=== PATIENT | female | born 1975 | race Caucasian/White ===

== ENCOUNTER 2019-06-19 18:52 | Inpatient (IN) ==
--- NOTE | 2019-06-19 20:38 | PROVIDER DOCUMENTATION ---
HPI-General Adult - General Chief Complaint: Weakness Stated Complaint: Weakness Time Seen by Provider: 06/19/19 18:53 Source: RN notes reviewed, other (caregiver from residential) Allergies/Adverse Reactions: Patient Allergies Allergy/AdvReac Type Severity Reaction Status Date / Time doxepin Allergy Unknown Verified 05/16/19 12:26 morphine Allergy Unknown Verified 05/16/19 12:26 Home Medications: Home Medication List Medication Instructions Recorded Confirmed Last Taken Type Clonazepam 1 mg PO TID 10/24/14 05/16/19 05/15/19 History Divalproex Sodium [Divalproex 500 mg PO TID 10/24/14 05/16/19 05/15/19 History Sodium ER] Docusate Sodium [Dok] 100 mg PO BID 10/24/14 05/16/19 05/15/19 History Paroxetine HCl 1 tab PO BID 10/24/14 05/16/19 05/15/19 History Simethicone [Gas Relief] 125 mg PO 4XDAY 10/24/14 05/16/19 05/15/19 History Omeprazole 40 mg PO DAILY@0700 01/21/15 05/16/19 05/15/19 History Ferrous Sulfate [Iron Supplement] 325 mg PO BID 03/02/15 05/16/19 05/15/19 History Buspirone HCl 10 mg PO TID 12/13/17 05/16/19 05/15/19 History Levothyroxine [Synthroid] 50 microgm PO DAILY@0600 12/13/17 05/16/19 05/15/19 History Megestrol Acetate [Megace Liquid] 800 mg PO DAILY@0700 12/13/17 05/16/19 05/15/19 History Mirtazapine [Remeron] 7.5 mg PO QHS 12/13/17 05/16/19 05/15/19 History Naltrexone [Revia] 50 mg PO DAILY 12/13/17 05/16/19 05/15/19 History Olanzapine Rapdis [Zyprexa Zydis] 10 mg PO BID PRN PRN 12/13/17 05/16/19 05/15/19 History Polyethylene Glycol 3350 [Miralax] 1 dose PO DAILY 12/13/17 05/16/19 05/15/19 History Quetiapine Fumarate [Seroquel] 50 mg PO DAILY 12/13/17 05/16/19 05/15/19 History Quetiapine Fumarate [Seroquel] 200 mg PO QHS 12/13/17 05/16/19 05/15/19 History Hydrocortisone 2.5% Cream 1 applicatn SC BID 09/01/18 05/16/19 05/15/19 History [Anusol-Hc Cream] Doxycycline 100 mg PO BID #14 tab 05/20/19 Unknown Rx Phenylephrine/Acetaminophen/Cp 1 ea PO Q6H PRN #25 tab 05/20/19 Unknown Rx [Norel Ad Tablet] - History of Present Illness -Gen Adult Nature of Presenting Problems: pt. caregiver reports pt had syncopal/near syncopal episode today w/ 30 minute episode of generalized weakness. pt is at baseline MR now, pt has HX of holding breath until she passes out and swallowing air, pt has very distended abdomen at this time. pt caregivers report that her abdomen use to return to normal at night but has continued to be distended for past few weeks. pt does not respond to questions. Location of Pain/Injury: reports: other (unknown, pt does not repond to questions or commands) Similar Symptoms Previously?: Yes (pt has episode of passing out while holding breath) Recently seen or treated by another doctor?: No Review of Systems - Adult - REVIEW OF SYSTEMS - ADULT ROS:: unobtainable per condition Constitutional: reports: no symptoms reported Eyes: reports: no symptoms reported All Other Systems: Reviewed and Negative Past History - Adult - PAST MEDICAL HISTORY-ADULT Review of Records: reports: Old Records Reviewed, Nursing Assessment Review, Medications Reviewed Major Childhood Illnesses: reports: denies history Cardiovascular: reports: denies history Respiratory: reports: denies history Gastrointestinal: reports: GERD, ulcer (helico bacter pylori), other (prolaspe rectum) Obstetrical/Gynecological: reports: denies history Genitourinary: reports: denies history Musculoskeletal: reports: denies history Neurological: reports: cognitive dysfunction (Profound Intellectual Disabiltiy, Mild Myopia), Seizures/Epilepsy, other (cerebal palsy) Psychiatric: reports: anxiety, depression, psychiatric problems Endocrine/Immune: reports: denies history Other Conditions: reports: deaf/hard of hearing, eczema - PRIOR SURGERIES/PROCEDURES Surgical/Procedure History: reports: hysterectomy, bowel surgery (colon resection), other (prolapsed colon; rectal prolapse; gall stones; lithrotripsy) - IMMUNIZATION STATUS Childhood Immunizations: See Nurse Assessment Flu Vaccine: See Nurse Assessment - FAMILY HISTORY Family History: reviewed, not pertinent - SOCIAL HISTORY Smoking: non-smoker Physical Exam-General - PHYSICAL EXAM-ADULT Initial Vital Signs Reviewed: Yes (unable to obtain all VS due to patient resistance to care and aggitation) - CONSTITUTIONAL General Appearance: other (appears at [facility] now per caregiver) - EYES Eyes: PERRL/EOMI, pink conjunctivae - HEAD, EARS, NOSE, MOUTH & THROAT HENMT: normocephalic/atraumatic, moist mucous membranes, pharyngeal erythema, other (pt wearing helmet for self protection) - NECK Neck: non-tender, full range of motion - RESPIRATORY Respiratory: chest non-tender, lungs clear, normal breath sounds, no pleuratic chest pain, no respiratory distress, no accessory muscle use - CARDIOVASCULAR Cardiovascular: normal peripheral pulses, regular rate, rhythm, no edema, no gallop - GASTROINTESTINAL (ABDOMEN) Abdominal Exam: normal bowel sounds, distended (chronic abdomial distension form swallowing air) - LYMPHATIC Lymphatic: no adenopathy - MUSCULOSKELETAL Back Exam: normal inspection Extremity: normal range of motion, normal capillary refill, pelvis stable. negative: pulse deficit, pedal edema, slow capillary refill, swelling Peripheral Pulses: radial (R): 3+, radial (L): 3+, dorsalis-pedis (R): 2+, dorsalis-pedis (L): 2+ - SKIN Integumentary: normal color, normal turgor, warm/dry - NEUROLOGIC Neurologic: other. negative: facial droop, focal weakness, motor weakness (pt at [facility] mentation and affect per caregiver) - PSYCHIATRIC Psych/Mental Status: other (pt at [facility] per caregiver) Progress - PLAN OF CARE/RESULTS Progress/Plan/Lab Results: Vital Signs - 8 hr 06/19/19 18:55 06/19/19 19:09 06/19/19 20:02 Pulse Rate 93 H 122 H Respiratory Rate 19 Blood Pressure 158/110 O2 Sat by Pulse Oximetry 97 100 Laboratory Results - last 24 hr 06/19/19 20:20 POC Glucose 149 H Orders Category Date Time Status ED: Urine Bedside ORDERED Care 06/19/19 18:53 Active KUB ABDOMEN [RAD] Stat Exams 08/16/19 20:29 Ordered CBC WITH ELECTRONIC DIFF [HEME] Stat Lab 06/19/19 20:25 Ordered COMPREHENSIVE METABOLIC PANEL [CHEM] Stat Lab 06/19/19 20:25 Ordered TROPONIN T Stat Lab 06/19/19 20:28 Ordered ua [URINALYSIS PL W/POSS RFLX CULT] [URINALYSIS] Stat Lab 06/19/19 18:52 Uncollected EKG [EKG] Stat Ther 06/19/19 20:29 Ordered Result Diagrams: 06/19/19 20:25 06/19/19 20:25 - REASSESSMENT Reassessment #1 Time Reassessed: 01:00 Status: unchanged - XRAY 1 XRAY Study: Abdomen Impression: Abnormal XRAY Interpretation: constipation, fecal impaction - CT/MRI 1 CT Study: Abdomen Impression: Abnormal Comparison with other Films: no changes CT Results: scattered air levels, distension, no bowel obstruction, similar to past CT - CONSULTS/PCP/HOSPITALIST Notification #1 *Consult/PCP/Hospitalist*: [place] Time Discussed: 01:53 Reason/Comments: leukocytosis, fever, tachycardia, syncopal episode Consult Disposition: Admit Departure - Departure Date of Disposition Decision: 06/19/19 Time of Disposition Decision: 01:54 DIAGNOSIS: Syncope, Constipation, Leukocytosis, Fever, Tachycardia Disposition: ADMITTED INPATIENT 09 Certified Medical Emergency: Emergent Condition: Stable Referrals and Follow-Ups: Miya Pineda CRNP [Primary Care Provider] - - Critical Care Note This patient required my direct & personal management of CC.: No Attestation - Physician/ MOHINI Attestation Patient care was provided by Advanced Practice Provider:: Yes Advanced Practice Provider:: [place] Advanced Practice Provider documentation review:: The Mid-level provider documentation, treatment plan and medical decision making was reviewed by the physician who agrees with all treatment and medical decision making by the P. The physician spent face to face time with patient:: No Advanced Practice Provider documentation review:: Supervising physician onsite and consulted in the evaluation and care of this patient. The physician did not have a face to face encounter with the patient.
[2019-06-19 20:42] LABS: BASO# 0.07 X1000 (0.0-0.2); BASO% 0.4 % (0.0-0.8); EOS# 0.02 X1000 (0.0-0.7); EOS% 0.1 % (0.0-10.0); HEMATOCRIT 39.9 % (37.0-47.0); HEMOGLOBIN 13.2 g/dL (12.0-16.0); IMM GRAN# 0.55 X1000 (0.0-0.04); IMM GRAN% 3.4 % (0.0-0.5); MCH 33.1 PG (27-31); MCHC 33.1 g/dL (33-37); MONO# 1.14 X1000 (0.11-0.59); MPV 10.5 FL (7.4-10.4); NEUT# 11.41 X1000 (1.4-6.5); NEUT% 70.1 % (42.2-75.2); PLT 218 X1000 (130-400); RBC 3.99 XMIL (4.2-5.4); RDW 13.4 % (11.5-14.5); WBC 16.29 X1000 (4.8-10.8)
[2019-06-19 20:54] LABS: ALBUMIN 3.8 g/dL (3.5-5.0); CALCIUM 9.1 mg/dL (8.8-10.2); POTASSIUM 4.6 mmol/L (3.5-5.1); TOTAL BILIRUBIN 0.2 mg/dL (0.20-1.00); TOTAL PROTEIN 6.4 g/dL (6.3-8.3)
[2019-06-19 21:04] LABS: BILIRUBIN URINE NEGATIVE (NEGATIVE); BLOOD URINE NEGATIVE (NEGATIVE); CLARITY CLEAR (CLEAR); COLOR YELLOW; GLUCOSE URINE NEGATIVE (NEGATIVE); KETONE URINE TRACE mg/dL (NEGATIVE); LEUKOCYTES URINE TRACE (NEGATIVE); NITRITE URINE NEGATIVE (NEGATIVE); PH URINE 6.5; PROTEIN URINE TRACE mg/dL (NEGATIVE); SP GRAVITY URINE 1.015; UROBILINOGEN URINE NORMAL
[2019-06-19 21:15] LABS: URINE BACTERIA 1+ /HFP; URINE CAST NONE SEEN /LPF; URINE CRYSTAL NONE SEEN /HPF; URINE EPITHELIAL CELLS >10 /HPF (<10); URINE RBC <10 /HPF (<10); URINE SOURCE CATH; URINE WBC <10 /HPF (<10); URINE YEAST NONE SEEN /HPF
--- NOTE | 2019-06-19 22:02 | Diag Imaging Result Doc PS360 ---
KEN ABDOMEN - 06/19/2019 INDICATION: constipation c flank pain x 4 days COMPARISON: 05/19/2019 FINDINGS: There is extremely severe fecal impaction of the proximal colon and the rectum. IMPRESSION: Extremely severe fecal impaction. Electronically signed by Rex Day 06/19/2019 10:00 PM
[2019-06-20] MEDS ORDERED: NS 1,000 ML IV ONE ×2 (01:45)
[2019-06-20] MEDS ORDERED: TYLENOL PO PRN (01:45)
[2019-06-20] MEDS ORDERED: ZOFRAN IV PRN (01:45)
[2019-06-20] MEDS ORDERED: ZOSYN 3.375 GM in NS 50 ML IV ONE (01:49)
--- NOTE | 2019-06-20 04:18 | EKG Report ---
Test Performed on : 06/20/2019 01:21:11 AM Test Reason : CP Blood Pressure : / mmHG Vent. Rate : 095 BPM Atrial Rate : 095 BPM P-R Int : 116 ms QRS Dur : 068 ms QT Int : 378 ms P-R-T Axes : 061 071 038 degrees QTc Int : 475 ms Normal sinus rhythm. Normal ECG When compared with ECG of 01-SEP-2018 10:50, No significant change was found Unconfirmed Result
[2019-06-20] MEDS ORDERED: VANCOMYCIN IV PER PHARMACY MISC SCH (04:24)
[2019-06-20] MEDS ORDERED: CALMOSEPTINE OINTMENT TOP PRN (04:49)
[2019-06-20] MEDS ORDERED: VANCOMYCIN 1 GM/NS 1 GM/250 ML IVPB IV ONE (06:15)
--- NOTE | 2019-06-20 06:38 | Diag Imaging Result Doc PS360 ---
EXAM: CHEST-PORTABLE HISTORY: elevated HR/and wbc/possible PNA TECHNIQUE: Portable chest single view COMPARISON: 05/19/2019 FINDINGS: Poor inspiratory effort. No cardiomegaly. No pulmonary edema. No pleural effusions identified. Left hemidiaphragm is elevated. Left base granuloma. Possible scarring in the lower lungs. IMPRESSION: Stable chest. Electronically signed by Romel Marsh 06/20/2019 6:36 AM
--- NOTE | 2019-06-20 07:08 | Diag Imaging Result Doc PS360 ---
EXAM: CT ABDOMEN/PELVIS W/O CONTRAST HISTORY: lower abdominal pain/tenderness TECHNIQUE: CT abdomen and pelvis without contrast COMPARISON: 08/29/2017 FINDINGS: There is a large amount of motion on the exam. No focal hepatic, splenic, or pancreatic abnormality identified on this noncontrasted exam. No renal stones. No hydronephrosis. Normal aorta. Normal gallbladder. No ascites. Urinary bladder is moderately distended and appears normal. There is prominent air distended loops of small bowel and colon. There is stool in the proximal colon and distal colon. The appearance of the air distended loops of bowel is similar to the prior exam. No free air. IMPRESSION: Marked air distended small bowel loops and colon similar to the prior study. No definite obstruction. A pulmonary report was given at 11:48 PM on 06/19/2019 This exam was performed using automated exposure control, adjustment of mA or kV according to patient size, and/or use of iterative reconstruction technique. Electronically signed by Romel Marsh 06/20/2019 7:06 AM
[2019-06-20] MEDS ORDERED: VANCOMYCIN 500 MG/NS 500 MG/100 ML IVPB IV ONE (07:15)
[2019-06-20] MEDS ORDERED: ZOSYN 3.375 GM in NS 50 ML IV SCH (08:30)
[2019-06-20] MEDS ORDERED: ATIVAN PO PRN (08:56)
[2019-06-20] MEDS ORDERED: ZYPREXA ZYDIS PO PRN (08:56)
[2019-06-20] MEDS ORDERED: FLEET ENEMA PR ONE (09:02)
--- NOTE | 2019-06-20 09:28 | HISTORY AND PHYSICAL ---
PRIMARY CARE PHYSICIAN: Miya Pineda. CHIEF COMPLAINT: A near syncopal episode with generalized weakness after having a bowel movement. HISTORY OF PRESENTING ILLNESS: This is a 44-year-old female with severe intellectual disabilities, who resides at a long term, presents to [facility] ER after staff reported that she had a large soft. Almost runny bowel movement requiring her to get a shower in order to be cleaned up and, during the shower she became weak, almost passed out, and this happened about 30 minutes prior to coming in. She has a history of holding her breath until she passes out and swallowing air. Her abdomen is noted to be very distended, but has continued to have worsening distention. Her workup showed a white blood cell count of 16.29. Abdomen and pelvic CT showed an impression of marked air distended small bowel loops in colon similar to her prior study, but no definite obstruction. Her abdomen x-ray showed an extremely severe fecal impaction. Her chest x-ray was stable chest, so she was admitted for further evaluation and treatment. PAST MEDICAL HISTORY: Severe intellectual impairment, chronic reflux, history of a rectal prolapse, mild myopia, cerebral palsy, depression, eczema. PAST SURGICAL HISTORY: A hysterectomy, colon resection, prolapsed colon, and had gallstones and lithotripsy. FAMILY HISTORY: Reviewed and noncontributory. SOCIAL HISTORY: She currently resides at a local long term. Denies any tobacco, alcohol or illicit drug use. ALLERGIES: To doxepin and morphine. HOME MEDICATIONS: She takes buspirone 10 mg p.o. t.i.d., clonazepam 1 mg p.o. t.i.d., divalproex sodium 500 mg p.o. t.i.d., Colace 100 mg p.o. b.i.d., iron 325 mg p.o. b.i.d., Anusol HC cream 1 applicator per rectum t.i.d., hydroxyzine 25 mg p.o. b.i.d., Synthroid 50 mcg p.o. daily, lorazepam 1 mg p.o. b.i.d. p.r.n., Megace liquid 800 mg p.o. daily, mirtazapine 7.5 mg p.o. at bedtime, naltrexone 50 mg p.o. daily, Zyprexa 10 mg p.o. b.i.d. p.r.n., omeprazole 40 mg p.o. daily, paroxetine 30 mg p.o. b.i.d., MiraLAX 1 dose daily at 7 a.m., potassium 10 mEq p.o. daily, Seroquel 50 mg p.o. daily at 1 p.m. and Seroquel 200 mg p.o. at 7 p.m., Risperdal 1 mg daily at 7 p.m. and simethicone 125 mg p.o. 4 times daily. LABORATORY DATA: Showed a white blood cell count of 16.29, hemoglobin 13.2, hematocrit 39.9, platelets 218. Sodium 143, potassium 4.6, chloride 104, CO2 23. BUN of 24, creatinine 1, glucose 145. Plasma lactate of 1.7. Cardiac enzymes x2 sets were negative. Urinalysis was negative. DIAGNOSTIC DATA: Abdomen x-ray showed extremely severe fecal impaction. Abdomen and pelvic CT showed marked air distended small bowel loops and colon similar to her prior study from 08/29/2017, but no definite obstruction. Chest x-ray showed a stable chest. EKG showed normal sinus rhythm at 95. REVIEW OF SYSTEMS: Unable to obtain from patient. PHYSICAL EXAMINATION: VITAL SIGNS: Heart rate 93, respirations 19, blood pressure was 158/110, satting 97% on room air. Currently, her blood pressure is 103/67 satting 98% on room air. GENERAL: This is a 44-year-old female lying in the bed and is nonverbal and unable to answer questions. A long term staff member is at the bedside to give some history and also reviewed medical record. HENT: Normocephalic, atraumatic. Normal ENT inspection. Oropharynx and nares are clear. EYES: Pupils are equal, round, reactive to light and accommodation. Extraocular movements are intact. NECK: Normal inspection. Normal range of motion. LUNGS: Clear to auscultation bilaterally with equal lung expansion and chest wall movement. HEART: Regular rate and rhythm. No murmurs, rubs, or gallops. ABDOMEN: Distended. She does have chronic abdominal distention from swallowing air. Bowel sounds are present x4 quadrants. MUSCULOSKELETAL: Normal inspection. Moves all extremities well. NEUROLOGICAL: At baseline mentation and affect per the caregiver. Again, she has severe intellectual impairment and unable to participate in the complete neuro workup, but appears to be grossly intact. ASSESSMENT: 1. Severe fecal impaction. 2. Leukocytosis, most likely reactive. 3. A presyncope episode, resolved. PLAN: She was admitted, placed on a pureed diet. Urine culture is pending. Normal saline at 100 mL an hour. We are going to give her a Fleets enema today and, if she has a good bowel movement, we will check another abdomen x-ray, and recheck labs in the a.m. of a CBC and a BMP. Dictated by ROGER Laboy for Denys Pinedo MD cc: ROGER Laboy MD
[2019-06-20] MEDS: KLONOPIN PO SCH ×3 (11:14→18:26)
[2019-06-20] MEDS: ATARAX PO SCH ×2 (11:14→18:26)
[2019-06-20] MEDS: COLACE PO SCH ×2 (11:14→18:27)
[2019-06-20] MEDS: PAXIL PO SCH ×2 (11:14→18:27)
[2019-06-20] MEDS: MYLICON PO SCH ×4 (11:14→18:27)
[2019-06-20] MEDS: FERROUS SULFATE PO SCH ×2 (11:14→17:53)
[2019-06-20] MEDS: DEPAKOTE ER PO SCH ×3 (11:15→18:27)
[2019-06-20] MEDS: ANUSOL-HC CREAM PR SCH ×3 (11:15→21:25)
[2019-06-20] MEDS: BUSPAR PO SCH ×3 (11:16→18:26)
[2019-06-20] MEDS ORDERED: B & O 15A SUPP PR PRN (11:20)
[2019-06-20] MEDS ORDERED: DULCOLAX PR ONE (14:16)
[2019-06-20] MEDS: SEROQUEL PO SCH ×2 (15:33→18:27)
[2019-06-20] MEDS: RISPERDAL PO SCH (18:27)
[2019-06-20] MEDS: REMERON PO SCH (21:25)
[2019-06-21] MEDS: SYNTHROID PO SCH (05:36)
[2019-06-21] MEDS: VANCOMYCIN 1 GM/NS 1 GM/250 ML IVPB IV SCH (05:36)
[2019-06-21 05:58] LABS: BASO# 0.07 X1000 (0.0-0.2); BASO% 0.9 % (0.0-0.8); EOS# 0.18 X1000 (0.0-0.7); EOS% 2.2 % (0.0-10.0); HEMATOCRIT 37.9 % (37.0-47.0); HEMOGLOBIN 12.3 g/dL (12.0-16.0); IMM GRAN# 0.24 X1000 (0.0-0.04); IMM GRAN% 2.9 % (0.0-0.5); LYMPH# 2.64 X1000 (1.2-3.4); LYMPH% 32.4 % (20.5-51.1); MCH 33.2 PG (27-31); MCHC 32.5 g/dL (33-37); MCV 102.2 FL (81-99); MONO% 8.6 % (1.7-9.3); MPV 10.5 FL (7.4-10.4); NEUT# 4.32 X1000 (1.4-6.5); PLT 223 X1000 (130-400); RBC 3.71 XMIL (4.2-5.4); RDW 13.9 % (11.5-14.5); WBC 8.15 X1000 (4.8-10.8)
[2019-06-21] MEDS: BUSPAR PO SCH ×3 (06:10→18:11)
[2019-06-21] MEDS: ATARAX PO SCH ×2 (06:10→18:11)
[2019-06-21] MEDS: REVIA PO SCH (06:10)
[2019-06-21] MEDS: ANUSOL-HC CREAM PR SCH ×3 (06:10→20:41)
[2019-06-21] MEDS: KLONOPIN PO SCH ×3 (06:11→18:11)
[2019-06-21] MEDS: DEPAKOTE ER PO SCH ×3 (06:11→20:41)
[2019-06-21] MEDS: KLOR-CON PO SCH (06:11)
[2019-06-21] MEDS: COLACE PO SCH ×2 (06:11→18:12)
[2019-06-21] MEDS: MYLICON PO SCH ×4 (06:11→20:41)
[2019-06-21] MEDS: MEGACE LIQUID PO SCH (06:11)
[2019-06-21] MEDS: MIRALAX PO SCH (06:11)
[2019-06-21] MEDS: PRILOSEC PO SCH (06:11)
[2019-06-21] MEDS: PAXIL PO SCH ×2 (06:12→18:11)
[2019-06-21 06:31] LABS: AGAP 9; BUN 7 mg/dL (8-22); CALCIUM 8.5 mg/dL (8.8-10.2); CHLORIDE 104 mmol/L (98-107); COSMO 278; CREATININE 0.6 mg/dL (0.5-0.9); ESTIMATED GFR > 60; GLUCOSE 107 mg/dL (70-104); POTASSIUM 3.8 mmol/L (3.5-5.1); SODIUM 140 mmol/L (136-145); TCO2 27 mmol/L (25-35)
[2019-06-21] MEDS: FERROUS SULFATE PO SCH ×2 (09:39→17:18)
[2019-06-21] MEDS: SEROQUEL PO SCH ×2 (13:28→18:11)
--- NOTE | 2019-06-21 15:32 | Diag Imaging Result Doc PS360 ---
KUB ABDOMEN - 06/21/2019 INDICATION: constipation COMPARISON: 06/19/2019 FINDINGS: There is extremely severe diffuse gaseous distention of the colon. There are probably also distended small bowel loops. There is fecal impaction of the proximal colon stable from prior. No definite free air. IMPRESSION: Severely abnormal. Little change from prior. Electronically signed by Rex Day 06/21/2019 3:30 PM
--- NOTE | 2019-06-21 15:48 | PROGRESS NOTE ---
DATE: 06/21/2019 SUBJECTIVE: The patient is nonverbal. The sitter notes that her abdomen is still distended. She did have a bowel movement last night. OBJECTIVE: Vital signs: Temperature 98.4, pulse 77, respiratory rate 18, BP 118/80. General: Patient is in no current respiratory distress. She is nontoxic in appearance. HEENT: Normocephalic. Neck: Supple. Cardiovascular: Regular rate. Chest: Clear, nonlabored. Abdomen: Distended. Appears nontender. Positive bowel sounds. No fluid wave. Extremities: Moves all extremities. No edema. Neurologic: No focal changes. ASSESSMENT AND PLAN: 1. Severe intellectual impairment. The patient is nonverbal. 2. Fecal impaction. I am going to repeated a KUB and see if this is resolved. She did have a large bowel movement yesterday. 3. Abdominal distention. Unsure how much this will actually improve. Patient unfortunately frequently gasps and gulps air causing her abdomen to distend. 4. Leukocytosis. We will recheck labs. cc: Denys Pinedo MD
[2019-06-21] MEDS ORDERED: FLEET ENEMA PR ONE (17:32)
[2019-06-21] MEDS: RISPERDAL PO SCH (18:12)
[2019-06-21] MEDS: REMERON PO SCH (20:41)
[2019-06-22] MEDS: VANCOMYCIN 1 GM/NS 1 GM/250 ML IVPB IV SCH (05:13)
[2019-06-22] MEDS: ANUSOL-HC CREAM PR SCH ×2 (06:48→18:03)
[2019-06-22] MEDS: REVIA PO SCH (06:49)
[2019-06-22] MEDS: PAXIL PO SCH ×2 (06:49→18:04)
[2019-06-22] MEDS: MIRALAX PO SCH ×2 (06:49→22:49)
[2019-06-22] MEDS: MEGACE LIQUID PO SCH (06:49)
[2019-06-22] MEDS: COLACE PO SCH ×2 (06:50→18:05)
[2019-06-22] MEDS: KLOR-CON PO SCH (06:50)
[2019-06-22] MEDS: BUSPAR PO SCH ×3 (06:50→18:05)
[2019-06-22] MEDS: KLONOPIN PO SCH ×3 (06:50→18:06)
[2019-06-22] MEDS: ATARAX PO SCH ×2 (06:50→18:05)
[2019-06-22] MEDS: SYNTHROID PO SCH (06:50)
[2019-06-22] MEDS: PRILOSEC PO SCH (06:50)
--- NOTE | 2019-06-22 08:56 | HISTORY AND PHYSICAL ---
Patient seen and examined by myself. Full note dictated and discussed with nurse practitioner. The patient apparently had a near syncopal episode at home with approximately 30 minutes of weakness. This appeared to occur after she had an explosive bowel movement. She unfortunately has a distended abdomen which is very common for her due to air swallowing. In fact, she will breath hold until she passes out. I expect the episode earlier was a vasovagal response to a large bowel movement. We are going to admit her to the hospital. Currently all of her labs and everything are normal. X-ray shows distended colon due to air. I am going to try an enema and see if we can get her to pass some of this gas. cc: Denys Pinedo MD
[2019-06-22] MEDS: FERROUS SULFATE PO SCH (10:04)
[2019-06-22] MEDS ORDERED: NS 1,000 ML IV SCH (12:00)
--- NOTE | 2019-06-22 12:32 | Diag Imaging Result Doc PS360 ---
EXAM: CHEST-PORTABLE INDICATION: NG tube placement TECHNIQUE: One view COMPARISON: 06/20/2019 FINDINGS: The newly placed NG tube projects well below the diaphragm and assumed to be in the lumen of the stomach in the expected position. There is a stable calcified granuloma at the left lung base. The lungs are grossly clear. There is no discrete pleural fluid collection or pneumothorax. The cardiomediastinal silhouette and central vasculature are grossly unremarkable. IMPRESSION: Interval placement of NG tube in expected position as described. No evidence of acute chest pathology. Electronically signed by Tez Tiwari 06/22/2019 12:29 PM
[2019-06-22] MEDS ORDERED: MEFOXIN 2 GM/NS 2 GM/50 ML IVPB IV ONE (12:33)
--- NOTE | 2019-06-22 12:35 | Diag Imaging Result Doc PS360 ---
EXAM: KUB ABDOMEN INDICATION: evaluate for Free air TECHNIQUE: One view COMPARISON: 06/21/2019 FINDINGS: There is marked gaseous distention of the colon, stomach, and loops of small bowel that appears very similar to the previous study. No large volume free abdominal gas can be identified, however. The newly placed NG tube is well below the diaphragm and is assumed to be in the lumen of the stomach. IMPRESSION: Stable marked gaseous distention of the colon, stomach, and loops of small bowel. No free abdominal gas is appreciated by plain radiograph. Electronically signed by Tez Tiwari 06/22/2019 12:33 PM
[2019-06-22] MEDS ORDERED: DIPRIVAN 1% ONE (12:37)
[2019-06-22] MEDS ORDERED: QUELICIN (DOSE) ONE (12:38)
[2019-06-22] MEDS ORDERED: XYLOCAINE-MPF 2% ONE (12:38)
[2019-06-22 12:39] LABS: INR 1.06
[2019-06-22 12:47] LABS: AGAP 12; ALB/GLOB RATIO 1.3; ALKALINE PHOSPHATASE 80 U/L (32-104); BUN 7 mg/dL (8-22); CALCIUM 9.3 mg/dL (8.8-10.2); CHLORIDE 98 mmol/L (98-107); COSMO 276; CREATININE 0.8 mg/dL (0.5-0.9); ESTIMATED GFR > 60; GLUCOSE 105 mg/dL (70-104); GOT 18 U/L (10-30); GPT 12 U/L (10-36); POTASSIUM 3.7 mmol/L (3.5-5.1); SODIUM 139 mmol/L (136-145); TCO2 29 mmol/L (25-35); TOTAL BILIRUBIN 0.49 mg/dL (0.20-1.00); TOTAL PROTEIN 7.2 g/dL (6.3-8.3)
[2019-06-22] MEDS ORDERED: KETAMINE ONE (13:03)
[2019-06-22 13:07] LABS: BASO# 0.04 X1000 (0.0-0.2); BASO% 0.2 % (0.0-0.8); EOS# 0.11 X1000 (0.0-0.7); EOS% 0.5 % (0.0-10.0); HEMATOCRIT 43.8 % (37.0-47.0); HEMOGLOBIN 14.2 g/dL (12.0-16.0); IMM GRAN# 0.15 X1000 (0.0-0.04); IMM GRAN% 0.7 % (0.0-0.5); LYMPH# 3.24 X1000 (1.2-3.4); LYMPH% 15.3 % (20.5-51.1); MCH 32.7 PG (27-31); MCHC 32.4 g/dL (33-37); MCV 100.9 FL (81-99); MONO# 1.01 X1000 (0.11-0.59); MONO% 4.8 % (1.7-9.3); MPV 10.1 FL (7.4-10.4); NEUT# 16.68 X1000 (1.4-6.5); NEUT% 78.5 % (42.2-75.2); PLT 264 X1000 (130-400); RBC 4.34 XMIL (4.2-5.4); RDW 13.7 % (11.5-14.5); WBC 21.23 X1000 (4.8-10.8)
[2019-06-22] MEDS ORDERED: ALBUMIN 25% ONE (13:08)
[2019-06-22] MEDS ORDERED: ATIVAN PO PRN (13:12)
[2019-06-22] MEDS ORDERED: CALMOSEPTINE OINTMENT TOP PRN (13:13)
[2019-06-22 13:15] LABS: BANDS 6 % (0-1); LYMPHS 20 % (21-51); MONO 6 % (1-9); SEGS 68 % (42-75)
[2019-06-22] MEDS ORDERED: ZOFRAN ONE (13:18)
[2019-06-22] MEDS ORDERED: OFIRMEV 1000 MG/ISOTONIC SOLN 1,000 MG/100 ML BOTTLE ONE (13:18)
[2019-06-22] MEDS ORDERED: TYLENOL PO PRN (13:27)
[2019-06-22] MEDS ORDERED: ZEMURON ONE (13:39)
--- NOTE | 2019-06-22 13:48 | GENERAL SURGERY CONSULTATION ---
DATE: 06/22/2019 REQUESTING PHYSICIAN: Dr. Grimm. REASON FOR CONSULTATION: Significant abdominal distention, possible perforation. HISTORY OF PRESENT ILLNESS: Patient is a 44-year-old female with severe intellect, disability, who lives in a shelter, who presented with abdominal distention and constipation. She has had significant worsening of abdominal distention to the point that her colon looks to be over 12 cm in diameter. Today, she started developing tachycardia and significant more agitation. Again, she is nonverbal, so I cannot get a full history, but the caregiver at the bedside takes care of her at the shelter said she is overall worsening. There is no family members at the bedside currently. PAST MEDICAL HISTORY: 1. Severe intellect impairment. 2. Chronic reflux. 3. History of rectal prolapse. 4. Mild myopia. 5. Cerebral palsy. 6. Depression. 7. Eczema. PAST SURGICAL HISTORY: 1. Hysterectomy. 2. Colon resection. 3. Cholecystectomy. FAMILY HISTORY: Unable to obtain. SOCIAL HISTORY: Lives in a shelter. ALLERGIES: Doxepin and Morphine. HOME MEDICATIONS: Full list reviewed. REVIEW OF SYSTEMS: Unable to obtain. PHYSICAL EXAMINATION: Vital Signs: Patient is currently with a temperature is 98.9 degrees, pulse is tachycardic at 155, blood pressure 106/79. General: Acutely ill female looks stated age. HEENT: Normocephalic, atraumatic. Pupils equal, round, reactive to light. Mucous membranes moist. Oropharynx benign. Neck: Supple. Trachea midline. Cardiovascular: Tachycardic. Lungs: Grossly clear. Abdomen: Significantly distended and tender to palpation. Extremities: Moves all extremities. NEUROLOGIC: Baseline impairment.Skin: No signs of jaundice. Vascular: All extremities perfused. LABORATORY: White blood cell count 8, hematocrit 37, platelet count 223,000. These labs were all from yesterday. Lactic acid is pending. Abdominal films from this morning show significant distention, but no free air. ASSESSMENT AND PLAN: 44-year-old with significant distention, possible ischemic bowel and perforation. 1. Abdominal distention at this time, given patient's tachycardia, overall clinical decline and situation think it best to do emergent procedure. There is no immediate family available. The distribution supervisor of her shelter was present and tried to contact her sister, but she is unavailable. Given this some I am deeming this emergent. I had a discussion with Dr. Grimm who has also seen the patient and we will plan on surgical intervention done emergently by 2 physician consent. 2. Discussed with the caregivers the need for a total abdominal colectomy. We will get that done today. We will get her in and out of the operating room here emergently. cc: Clint Lange MD
[2019-06-22 14:12] LABS: URINE SOURCE CATH
[2019-06-22] MEDS ORDERED: BRIDION ONE (14:17)
[2019-06-22] MEDS ORDERED: DILAUDID ONE (14:34)
[2019-06-22 14:36] LABS: BILIRUBIN URINE NEGATIVE (NEGATIVE); BLOOD URINE NEGATIVE (NEGATIVE); COLOR YELLOW; GLUCOSE URINE NEGATIVE (NEGATIVE); KETONE URINE NEGATIVE (NEGATIVE); LEUKOCYTES URINE NEGATIVE (NEGATIVE); NITRITE URINE NEGATIVE (NEGATIVE); PH URINE 7.5; PROTEIN URINE NEGATIVE (NEGATIVE); SP GRAVITY URINE 1.015; TURBIDITY URINE CLEAR (CLEAR); UROBILINOGEN URINE NORMAL (NORMAL)
[2019-06-22 14:37] LABS: UR EPITHELIAL CELLS <10 /HPF (<10); URINE BACTERIA NEGATIVE /HPF; URINE RBC <10 /HPF (<10); URINE WBC <10 /HPF (<10)
[2019-06-22] MEDS ORDERED: FERROUS SULFATE PO SCH (16:00)
[2019-06-22] MEDS: NS 1,000 ML IV SCH (17:49)
--- NOTE | 2019-06-22 17:55 | GASTROENTEROLOGY CONSULTATION ---
DATE: 06/22/2019 ATTENDING PHYSICIAN: Dr. Guy PRIMARY CARE PROVIDER: Nurse practitioner, [facility] Pineda. REASON FOR CONSULTATION: Constipation, abdominal distention. HISTORY OF PRESENT ILLNESS: Ms. Singh is a 44-year-old female who was admitted on 06/20/2019 for a near syncopal episode with generalized weakness after having a bowel movement. The patient has intellectual disability. She lives at a longterm. Her caregiver is present at the bedside. According to the patient's caregiver, the patient has chronic abdominal distention which has gotten worse and she has had a history of chronic constipation. There is documentation of imaging done during this admission with evidence of constipation in the colon and markedly air distended small bowel loops in the colon, similar to prior study. No definite obstruction was noted on the CT scan which was done on 06/20/2019. The CT scan also showed evidence of stool in the proximal colon and distal colon. Subsequently to that, the patient had an abdominal x- ray done yesterday which showed extremely severe diffuse gaseous distention of the colon. There are probably also distended small bowel loops. There is fecal impaction of the proximal colon, stable from prior. No definite free air. Most of the history was obtained from the patient's caregiver, and the records and the nursing staff. The patient is nonverbal. PAST MEDICAL HISTORY: Severe intellectual impairment, chronic reflux, history of rectal prolapse, mild myopia, cerebral palsy, depression, eczema, chronic constipation, and abdominal distention. PAST SURGICAL HISTORY: Hysterectomy, colon resection, prolapse colon surgery, gallstone surgery, lithotripsy. FAMILY HISTORY: Noncontributory. SOCIAL HISTORY: She currently resides at a local longterm. No history of tobacco, alcohol, or illicit drugs. ALLERGIES: Doxepin and morphine. MEDICATIONS IN THE HOSPITAL: Include Remeron, Tylenol, BuSpar, Klonopin, Depakote, Colace 100 mg p.o. b.i.d., ferrous sulfate 325 mg p.o. b.i.d., hydrocortisone 2.5% cream t.i.d., Atarax 25 mg p.o. b.i.d., Synthroid 50 mcg p.o. daily, Ativan 1 mg p.o. b.i.d., Megace 800 mg p.o. daily, Ventolin, zinc oxide ointment topical as needed, naltrexone 50 mg p.o. daily, olanzapine, omeprazole 40 mg daily, Zofran 4 mg IV every 4 hours needed, paroxetine. Pharmacy dosing for vancomycin, potassium chloride, Seroquel, Risperdal, and simethicone chews, and vancomycin IV once daily, and Fleet's enema given once yesterday, and Dulcolax was started at 10 mg per rectal b.i.d., and MiraLAX 17 g p.o. b.i.d. DIET: She is on a pureed diet. REVIEW OF SYSTEMS: Limited as the patient is nonverbal. PHYSICAL EXAMINATION: Vital Signs: Temperature 98.9 degrees, pulse rate of 150, respiratory rate of 20, blood pressure 106/79, saturating 97% on room air. Body weight of 153 pounds and 11.2 ounces. BMI of 28 kg/m2. General Appearance: Moderately built, moderately nourished, lying in bed. She is nonverbal. HEENT: No pallor. No icterus. Pupils equal, reactive to light. Neck: Supple. Abdomen: Diffuse distention. Some guarding noted in the periumbilical region. Extremities: No cyanosis, clubbing, edema. Neurologic: She has intellectual impairment. She is nonverbal. LABS: Hemoglobin and hematocrit are 12.2 and 37.9, white count of 8.15, platelet count of 223,000. Sodium 140, potassium 3.8, chloride 104, bicarb 27, anion gap of 9, BUN of 7, creatinine 0.6, glucose 107, calcium 8.5. AST 19, ALT 10, alkaline phosphatase 72, total protein 6.4, albumin 3.8, lactate of 1.7. Urinalysis showing trace protein, trace white cells. Urine culture showing no growth. Abdominal x-ray and CT scan as described in the HPI. Chest x-ray showed poor inspiratory effort. No cardiomegaly and no pulmonary edema. Left hemidiaphragm is elevated. Left base granuloma, possible scarring in the lower lungs. IMPRESSION AND PLAN: 1. Fecal impaction in the proximal colon. 2. Severe abdominal distention and evidence of severe colonic and small bowel distention on imaging. 3. Severe intellectual impairment. 4. Baseline nonverbal state. 5. Cerebral palsy. 6. Leukocytosis. 7. Tachycardia and possible dehydration on admission. RECOMMENDATIONS: We will start her on IV fluids at 100 mL per hour. We will insert an NG tube for intermittent suction. We will start her on MiraLAX 17 g p.o. b.i.d. We will start on Dulcolax per rectal b.i.d. We will obtain a STAT abdominal x-ray. She will need serial abdominal exams per the nursing staff. We will call a general surgery consult. We will discontinue opium/belladonna suppository. We will also repeat her lactate level. We will check labs for today. I have spoken with the patient's nurse at the bedside and have spoken to the patient's caregiver at bedside. There is a risk of bowel ischemia from chronic worsening distention, and also there is a risk of bowel perforation as well. We will involve general surgery. We will follow along. The above plan was discussed with the patient's caregiver at bedside and the nursing staff, and all questions were answered. Please call with any further questions. cc: MD Abdoulaye Kenny MD MTDD
[2019-06-22] MEDS: DULCOLAX PR SCH ×2 (17:59→22:49)
[2019-06-22] MEDS: SEROQUEL PO SCH ×2 (18:01→18:04)
[2019-06-22] MEDS: DEPAKOTE ER PO SCH ×2 (18:02→18:06)
[2019-06-22] MEDS: MYLICON PO SCH ×2 (18:02→18:06)
[2019-06-22] MEDS: MEFOXIN 2 GM in D5W 50 ML IV SCH (18:26)
[2019-06-22] MEDS ORDERED: RISPERDAL PO SCH (19:00)
--- NOTE | 2019-06-22 19:19 | OPERATIVE NOTE ---
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 PROCEDURE: Open total abdominal colectomy. SURGEON: Clint Lange MD RECOVERY COLLECTOR: Nancy Reynolds MD. Dr. Reynolds assisted with the menendez aspects of the case. His presence was crucial to the completion of the case. ANESTHESIA: General endotracheal. INTRAOPERATIVE FINDINGS: Toxic megacolon. COMPLICATIONS: None at the time of dictation. ESTIMATED BLOOD LOSS: 100 mL. SPECIMEN: Colon. DRAINS: 10-Omani flat. BRIEF HISTORY: A 44-year-old nonverbal female with significant mental impairment, who has had issues with bowel movement. She had a significant abdominal distention, developed tachycardia and abdominal pain, and it was felt that she had toxic megacolon. It was felt that she would benefit from exploratory laparotomy. The risks, benefits, and alternatives could not be discussed with the patient, given her mental capacity; we talked with her caregiver and the cloth mercerizing supervisor of the facility, given the fact that there was no immediate kin available. We made this an emergent consent. I discussed it with Dr. Grimm with Gastroenterology, and he agreed so emergent consent was obtained. DESCRIPTION OF PROCEDURE: After informed and emergent consent was obtained, patient was brought to the operative theatre, transferred to the operating table in supine position. General endotracheal anesthesia was then performed without complication. A formal time- out was then performed, confirming patient, date, and procedure. All were in agreement. At that time, attention was taken to the abdomen, where we made a standard midline incision which we extended both proximally and distally in the abdomen. Upon entering, we eviscerated a large distended colon. There were no masses down the sigmoid colon to cause an obstruction. We evaluated this, and felt that given the colonic inertia, she needed total abdominal colectomy. We started at the right colon. I took down the terminal ileum, made a hole, used a stapler to come across the terminal ileum, and then with a combination of electrocautery and LigaSure, came across the white line of Toldt all the way to hepatic flexure, came across the hepatic flexure mesentery, brought it all the way up to the splenic flexure. We then started distally at the rectosigmoid junction. We mobilized it. We then used the stapler across the rectum and took 2 firings, but we were able to get across it completely. We then used the LigaSure and the electrocautery to mobilize the sigmoid, descending, and splenic flexure completely, and then came across and met where we had done the hepatic flexure of the transverse colon. We maintained hemostasis with electrocautery. We eviscerated and removed the whole colon. We then irrigated out the abdomen copiously, did not see any other pathology. Again, did not see any masses. We then made a spot in the right lower quadrant for an ileostomy, made the hole in the lateral border of the rectus and made a small fascial incision which was 2 fingerbreadths. We brought the terminal ileum for an ileostomy correctly up through the incision. We then irrigated out the abdomen and then closed it with a running loop PDS. We then closed the skin with apolinar. We then matured and brooked the ileostomy. The patient tolerated the procedure well and was transferred back to the recovery room. cc: MD ISABELLE Adler
--- NOTE | 2019-06-22 19:32 | PROGRESS NOTE ---
DATE: 06/22/2019 SUBJECTIVE: The patient is nonverbal. The staff notes that she did have a bowel movement yesterday. OBJECTIVE: Vital signs: Temperature 98.4, pulse 77, respiratory rate 18, blood pressure 118/80. General: Patient is in no current respiratory distress. She is awake and alert. She does not follow any commands nor answer any questions. HEENT: Normocephalic. Neck: Supple. Cardiovascular: Regular rate. Chest: Clear, nonlabored. Abdomen: Soft. Actually appears more distended today than it did yesterday. Yesterday's exam it appeared to be improving. Appears nontender. Extremities: Moves all extremities. ASSESSMENT AND PLAN: 1. Abdominal distention with severe constipation and fecal impaction. 2. Intellectual disability. At this point we are going to transfer her to [facility] for GI input and assistance. cc: Denys Pinedo MD
[2019-06-22] MEDS: ZOFRAN IV PRN (20:27)
[2019-06-22] MEDS: HEPARIN SUBQ SCH (20:27)
[2019-06-22] MEDS: DILAUDID IV PRN (20:27)
[2019-06-22 20:28] LABS: INR 1.29; PROTIME 16.3 Seconds (11.0-16.0)
[2019-06-22 20:29] LABS: PTT 29.5 Seconds (22.3-41.8)
[2019-06-22 20:39] LABS: BASO# 0.02 X1000 (0.0-0.2); BASO% 0.2 % (0.0-0.8); EOS# 0.03 X1000 (0.0-0.7); EOS% 0.3 % (0.0-10.0); HEMATOCRIT 34.8 % (37.0-47.0); HEMOGLOBIN 11.1 g/dL (12.0-16.0); IMM GRAN# 0.06 X1000 (0.0-0.04); IMM GRAN% 0.7 % (0.0-0.5); LYMPH# 1.22 X1000 (1.2-3.4); LYMPH% 13.3 % (20.5-51.1); MCH 32.4 PG (27-31); MCHC 31.9 g/dL (33-37); MCV 101.5 FL (81-99); MONO# 0.27 X1000 (0.11-0.59); MONO% 2.9 % (1.7-9.3); MPV 10.4 FL (7.4-10.4); NEUT# 7.58 X1000 (1.4-6.5); NEUT% 82.6 % (42.2-75.2); PLT 214 X1000 (130-400); RBC 3.43 XMIL (4.2-5.4); RDW 13.5 % (11.5-14.5); WBC 9.18 X1000 (4.8-10.8)
[2019-06-22 20:43] LABS: AGAP 9; ALBUMIN 2.8 g/dL (3.5-5.0); ALKALINE PHOSPHATASE 48 U/L (32-104); BUN 5 mg/dL (8-22); CALCIUM 8.2 mg/dL (8.8-10.2); CHLORIDE 104 mmol/L (98-107); CK PROFILE 57 U/L (24-173); COSMO 281; CREATININE 0.7 mg/dL (0.5-0.9); ESTIMATED GFR > 60; GLUCOSE 143 mg/dL (70-104); GOT 15 U/L (10-30); GPT 8 U/L (10-36); POTASSIUM 4.2 mmol/L (3.5-5.1); SODIUM 141 mmol/L (136-145); TCO2 28 mmol/L (25-35); TOTAL BILIRUBIN 0.57 mg/dL (0.20-1.00); TOTAL PROTEIN 4.2 g/dL (6.3-8.3)
[2019-06-22] MEDS ORDERED: REMERON PO SCH (21:00)
[2019-06-22 21:53] LABS: URINE SOURCE CATH
[2019-06-22 22:07] LABS: BILIRUBIN URINE NEGATIVE (NEGATIVE); BLOOD URINE NEGATIVE (NEGATIVE); COLOR ORANGE; GLUCOSE URINE NEGATIVE (NEGATIVE); KETONE URINE NEGATIVE (NEGATIVE); LEUKOCYTES URINE NEGATIVE (NEGATIVE); NITRITE URINE NEGATIVE (NEGATIVE); PH URINE 6.5; PROTEIN URINE NEGATIVE (NEGATIVE); SP GRAVITY URINE 1.024; TURBIDITY URINE CLEAR (CLEAR); UROBILINOGEN URINE NORMAL (NORMAL)
[2019-06-22 22:08] LABS: UR EPITHELIAL CELLS <10 /HPF (<10); URINE BACTERIA NEGATIVE /HPF; URINE RBC <10 /HPF (<10); URINE WBC <10 /HPF (<10)
[2019-06-22] MEDS: PERIDEX MT SCH (22:49)
[2019-06-23] MEDS: MEFOXIN 2 GM in D5W 50 ML IV SCH ×3 (00:49→18:44)
[2019-06-23] MEDS: HEPARIN SUBQ SCH ×3 (04:10→23:58)
[2019-06-23] MEDS: DILAUDID IV PRN ×3 (04:10→11:22)
[2019-06-23] MEDS: ZOFRAN IV PRN (04:10)
[2019-06-23] MEDS: NS 1,000 ML IV SCH ×3 (04:13→23:57)
[2019-06-23] MEDS ORDERED: VANCOMYCIN 1 GM/NS 1 GM/250 ML IVPB IV SCH (06:00)
[2019-06-23] MEDS ORDERED: SYNTHROID PO SCH (06:00)
--- NOTE | 2019-06-23 06:16 | GENERAL SURGERY PROGRESS NOTE ---
DATE: 06/23/2019 SUBJECTIVE: Patient seems to be doing okay. OBJECTIVE: Vital Signs: Patient is currently afebrile. Her vital signs are stable. She does have a low tachycardia in the 110s. Cardiovascular: Some mild tachycardia. Lungs: Grossly clear. Abdomen: Soft, less distended. Ileostomy appears viable but edematous. Serosanguineous output from weeping from the ostomy and the noted JACOB drain down above the rectum appears to have serosanguineous output. ASSESSMENT AND PLAN: A 44-year-old status post total abdominal colectomy. Total abdominal colectomy, currently postoperative day #1. At this time, we will await return of bowel function. She seems to be doing okay. We will monitor her closely. She does have a drain down by her rectal stump. We will see how that does in the next several days. We will await return of bowel function and keep her nasogastric tube in place. cc: Clint Lange MD
[2019-06-23] MEDS: ATARAX PO SCH (06:54)
[2019-06-23] MEDS: PAXIL PO SCH ×2 (06:54→19:53)
[2019-06-23] MEDS: BUSPAR PO SCH (06:54)
[2019-06-23] MEDS: KLONOPIN PO SCH (06:54)
[2019-06-23] MEDS: DEPAKOTE ER PO SCH (06:55)
[2019-06-23] MEDS: REVIA PO SCH (06:55)
[2019-06-23] MEDS: MYLICON PO SCH ×3 (06:55→19:53)
[2019-06-23] MEDS: COLACE PO SCH (06:56)
[2019-06-23] MEDS ORDERED: KLOR-CON PO SCH (07:00)
[2019-06-23] MEDS ORDERED: PRILOSEC PO SCH (07:00)
[2019-06-23] MEDS ORDERED: MEGACE LIQUID PO SCH (07:00)
--- NOTE | 2019-06-23 09:03 | Diag Imaging Result Doc PS360 ---
EXAM: KUB ABDOMEN INDICATION: evaluate for constipation or obstruction TECHNIQUE: One view COMPARISON: 06/22/2019 FINDINGS: There has been an interval laparotomy. There are skin apolinar along the midline and a JACOB drain is in place projecting over the pelvis. There is still gaseous distention of multiple loops of small bowel as well as the colon. However, the degree of colonic distention has improved. Otherwise, the abdomen is grossly stable. IMPRESSION: Interval laparotomy changes with improvement of gaseous distention of the colon. Electronically signed by Tez Tiwari 06/23/2019 9:01 AM
--- NOTE | 2019-06-23 09:55 | PROVIDER PROGRESS NOTE ---
Progress Note S: Patient underwent total abdominal colectomy with end-ileostomy yesterday. No acute overnight events. NGT in place. Patient unable to provide ROS. O: Last Vital Signs Temp 98.5 F 06/23/19 08:24 Pulse 121 H 06/23/19 08:24 Resp 24 06/23/19 08:24 BP 137/85 06/23/19 08:24 Pulse Ox 10 L 06/23/19 08:24 Height 5 ft 2 in Weight 153 lb 11.2 oz GEN: awake, NAD HEENT: anicteric, NGT in place NECK: supple CV: tachycardic, regular PULM: mild resp distress, CTAB anteriorly ABD: obese, lap incision with saturated dressing and suprapubic drain in place, RLQ end-ileostomy with serosanginous fluid in bag EXT: no cce LABS: no AM labs IMAGING: EXAM: KUB ABDOMEN INDICATION: evaluate for constipation or obstruction TECHNIQUE: One view COMPARISON: 06/22/2019 FINDINGS: There has been an interval laparotomy. There are skin apolinar along the midline and a JACOB drain is in place projecting over the pelvis. There is still gaseous distention of multiple loops of small bowel as well as the colon. However, the degree of colonic distention has improved. Otherwise, the abdomen is grossly stable. IMPRESSION: Interval laparotomy changes with improvement of gaseous distention of the colon. A/P Ms. Clau Singh is a 44 year old woman with CP, MR, and chronic constipation who presented with severe fecal impaction with ileus of the colon and SB that did was not improving with conservative mgmt. The patient was seen by general surgery and underwent total abdominal colectomy with end-ileostomy secondary for concern for impending colonic perforation. She is on ppx antibiotics. Currently, NPO. Recommend trending lytes and repleting prn, analgesic, IVFs, NGT to LIWS, and post-operative mgmt as per surgery. Will sign off. Please call with questions.
[2019-06-23 10:16] LABS: BASO# 0.04 X1000 (0.0-0.2); BASO% 0.3 % (0.0-0.8); EOS# 0.09 X1000 (0.0-0.7); EOS% 0.7 % (0.0-10.0); HEMATOCRIT 37.6 % (37.0-47.0); HEMOGLOBIN 12.4 g/dL (12.0-16.0); IMM GRAN# 0.19 X1000 (0.0-0.04); IMM GRAN% 1.4 % (0.0-0.5); LYMPH# 1.75 X1000 (1.2-3.4); LYMPH% 13.1 % (20.5-51.1); MCH 32.6 PG (27-31); MCV 98.9 FL (81-99); MONO# 0.86 X1000 (0.11-0.59); MONO% 6.4 % (1.7-9.3); MPV 10.4 FL (7.4-10.4); NEUT# 10.44 X1000 (1.4-6.5); NEUT% 78.1 % (42.2-75.2); PLT 251 X1000 (130-400); RDW 13.3 % (11.5-14.5); WBC 13.37 X1000 (4.8-10.8)
[2019-06-23 10:26] LABS: AGAP 9; BUN 4 mg/dL (8-22); CALCIUM 8.3 mg/dL (8.8-10.2); CHLORIDE 103 mmol/L (98-107); COSMO 269; CREATININE 0.6 mg/dL (0.5-0.9); ESTIMATED GFR > 60; GLUCOSE 103 mg/dL (70-104); POTASSIUM 4.3 mmol/L (3.5-5.1); SODIUM 136 mmol/L (136-145); TCO2 24 mmol/L (25-35)
[2019-06-23] MEDS: MIRALAX PO SCH (10:55)
[2019-06-23] MEDS: PERIDEX MT SCH ×2 (10:56→23:59)
[2019-06-23] MEDS: VANCOMYCIN 1,250 MG in NS 250 ML IV SCH ×2 (11:15→22:11)
--- NOTE | 2019-06-23 12:48 | PROGRESS NOTE ---
DATE: 06/23/2019 SUBJECTIVE: Patient has no major complaints. It is hard to get complaints out of her because she has severe intellectual impairment. We will continue to follow. She has an NG in place. Obviously very upset about the whole situation. She is diaphoretic. custodial care providers describe that this happens sometimes at the facility. OBJECTIVE: Blood pressure is 137/85, heart rate of 110, respiratory rate of 24, temperature 98.5 degrees, 100% on 2 L. Cardiovascular: Regular rate and rhythm. Pulmonary: Bilateral breath sounds clear to auscultation. GI: Soft, nontender. Her ostomy site looks good. There is some edema, it looks like around the bowel compared to yesterday. She has some bloody output. Laboratory Data: White count is 13, hemoglobin and hematocrit 12 and 37, platelets of 251,000. Basic was normal. PROBLEM LIST: 1. Toxic megacolon related to just akinesis. She is status post resection postop day 1. There was no perforation but based on the surgical photographs, her colon was extremely distended and just not working, just not functional, so we will continue ileostomy treatment and nutritional support, and follow. 2. Sepsis, likely related to infection. She is on vancomycin and cefoxitin. I would like to continue those until afebrile. We will continue to monitor. 3. Severe intellectual disability. She is a senior living patient. When she stabilizes, we will continue to get that. We are going to continue as many of her psychiatric medications as we can. It is just a very difficult situation because of her nothing per oral status right now, but we will continue to follow. cc: Abdoulaye Guy MD
[2019-06-23] MEDS: ANUSOL-HC CREAM PR SCH ×2 (13:30→19:51)
[2019-06-23] MEDS: DEPACON 500 MG in NS 50 ML IV SCH (16:54)
[2019-06-23] MEDS: SEROQUEL PO SCH ×2 (19:54)
[2019-06-23] MEDS: RISPERDAL M-TAB PO SCH (23:58)
[2019-06-23] MEDS: REMERON SOLTAB PO SCH (23:59)
[2019-06-24] MEDS: DEPACON 500 MG in NS 50 ML IV SCH ×2 (00:19→16:54)
[2019-06-24] MEDS: HEPARIN SUBQ SCH ×2 (04:21→16:54)
[2019-06-24] MEDS: NS 1,000 ML IV SCH ×3 (04:27→18:38)
[2019-06-24 05:42] LABS: HEMATOCRIT 33.9 % (37.0-47.0); HEMOGLOBIN 11.3 g/dL (12.0-16.0); MCH 32.8 PG (27-31); MCHC 33.3 g/dL (33-37); MCV 98.3 FL (81-99); RBC 3.45 XMIL (4.2-5.4); WBC 13.39 X1000 (4.8-10.8)
[2019-06-24 05:43] LABS: BASO# 0.03 X1000 (0.0-0.2); BASO% 0.2 % (0.0-0.8); EOS# 0.24 X1000 (0.0-0.7); EOS% 1.8 % (0.0-10.0); IMM GRAN# 0.11 X1000 (0.0-0.04); IMM GRAN% 0.8 % (0.0-0.5); LYMPH% 12.7 % (20.5-51.1); MONO% 7.5 % (1.7-9.3); MPV 10.5 FL (7.4-10.4); NEUT# 10.31 X1000 (1.4-6.5); PLT 295 X1000 (130-400); RDW 13.2 % (11.5-14.5)
--- NOTE | 2019-06-24 05:44 | GENERAL SURGERY PROGRESS NOTE ---
DATE: 06/24/2019 SUBJECTIVE: The patient seems to be doing about the same. She is still a little distended, but she is still doing her normal thing of taking a lot of air and swallowing it. OBJECTIVE: Vital Signs: The patient is currently afebrile, her vital signs are stable. General: No acute distress. Cardiovascular: Some very minimal tachycardia. Lungs: Grossly clear. Abdomen: Distended. Incision is healing well. Ostomy is viable but edematous. JACOB drain with serosanguineous output. ASSESSMENT AND PLAN: A 44-year-old status post total abdominal colectomy. Total abdominal colectomy: Currently postoperative day #2. At this time, we will await return of bowel function. I am okay with the patient ambulating. We will continue to monitor her. We will wait until she has some ostomy output before starting any kind of p.o. intake. cc: Clint Lange MD
[2019-06-24 06:03] LABS: AGAP 8; BUN 4 mg/dL (8-22); CALCIUM 8.6 mg/dL (8.8-10.2); CHLORIDE 102 mmol/L (98-107); COSMO 268; CREATININE 0.7 mg/dL (0.5-0.9); ESTIMATED GFR > 60; GLUCOSE 86 mg/dL (70-104); MAGNESIUM 1.7 mg/dL (1.5-2.7); PHOSPHORUS 3.7 mg/dL (2.7-4.5); POTASSIUM 3.9 mmol/L (3.5-5.1); SODIUM 136 mmol/L (136-145); TCO2 26 mmol/L (25-35)
[2019-06-24] MEDS: REVIA PO SCH (07:05)
[2019-06-24] MEDS: PAXIL PO SCH ×2 (07:05→18:39)
[2019-06-24] MEDS: MYLICON PO SCH ×4 (07:05→18:39)
[2019-06-24] MEDS: ANUSOL-HC CREAM PR SCH ×4 (07:06→20:09)
[2019-06-24] MEDS: SYNTHROID IV SCH (07:17)
[2019-06-24] MEDS: PERIDEX MT SCH ×2 (09:09→20:08)
[2019-06-24] MEDS: VANCOMYCIN 1,250 MG in NS 250 ML IV SCH ×2 (09:13→21:31)
[2019-06-24] MEDS: SEROQUEL PO SCH ×2 (16:16→18:39)
--- NOTE | 2019-06-24 17:44 | PROGRESS NOTE ---
DATE: 06/24/2019 SUBJECTIVE: Patient has no major complaints. OBJECTIVE: Vital signs: Blood pressure is 152/87, heart rate of 123, respiratory rate of 22, temperature 99.3 degrees, 96% on room air. Cardiovascular: Regular rate and rhythm. Pulmonary: Bilateral breath sounds. Clear to auscultation. NG is in place. Abdominal: She is distended. She is tender. Her ostomy though looks good. There is much less swelling than yesterday and she has had some liquid output from it #1 and even some, what looks like fecal output, so that is good. LABORATORY DATA: White count 13,000, hemoglobin and hematocrit 11 and 33, platelets 295,000. Basic was normal. PROBLEM LIST: 1. Toxic megacolon and colonic akinesis. She is postoperative day 1. Her ostomy is already having output, which is a good sign. Hopefully we will be able to get her NG out. Will continue ambulation and follow. 2. Severe intellectual impairment. She is a [facility] patient. We will get her back on her medications as soon as we can. I have tried to convert as many to p.o. rapidly disintegrating and she is on Depakote as well. I am going to initiate Lopressor because she is persistently tachycardic. DISPOSITION: Pending her surgical status. [facility] is planning to take her back home when she has stabilized and we will continue to follow. cc: Abdoulaye Guy MD
[2019-06-24] MEDS: LOPRESSOR IV SCH ×2 (18:38→20:54)
[2019-06-24] MEDS: REMERON SOLTAB PO SCH (20:08)
[2019-06-24] MEDS: RISPERDAL M-TAB PO SCH (20:08)
[2019-06-24] MEDS: OFIRMEV 1000 MG/ISOTONIC SOLN 1,000 MG/100 ML BOTTLE IV PRN (20:53)
--- NOTE | 2019-06-24 22:35 | EKG Report ---
Test Performed on : 06/24/2019 9:10:01 PM Test Reason : eval rhythm Blood Pressure : / mmHG Vent. Rate : 097 BPM Atrial Rate : 097 BPM P-R Int : 128 ms QRS Dur : 068 ms QT Int : 364 ms P-R-T Axes : 052 030 012 degrees QTc Int : 462 ms Normal sinus rhythm. Normal ECG When compared with ECG of 20-JUN-2019 01:21, (Unconfirmed) No significant change was found Confirmed by Dinorah Tinoco MD ([id number]) on 06/29/2019 8:31:06 AM
[2019-06-25] MEDS: NS 1,000 ML IV SCH ×2 (00:09→17:19)
[2019-06-25] MEDS: HEPARIN SUBQ SCH ×3 (01:30→23:57)
[2019-06-25] MEDS: LOPRESSOR IV SCH ×4 (01:35→23:55)
[2019-06-25] MEDS: DEPACON 500 MG in NS 50 ML IV SCH ×2 (04:05→17:30)
[2019-06-25] MEDS: SODIUM CHLORIDE 0.9% INJ PRN (05:56)
[2019-06-25] MEDS: SYNTHROID IV SCH ×2 (05:57→06:18)
[2019-06-25 06:02] LABS: BASO# 0.02 X1000 (0.0-0.2); BASO% 0.2 % (0.0-0.8); EOS% 2.2 % (0.0-10.0); HEMATOCRIT 34.1 % (37.0-47.0); HEMOGLOBIN 11.1 g/dL (12.0-16.0); IMM GRAN# 0.12 X1000 (0.0-0.04); IMM GRAN% 1.3 % (0.0-0.5); LYMPH% 19.1 % (20.5-51.1); MCH 32.3 PG (27-31); MCHC 32.6 g/dL (33-37); MCV 99.1 FL (81-99); MONO# 0.65 X1000 (0.11-0.59); MONO% 7.3 % (1.7-9.3); MPV 10.3 FL (7.4-10.4); NEUT# 6.21 X1000 (1.4-6.5); NEUT% 69.9 % (42.2-75.2); PLT 313 X1000 (130-400); RBC 3.44 XMIL (4.2-5.4); RDW 13.1 % (11.5-14.5)
--- NOTE | 2019-06-25 06:09 | GENERAL SURGERY PROGRESS NOTE ---
DATE: 06/25/2019 SUBJECTIVE: Patient seems to be doing okay. She is now having ileostomy output. OBJECTIVE: Vital Signs: Patient is currently afebrile. Her vital signs are stable. General: No acute distress. Cardiovascular: Regular rate and rhythm. Lungs: Grossly clear. Abdomen: Soft. Still a little bit distended. Ostomy is viable and functioning, succus in appliance. LABORATORY DATA: Reviewed from yesterday. White blood cell count 13, hematocrit 33, platelet count 295,000. Remainder of labs reviewed. ASSESSMENT AND PLAN: A 44-year-old female, currently postoperative day #3 from a total abdominal colectomy. Postoperative state. At this time, she is having return of bowel function. We will get her nasogastric tube out. We will get the nurses to do a bedside swallow evaluation to see how well she swallows. If she swallows okay, we will start her on a clear liquid diet. If is seeming to have any kind of issues, we will get an official formal swallow evaluation. She is neurologically at her baseline per the sitter in the room but we will still need to evaluate to make sure she does not have any aspiration. cc: Clint Lange MD
[2019-06-25] MEDS: PAXIL PO SCH (06:18)
[2019-06-25] MEDS: ANUSOL-HC CREAM PR SCH ×2 (06:18→17:22)
[2019-06-25] MEDS: MYLICON PO SCH ×4 (06:18→19:43)
[2019-06-25] MEDS: REVIA PO SCH (06:19)
[2019-06-25 06:44] LABS: AGAP 10; BUN 5 mg/dL (8-22); CALCIUM 7.8 mg/dL (8.8-10.2); CHLORIDE 102 mmol/L (98-107); COSMO 275; CREATININE 0.4 mg/dL (0.5-0.9); ESTIMATED GFR > 60; GLUCOSE 74 mg/dL (70-104); MAGNESIUM 1.6 mg/dL (1.5-2.7); SODIUM 140 mmol/L (136-145); TCO2 28 mmol/L (25-35)
--- NOTE | 2019-06-25 09:45 | PROGRESS NOTE ---
DATE: 06/25/2019 SUBJECTIVE: She is followed by [place] [facility]. She had a near syncopal episode, generalized weakness after having a bowel movement. A 44-year-old female with severe intellectual disabilities, resides at a longterm, presented to [facility] ER. Reported that she had a large, soft, runny bowel movement requiring her to get her shower in order to clean up. During the shower, she became weak and passed out, This happened about 30 minutes prior to coming into the emergency room. History of holding her breath until she passes out and swallowing air. Her abdomen is noted to be very distended, but has continued to have worsening distention. Workup showed white blood cell count of 16,290. Abdomen and pelvic CT showed impression of marked or distended small bowel loops in the colon similar to her prior study, but no definite obstruction. PAST MEDICAL HISTORY: Once again, severe intellectual impairment, chronic reflux, history of rectal prolapse, mild myopia, cerebral palsy, depression and eczema. PAST SURGICAL HISTORY: 1. Hysterectomy. 2. Colon resection. Prolapsed colon and a gallstone and lithotripsy. So, this morning she is sleeping. Her sitter was at the bedside. She appears comfortable. She has an NG tube in and Tam catheter. Remains afebrile. OBJECTIVE: Vital Signs: Temperature 98.8 degrees, pulse 105, respirations 18, blood pressure 135/97. Eyes: Pupils are equal and round. Lungs: Clear in all lung durham anterolateral. Cardiovascular exam: Regular rhythm and rate without murmur or S3. Abdomen: Soft. Skin: Warm and dry. : Urine output is 2500 mL. ASSESSMENT AND PLAN: 1. Abdominal distention, severe constipation, fecal impaction. 2. Intellectual disability. 3. She had surgery on 06/22; she had toxic megacolon and had total abdominal colectomy. She seems to be making progress. She is having return of bowel function. Hope to get nasogastric tube out and then obtain a swallow evaluation as well. ORDERS: She is on mirtazapine 7.5 mg at bedtime, Risperdal 1 mg at bedtime, Synthroid 25 mcg IV daily, Lopressor 5 mg IV q. 6 hours, Revia 500 mg p.o. daily, Paxil 30 mg p.o. b.i.d., Seroquel 200 mg daily and then 50 mg I think at 1300 hours and 200 mg is at 1900 hours, simethicone 220 mg p.o. q. 0700 and 1100 and 1600 and 1900 hours, valproate 500 mg IV q. 12, vancomycin 1250 mg IV q. 12 hours. The blood cultures from 06/22 no growth. Urine culture from 06/19 no growth. Still has Tam catheter in and NG tube. cc: Neil Gonzalez MD
[2019-06-25] MEDS: VANCOMYCIN 1,250 MG in NS 250 ML IV SCH ×2 (11:32→23:55)
[2019-06-25] MEDS: PERIDEX MT SCH ×2 (12:30→23:57)
[2019-06-25] MEDS: SEROQUEL PO SCH (14:23)
[2019-06-25] MEDS: REMERON SOLTAB PO SCH (23:56)
[2019-06-25] MEDS: RISPERDAL M-TAB PO SCH (23:57)
[2019-06-26] MEDS: PAXIL PO SCH ×4 (00:15→19:59)
[2019-06-26] MEDS: SEROQUEL PO SCH ×4 (00:15→19:59)
[2019-06-26] MEDS: ANUSOL-HC CREAM PR SCH ×4 (00:33→19:59)
[2019-06-26] MEDS: DILAUDID IV PRN ×2 (00:49→20:27)
[2019-06-26] MEDS: MYLICON PO SCH ×4 (06:05→19:59)
[2019-06-26] MEDS: REVIA PO SCH (06:13)
[2019-06-26] MEDS: SYNTHROID IV SCH (06:13)
[2019-06-26] MEDS: LOPRESSOR IV SCH ×4 (06:14→23:50)
[2019-06-26] MEDS: HEPARIN SUBQ SCH ×3 (06:14→22:10)
[2019-06-26] MEDS: DEPACON 500 MG in NS 50 ML IV SCH ×2 (08:17→17:46)
[2019-06-26] MEDS: NS 1,000 ML IV SCH ×3 (08:17→23:50)
--- NOTE | 2019-06-26 09:39 | GENERAL SURGERY PROGRESS NOTE ---
DATE: 06/26/2019 SUBJECTIVE: The patient is doing okay. She had a swallow study which showed she did fine. She has been started on a clear liquid diet. She is having ileostomy output. OBJECTIVE: Vital Signs: The patient is currently afebrile. Her vital signs have been stable. General: No acute distress, resting. Cardiovascular: Regular rate and rhythm. Lungs: Grossly clear. Abdomen: The abdomen is still somewhat distended, but ileostomy is functioning and viable. ASSESSMENT AND PLAN: A 44-year-old, currently postoperative day #4 from total abdominal colectomy. Postoperative state. At this time she is having return of bowel function. We will advance her diet as tolerated. She did pass her formal swallow study. We will continue to monitor her. We will keep the Federico-Jones drain in place for right now given her rectal stump protection. cc: Clint Lange MD
[2019-06-26] MEDS: PERIDEX MT SCH ×2 (12:29→20:31)
[2019-06-26] MEDS: VANCOMYCIN 1,250 MG in NS 250 ML IV SCH ×2 (12:33→22:10)
--- NOTE | 2019-06-26 14:06 | PROGRESS NOTE ---
DATE: 06/26/2019 Ms Singh seems to be feeling better. They want to try and get her up in a chair. Still has a lot of output from the Federico-Jones drain. She remains afebrile, temperature 99.5 degrees, pulse 107, respirations 20, blood pressure 125/87. Pupils are equal and round.Lungs: Clear in all lung durham. Cardiovascular: Regular rhythm and rate without murmur or S3. Abdomen: Soft, nondistended. No pedal edema. Urine output is 1900 mL. ASSESSMENT AND PLAN: 1. She is postoperative day 4 from total abdominal colectomy for toxic megacolon, having return of her bowel function. She did pass her swallow study and able get food down well. Going to keep the Federico-Jones drain in place still quite a bit of output and this will help with the rectal stump protection. Will try and increase her sitting up and get her physical therapy involved. I am sure she will be here for another 48 hours at least. 2. Intellectual disability. 3. Nutrition looks good. Review of her orders, I do not see any change. Continue vancomycin 1250 mg IV q.12, she is on mirtazapine 7.5 mg at bedtime, getting normal saline at 100 mL an hour, Synthroid 25 mcg daily and ReVia she gets 50 mg p.o. daily, Paxil 30 mg b.i.d., Seroquel 200 mg daily, I think then she gets 50 mg at 1300, simethicone chews she takes I think 3 times a day and valproate 500 mg IV q.12. I guess we need to convert that to by mouth pretty soon. Hopefully she can go back home 1st of the week, this is Saturday. cc: Neil Gonzalez MD
[2019-06-26] MEDS: RISPERDAL M-TAB PO SCH (20:30)
[2019-06-26] MEDS: REMERON SOLTAB PO SCH (20:31)
[2019-06-27] MEDS: DILAUDID IV PRN ×4 (06:27→14:10)
[2019-06-27] MEDS: ANUSOL-HC CREAM PR SCH ×3 (06:30→19:44)
[2019-06-27] MEDS: SYNTHROID IV SCH (06:30)
[2019-06-27] MEDS: HEPARIN SUBQ SCH ×3 (06:42→22:54)
[2019-06-27] MEDS: DEPACON 500 MG in NS 50 ML IV SCH ×2 (06:42→17:14)
[2019-06-27] MEDS: LOPRESSOR IV SCH ×3 (06:45→17:11)
[2019-06-27 06:59] LABS: AGAP 2; ALBUMIN 2.2 g/dL (3.5-5.0); ALKALINE PHOSPHATASE 53 U/L (32-104); BUN 4 mg/dL (8-22); CALCIUM 8.3 mg/dL (8.8-10.2); CHLORIDE 105 mmol/L (98-107); COSMO 274; CREATININE 0.6 mg/dL (0.5-0.9); ESTIMATED GFR > 60; GLUCOSE 88 mg/dL (70-104); GOT 15 U/L (10-30); GPT 8 U/L (10-36); MAGNESIUM 1.7 mg/dL (1.5-2.7); POTASSIUM 3.3 mmol/L (3.5-5.1); SODIUM 139 mmol/L (136-145); TCO2 32 mmol/L (25-35); TOTAL BILIRUBIN 0.25 mg/dL (0.20-1.00); TOTAL PROTEIN 4.4 g/dL (6.3-8.3)
[2019-06-27] MEDS: MYLICON PO SCH ×4 (07:08→22:54)
--- NOTE | 2019-06-27 09:41 | PROGRESS NOTE ---
DATE: 06/27/2019 Ms Singh is awake. She did not sleep much last night, but she is awake, appears comfortable. Temp is 98.8 degrees, pulse 102, respirations 16, blood pressure 120/85. Urine output looks good at 3500 mL. ASSESSMENT AND PLAN: 1. Postoperative day 5 from total abdominal colectomy. At this time having good return of bowel function and tolerating her diet. She is swallowing well, passed her swallowing study. Keep the Federico-Jones drain in place for rectal stump protection but seems to be healing well. We will increase her activity, sit her up in a chair. 2. Intellectual disability. 3. Nutrition is good. Hopefully looking at discharge in a couple days. Review of her orders: She is on mirtazapine 7.5 mg at bedtime, risperidone 1 mg at bedtime, normal saline at 100 mL an hour. She is getting Dilaudid 0.5 mg IV q.2 hours, Synthroid 25 mcg IV daily, Lopressor 5 mg IV q.6 hours, ReVia 50 mg p.o. daily and olanzapine rapdis 10 mg p.o. b.i.d. p.r.n., Paxil 30 mg p.o. b.i.d., Seroquel 200 mg daily and then she gets 50 mg at 1300, simethicone chews 3 times a day 120 mg, valproate sodium 500 mg IV q.12, vancomycin 1250 mg IV q.12. I think we can change her valproate to taking it by mouth. cc: Neil Gonzalez MD
[2019-06-27] MEDS: PAXIL PO SCH ×3 (10:21→19:44)
[2019-06-27] MEDS: REVIA PO SCH (10:23)
[2019-06-27] MEDS: PERIDEX MT SCH ×2 (10:25→22:57)
[2019-06-27] MEDS: VANCOMYCIN 1,250 MG in NS 250 ML IV SCH ×2 (12:06→22:46)
[2019-06-27] MEDS: SEROQUEL PO SCH ×3 (12:07→19:44)
--- NOTE | 2019-06-27 13:30 | GENERAL SURGERY PROGRESS NOTE ---
DATE: 06/27/2019 SUBJECTIVE: Doing well, no fevers, low-grade tachycardia. Blood pressure 120/85. Abdomen soft. Ostomy is pink, viable, stool in the bag. BMP. Creatinine is normal, potassium little low. ASSESSMENT AND PLAN: This is a 44-year-old female status post total abdominal colectomy by Dr. Lange. Will continue current management, ostomy care, pain control. cc: Nancy Reynolds MD
[2019-06-27] MEDS: NS 1,000 ML IV SCH ×2 (15:18→22:46)
[2019-06-27] MEDS: ZYPREXA ZYDIS PO PRN (17:30)
[2019-06-27] MEDS: REMERON SOLTAB PO SCH (22:54)
[2019-06-27] MEDS: RISPERDAL M-TAB PO SCH (22:54)
[2019-06-28] MEDS: LOPRESSOR IV SCH ×6 (01:37→18:30)
[2019-06-28] MEDS: SODIUM CHLORIDE 0.9% INJ PRN (06:41)
[2019-06-28] MEDS: SYNTHROID IV SCH (06:41)
[2019-06-28] MEDS: DEPACON 500 MG in NS 50 ML IV SCH ×2 (06:43→17:30)
[2019-06-28] MEDS: MYLICON PO SCH ×4 (06:43→19:00)
[2019-06-28] MEDS: REVIA PO SCH (06:43)
[2019-06-28] MEDS: HEPARIN SUBQ SCH ×2 (06:43→15:19)
[2019-06-28] MEDS: PAXIL PO SCH ×2 (06:44→18:31)
[2019-06-28] MEDS: NS 1,000 ML IV SCH (06:49)
[2019-06-28] MEDS: ANUSOL-HC CREAM PR SCH ×3 (11:46→18:14)
[2019-06-28] MEDS: PERIDEX MT SCH ×2 (11:49→23:34)
[2019-06-28] MEDS: VANCOMYCIN 1,250 MG in NS 250 ML IV SCH (11:50)
[2019-06-28] MEDS: DILAUDID IV PRN ×4 (12:00→21:28)
[2019-06-28] MEDS: SEROQUEL PO SCH ×2 (12:00→18:32)
--- NOTE | 2019-06-28 13:15 | PROGRESS NOTE ---
DATE: 06/28/2019 SUBJECTIVE: Ms. Singh feels better. She is more awake and no complaints, and more active. OBJECTIVE: Temperature 97.5 degrees, pulse 107, respirations 16, blood pressure 110/76. Pupils are equal and round. Lungs are clear in all lung durham. Cardiovascular Examination: Regular rhythm and rate without murmur or S3. Abdomen is soft. Skin is warm and dry. Urine output is 2800 mL. ASSESSMENT AND PLAN: 1. Status post total abdominal colectomy per Dr. Lange, is doing well. Federico-Jones still with some drainage but is diminished. Hopefully, the tracheotomy can come out soon. 2. Intellectual disability. 3. Nutrition is good. Continue physical therapy. Her oral intake seems to be good. We need to get the Tam catheter out as well. On antibiotics, vancomycin 1250 mg intravenously every 12 hours. I think we can stop these soon. cc: Neil Gonzalez MD
--- NOTE | 2019-06-28 14:31 | GENERAL SURGERY PROGRESS NOTE ---
DATE: 06/28/2019 SUBJECTIVE: Appetite is improving. Her ostomy is functioning. She is quite weak. Abdomen is soft. Ostomy is pink, viable. I reviewed her labs. ASSESSMENT AND PLAN: This is a 44-year-old female status post total abdominal colectomy with ileostomy. We will order physical therapy for her today. Otherwise, we will continue postop management. Will require rehab, I anticipate, but surgically she is doing okay. cc: Nancy Reynolds MD
[2019-06-28] MEDS: ZOFRAN IV PRN (21:28)
[2019-06-28] MEDS: REMERON SOLTAB PO SCH (22:31)
[2019-06-28] MEDS: RISPERDAL M-TAB PO SCH (22:31)
[2019-06-29] MEDS: VANCOMYCIN 1,250 MG in NS 250 ML IV SCH ×2 (00:42→13:29)
[2019-06-29] MEDS: NS 1,000 ML IV SCH ×3 (00:42→16:15)
[2019-06-29] MEDS: HEPARIN SUBQ SCH ×3 (00:44→16:08)
[2019-06-29] MEDS: LOPRESSOR IV SCH ×4 (00:46→18:19)
[2019-06-29] MEDS: ZYPREXA ZYDIS PO PRN ×2 (01:51→23:39)
--- NOTE | 2019-06-29 06:51 | GENERAL SURGERY PROGRESS NOTE ---
DATE: 06/29/2019 SUBJECTIVE: Patient seems to be doing okay. She is essentially at her baseline. OBJECTIVE: Vital Signs: The patient is currently afebrile. Her vital signs are stable. General Examination: No acute distress. Cardiovascular: Regular rate and rhythm. Lungs: Grossly clear. Abdomen: Soft. Still somewhat distended. Incision is healing well. Ostomy functioning. JACOB drain with serous output. Laboratory: None this morning. ASSESSMENT AND PLAN: A 44-year-old, currently postoperative day #7 from total abdominal colectomy. Postoperative state. At this time, the patient has return of bowel function. She seems to be tolerating her diet. She is clinically doing okay. JACOB drain still has some output so we will keep it in place. From a surgical point of view, once arrangements are made, she can go to a rehab facility. Physical therapy has been consulted to work with her but her baseline mental status may hinder her ability to cooperate fully. We will have to see. cc: Clint Lange MD
[2019-06-29] MEDS: DEPACON 500 MG in NS 50 ML IV SCH ×2 (07:37→16:08)
[2019-06-29] MEDS: MYLICON PO SCH ×4 (07:38→18:19)
[2019-06-29] MEDS: SYNTHROID IV SCH (07:38)
[2019-06-29] MEDS: SODIUM CHLORIDE 0.9% INJ PRN (07:38)
[2019-06-29] MEDS: PAXIL PO SCH ×2 (07:39→18:20)
[2019-06-29] MEDS: REVIA PO SCH (07:39)
--- NOTE | 2019-06-29 08:25 | PROGRESS NOTE ---
DATE: 06/29/2019 SUBJECTIVE: She is doing better. Federico-Jones drain is still in place. I think we can get her ready go to rehab, leave the Federico-Jones drain but the drainage has diminished. OBJECTIVE: Temperature 97.7 degrees, pulse 94, respirations 16, blood pressure 123/105. Pupils are equal and round. Lungs are clear in all lung durham. Cardiovascular Examination: Regular rhythm and rate without murmur or S3. Abdomen is soft. Skin is warm and dry. Urine output is 3300 mL. ASSESSMENT AND PLAN: 1. This is day 7 status post total abdominal colectomy for toxic megacolon. She has return of bowel function and seems to be tolerating a diet. The JACOB drain still has the same output so we will keep it in place. I feel like she could go to a rehab facility from a surgical standpoint, so we will look for that. 2. Intellectual disability. 3. Nutrition seems to be doing well. cc: Neil Gonzalez MD
[2019-06-29] MEDS: ANUSOL-HC CREAM PR SCH ×3 (11:11→18:20)
[2019-06-29] MEDS: PERIDEX MT SCH ×2 (11:14→20:15)
[2019-06-29] MEDS: DILAUDID IV PRN ×3 (11:27→20:12)
[2019-06-29] MEDS: SEROQUEL PO SCH ×2 (13:42→18:19)
[2019-06-29] MEDS: REMERON SOLTAB PO SCH (20:15)
[2019-06-29] MEDS: RISPERDAL M-TAB PO SCH (20:16)
[2019-06-29] MEDS: OFIRMEV 1000 MG/ISOTONIC SOLN 1,000 MG/100 ML BOTTLE IV PRN (20:29)
[2019-06-29] MEDS: ZOFRAN IV PRN (20:29)
[2019-06-30] MEDS: HEPARIN SUBQ SCH ×3 (00:55→17:00)
[2019-06-30] MEDS: LOPRESSOR IV SCH ×4 (01:43→19:53)
[2019-06-30] MEDS: DILAUDID IV PRN ×5 (01:43→18:35)
[2019-06-30] MEDS: VANCOMYCIN 1,250 MG in NS 250 ML IV SCH ×2 (02:24→12:56)
[2019-06-30] MEDS: DEPACON 500 MG in NS 50 ML IV SCH ×2 (04:13→17:54)
[2019-06-30] MEDS: REVIA PO SCH ×2 (06:11→07:04)
[2019-06-30] MEDS: SYNTHROID IV SCH (06:13)
[2019-06-30] MEDS: MYLICON PO SCH ×4 (06:17→19:52)
[2019-06-30] MEDS: PAXIL PO SCH ×2 (06:17→18:02)
[2019-06-30] MEDS: ANUSOL-HC CREAM PR SCH ×3 (06:27→18:33)
--- NOTE | 2019-06-30 08:38 | GENERAL SURGERY PROGRESS NOTE ---
DATE: 06/30/2019 SUBJECTIVE: The patient seems to be doing okay. She is a little agitated tonight. OBJECTIVE: Vital Signs: The patient is currently afebrile. Her vital signs are stable. General: No acute distress. Cardiovascular: Regular rate and rhythm. Lungs: Grossly clear. Abdomen: Soft. Still slightly distended. Ostomy functioning. JACOB drain, which is serous output, recorded still with over 300 recorded out. Incision is healing well. ASSESSMENT AND PLAN: A 44-year-old female, currently postoperative day #8 from a total abdominal colectomy. Postoperative state. At this time, she has return of bowel function. She is tolerating diet. She is clinically doing okay. From a surgical point of view, she can be discharged. Will keep her Federico-Jones drain in place until the output decreases. cc: Clint Lange MD
[2019-06-30] MEDS: PERIDEX MT SCH ×2 (09:28→20:05)
--- NOTE | 2019-06-30 09:43 | PROGRESS NOTE ---
DATE: 06/30/2019 SUBJECTIVE: Apparently, she had a hard night, did not sleep much, was crying out a little more. OBJECTIVE: Vital Signs: Temp 98.1 degrees, pulse 85, respirations 16, blood pressure 89/56. HEENT: Pupils are equal and round. Lungs: Clear in all lung durham. Cardiovascular: Regular rhythm and rate without murmur or S3. Abdomen: Soft. Federico-Jones still in place. Urine output is 1500 mL. ASSESSMENT AND PLAN: 1. This is postoperative day 8 from total abdominal colectomy. Has return of bowel function. Tolerating diet. Clinically okay to be discharged, but I think we are going to have to continue to work on physical therapy here. I will look on her medication list, and see if we can adjust some things. 2. Intellectual disability. 3. Nutrition appears good. HOME MEDICATIONS: She is on buspirone 10 mg t.i.d., clonazepam 1 mg t.i.d. She is on divalproex ER 500 mg t.i.d., docusate sodium 100 mg b.i.d., ferrous sulfate 325 mg b.i.d., Synthroid 50 mcg daily, lorazepam 1 mg p.o. b.i.d. p.r.n. I am going to hold off on the Megace. She is on Remeron 7.5 mg at bedtime, and she takes ReVia right now 50 mg p.o. daily, Zyprexa 10 mg b.i.d. p.r.n., omeprazole 40 mg daily, paroxetine 30 mg b.i.d., MiraLAX 17 grams in 8 ounces once a day, Klor-Con 10 mEq daily, Seroquel 50 mg at 1300, and 200 mg at 1900, Risperdal 1 mg daily, and simethicone for gas relief as needed. cc: Neil Gonzalez MD
[2019-06-30] MEDS: SEROQUEL PO SCH ×2 (12:17→18:02)
[2019-06-30] MEDS: NS 1,000 ML IV SCH ×2 (12:59→20:04)
[2019-06-30] MEDS: REMERON SOLTAB PO SCH ×2 (19:52→20:04)
[2019-06-30] MEDS: RISPERDAL M-TAB PO SCH ×2 (19:57→20:05)
[2019-07-01] MEDS: HEPARIN SUBQ SCH ×3 (00:28→17:39)
[2019-07-01] MEDS: VANCOMYCIN 1,250 MG in NS 250 ML IV SCH (00:28)
[2019-07-01] MEDS: DILAUDID IV PRN ×5 (00:28→20:42)
[2019-07-01] MEDS: LOPRESSOR IV SCH ×4 (00:28→16:07)
[2019-07-01] MEDS: ZYPREXA ZYDIS PO PRN ×2 (00:31→21:49)
[2019-07-01] MEDS: DEPACON 500 MG in NS 50 ML IV SCH ×2 (05:35→16:13)
[2019-07-01] MEDS: REVIA PO SCH ×2 (05:37→06:24)
[2019-07-01] MEDS: MYLICON PO SCH ×5 (05:37→21:49)
[2019-07-01] MEDS: PAXIL PO SCH ×3 (05:38→21:10)
[2019-07-01] MEDS: NS 1,000 ML IV SCH ×2 (05:39→22:05)
--- NOTE | 2019-07-01 06:09 | GENERAL SURGERY PROGRESS NOTE ---
DATE: 07/01/2019 SUBJECTIVE: Patient seems to be doing okay. OBJECTIVE: Vital Signs: Patient is currently afebrile. Her vital signs are stable. General: No acute distress. Cardiovascular: Somewhat tachycardic. Lungs: Grossly clear. Abdomen: Soft, mildly distended. Ostomy functioning. Incision healing. ASSESSMENT AND PLAN: A 44-year-old female currently postoperative day #9 from total abdominal colectomy. Postoperative state. At this time patient has had return of bowel function. She is tolerating her diet. She is urinating. Her JACOB drain still has over 200 mL out per day, so we will keep it in place. The main thing holding her up is her ability to participate with physical therapy and get evaluation for rehab. Will continue working with her and hopefully she can get transferred to a rehab facility soon. cc: Clint Lange MD
[2019-07-01] MEDS: ANUSOL-HC CREAM PR SCH ×3 (06:24→20:00)
[2019-07-01] MEDS: SYNTHROID IV SCH (06:24)
--- NOTE | 2019-07-01 10:15 | PROGRESS NOTE ---
DATE: 07/01/2019 SUBJECTIVE: Ms. Singh is sleeping. She had a little better night. She is sleeping this morning. Sheet was pulled over her head. OBJECTIVE: Temperature 98.8 degrees, pulse 74, respirations 23, blood pressure 112/62. Pupils are equal and round. Lungs are clear in all lung durham. Cardiovascular Examination: Regular rhythm and rate without murmur or S3. Abdomen is soft. Skin is warm and dry. Urine output is going to be 900 mL. ASSESSMENT AND PLAN: Currently postoperative day #9, total abdominal colectomy. She has had return of bowel function. She is tolerating a diet. Her Federico-Jones drain is still over 200 mL per day so we will keep it in place. The main thing that is holding her up is her ability to participate with physical therapy. We will continue physical therapy here. I think the hope is that she can get better and her legs get stronger, and she will be able to go home. She has physical therapy ordered and we will get occupational therapy as well. cc: Neil Gonzalez MD
[2019-07-01] MEDS: PERIDEX MT SCH ×2 (12:15→22:12)
[2019-07-01 13:06] LABS: CREATININE 0.9 mg/dL (0.5-0.9); RANDOM VANCOMYCIN 20.3 ug/mL (5.0-80)
[2019-07-01] MEDS: SEROQUEL PO SCH ×2 (14:38→21:09)
--- NOTE | 2019-07-01 17:33 | EKG Report ---
Test Performed on : 07/01/2019 5:21:01 PM Test Reason : CAT CALL Blood Pressure : / mmHG Vent. Rate : 121 BPM Atrial Rate : 121 BPM P-R Int : 118 ms QRS Dur : 076 ms QT Int : 308 ms P-R-T Axes : 068 060 254 degrees QTc Int : 437 ms Sinus tachycardia. with occasional premature ventricular complexes. Right atrial enlargement T wave abnormality, consider inferior ischemia Abnormal ECG When compared with ECG of 24-JUN-2019 21:10, premature ventricular complexes. are now present Non-specific change in ST segment in Inferior leads T wave inversion more evident in Inferior leads Nonspecific T wave abnormality now evident in Lateral leads Confirmed by Dinorah Tinoco MD ([id number]) on 07/02/2019 12:10:54 PM
[2019-07-01 17:54] LABS: ALLEN TEST YES; BE -11.7 mmoll (-3.0-3.0); BLOOD TYPE ARTERIAL; HCO3-(ACT) 15.8 mmoll (20.0-26.0); METHB 0.7 % (0.0-1.5); O2HB 97.1 % (95.0-99.0); PCO2(98.6) 21 mmHg (35-45); PO2(98.6) 102 mmHg (60-100); SAMPLE BLOOD; SAO2 99.1 % (95.0-100.0); THB 10.9 g/dL (11.5-17.4); pH(98.6) 7.36 (7.35-7.45)
[2019-07-01 17:56] LABS: MODALITY CANNULA
[2019-07-01 18:35] LABS: HEMATOCRIT 32.6 % (37.0-47.0); HEMOGLOBIN 10.7 g/dL (12.0-16.0); MCH 32.8 PG (27-31); MCHC 32.8 g/dL (33-37); MPV 10.4 FL (7.4-10.4); PLT 527 X1000 (130-400); RBC 3.26 XMIL (4.2-5.4); RDW 14.5 % (11.5-14.5); WBC 14.24 X1000 (4.8-10.8)
[2019-07-01 18:40] LABS: BASO# 0.09 X1000 (0.0-0.2); BASO% 0.6 % (0.0-0.8); EOS% 2.1 % (0.0-10.0); IMM GRAN# 1.02 X1000 (0.0-0.04); IMM GRAN% 7.2 % (0.0-0.5); MONO# 0.88 X1000 (0.11-0.59); MONO% 6.2 % (1.7-9.3); NEUT# 9.25 X1000 (1.4-6.5); NEUT% 64.9 % (42.2-75.2)
[2019-07-01 18:48] LABS: ESTIMATED GFR > 60
[2019-07-01 18:57] LABS: AGAP 16; BUN 6 mg/dL (8-22); CALCIUM 8.9 mg/dL (8.8-10.2); CHLORIDE 107 mmol/L (98-107); COSMO 274; CREATININE 0.9 mg/dL (0.5-0.9); GLUCOSE 139 mg/dL (70-104); MAGNESIUM 1.8 mg/dL (1.5-2.7); POTASSIUM 3.4 mmol/L (3.5-5.1); SODIUM 137 mmol/L (136-145); TCO2 14 mmol/L (25-35)
--- NOTE | 2019-07-01 19:35 | PROGRESS NOTE ---
DATE: 07/01/2019 EVENT NOTE: Reportedly, around 1715, patient started shaking violently. Now, her caregiver states that she was awake. When patient was evaluated per Critical Assistance team, she was not responsive. She was foaming at the mouth. They felt that she truly had a seizure. It lasted about 5 minutes. She was postictal. I saw her later and she seemed like she was, at that point, opening her eyes, not really following commands, but she has got very severe MR. So, it is a little difficult to completely understand, although she does typically respond and things of that nature. She has no documented seizure history. Her exam was nonfocal. We went ahead and progressed with a CT scan of the head and we will move her to the unit just for closer monitoring. I have not initiated antiepileptic treatment at this point. We will get a neurologic evaluation and see if they will consider doing it. She does have risk factors for epilepsy. Per her caregiver, she has had a remote history of that, but nothing currently. I have held her vancomycin just because her vancomycin level is above 20. Findings will be relayed to Dr. Gonzalez. cc: Abdoulaye Guy MD
[2019-07-01 20:06] LABS: ALB/GLOB RATIO 1.1; ALBUMIN 2.8 g/dL (3.5-5.0); DIRECT BILIRUBIN 0.1 mg/dL (0.00-0.20); TOTAL BILIRUBIN 0.15 mg/dL (0.20-1.00); TOTAL PROTEIN 5.3 g/dL (6.3-8.3)
[2019-07-01] MEDS: LOPRESSOR PO SCH (21:11)
[2019-07-01] MEDS: REMERON SOLTAB PO SCH (21:50)
[2019-07-01] MEDS ORDERED: VANCOMYCIN 1,250 MG in NS 250 ML IV SCH (22:00)
[2019-07-01] MEDS: RISPERDAL PO SCH (22:12)
[2019-07-02] MEDS: HEPARIN SUBQ SCH ×3 (01:38→16:42)
[2019-07-02] MEDS: LOPRESSOR PO SCH ×4 (03:22→20:19)
[2019-07-02 05:28] LABS: BASO# 0.05 X1000 (0.0-0.2); BASO% 0.5 % (0.0-0.8); EOS# 0.28 X1000 (0.0-0.7); EOS% 2.7 % (0.0-10.0); HEMATOCRIT 34.1 % (37.0-47.0); IMM GRAN# 0.64 X1000 (0.0-0.04); IMM GRAN% 6.1 % (0.0-0.5); LYMPH% 19.1 % (20.5-51.1); MCH 32.4 PG (27-31); MCHC 32.3 g/dL (33-37); MCV 100.6 FL (81-99); MONO# 0.69 X1000 (0.11-0.59); MONO% 6.6 % (1.7-9.3); MPV 10.3 FL (7.4-10.4); NEUT# 6.82 X1000 (1.4-6.5); PLT 527 X1000 (130-400); RBC 3.39 XMIL (4.2-5.4); RDW 14.7 % (11.5-14.5); WBC 10.48 X1000 (4.8-10.8)
[2019-07-02 05:41] LABS: EOS 2 % (1-10); LYMPHS 16 % (21-51); SEGS 74 % (42-75)
--- NOTE | 2019-07-02 05:51 | Diag Imaging Result Doc PS360 ---
EXAM: CT HEAD W/O CONTRAST HISTORY: encephalopathy TECHNIQUE: CT head without contrast COMPARISON: 12/13/2017 FINDINGS: No parenchymal hemorrhage. No epidural or subdural hematoma. No subarachnoid hemorrhage. No mass identified on this noncontrasted exam. Dilated ventricular system similar to the prior study. No sinus opacification. IMPRESSION: No hemorrhage. Stable exam. A preliminary report was given at 1:07 AM. This exam was performed using automated exposure control, adjustment of mA or kV according to patient size, and/or use of iterative reconstruction technique. Electronically signed by Romel Marsh 07/02/2019 5:48 AM
[2019-07-02] MEDS: SYNTHROID PO SCH (06:32)
--- NOTE | 2019-07-02 06:34 | GENERAL SURGERY PROGRESS NOTE ---
DATE: 07/02/2019 SUBJECTIVE: Patient did have what appears to be a seizure yesterday. She got a head CT scan which was viewed as normal. She was transferred down to the unit. She has since been relatively stable. OBJECTIVE: Vital Signs: Patient is currently afebrile. Her vital signs are stable. General: Calm. Cardiovascular: Regular rate and rhythm. Lungs: Grossly clear. Abdomen: Still distended. Ostomy functioning. JACOB drain with serosanguineous output. LABORATORY: Reviewed from yesterday. Her lactic acid was 9.5. ASSESSMENT AND PLAN: A 44-year-old female status post total abdominal colectomy. Postoperative state. At this time, continue supportive care. She is in the ICU. We will monitor her. She did have what appears to be a seizure. Her ABG after the seizure was abnormal. We will need to follow up with repeat ABG to make sure it has stabilized. We will continue to monitor her closely. The hospitalists are following her. cc: Clint Lange MD
[2019-07-02 06:51] LABS: ALLEN TEST YES; BE -1.4 mmoll (-3.0-3.0); BLOOD TYPE ARTERIAL; HCO3-(ACT) 23.8 mmoll (20.0-26.0); METHB 1.3 % (0.0-1.5); O2HB 96.4 % (95.0-99.0); PCO2(98.6) 24 mmHg (35-45); PO2(98.6) 117 mmHg (60-100); SAMPLE BLOOD; SAO2 99.2 % (95.0-100.0); THB 10.9 g/dL (11.5-17.4); pH(98.6) 7.53 (7.35-7.45)
[2019-07-02 06:52] LABS: MODALITY ROOM AIR
--- NOTE | 2019-07-02 08:00 | PROGRESS NOTE ---
DATE: 07/02/2019 SUBJECTIVE: This patient is lying comfortably in bed. At this moment, she is not complaining of pain and/or having any kind of agitation. Apparently she had an episode of agitation yesterday night that was treated. Her abdomen is distended with decreased bowel sounds. It looks like she had an episode of seizures yesterday and apparently she had a history of seizures but a long time ago. I do not have any family members or caregiver at the bedside. She has a JACOB drain with some serosanguineous output. Her abdomen is distended, a little bit tympanic. Vital signs at this moment are stable. For now, we will continue with the same management, pending Neurology department evaluation. OBJECTIVE: Vital Signs: Temperature 97 degrees, pulse 93, respiratory rate 14, blood pressure on the monitor 99/74, oxygen saturation 93 on room air. HEENT: Head normocephalic, no trauma. Neck: Supple. Chest: Clear to auscultation. No wheezing. No rales. Abdomen: Soft, distended. Decreased bowel sounds. Slightly tympanic. Midline wound covered with a dressing that looks clean, dry, and intact. She has an ostomy bag that is working fine and also a JACOB drain with some serosanguineous output. I do not see any signs of infection. Extremities: No edema. Having trace pedal edema. No clubbing. No cyanosis. She does have some contracture which probably is chronic, like I said I do not have any family member or caregiver at the bedside, I do not know her baseline. Neurological: The patient is able to open her eyes. She is able to cover herself with a blanket. She is not following commands. She is not answering any of my questions. I wonder if she is nonverbal. She has a severe intellectual impairment. LABORATORY DATA: WBC 10.4, hemoglobin 11, hematocrit 34.1, platelets 527,000. Pending CMP. ASSESSMENT AND PLAN: 1. 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 Her abdomen is still distended. It looks like she has been passing some gas, decreased bowel sounds. Wounds look okay. Surgery on board. 2. Reported episode of seizures. Apparently this patient had a history of seizure disorder a long time ago, but I am not quite sure about this, no family member or caregiver at the bedside. 3. Severe intellectual impairment. I do believe this patient lives in a senior living. I am not quite sure about her baseline. I am not sure if this patient is able to walk, at this moment she has some extremity muscle contracture. 4. Hypokalemia. I will recheck the potassium today again. 5. Reported a presyncopal episode upon admission, resolved. CRITICAL CARE TIME: 35 minutes. cc: Mehran Waite MD
[2019-07-02] MEDS: NS 1,000 ML IV SCH ×2 (08:30→11:28)
[2019-07-02] MEDS: MYLICON PO SCH ×4 (08:33→20:19)
[2019-07-02] MEDS: DEPAKOTE PO SCH ×3 (08:34→20:19)
[2019-07-02] MEDS: PAXIL PO SCH ×2 (08:34→20:20)
[2019-07-02] MEDS: PERIDEX MT SCH ×2 (08:35→20:22)
[2019-07-02] MEDS ORDERED: DEPAKOTE PO SCH (09:00)
[2019-07-02] MEDS: REVIA PO SCH (09:43)
[2019-07-02 10:13] LABS: AGAP 10; ALB/GLOB RATIO 1.4; ALBUMIN 2.6 g/dL (3.5-5.0); ALKALINE PHOSPHATASE 63 U/L (32-104); BUN 3 mg/dL (8-22); CALCIUM 8.5 mg/dL (8.8-10.2); CHLORIDE 109 mmol/L (98-107); COSMO 272; CREATININE 0.5 mg/dL (0.5-0.9); ESTIMATED GFR > 60; GLUCOSE 92 mg/dL (70-104); GOT 19 U/L (10-30); GPT 8 U/L (10-36); POTASSIUM 4.3 mmol/L (3.5-5.1); SODIUM 138 mmol/L (136-145); TCO2 19 mmol/L (25-35); TOTAL BILIRUBIN 0.18 mg/dL (0.20-1.00); TOTAL PROTEIN 4.5 g/dL (6.3-8.3)
[2019-07-02] MEDS: SEROQUEL PO SCH ×2 (12:37→20:22)
[2019-07-02] MEDS: ANUSOL-HC CREAM PR SCH ×3 (12:44→21:07)
--- NOTE | 2019-07-02 15:36 | CONSULTATION ---
DATE OF CONSULTATION: 07/02/2019 LOCATION: ICU bed #1. 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 She has a long history of episodes which have been concerning for seizure but have generally been thought to be due to her behavior and not due to true epileptic seizure. I have seen her in years past with similar concern. She had recent breath-holding episode to the point of either passing out or nearly passing out. This was similar to episodes she has had before. I have seen her do this in my office in years past. She has continued divalproex, recently 1000 mg daily. Divalproex dose has been 2000 mg daily in the past and higher doses did not affect the character or frequency of these behavior episodes. Other medicines include clonazepam daily and lorazepam p.r.n. [facility] reports no recent missed doses or dose changes to her benzodiazepine doses. The recent episode was the first spell in some time. Episodes have been much more frequent at periods in the past. CT scan shows ventriculomegaly and atrophy. On my view, findings are not significantly changed compared to prior scans. PHYSICAL EXAMINATION: On exam now, Ms. Singh is supine, moving her limbs spontaneously, awake and alert. She is not consistently attentive, but she interacted with me a little bit. She appears to be at her baseline neurologically. IMPRESSIONS: 1. Static encephalopathy, mental retardation, stable clinically. 2. Recent episode sounds like behavior, not true seizure. I do not have any urgent suggestion. I discussed my impression with the [facility] care chaplain by phone. If she has more episodes with question of seizure, we might consider further workup and outpatient follow-up in the office. We could add a medicine for seizure control later if she has more episodes, particularly if episodes have more typical features of seizure. Benzodiazepine withdrawal seems unlikely now. No urgent suggestions from Neurology standpoint. Thanks for asking us to see her again. cc: MD ISABELLE Queen III
[2019-07-02] MEDS: ZYPREXA ZYDIS PO PRN ×2 (16:44→20:27)
[2019-07-02] MEDS: DILAUDID IV PRN (19:44)
[2019-07-02] MEDS: RISPERDAL PO SCH (20:20)
[2019-07-02] MEDS: REMERON SOLTAB PO SCH (20:21)
[2019-07-02] MEDS ORDERED: RISPERDAL PO SCH (21:00)
[2019-07-03] MEDS: LOPRESSOR PO SCH ×4 (01:12→20:48)
[2019-07-03] MEDS: HEPARIN SUBQ SCH ×3 (01:12→18:34)
[2019-07-03] MEDS: ANUSOL-HC CREAM PR SCH ×6 (01:53→21:10)
[2019-07-03] MEDS: NS 1,000 ML IV SCH ×4 (01:53→19:38)
[2019-07-03] MEDS: DILAUDID IV PRN ×4 (01:59→21:09)
[2019-07-03] MEDS: SYNTHROID PO SCH ×2 (05:02→08:40)
--- NOTE | 2019-07-03 06:43 | Diag Imaging Result Doc PS360 ---
CHEST-PORTABLE - 07/03/2019 INDICATION: dyspnea COMPARISON: 06/22/2019 FINDINGS: The nasogastric tube has been removed. Lung volumes are critically low. No substantial infiltrates. There is significant hyperinflation of the bowels. IMPRESSION: Critically low lung volumes. Electronically signed by Rex Day 07/03/2019 6:40 AM
[2019-07-03 07:30] LABS: BASO# 0.04 X1000 (0.0-0.2); BASO% 0.3 % (0.0-0.8); EOS# 0.19 X1000 (0.0-0.7); EOS% 1.6 % (0.0-10.0); HEMATOCRIT 35.6 % (37.0-47.0); HEMOGLOBIN 11.6 g/dL (12.0-16.0); IMM GRAN# 0.44 X1000 (0.0-0.04); IMM GRAN% 3.6 % (0.0-0.5); LYMPH# 2.05 X1000 (1.2-3.4); MCHC 32.6 g/dL (33-37); MCV 101.1 FL (81-99); MONO# 0.71 X1000 (0.11-0.59); MONO% 5.9 % (1.7-9.3); MPV 10.3 FL (7.4-10.4); NEUT# 8.66 X1000 (1.4-6.5); NEUT% 71.6 % (42.2-75.2); PLT 569 X1000 (130-400); RBC 3.52 XMIL (4.2-5.4); RDW 14.2 % (11.5-14.5); WBC 12.09 X1000 (4.8-10.8)
[2019-07-03 07:45] LABS: AGAP 9; ALBUMIN 2.7 g/dL (3.5-5.0); ALKALINE PHOSPHATASE 69 U/L (32-104); BUN 4 mg/dL (8-22); CALCIUM 8.9 mg/dL (8.8-10.2); CHLORIDE 105 mmol/L (98-107); COSMO 271; CREATININE 0.7 mg/dL (0.5-0.9); ESTIMATED GFR > 60; GLUCOSE 106 mg/dL (70-104); GOT 18 U/L (10-30); GPT 10 U/L (10-36); MAGNESIUM 1.9 mg/dL (1.5-2.7); PHOSPHORUS 4.4 mg/dL (2.7-4.5); SODIUM 137 mmol/L (136-145); TCO2 23 mmol/L (25-35); TOTAL BILIRUBIN 0.21 mg/dL (0.20-1.00); TOTAL PROTEIN 5.3 g/dL (6.3-8.3)
--- NOTE | 2019-07-03 07:51 | GENERAL SURGERY PROGRESS NOTE ---
DATE: 07/03/2019 SUBJECTIVE: Patient moved from the ICU to the [facility]. She seems to be doing about the same. OBJECTIVE: Vital Signs: Patient is currently afebrile. Her vital signs are stable. General: No acute distress. Cardiovascular: Regular rate and rhythm. Lungs: Grossly clear. Abdomen: Soft, still somewhat distended. Incision is healing okay. JACOB drain in place with serous fluid. ASSESSMENT AND PLAN: 44-year-old female status post total abdominal colectomy. Postop state. At this time, continue supportive care. It does not seem like she has had any more seizure-like activity. Her ABG improved with a lactic acid, I think it was somewhat elevated secondary to the seizure. She still has a good amount of output out of her Federico-Jones drain, but if she is voiding, this may just be fluid that is third spacing from her small bowel distention. She still has a good amount of small-bowel distention. May need to consider decreasing her IV fluid at this point but will defer to the hospitalist. Otherwise, continue current treatment. cc: Clint Lange MD
[2019-07-03] MEDS: PAXIL PO SCH ×2 (08:39→20:48)
[2019-07-03] MEDS: DEPAKOTE PO SCH ×3 (08:40→20:50)
[2019-07-03] MEDS: MYLICON PO SCH ×4 (08:40→21:10)
[2019-07-03] MEDS: PERIDEX MT SCH ×2 (08:40→20:48)
[2019-07-03] MEDS: REVIA PO SCH (12:01)
--- NOTE | 2019-07-03 12:28 | PROGRESS NOTE ---
DATE: 07/03/2019 SUBJECTIVE: Patient is lying comfortably in bed. She is still having abdominal distention, the JACOB drain is still draining a significant amount, Surgery on board. I have decreased the IV fluids from 100 to 50. This patient is tolerating p.o. We will monitor this patient closely. OBJECTIVE: Vital Signs: Temperature 98.3 degrees, pulse 89, respiratory rate 17, blood pressure 126/98, oxygen saturation 94% on room air. HEENT: Head normocephalic. No trauma. Neck: Supple. Chest: Clear to auscultation. No wheezing. Some crepitus at the bases. Abdomen: Soft, distended. Decreased bowel sounds but present. Slightly tympanic. Midline wound covered with a dressing that looks clean, dry, and intact. She has an ostomy bag that is working and also a JACOB drain with serosanguineous output. I do not see any signs of infection. Extremities: No edema, no clubbing, no cyanosis. Neurological: This patient is having significant intellectual impairment, she is nonverbal, she is not following commands, but she is able to move herself and cover herself with a blanket. LABORATORY DATA: WBC 12.0, hemoglobin 11.6, hematocrit 35.6, platelets 569,000. Sodium 137, potassium 4, chloride 105, bicarbonate 23, BUN 4, creatinine 0.7, glucose 106, calcium 8.9, magnesium 1.9, albumin 2.7. ASSESSMENT AND PLAN: 1. 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 Her abdomen is still distended. It looks like she has been passing some gas. Decreased bowel sounds. Wound looks okay. Surgery on board. 2. Reported episode of seizures, probably that was more agitation than seizures. We did not add any new medications. Neurology Department evaluated this patient. We are not having more of this activity. 3. Severe intellectual impairment and nonverbal, sitter at the bedside. As per the sitter, she looks much better today. 4. Hypokalemia, resolved. 5. Reported presyncopal episode upon admission, resolved. cc: Mehran Waite MD
[2019-07-03] MEDS: SEROQUEL PO SCH ×2 (14:37→20:50)
[2019-07-03] MEDS: RISPERDAL PO SCH (20:48)
[2019-07-03] MEDS: REMERON SOLTAB PO SCH (20:50)
[2019-07-03] MEDS: ZOFRAN IV PRN (21:09)
[2019-07-04] MEDS: HEPARIN SUBQ SCH ×4 (01:26→16:51)
[2019-07-04] MEDS: LOPRESSOR IV SCH ×4 (01:26→20:38)
[2019-07-04] MEDS: ZOFRAN IV PRN (05:16)
[2019-07-04] MEDS: NS 1,000 ML IV SCH ×3 (05:34→18:06)
[2019-07-04] MEDS: SYNTHROID PO SCH (06:11)
[2019-07-04 07:22] LABS: BASO# 0.04 X1000 (0.0-0.2); BASO% 0.3 % (0.0-0.8); EOS# 0.04 X1000 (0.0-0.7); EOS% 0.3 % (0.0-10.0); HEMOGLOBIN 12.1 g/dL (12.0-16.0); IMM GRAN# 0.24 X1000 (0.0-0.04); IMM GRAN% 1.9 % (0.0-0.5); LYMPH# 1.79 X1000 (1.2-3.4); LYMPH% 14.5 % (20.5-51.1); MCH 32.8 PG (27-31); MCHC 32.7 g/dL (33-37); MCV 100.3 FL (81-99); MONO# 1.24 X1000 (0.11-0.59); MONO% 10.1 % (1.7-9.3); MPV 10.9 FL (7.4-10.4); NEUT# 8.96 X1000 (1.4-6.5); NEUT% 72.9 % (42.2-75.2); PLT 726 X1000 (130-400); RBC 3.69 XMIL (4.2-5.4); RDW 14.2 % (11.5-14.5); WBC 12.31 X1000 (4.8-10.8)
[2019-07-04 07:51] LABS: AGAP 15; BUN 12 mg/dL (8-22); CHLORIDE 100 mmol/L (98-107); COSMO 284; CREATININE 0.8 mg/dL (0.5-0.9); ESTIMATED GFR > 60; GLUCOSE 125 mg/dL (70-104); SODIUM 142 mmol/L (136-145); TCO2 27 mmol/L (25-35)
--- NOTE | 2019-07-04 08:00 | GENERAL SURGERY PROGRESS NOTE ---
DATE: 07/04/2019 SUBJECTIVE: The patient had projectile vomiting yesterday. She is still somewhat distended. Her JACOB drain still has a good amount of output. OBJECTIVE: Incision in her abdomen seems to be doing fine. Her ostomy is functioning and viable. ASSESSMENT AND PLAN: At this point, we will place an NG tube. Placed a Tam catheter. Given the output from her JACOB drain in being somewhat serous, we will check for a JACOB creatinine just to make sure there is no urinary injury. We will continue to monitor her closely. cc: Clint Lange MD
[2019-07-04] MEDS: ZYPREXA ZYDIS PO PRN (09:04)
[2019-07-04] MEDS: PAXIL PO SCH ×4 (10:01→20:38)
[2019-07-04] MEDS: MYLICON PO SCH ×6 (10:01→20:30)
[2019-07-04] MEDS: REVIA PO SCH ×2 (10:01→12:28)
[2019-07-04] MEDS: DEPAKOTE PO SCH ×5 (10:02→20:43)
[2019-07-04] MEDS: PERIDEX MT SCH ×2 (10:03→20:33)
[2019-07-04] MEDS: ANUSOL-HC CREAM PR SCH ×3 (10:03→20:32)
[2019-07-04] MEDS: CLINIMIX E 4.25%-5% SOLUTION 1,000 ML IV SCH (10:04)
--- NOTE | 2019-07-04 10:07 | PROGRESS NOTE ---
DATE: 07/04/2019 SUBJECTIVE: This patient's abdomen is more distended compared with yesterday, decreased bowel sounds. She is still having significant drainage through the JACOB drain. Surgery has requested to put an NG tube and also a Tam catheter. They will measure the creatinine in the JACOB fluid to rule out urine in the cavity. She has been vomiting. Like I said she will get an NG tube and intermittent suction. OBJECTIVE: Vital signs: Temperature 99.3 degrees, pulse 115, respiratory rate 20, blood pressure 118/92 oxygen saturation 100% on room air. HEENT: Head normocephalic. Neck: Supple. No JVD. Chest: Clear to auscultation. Some crepitus at the bases. Abdomen: Is distended, tense compared with yesterday. Decreased bowel sounds. Tympanic. She has a midline dressing and also an ostomy bag and a JACOB drain. I do not see any signs of infection, but compared with yesterday looks more distended and painful. Extremities: No edema. No clubbing. No cyanosis. Neurological: The patient has significant intellectual impairment. She is nonverbal. She is not following commands. LABORATORY: WBC 12.3, hemoglobin 12.1, hematocrit 37, platelet count 726,000. Sodium 142, potassium chloride 100, bicarbonate 27, BUN 12, creatinine 0.8, glucose 125, calcium 9. ASSESSMENT AND PLAN: 1. 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 This patient looks worse and more distended today. An NG tube and a new Tam will be placed and we will use intermittent suction. Pending some lab works suggested by Surgery Department. I will increase the rate of the fluids. I will keep this patient on normal saline at 50 but also I will add Clinimix. 2. Reported episode of seizures, probably that was more agitation than seizure. I will not add any kind of new medication. Neurology Department evaluated this patient. 3. Severe intellectual impairment and also this patient is nonverbal. She was doing much better yesterday but today she is distended, and complaining of belly pain. 4. Hypokalemia, resolved. 5. Reported presyncopal episode upon admission, resolved. cc: Mehran Waite MD
[2019-07-04 12:05] LABS: CREATININE BODY FLUID 0.8 mg/dL
[2019-07-04] MEDS ORDERED: ALBUMIN 25% IV ONE ×2 (12:14→22:33)
[2019-07-04] MEDS: DILAUDID IV PRN ×2 (12:43→19:25)
--- NOTE | 2019-07-04 12:45 | Diag Imaging Result Doc PS360 ---
EXAM: CHEST-PORTABLE INDICATION: ng placement TECHNIQUE: One view COMPARISON: 07/03/2019 FINDINGS: The newly placed NG tube projects below the diaphragm and is assumed to be in the lumen of the stomach in expected position. Gas-distended loops of bowel are again noted like the previous study. There is better inspiration as compared to the previous study. No new consolidation is identified. Cardiac silhouette is stable. IMPRESSION: Interval placement of NG tube in expected position and better inspiration as compared to the previous study. Stable chest, otherwise. Electronically signed by Tez Tiwari 07/04/2019 12:43 PM
[2019-07-04] MEDS: SEROQUEL PO SCH ×2 (13:32→20:47)
[2019-07-04] MEDS: ZOSYN 3.375 GM in NS 50 ML IV SCH ×2 (15:15→20:47)
[2019-07-04 17:22] LABS: URINE SOURCE CATH
[2019-07-04 17:31] LABS: BILIRUBIN URINE NEGATIVE (NEGATIVE); BLOOD URINE MODERATE (NEGATIVE); COLOR YELLOW; GLUCOSE URINE NEGATIVE (NEGATIVE); KETONE URINE 20 mg/dL (NEGATIVE); LEUKOCYTES URINE NEGATIVE (NEGATIVE); NITRITE URINE NEGATIVE (NEGATIVE); PH URINE 6.5; PROTEIN URINE 50 mg/dL (NEGATIVE); SP GRAVITY URINE 1.042; TURBIDITY URINE HAZY (CLEAR); UROBILINOGEN URINE NORMAL (NORMAL)
[2019-07-04 17:32] LABS: UR EPITHELIAL CELLS <10 /HPF (<10); URINE BACTERIA NEGATIVE /HPF; URINE RBC TNTC /HPF (<10); URINE WBC <10 /HPF (<10)
--- NOTE | 2019-07-04 18:30 | Diag Imaging Result Doc PS360 ---
EXAM: CHEST-PORTABLE INDICATION: SOB TECHNIQUE: One view COMPARISON: 07/04/2019 FINDINGS: The NG tube has been retracted somewhat. However, the tip still projects below the diaphragm and is assumed to be in the lumen of the stomach. Gas-distended loops of small bowel are again noted similar to the previous study. Lung volumes remain low. No new consolidation is identified. Cardiac silhouette is stable. IMPRESSION: Retraction of the NG tube as described but still projects below the diaphragm. Essentially stable chest, otherwise. Electronically signed by Tez Tiwari 07/04/2019 6:27 PM
[2019-07-04] MEDS ORDERED: HALDOL IV ONE (19:41)
[2019-07-04] MEDS: REMERON SOLTAB PO SCH (21:05)
[2019-07-04] MEDS: RISPERDAL PO SCH (21:05)
--- NOTE | 2019-07-04 21:23 | Diag Imaging Result Doc PS360 ---
EXAM: CHEST-PORTABLE INDICATION: ng placement TECHNIQUE: One view COMPARISON: 07/04/2019 FINDINGS: The NG tube has been advanced and is now well below the diaphragm. The tip is probably coiled in the pyloric region of the stomach. Marked gaseous distention of bowel is again identified likely previous study. Ventral abdominal wall skin apolinar are again seen. Limited views of the lung bases are grossly stable. IMPRESSION: Interval advancement of the NG tube that is well below the diaphragm. Electronically signed by Tez Tiwari 07/04/2019 9:20 PM
[2019-07-05] MEDS: LOPRESSOR IV SCH ×4 (01:56→19:38)
[2019-07-05] MEDS: ZOSYN 3.375 GM in NS 50 ML IV SCH ×4 (02:30→20:26)
[2019-07-05 05:51] LABS: BASO# 0.03 X1000 (0.0-0.2); BASO% 0.3 % (0.0-0.8); HEMATOCRIT 32.6 % (37.0-47.0); HEMOGLOBIN 10.4 g/dL (12.0-16.0); LYMPH# 1.96 X1000 (1.2-3.4); LYMPH% 16.6 % (20.5-51.1); MCH 32.3 PG (27-31); MCHC 31.9 g/dL (33-37); MCV 101.2 FL (81-99); MONO# 1.04 X1000 (0.11-0.59); MONO% 8.8 % (1.7-9.3); PLT 526 X1000 (130-400); RBC 3.22 XMIL (4.2-5.4); WBC 11.78 X1000 (4.8-10.8)
[2019-07-05] MEDS: SYNTHROID PO SCH (06:11)
[2019-07-05] MEDS: CLINIMIX E 4.25%-5% SOLUTION 1,000 ML IV SCH ×2 (06:11→09:59)
[2019-07-05 07:23] LABS: AGAP 15; ALBUMIN 3.8 g/dL (3.5-5.0); ALKALINE PHOSPHATASE 56 U/L (32-104); BUN 20 mg/dL (8-22); CALCIUM 8.9 mg/dL (8.8-10.2); CHLORIDE 102 mmol/L (98-107); COSMO 287; CREATININE 0.7 mg/dL (0.5-0.9); ESTIMATED GFR > 60; GLUCOSE 93 mg/dL (70-104); GOT 14 U/L (10-30); GPT 9 U/L (10-36); POTASSIUM 3.7 mmol/L (3.5-5.1); SODIUM 143 mmol/L (136-145); TCO2 26 mmol/L (25-35); TOTAL BILIRUBIN 0.25 mg/dL (0.20-1.00); TOTAL PROTEIN 5.7 g/dL (6.3-8.3)
--- NOTE | 2019-07-05 07:30 | GENERAL SURGERY PROGRESS NOTE ---
DATE: 07/05/2019 SUBJECTIVE: The patient did better through the evening. She was transferred to the ICU. JACOB drain creatinine was the same as the serum, thus eliminating a urinary leak. She seemed to have better urinary output when we gave her some albumin. She likely needs some more consistent oncotic pressure. Her respiratory status has improved slightly. They have gotten over 1200 out of her NG tube. Hopefully, we can decompress her stomach enough that her ileostomy will start to work again. One thing to consider in the future may be placement of a PEG tube for intermittent decompression, but will need to kind of see how she does. cc: Clint Lange MD
--- NOTE | 2019-07-05 07:45 | PROGRESS NOTE ---
DATE: 07/05/2019 SUBJECTIVE: This patient's abdomen is still distended, but compared with yesterday, it seems to be a little bit better. She has an NG tube with intermittent suction. I looked at the x-ray of her abdomen and thorax. Her bowel is distended. For now, will continue with the same management. I will continue following the recommendations of Surgery Department. Her urine output is slow, around 22 mL/h. I have increased a little bit the rate of the normal saline, and I will continue with Clinimix. The JACOB drain is still draining, but the larger amount of fluid was coming from the NG tube, around 1.2 L. OBJECTIVE: Vital Signs: Temperature 97.6 degrees, pulse 106, respiratory rate 17, blood pressure 120/79, oxygen saturation 99 on a Venturi mask, 50% oxygen flow. HEENT: Head normocephalic. Neck: Supple. No JVD. Chest: Some crepitus at the bases. Abdomen: Distended, tense. Decreased bowel sounds. Tympanic. She has a midline dressing, and also an ostomy bag, JACOB drain. I do not see any signs of infection. Still painful. Extremities: No changes. No edema, no clubbing, no cyanosis. Neurological: This patient has significant intellectual impairment. She is nonverbal. She is not following commands. LABORATORY DATA: WBC 11.7, hemoglobin 10.4, hematocrit 32.6, platelets 526,000. Sodium 143, potassium 3.7, chloride 102, bicarbonate 26, BUN 20, creatinine 0.7, glucose 93, calcium 8.9. AST 14, ALT 9, alkaline phosphatase 56, albumin 3.8. ASSESSMENT AND PLAN: 1. 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 This patient is still distended. X-ray showed bowel distention. Pending final reading by Radiology. Continue with nasogastric tube with intermittent suction. Pending laboratory, CMP. Will continue with fluids and Clinimix. 2. Reported episode of seizures. Probably, this was more related to agitation and seizures. I did not add any new medications. Neurology Department evaluated this patient. 3. Severe intellectual impairment, and also this patient is nonverbal. She was doing much better a couple days ago, but yesterday she started having vomiting and she became distended again. She is complaining of abdominal pain. Will continue with the same management. 4. Hypokalemia. Will monitor. Pending lab work today. 5. Reported presyncopal episode upon admission, resolved. 6. Decreased urine output. For the past 8 hours, her urine output was around 22 mL/hour. I have increased, just a little bit, the rate of the normal saline. She received some doses of albumin yesterday. Pending lab work today. Albumin today is 3.8. CRITICAL CARE TIME: 35 minutes. cc: Mehran Waite MD
--- NOTE | 2019-07-05 08:03 | Diag Imaging Result Doc PS360 ---
EXAM: ABDOMEN FLAT/UPRIGHT INDICATION: sbo TECHNIQUE: 3 views COMPARISON: 06/11/2019 FINDINGS: The NG tube projects far below the diaphragm and may actually be in the duodenum. Gas-distended loops of bowel throughout the abdomen are essentially stable as compared to the previous study, however. Midline skin apolinar are again identified. A JACOB drain projects over the pelvis. No large volume free abdominal gas is identified. IMPRESSION: Significant small bowel distention that is very similar to the previous study. Electronically signed by Tez Tiwari 07/05/2019 8:01 AM
--- NOTE | 2019-07-05 08:04 | Diag Imaging Result Doc PS360 ---
EXAM: CHEST-PORTABLE INDICATION: dyspnea TECHNIQUE: One view COMPARISON: 07/04/2019 FINDINGS: The NG tube projects well below the diaphragm out of the [id number]. Lung volumes remain somewhat low. No new consolidation is identified. Cardiac silhouette is stable. IMPRESSION: Stable chest. Electronically signed by Tez Tiwari 07/05/2019 8:02 AM
[2019-07-05 08:07] LABS: BANDS 14 % (0-1); EOS 2 % (1-10); LYMPHS 12 % (21-51); MONO 6 % (1-9); SEGS 60 % (42-75)
[2019-07-05] MEDS: NS 1,000 ML IV SCH ×3 (09:59→21:04)
[2019-07-05] MEDS: PERIDEX MT SCH ×2 (10:00→20:10)
[2019-07-05] MEDS: DEPAKOTE PO SCH ×3 (10:06→20:10)
[2019-07-05] MEDS: PAXIL PO SCH ×2 (10:07→19:38)
[2019-07-05] MEDS: DILAUDID IV PRN ×3 (10:12→19:38)
[2019-07-05] MEDS: MYLICON PO SCH ×4 (10:33→19:38)
[2019-07-05] MEDS: ANUSOL-HC CREAM PR SCH ×3 (10:34→20:09)
[2019-07-05] MEDS: SEROQUEL PO SCH ×2 (15:53→19:39)
[2019-07-05] MEDS: RISPERDAL PO SCH (20:10)
[2019-07-05] MEDS: REMERON SOLTAB PO SCH (20:10)
[2019-07-05] MEDS: ZYPREXA ZYDIS PO PRN (23:30)
[2019-07-06] MEDS: CLINIMIX E 4.25%-5% SOLUTION 1,000 ML IV SCH ×2 (00:34→06:38)
[2019-07-06] MEDS: DILAUDID IV PRN (01:13)
[2019-07-06] MEDS: LOPRESSOR IV SCH ×4 (01:13→20:24)
[2019-07-06] MEDS: ZOSYN 3.375 GM in NS 50 ML IV SCH ×4 (02:20→20:21)
[2019-07-06 05:38] LABS: ALLEN TEST YES; BE 0.7 mmoll (-3.0-3.0); BLOOD TYPE ARTERIAL; HCO3-(ACT) 25.4 mmoll (20.0-26.0); METHB 1.3 % (0.0-1.5); O2(CT) 14.4 mL/dL (15.0-23.0); O2HB 94.7 % (95.0-99.0); PCO2(98.6) 47 mmHg (35-45); PO2(98.6) 86 mmHg (60-100); SAMPLE BLOOD; SAO2 97.2 % (95.0-100.0); THB 10.7 g/dL (11.5-17.4); pH(98.6) 7.36 (7.35-7.45)
[2019-07-06 05:40] LABS: MODALITY VENTIMASK
[2019-07-06] MEDS: SYNTHROID PO SCH (06:18)
[2019-07-06 06:30] LABS: MAGNESIUM 2.1 mg/dL (1.5-2.7); PHOSPHORUS 4.5 mg/dL (2.7-4.5)
[2019-07-06] MEDS ORDERED: ALBUMIN 25% IV ONE (06:53)
[2019-07-06 07:05] LABS: AGAP 11; ALB/GLOB RATIO 1.5; ALBUMIN 3.3 g/dL (3.5-5.0); ALKALINE PHOSPHATASE 54 U/L (32-104); BUN 20 mg/dL (8-22); CALCIUM 8.6 mg/dL (8.8-10.2); CHLORIDE 107 mmol/L (98-107); COSMO 285; CREATININE 0.7 mg/dL (0.5-0.9); ESTIMATED GFR > 60; GLUCOSE 90 mg/dL (70-104); GOT 14 U/L (10-30); GPT 10 U/L (10-36); POTASSIUM 3.5 mmol/L (3.5-5.1); SODIUM 142 mmol/L (136-145); TCO2 24 mmol/L (25-35); TOTAL BILIRUBIN 0.24 mg/dL (0.20-1.00); TOTAL PROTEIN 5.5 g/dL (6.3-8.3)
--- NOTE | 2019-07-06 07:32 | PROGRESS NOTE ---
DATE: 07/06/2019 SUBJECTIVE: This patient is resting in bed. She is not complaining of pain. Her abdomen is still distended, but a little bit more soft compared with yesterday. Her urine output is low, around 325 mL, and the output from the JACOB drain is around 190. Most of the output is from the gastric area, NG tube, which has been placed on intermittent suction. She has been receiving IV fluids and also Clinimix. Her hemoglobin dropped to 6.8, but I do not have any source of bleeding, so I will repeat stat hemoglobin and hematocrit, and I will transfuse if this is the real number. Nephrology Department has been consulted. OBJECTIVE: Vital Signs: Temperature 97, pulse 92, respiratory rate 22, blood pressure 123/85, oxygen saturation 100% on a Venturi mask. HEENT: Head normocephalic. Neck: Supple. No JVD. Chest: Some crepitus at the bases. Abdomen: Distended. It is more soft compared with yesterday. No bowel sounds. Tympanic. Midline dressing. Also, she has an ostomy bag, JACOB catheter. I do not see any signs of infection. Still painful to palpation. Extremities: No changes. No edema, no clubbing, no cyanosis. Neurological: This patient has a significant intellectual impairment. She is nonverbal. She is not following commands. LABORATORY DATA: WBC 4.3, hemoglobin 6.8, hematocrit 25.1, platelets 475,000. Sodium 142, potassium 3.5, chloride 107, bicarbonate 24, BUN 20, creatinine 0.7, glucose 90, calcium 8.6, albumin 3.3. ASSESSMENT AND PLAN: 1. 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 Her abdomen is still distended. X-ray showed bowel distention. Will continue with the same management for now. Surgery Department following this patient closely. I will continue with Clinimix and normal saline. 2. Reported episode of seizures, probably that was related to agitation and no seizures. I did not add any new medications. Neurology evaluated this patient already. 3. Decreased urine output with a creatinine within normal limits. I have requested an evaluation by Nephrology Department to evaluate this patient. 4. Severe intellectual impairment. This patient is nonverbal. She has been placed on restraints to avoid lesions, and she may try to pull out lines or drains or catheters. 5. Hypokalemia, resolved. 6. Reported presyncopal episode upon admission, resolved. Her abdomen is still distended, and we are getting a significant output through the nasogastric tube, which has been placed on intermittent suction. I have requested an evaluation by Nephrology Department since the urine output has decreased. Yesterday, we had a urine output of 230, and today 225. CRITICAL CARE TIME: 35 minutes. cc: Mehran Waite MD
--- NOTE | 2019-07-06 07:34 | GENERAL SURGERY PROGRESS NOTE ---
DATE: 07/06/2019 SUBJECTIVE: The patient seems to be doing about the same. OBJECTIVE: Vital Signs: The patient is currently afebrile. Her vital signs are stable. General: No acute distress. Cardiovascular: Regular rate and rhythm. Lungs: Grossly clear. Abdomen: Protuberant. NG tube in place with significant output. JACOB drain in place with serous output. : Tam catheter in place with minimal output. LABORATORY DATA: Of note, her hematocrit went down to 25 from 32. Everything else has gone down, suggesting some degree of dilutional effect. ASSESSMENT AND PLAN: A 44-year-old female status post total abdominal colectomy. Postoperative state. At this time, continue resuscitation. Continue to give her some albumin. Will recheck her hematocrit. I do not see any obvious source of bleeding, but will need to follow up with the results. cc: Clint Lange MD
[2019-07-06 07:59] LABS: BASO# 0.09 X1000 (0.0-0.2); BASO% 2.1 % (0.0-0.8); EOS# 0.11 X1000 (0.0-0.7); EOS% 2.5 % (0.0-10.0); HEMOGLOBIN 10.6 g/dL (12.0-16.0); IMM GRAN# 0.36 X1000 (0.0-0.04); IMM GRAN% 8.3 % (0.0-0.5); LYMPH# 1.82 X1000 (1.2-3.4); LYMPH% 41.8 % (20.5-51.1); MCH 32.8 PG (27-31); MCHC 32.1 g/dL (33-37); MCV 102.2 FL (81-99); MONO# 0.55 X1000 (0.11-0.59); MONO% 12.6 % (1.7-9.3); MPV 10.1 FL (7.4-10.4); NEUT# 1.42 X1000 (1.4-6.5); NEUT% 32.7 % (42.2-75.2); PLT 501 X1000 (130-400); RBC 3.23 XMIL (4.2-5.4); RDW 13.7 % (11.5-14.5); WBC 4.35 X1000 (4.8-10.8)
--- NOTE | 2019-07-06 08:02 | Diag Imaging Result Doc PS360 ---
EXAM: CHEST-PORTABLE INDICATION: dyspnea TECHNIQUE: One view COMPARISON: 07/05/2019 FINDINGS: The NG tube is in approximately stable position. Lung volumes remain slightly low. No new consolidation is identified. Cardiac silhouette is stable. IMPRESSION: Stable chest. Electronically signed by Tez Tiwari 07/06/2019 7:59 AM
--- NOTE | 2019-07-06 08:05 | Diag Imaging Result Doc PS360 ---
EXAM: ABDOMEN FLAT/UPRIGHT INDICATION: sbo TECHNIQUE: 2 views COMPARISON: 07/05/2019 FINDINGS: The NG tube is in approximately stable position well below the diaphragm and probably in the duodenum. Gas-distended loops of colon and small bowel are essentially stable as compared to the previous study. No large volume free abdominal gas is appreciated. The abdomen is grossly stable, otherwise. IMPRESSION: Grossly stable gaseous distention of bowel. Electronically signed by Tez Tiwari 07/06/2019 8:03 AM
[2019-07-06 08:20] LABS: LYMPHS 46 % (21-51); MONO 14 % (1-9); SEGS 34 % (42-75)
[2019-07-06 08:21] LABS: HYPOCHROM 1+
[2019-07-06 08:50] LABS: URINE SOURCE CATH
[2019-07-06] MEDS: ANUSOL-HC CREAM PR SCH ×3 (08:51→20:21)
[2019-07-06] MEDS: MYLICON PO SCH ×5 (08:51→21:53)
[2019-07-06] MEDS: PAXIL PO SCH ×2 (08:51→20:31)
[2019-07-06] MEDS: DEPAKOTE PO SCH ×3 (08:52→20:21)
[2019-07-06] MEDS: PERIDEX MT SCH ×2 (08:52→20:21)
[2019-07-06 08:54] LABS: BILIRUBIN URINE NEGATIVE (NEGATIVE); BLOOD URINE MODERATE (NEGATIVE); COLOR YELLOW; GLUCOSE URINE NEGATIVE (NEGATIVE); KETONE URINE TRACE mg/dL (NEGATIVE); LEUKOCYTES URINE NEGATIVE (NEGATIVE); NITRITE URINE NEGATIVE (NEGATIVE); PH URINE 5.5; PROTEIN URINE TRACE mg/dL (NEGATIVE); SP GRAVITY URINE 1.034; TURBIDITY URINE CLEAR (CLEAR); UROBILINOGEN URINE NORMAL (NORMAL)
[2019-07-06 08:55] LABS: UR EPITHELIAL CELLS <10 /HPF (<10); URINE BACTERIA NEGATIVE /HPF; URINE RBC 20-40 /HPF (<10); URINE WBC <10 /HPF (<10)
[2019-07-06] MEDS: NS 1,000 ML IV SCH ×3 (09:50→20:21)
[2019-07-06 11:08] LABS: UR PROT RANDOM 39.8 mg/dL
[2019-07-06] MEDS: SEROQUEL PO SCH ×2 (13:08→20:32)
--- NOTE | 2019-07-06 13:46 | NEPHROLOGY CONSULTATION ---
DATE: 07/06/2019 REASON FOR CONSULTATION: Decreased urine output. HISTORY OF PRESENT ILLNESS: Ms Singh is a 44-year-old white female with low cognitive function who lives in a [facility]. She is nonverbal but typically she is able to feed herself and perform self-care. She has been in the hospital since the 19 of June with toxic megacolon that required total surgical colectomy by Dr. Lange. Since that time, she has been in the intensive care unit and has required restraints, IV fluids, NG tube suction, chemical constrained, IV antibiotics. In this context, her creatinine is 0.7 today. It was 1.0 on presentation and its fransisco was 0.4 on the . BUN has risen progressively from 3 on the to 20 today. In this context, her urine output has been somewhat decreased and so we were asked to see here. She has had very large NG tube output. 1500 mL over the last 24 hours. PAST MEDICAL HISTORY: As above. She also has a history of reflux. MEDICATIONS: Home medications and current inpatient medications are reviewed. See list. SOCIAL, FAMILY, REVIEW OF SYSTEMS: Otherwise noncontributory. PHYSICAL EXAMINATION: Vital Signs: Blood pressure 131/77, heart rate 86, respirations 14, afebrile. General: No acute distress. Skin: Pale and dry with mottling around the knees. HEENT: Pupils are equal. Conjunctivae are pink. Oropharynx is dry. Neck: Neck veins are not appreciated. Heart: Regular. Lungs: Equal, shallow. No crackles. Abdomen: Distended with diminished bowel sounds. Extremities: Have no edema, clubbing or cyanosis. IMPRESSION: Low urine output and increased BUN. Her FEMA is not low but I expect that she has intravascular volume depletion secondary to this 3rd spacing. Her albumin is 3.3 today. She received albumin over the and the up through including the 2nd (today). I will continue her IV fluids but increased the rate to 125 mL and we will reevaluate her volume status in the morning. I have reviewed her medications and no other changes appear necessary at this time. Will follow with you. cc: Tommy Harrison MD
[2019-07-06] MEDS: REMERON SOLTAB PO SCH (20:21)
[2019-07-06] MEDS: RISPERDAL PO SCH (22:20)
[2019-07-07] MEDS: CLINIMIX E 4.25%-5% SOLUTION 1,000 ML IV SCH ×2 (00:07→18:33)
[2019-07-07] MEDS: DILAUDID IV PRN ×3 (00:07→10:53)
[2019-07-07] MEDS: LOPRESSOR IV SCH ×4 (03:08→20:38)
[2019-07-07] MEDS: ZOSYN 3.375 GM in NS 50 ML IV SCH ×4 (03:09→20:38)
[2019-07-07] MEDS: NS 1,000 ML IV SCH ×3 (05:06→23:40)
[2019-07-07] MEDS: SYNTHROID PO SCH (06:40)
[2019-07-07 07:02] LABS: BASO% 1.1 % (0.0-0.8); EOS# 0.07 X1000 (0.0-0.7); EOS% 0.8 % (0.0-10.0); HEMATOCRIT 33.3 % (37.0-47.0); HEMOGLOBIN 11.2 g/dL (12.0-16.0); IMM GRAN# 0.43 X1000 (0.0-0.04); IMM GRAN% 4.9 % (0.0-0.5); LYMPH# 2.54 X1000 (1.2-3.4); MCHC 33.6 g/dL (33-37); MCV 98.2 FL (81-99); MONO# 0.99 X1000 (0.11-0.59); MONO% 11.3 % (1.7-9.3); MPV 10.7 FL (7.4-10.4); NEUT# 4.62 X1000 (1.4-6.5); NEUT% 52.9 % (42.2-75.2); PLT 596 X1000 (130-400); RBC 3.39 XMIL (4.2-5.4); RDW 13.2 % (11.5-14.5); WBC 8.75 X1000 (4.8-10.8)
[2019-07-07 07:05] LABS: AGAP 17; ALB/GLOB RATIO 1.9; ALBUMIN 3.9 g/dL (3.5-5.0); ALKALINE PHOSPHATASE 59 U/L (32-104); BUN 14 mg/dL (8-22); CALCIUM 9.2 mg/dL (8.8-10.2); CHLORIDE 103 mmol/L (98-107); COSMO 274; CREATININE 0.7 mg/dL (0.5-0.9); ESTIMATED GFR > 60; GLUCOSE 88 mg/dL (70-104); GOT 19 U/L (10-30); GPT 11 U/L (10-36); MAGNESIUM 1.8 mg/dL (1.5-2.7); POTASSIUM 3.2 mmol/L (3.5-5.1); SODIUM 137 mmol/L (136-145); TCO2 17 mmol/L (25-35); TOTAL BILIRUBIN 0.58 mg/dL (0.20-1.00)
--- NOTE | 2019-07-07 07:10 | GENERAL SURGERY PROGRESS NOTE ---
DATE: 07/07/2019 The patient is doing about the same. She is still distended and her ileostomy output has decreased. NG tube output is still relatively significant. Discussed with nurse. I am somewhat concerned that either her Federico-Jones drain may be occluding her bowel so we removed it without issue or that with her tightening in her abdominal wall she has kinked off her ileostomy at the fascial level because of flexing. Regardless we will get a CT scan to see if there is any twisting or kinking of the ileostomy. I did try to place a Tam catheter down the ileostomy, but met resistance likely at the level of the fascia. We will follow up with the results. Otherwise, continue supportive care. cc: Clint Lange MD
--- NOTE | 2019-07-07 07:23 | Diag Imaging Result Doc PS360 ---
EXAM: CHEST-PORTABLE 07/07/2019 HISTORY: dyspnea TECHNIQUE: AP portable at 0525 COMMENT: There is a granuloma in the left lower lobe. There is a azygos lobe. The inspiration is less optimal than on 07/06/2019, however otherwise there has been no significant change. There is an NG tube with its tip below the diaphragm. The stomach and the visualized small bowel loops appear to be slightly more distended than on the previous study. IMPRESSION: Poor inspiration. Ileus versus small bowel obstruction. Electronically signed by Roger Lockwood 07/07/2019 7:20 AM
[2019-07-07] MEDS: MYLICON PO SCH ×4 (07:42→21:37)
[2019-07-07] MEDS: PAXIL PO SCH ×2 (07:43→21:37)
--- NOTE | 2019-07-07 07:49 | PROGRESS NOTE ---
DATE: 07/07/2019 SUBJECTIVE: This patient is still in bed. Her abdomen looks more distended and she seems to be in pain. Her colostomy back is not getting stools or air. I am not sure if she has a blockage or not. Surgery Department evaluated this patient. They have ordered a CT scan of the abdomen and pelvis. Also the JACOB tube has been removed. Urine output is around 300 mL in the last 8 hours per nurse report. We will continue with the same management and will wait for the CT scan. OBJECTIVE: Vital Signs: Temperature 98.9 degrees, pulse 94, respiratory rate 17, blood pressure 123/88, oxygen saturation 94% on room air. HEENT: Head normocephalic. No trauma. Neck: Supple. No JVD. Chest: Some crepitus at the bases. Abdomen: Distended. It is more tense compared with yesterday. She does have bowel sounds, tympanic, midline dressing. Also, the ostomy bag without any evidence of stools or air. JACOB catheter has been removed. I do not see any signs of infection. The abdomen is painful to palpation. Extremities: No changes. No edema. No clubbing. No cyanosis. Neurological: The patient has a significant intellectual impairment. She is nonverbal. She is not following commands. She is grimacing due to her pain. LABORATORY: Pending at this moment. ASSESSMENT AND PLAN: 1. 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 Her abdomen is still distended. I wonder if there is an obstruction in her colostomy back with no stools and/or air. She is still getting intermittent suction through the NG tube. She is in pain. Surgery Department evaluated this patient. They asked for a CT scan to find out what is going on. I will continue with Clinimix and normal saline. 2. Reported episode of seizure, probably that was related to agitation and no seizures. 3. Decreased urine output, pending BUN and creatinine today. The rate of the fluids has been increased. Nephrology Department on board. 4. Severe intellectual impairment. This patient is nonverbal. She has been placed on restraints to avoid reaching . She may try to pull out some pull out lines or drains/catheters. 5. Hypokalemia. We will monitor. 6. Reported press syncopal episode upon admission, resolved. CRITICAL CARE TIME: 35 minutes. cc: Mehran Waite MD
[2019-07-07] MEDS: ANUSOL-HC CREAM PR SCH ×3 (08:13→21:39)
[2019-07-07] MEDS: DEPAKOTE PO SCH ×3 (08:14→21:39)
[2019-07-07] MEDS: PERIDEX MT SCH ×2 (08:14→21:40)
--- NOTE | 2019-07-07 09:56 | Diag Imaging Result Doc PS360 ---
CT ABDOMEN/PELVIS W/O CONTRAST - 07/07/2019 INDICATION: bowel obstruction COMPARISON: 06/19/2019 FINDINGS: There is a GJ tube. Distal end of the jejunostomy tube is coiled with the tip in the distal duodenum. There is severe diffuse hyperinflation of bowel loops. There is a new right lower quadrant ileostomy. There is a kink bowel loop at the distal ileostomy. This is causing high-grade obstruction, with severe gas and fluid distention of all the bowels. The rectal stump appears normal. Tam catheter in the urinary bladder. Uterus is absent. No abdominal free air or significant free fluid. Bony structures are intact. IMPRESSION: There is indeed a kink at the distal ileum within the peritoneal cavity, close to the ileostomy. This is causing high-grade obstruction. This exam was performed using automated exposure control, adjustment of mA or kV according to patient size, and/or use of iterative reconstruction technique Electronically signed by Rex Day 07/07/2019 9:54 AM
[2019-07-07] MEDS ORDERED: AMIDATE ONE (12:21)
[2019-07-07] MEDS ORDERED: QUELICIN ONE (12:21)
[2019-07-07] MEDS: DIPRIVAN 1% 1,000 MG/100 ML BOTTLE IV SCH ×5 (12:23→23:38)
--- NOTE | 2019-07-07 12:47 | Diag Imaging Result Doc PS360 ---
CHEST-PORTABLE - 07/07/2019 12:34 PM INDICATION: intubation COMPARISON: 5:25 AM FINDINGS: There is an endotracheal tube just below the katey probably entering the right mainstem bronchus. There is a nasogastric tube in good position. Lung volumes remain critically low. No significant infiltrates. IMPRESSION: Low intubation. Recommend backing out of the endotracheal tube by about 2-3 cm. Electronically signed by Rex Day 07/07/2019 12:44 PM
[2019-07-07] MEDS: SEROQUEL PO SCH ×2 (13:00→21:38)
--- NOTE | 2019-07-07 13:53 | GENERAL SURGERY PROGRESS NOTE ---
DATE: 07/07/[address] scan. She has significant small bowel distention that is almost kinking off the ileostomy. Given this and her kind of tenuous respiratory status will plan on intubating her and try and take off some of the pressure. cc: Clint Lange MD MTDD
--- NOTE | 2019-07-07 14:34 | NEPHROLOGY PROGRESS NOTE ---
DATE: 07/07/2019 TIME SEEN: 7:00. SUBJECTIVE: Ms. Singh is resting quietly in bed. She has a sitter at the bedside. She opens her eyes randomly, remains nonverbal. OBJECTIVE: Vital Signs: Her most recent vital signs, her last temperature 98.7 degrees, blood pressure 123/88, heart rate 92, respirations 14. She is on 3 L high-flow oxygen mask. She has had 2770 in, 2065 out. The patient currently remains 8.5 L positive. LABORATORY DATA: Sodium 137, potassium 3.2, chloride 103 CO2 17, BUN 14, creatinine 0.7. Her glucose is 88. Her anion gap is 17, calcium 9.2, phosphorus 2, albumin 3.9, magnesium is 1.8, white count 8.75, hemoglobin 11.2, hematocrit 33.3 with a platelet count of 596,000. PHYSICAL EXAMINATION: General: This is a 44-year-old white female. She is resting quietly in bed. She appears in moderate discomfort secondary to abdominal distention. HEENT: Normocephalic, atraumatic. Conjunctiva is pale. She has GILDARDO. Mucous membranes dry. Neck: Supple. Trachea midline. No evidence of JVD. Cardiovascular: Regular rate and rhythm. She remains tachycardic. Lungs: Clear to auscultation bilaterally. Equal excursion on O2. Abdomen: Distended, tympanic. Hypo bowel sounds. Genitourinary: Not inspected. Tam catheter has adequate urine output documented. Extremities: Have no edema. No clubbing or cyanosis except to her hands. Neurological: As above. ASSESSMENT AND PLAN: 1. Elevated BUN with low urine output. She does not have a low FENa score. She appears to be volume contracted. She does continue on Clinimix, which is contributing to her increased fluid volume and remains on normal saline at 125 mL an hour. Adequate urine output is documented greater than 2 L in the last 24 hours. BUN and creatinine remain stable. 2. Electrolytes and acid-base balance. These are acceptable. 3. Anemia. This is stable. 4. Megacolon with surgery intervention. This continues to be followed by the primary care and Dr. Lange. The patient has a CT of the abdomen ordered this a.m. I would like to thank you for allowing us to follow with this patient. Dictated by ROGER Gallardo for Tommy Harrison MD Face to face encounter, data reviewed, discussed with Ling Fajardo on 07/07/19. I agree with the above assessment and plan of care. cc: ROGER Gallardo MD [facility]
--- NOTE | 2019-07-07 18:52 | CONSULTATION ---
DATE OF CONSULTATION: 07/07/2019 REQUESTING PROVIDER: Dr. Clint Lange. REASON FOR CONSULTATION: Respiratory failure. HISTORY OF PRESENT ILLNESS: This is a 44-year-old female with a medical history of severe intellectual impairment, chronic reflux, rectal prolapse, mild myopia, cerebral palsy, depression, eczema, and chronic constipation with abdominal distention. She has been admitted since 06/20/2019 with severe fecal impaction in the proximal colon and severe abdominal distention with evidence of severe colonic and small bowel extension. 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 She underwent open total abdominal colectomy by Dr. Lange on 06/22/2019. After the surgery she had been mainly staying on room air until July 04November 2018 she required increasing oxygenation. Her abdomen stays distended. CT abdomen and pelvis without contrast this morning shows a kink at the distal ileum within the peritoneal cavity close to the ileostomy which is causing high-grade obstruction. She was intubated this morning per Dr. Lange in order to take off some pressure from the abdomen. The patient currently is intubated and sedated. There is no family member or caregiver at the bedside. All other information is obtained from the E-chart. PAST MEDICAL HISTORY: 1. Severe intellectual impairment. 2. Chronic reflux. 3. History of rectal prolapse. 4. Mild myopia. 5. Cerebral palsy. 6. Depression. 7. Eczema. 8. Chronic constipation with abdominal distention. PAST SURGICAL HISTORY: 1. Hysterectomy. 2. Colon resection. 3. Prolapsed colon surgery. 4. Gallstone surgery. 5. Lithotripsy. 6. Open total abdominal colectomy by Dr. Lange on 06/22/2019. SOCIAL HISTORY: The patient currently lives at a local [facility]. She has no history of alcohol, tobacco, or illicit drug use. FAMILY HISTORY: Unknown. ALLERGIES: Doxepin and morphine. REVIEW OF SYSTEMS: Unable to be obtained. PHYSICAL EXAMINATION: Vital Signs: Temperature 97.8 degrees, blood pressure 144/95, pulse 96, respiratory rate 17, oxygen saturation 99% on AC mechanical ventilator with spontaneous rate 15, FiO2 of 40%, tidal volume 450, and PEEP 5. General: Intubated, lying in bed with no acute distress noted. HEENT: Atraumatic, normocephalic. ET tube in place. Trachea midline. Mucosa pink and moist. Respiratory: Mechanical ventilated. Symmetrical excursion. Clear to auscultation. Cardiovascular: Regular rate and rhythm. Gastrointestinal: Soft, significantly distended. Bowel sounds present in all 4 quadrants. Extremities: No pedal edema. No cyanosis. No clubbing. Dorsalis pedis 1+ bilaterally. Neurologic: Sedated. Unresponsive to any verbal or physical stimuli. LABORATORY DATA: White blood cell 8.75, hemoglobin 11.2, hematocrit 33.3, platelet 596,000. Sodium 137, potassium 3.2, chloride 103, carbon dioxide 17, BUN 14, creatinine 0.7, glucose 88. IMAGING DATA: Chest x-ray showed poor inspiration. Ileus versus small bowel obstruction. ASSESSMENT: This is a 44-year-old female with a medical history of severe intellectual impairment, chronic reflux, history of a rectal prolapse, mild myopia, cerebral palsy depression, eczema, and chronic constipation with abdominal distention. She has been admitted since 06/20/2019 with severe fecal impaction in the proximal colon and severe abdominal distention with evidence of severe colonic and small bowel distention. She underwent open total abdominal colectomy by Dr. Lange on 06/22/2019 secondary to colonic inertia-induced toxic megacolon. CT abdomen and pelvis without contrast this morning showed a kink at the distal ileum within the peritoneal cavity close to the ileostomy which is causing high-grade obstruction. She was intubated per Dr. Lange this morning in order to take off abdominal pressure. 1. Acute hypoxic respiratory failure. 2. Status post open total abdominal colectomy with small bowel distention that is almost kinking off the ileostomy. 3. Toxic megacolon secondary to colonic inertia status post open total abdominal colectomy. PLAN: 1. Continue AC mechanical ventilator and will start weaning trials when appropriate. 2. Continue antibiotics. 3. Follow up with chest x-ray, ABG, CBC, and BMP. 4. Further recommendations pending hospital course. Thank you for the courtesy of this consult. Dictated by ROGER Alvarez for Pk Dowd MD cc: ROGER Alvarez MD [facility]
[2019-07-07] MEDS: RISPERDAL PO SCH (21:40)
[2019-07-07] MEDS: REMERON SOLTAB PO SCH (21:40)
[2019-07-08] MEDS: DIPRIVAN 1% 1,000 MG/100 ML BOTTLE IV SCH ×7 (02:36→23:30)
[2019-07-08] MEDS: LOPRESSOR IV SCH ×4 (02:45→20:19)
[2019-07-08] MEDS: DILAUDID IV PRN ×2 (02:46→20:19)
[2019-07-08] MEDS: CLINIMIX E 4.25%-5% SOLUTION 1,000 ML IV SCH ×2 (02:47→14:36)
[2019-07-08] MEDS: ZOSYN 3.375 GM in NS 50 ML IV SCH ×4 (02:47→20:20)
[2019-07-08 04:37] LABS: BLOOD TYPE ARTERIAL; SAMPLE BLOOD
[2019-07-08 04:38] LABS: ALLEN TEST YES; BE -4.6 mmoll (-3.0-3.0); HCO3-(ACT) 21.3 mmoll (20.0-26.0); METHB 1.3 % (0.0-1.5); O2(CT) 16.9 mL/dL (15.0-23.0); O2HB 96.8 % (95.0-99.0); PCO2(98.6) 30 mmHg (35-45); PO2(98.6) 161 mmHg (60-100); SAO2 99.2 % (95.0-100.0); SRATE 15 BPM; THB 12.2 g/dL (11.5-17.4); TVOL 450 mL; pH(98.6) 7.41 (7.35-7.45)
[2019-07-08 04:39] LABS: MODALITY VENTILATOR
[2019-07-08 05:39] LABS: BASO# 0.09 X1000 (0.0-0.2); BASO% 2.4 % (0.0-0.8); EOS% 2.7 % (0.0-10.0); HEMATOCRIT 31.6 % (37.0-47.0); HEMOGLOBIN 10.4 g/dL (12.0-16.0); IMM GRAN% 10.7 % (0.0-0.5); MCH 32.8 PG (27-31); MCHC 32.9 g/dL (33-37); MCV 99.7 FL (81-99); MONO# 0.45 X1000 (0.11-0.59); MPV 10.5 FL (7.4-10.4); NEUT# 1.81 X1000 (1.4-6.5); NEUT% 48.2 % (42.2-75.2); PLT 473 X1000 (130-400); RBC 3.17 XMIL (4.2-5.4); RDW 13.7 % (11.5-14.5); WBC 3.75 X1000 (4.8-10.8)
[2019-07-08 05:47] LABS: AGAP 13; BUN 13 mg/dL (8-22); CALCIUM 8.1 mg/dL (8.8-10.2); CHLORIDE 107 mmol/L (98-107); COSMO 277; CREATININE 0.4 mg/dL (0.5-0.9); ESTIMATED GFR > 60; GLUCOSE 114 mg/dL (70-104); POTASSIUM 3.2 mmol/L (3.5-5.1); SODIUM 138 mmol/L (136-145); TCO2 18 mmol/L (25-35)
[2019-07-08] MEDS: SYNTHROID PO SCH (06:29)
--- NOTE | 2019-07-08 06:50 | Diag Imaging Result Doc PS360 ---
CHEST-1 VIEW - 07/08/2019 INDICATION: SOB COMPARISON: 07/07/2019 FINDINGS: The endotracheal tube is in good position in the mid trachea. Nasogastric tube in the upper abdomen off the bottom of the film. Lung volumes are severely low with bibasilar crowding and some patchy atelectasis. Heart size remains top normal. Several abnormally gas distended bowel loops are similar to prior. IMPRESSION: Endotracheal tube adjusted, now in good position. Otherwise no change from prior. Electronically signed by Rex Day 07/08/2019 6:48 AM
[2019-07-08 07:07] LABS: BANDS 12 % (0-1); EOS 2 % (1-10); LYMPHS 38 % (21-51); MONO 2 % (1-9); SEGS 40 % (42-75)
--- NOTE | 2019-07-08 07:51 | GENERAL SURGERY PROGRESS NOTE ---
DATE: 07/08/2019 SUBJECTIVE: The patient is doing about the same. She is sedated on the ventilator. Nursing staff reports they have had significant amount of NG tube output through the course of the night, almost 2.5 L. OBJECTIVE: Vital Signs: Patient is currently afebrile. Vital signs stable. General: On exam, sedated on the ventilator. Cardiovascular: Regular rate and rhythm. Lungs: Referred airway noises. Abdomen: Less distended. Ostomy is viable but not significant amount of output. NG tube has got very significant output. Incision is healing. Hypoactive bowel sounds. ASSESSMENT AND PLAN: A 44-year-old female, status post total abdominal colectomy. Postoperative state: At this time, she is still having significant issues with an ileus. Hopefully, by keeping her sedated, we can get some of the pressure off given the fact that she was fighting so significantly yesterday. Hopefully, this will allow time for decompressing or unkink her ileostomy. May need to consider some kind of permanent decompressive tube like a PEG-PEJ, but we will need to see how she does in the immediate future. cc: Clint Lange MD [facility]
--- NOTE | 2019-07-08 07:54 | PROGRESS NOTE ---
DATE: 07/08/2019 SUBJECTIVE: This patient is on mechanical ventilation now. She was intubated yesterday due to respiratory failure. Also, CT scan showed a significant small bowel distention and a kink at the distal ileum within the peritoneal cavity close to the ileostomy, and this is causing high-grade obstruction. So, yesterday given her respiratory status, she was intubated to try to improve a little bit of the abdominal pressure. Her abdomen today seems to be a little bit more soft, but still distended. OBJECTIVE: Vital Signs: Temperature 97.1 degrees, pulse 89, respiratory rate 15, blood pressure 103/82, oxygen saturation 98% on mechanical ventilation. HEENT: Head normocephalic. Neck: Supple. No JVD. Chest: She had some crepitus at the bases. Abdomen: Distended. This seems to be a little bit more soft today compared with yesterday. She has bowel sounds. Midline dressing and ostomy bag without any evidence of stools or air. I do not see any signs of infection. Extremities: No edema, no clubbing, no cyanosis. Neurological examination: This patient has significant intellectual impairment, but at this moment she is intubated and sedated. LABORATORY: WBC 3.7, hemoglobin 10.4, hematocrit 31.6, platelets 473. Sodium 138, potassium 3.2, chloride 107, bicarbonate 18. BUN 13, creatinine 0.8, glucose 114, calcium 8.1. ASSESSMENT AND PLAN: 1. Toxic megacolon secondary to colonic inertia, status post open total abdominal colectomy on 06/22/2019, postoperative day #16. Her abdomen is still distended. CT scan of the abdomen showed a distal end of the jejunostomy tube is coiled with the tip in the distal duodenum. There is severe diffuse hyperinflation of the bowel loops. There is a kink bowel loop at the distal ileostomy, and this is causing high-grade obstruction with severe gas and fluid distention of all the bowel. The rectal stump appears normal. No abdominal free air or sick significant free fluid. Surgery Department on board. For now we will continue with same management. She has been intubated. 2. Acute hypoxemic respiratory failure. This patient had been intubated yesterday. Pulmonary Department on board. 3. Decreased urine output. BUN and creatinine stable. Urine output around 575. She has been placed on intravenous fluids. I will follow the recommendations of Nephrology Department. 4. Hypokalemia. I will replace the potassium. 5. Reported possible seizures a few days ago, but probably that was related to agitation and no real seizures. 6. Severe intellectual impairment, now mechanical ventilation, but normally this patient is nonverbal and not following commands. 7. Reported presyncopal episode upon admission, resolved. CRITICAL CARE TIME: 35 minutes. cc: Mehran Waite MD
[2019-07-08] MEDS: NS 1,000 ML IV SCH ×2 (08:03→09:22)
[2019-07-08] MEDS: MYLICON PO SCH ×4 (08:03→22:24)
[2019-07-08] MEDS: PERIDEX MT SCH ×2 (08:04→22:25)
[2019-07-08] MEDS: PAXIL PO SCH ×2 (08:04→22:24)
[2019-07-08] MEDS: DEPAKOTE PO SCH ×3 (08:04→22:26)
[2019-07-08] MEDS: POTASSIUM CHLORIDE 20 MEQ/SWI 20 MEQ/100 ML IVPB IV SCH ×2 (08:28→10:01)
[2019-07-08] MEDS: ANUSOL-HC CREAM PR SCH ×3 (10:00→22:26)
[2019-07-08] MEDS: SEROQUEL PO SCH ×2 (12:15→22:27)
--- NOTE | 2019-07-08 13:49 | NEPHROLOGY PROGRESS NOTE ---
DATE: 07/08/2019 DATE AND TIME OF EXAM: 07/08/2019 at 0650 hours. SUBJECTIVE: Ms. Singh is resting quietly in bed. She remains ventilator dependent with sedation. VITAL SIGNS: Temperature 97.1 degrees, blood pressure 112/78, heart rate 86, respirations 27. She is on 40% FiO2. Her last recorded saturation is 97%. She has had 3234 in; she has had 2300 out. This is 1200 to Tam catheter; the rest is to JACOB drain and NG tube of 1100. LABS: Sodium 138, potassium 3.2, chloride is 107, CO2 18. BUN 13, creatinine 0.4, glucose 114. Her anion gap is 13, calcium 8.1. White count 3.75, hemoglobin 10.4, hematocrit 31.6, platelet count 473. ABGs: A pH 7.41, CO2 30, PO2 161, bicarbonate 21.3 on 40% FiO2. PHYSICAL EXAMINATION: General: This is a 44-year-old white female, who is resting quietly in bed. She remains ventilator dependent with sedation. No acute distress. Skin: Warm and dry. HEENT: Normocephalic, atraumatic. Conjunctivae pale. She has GILDARDO, though sluggish. Mucous membranes are dry. Oral ET tube is in place. Neck: Supple. Trachea midline. No evidence of JVD in her positioning. Cardiovascular: She is tachycardic with irregular rate and rhythm at times. Lungs: Have coarse breath sounds bilateral. Equal excursion on O2 support. Abdomen: Distended. Tympanic with hypo bowel sounds. Faint tingling present. Genitourinary: Tam catheter is in place. Not inspected. Extremities: No edema, no clubbing or cyanosis, except to the dependent areas of her elbows and hands. Neurological: As mentioned above. ASSESSMENT AND PLAN: Elevated BUN secondary to her Clinimix. This is slowly improved. Creatinine is down to 0.4. She appeared to be prerenal. She is now making adequate urine output. We will decrease her intravenous fluids to be a total of 125 mL an hour for her fluid volume management. We will sign off at this time and remain available if needed. I would like to thank you for allowing us to follow with this patient. Dictated by ROGER Gallardo for Tommy Harrison MD Face to face encounter, data reviewed, discussed with Ling Fajardo on 07/08/19. I agree with the above assessment and plan of care. cc: ROGER Gallardo MD [facility]
[2019-07-08] MEDS: RISPERDAL PO SCH (22:25)
[2019-07-08] MEDS: REMERON SOLTAB PO SCH (22:25)
[2019-07-09] MEDS: LOPRESSOR IV SCH ×4 (02:11→20:51)
[2019-07-09] MEDS: NS 1,000 ML IV SCH ×2 (02:11→17:15)
[2019-07-09] MEDS: DIPRIVAN 1% 1,000 MG/100 ML BOTTLE IV SCH ×7 (02:12→20:50)
[2019-07-09] MEDS: ZOSYN 3.375 GM in NS 50 ML IV SCH ×4 (02:15→20:59)
[2019-07-09 04:56] LABS: ALLEN TEST YES; BE -3.1 mmoll (-3.0-3.0); BLOOD TYPE ARTERIAL; HCO3-(ACT) 22.5 mmoll (20.0-26.0); METHB 1.4 % (0.0-1.5); O2(CT) 21.4 mL/dL (15.0-23.0); O2HB 96.7 % (95.0-99.0); PCO2(98.6) 30 mmHg (35-45); PO2(98.6) 179 mmHg (60-100); SAMPLE BLOOD; SAO2 99.1 % (95.0-100.0); SRATE 15 BPM; THB 15.5 g/dL (11.5-17.4); TVOL 450 mL; pH(98.6) 7.43 (7.35-7.45)
[2019-07-09 05:00] LABS: MODALITY VENTILATOR
[2019-07-09 05:55] LABS: BASO# 0.05 X1000 (0.0-0.2); EOS# 0.21 X1000 (0.0-0.7); EOS% 4.3 % (0.0-10.0); HEMOGLOBIN 11.4 g/dL (12.0-16.0); IMM GRAN# 0.46 X1000 (0.0-0.04); IMM GRAN% 9.3 % (0.0-0.5); LYMPH# 1.72 X1000 (1.2-3.4); LYMPH% 34.8 % (20.5-51.1); MCH 32.5 PG (27-31); MCHC 32.6 g/dL (33-37); MCV 99.7 FL (81-99); MONO# 0.62 X1000 (0.11-0.59); MONO% 12.6 % (1.7-9.3); MPV 10.5 FL (7.4-10.4); NEUT# 1.88 X1000 (1.4-6.5); PLT 490 X1000 (130-400); RBC 3.51 XMIL (4.2-5.4); RDW 13.4 % (11.5-14.5); WBC 4.94 X1000 (4.8-10.8)
[2019-07-09 06:00] LABS: AGAP 13; BUN 10 mg/dL (8-22); CALCIUM 8.5 mg/dL (8.8-10.2); CHLORIDE 106 mmol/L (98-107); COSMO 275; CREATININE 0.4 mg/dL (0.5-0.9); ESTIMATED GFR > 60; GLUCOSE 97 mg/dL (70-104); POTASSIUM 3.5 mmol/L (3.5-5.1); SODIUM 138 mmol/L (136-145); TCO2 19 mmol/L (25-35)
[2019-07-09] MEDS: DILAUDID IV PRN ×3 (06:12→20:51)
[2019-07-09 06:31] LABS: BANDS 4 % (0-1); EOS 9 % (1-10); LYMPHS 30 % (21-51); MONO 9 % (1-9); SEGS 46 % (42-75)
[2019-07-09] MEDS: SYNTHROID PO SCH (07:16)
--- NOTE | 2019-07-09 07:19 | Diag Imaging Result Doc PS360 ---
EXAM: CHEST-1 VIEW INDICATION: SOB TECHNIQUE: One view COMPARISON: 07/08/2019 FINDINGS: Support tubes and lines are in stable positions. There is slightly better inspiration as compared to the previous study. No new consolidation is identified. Cardiac silhouette is stable. IMPRESSION: Improved lung volumes. Stable chest, otherwise. Electronically signed by Tez Tiwari 07/09/2019 7:17 AM
[2019-07-09] MEDS: MYLICON PO SCH ×4 (08:06→20:15)
[2019-07-09] MEDS: PAXIL PO SCH ×2 (08:07→20:16)
[2019-07-09] MEDS: ANUSOL-HC CREAM PR SCH ×3 (09:17→20:59)
[2019-07-09] MEDS: PERIDEX MT SCH ×2 (09:17→20:51)
[2019-07-09] MEDS: DEPAKOTE PO SCH ×3 (09:17→20:16)
--- NOTE | 2019-07-09 09:58 | PROGRESS NOTE ---
DATE: 07/09/2019 SUBJECTIVE: This patient is still on mechanical ventilation and sedated. Her urine output improved. Will continue with the same amount of fluids. We also have an output of around 2.6 L through the NG tube. She is still not passing gas or having bowel movement through the ileostomy. Surgery on board. OBJECTIVE: Vital Signs: Temperature 97.4 degrees, pulse 93, respiratory rate 15, blood pressure 118/92, oxygen saturation 99 on mechanical ventilation. HEENT: Head normocephalic. No trauma. Neck: Supple. No JVD. Chest: She has some crepitus scattered. Abdomen: Soft, is distended, is a little bit soft today compared with yesterday. She has some bowel sounds. Midline dressing and ostomy bag without any evidence of stools or air. I do not see any signs of infection. Extremities: No edema. No clubbing. No cyanosis. Neurological: This patient has significant intellectual impairment, but at this moment she is intubated and sedated as well. LABORATORY: WBC 4.9, hemoglobin 11.4, hematocrit 35, platelets 490,000. Sodium 138, potassium 3.5, chloride 106, bicarbonate 19, BUN 10, creatinine 0.4, glucose 97, calcium 8.5. ASSESSMENT AND PLAN: 1. Toxic megacolon secondary to colonic inertia, status post open total abdominal colectomy on 06/22/2019, postoperative day #17. Her abdomen is still distended, but compared with 2 days ago is much better. CT scan of the abdomen showed a distal end of the jejunostomy tube is coiled with the tip of the distal duodenum. There is severe diffuse hyperinflation of the bowel loops. There is a kinked bowel loop at the distal ileostomy and this is causing high- grade obstruction with severe gas and fluid distention of the all bowel. The rectal stump appears normal. No abdominal free air or significant free fluid. Surgery has been monitoring this patient closely. For now will continue to monitor. She has been intubated. 2. Acute hypoxemic respiratory failure. This patient has been intubated a couple days ago. Pulmonary Department on board. 3. Decreased urine output, improving. The urine output now is around 1.3 L, much better compared with the previous days. Will continue with the same management. 4. Hypokalemia, resolved. 5. Reported possible seizure a few days ago, but probably that was related to agitation and not a seizure disorder. 6. Severe intellectual impairment. She is now on mechanical ventilation, but normally this patient is nonverbal and not following commands. 7. Reported presyncopal episode upon admission, aware. CRITICAL CARE TIME: 30 minutes. cc: Mehran Waite MD
[2019-07-09] MEDS: CLINIMIX E 4.25%-5% SOLUTION 1,000 ML IV SCH (12:01)
[2019-07-09] MEDS: SEROQUEL PO SCH ×2 (13:00→20:16)
--- NOTE | 2019-07-09 13:25 | GENERAL SURGERY PROGRESS NOTE ---
DATE: 07/09/2019 SUBJECTIVE: The patient seems to be doing okay. She is still having a significant amount of output out of her nasogastric tube. I tried to digitize her ileostomy. I was able to actually put a Tam catheter around it but did not seem to decompress a lot air. We will have wound care and her stomal therapy nurse irrigate out the ileostomy, see if we can get some production. If not, may need to consider endoscopy via the ileostomy to try to decompress it. We will continue to follow. Continue supportive care. Keep her on ventilator for right now. cc: Clint Lange MD
[2019-07-09] MEDS: REMERON SOLTAB PO SCH (20:17)
[2019-07-09] MEDS: RISPERDAL PO SCH (20:18)
[2019-07-10] MEDS: DIPRIVAN 1% 1,000 MG/100 ML BOTTLE IV SCH ×8 (00:58→23:30)
[2019-07-10] MEDS: DILAUDID IV PRN ×4 (00:59→20:52)
[2019-07-10] MEDS: LOPRESSOR IV SCH ×4 (01:01→20:41)
[2019-07-10] MEDS: CLINIMIX E 4.25%-5% SOLUTION 1,000 ML IV SCH ×3 (04:01→23:30)
[2019-07-10] MEDS: ZOSYN 3.375 GM in NS 50 ML IV SCH ×4 (04:01→20:50)
[2019-07-10 05:00] LABS: ALLEN TEST YES; BE -1.8 mmoll (-3.0-3.0); BLOOD TYPE ARTERIAL; HCO3-(ACT) 23.5 mmoll (20.0-26.0); O2(CT) 15.6 mL/dL (15.0-23.0); O2HB 96.9 % (95.0-99.0); PCO2(98.6) 32 mmHg (35-45); PO2(98.6) 112 mmHg (60-100); SAMPLE BLOOD; SAO2 99.3 % (95.0-100.0); SRATE 12 BPM; THB 11.3 g/dL (11.5-17.4); TVOL 500 mL; pH(98.6) 7.44 (7.35-7.45)
[2019-07-10 05:01] LABS: MODALITY VENTILATOR
[2019-07-10 06:11] LABS: BASO# 0.04 X1000 (0.0-0.2); BASO% 0.7 % (0.0-0.8); EOS# 0.25 X1000 (0.0-0.7); EOS% 4.6 % (0.0-10.0); HEMATOCRIT 32.5 % (37.0-47.0); HEMOGLOBIN 10.6 g/dL (12.0-16.0); IMM GRAN# 0.41 X1000 (0.0-0.04); IMM GRAN% 7.6 % (0.0-0.5); LYMPH# 1.77 X1000 (1.2-3.4); LYMPH% 32.8 % (20.5-51.1); MCH 32.1 PG (27-31); MCHC 32.6 g/dL (33-37); MCV 98.5 FL (81-99); MONO# 0.66 X1000 (0.11-0.59); MONO% 12.2 % (1.7-9.3); MPV 10.8 FL (7.4-10.4); NEUT# 2.27 X1000 (1.4-6.5); NEUT% 42.1 % (42.2-75.2); PLT 432 X1000 (130-400)
[2019-07-10 06:39] LABS: AGAP 13; BUN 10 mg/dL (8-22); CALCIUM 8.9 mg/dL (8.8-10.2); CHLORIDE 108 mmol/L (98-107); COSMO 278; CREATININE 0.4 mg/dL (0.5-0.9); ESTIMATED GFR > 60; GLUCOSE 93 mg/dL (70-104); POTASSIUM 3.3 mmol/L (3.5-5.1); SODIUM 140 mmol/L (136-145); TCO2 19 mmol/L (25-35)
[2019-07-10] MEDS: SYNTHROID PO SCH (07:16)
[2019-07-10] MEDS: POTASSIUM CHLORIDE 20 MEQ/SWI 20 MEQ/100 ML IVPB IV SCH ×2 (07:18→09:20)
--- NOTE | 2019-07-10 07:33 | Diag Imaging Result Doc PS360 ---
EXAM: CHEST-1 VIEW INDICATION: SOB TECHNIQUE: One view COMPARISON: 07/09/2019 FINDINGS: Support tubes and lines are in stable positions. Lung volumes are low similar to the previous study. No new consolidation is identified. Cardiac silhouette is stable. IMPRESSION: Stable chest. Electronically signed by Tez Tiwari 07/10/2019 7:31 AM
[2019-07-10] MEDS: NS 1,000 ML IV SCH (07:58)
[2019-07-10] MEDS: MYLICON PO SCH ×4 (09:10→20:44)
[2019-07-10] MEDS: DEPAKOTE PO SCH ×3 (09:10→20:49)
[2019-07-10] MEDS: PAXIL PO SCH ×2 (09:11→20:47)
[2019-07-10] MEDS: PERIDEX MT SCH ×2 (10:02→20:49)
[2019-07-10] MEDS: ANUSOL-HC CREAM PR SCH ×3 (10:06→20:48)
--- NOTE | 2019-07-10 11:18 | PROGRESS NOTE ---
DATE: 07/10/2019 SUBJECTIVE: This patient is still on mechanical ventilation and sedated. Her urine output has been stable. We will continue with the same amount of fluids, we are still having a good output through the NG tube around 2200 in the past 24 hours. Kidney function remains stable. Potassium is low and I will replace it. She is not passing gas or having bowel movements through the ostomy, surgery on board. OBJECTIVE: Vital Signs: Temperature 98.9, pulse 92, respiratory rate 15, blood pressure 144/100, oxygen saturation 100% on mechanical ventilation. HEENT: Head normocephalic. No trauma. PERRLA. Neck: Supple. No JVD. Central trachea. She has some crepitus scattered. Abdomen: Soft. Mildly distended. Today, it is soft compared with yesterday and the day before yesterday. She has some bowel sounds. Midline dressing and ostomy bag without any evidence of stools or air. I do not see any signs of infection. Extremities: No edema. No clubbing. No cyanosis. Neurological: This patient has significant intellectual impairment, but at this moment, she is intubated. LABORATORY DATA: WBC 5.4, hemoglobin 10.6, hematocrit 32.5, platelets 432,000. Sodium 140, potassium 3.3, chloride 108, bicarbonate 19, BUN 10, creatinine 0.4, glucose 93, calcium 8.9. ASSESSMENT AND PLAN: 1. Toxic megacolon secondary to colonic inertia, status post open total abdominal colectomy on 06/22/2019, postoperative day #18. Her abdomen looks better today, but she is still not passing gas or having stools in the ostomy bag. CT of the abdomen a few days ago showed a distal end of the jejunostomy tube that is coiled with the tip of the distal duodenum and there is a severe diffuse hyperinflation of the bowel loops. There is a kinked bowel loop in the distal ileostomy and this is causing high-grade obstruction with severe gas and fluid distention of the bowel, the rectal stump appears normal. At that time no abdominal free air or significant free fluid, surgery has been following this patient closely. For now, we will continue with same management. She has been intubated. 2. Acute hypoxemic respiratory failure. Continue with mechanical ventilation. Pulmonary Department on board. 3. Decreased urine output, improving. I will continue with the same management and I will increase the fluid as needed. 4. Hypokalemia. I will replace the potassium today, I will ask for magnesium and phosphorus tomorrow. 5. Reported possible seizure a few days ago. I believe that was related to agitation. 6. Severe intellectual impairment, this is her baseline. 7. Reported presyncopal episode upon admission. Aware. CRITICAL CARE TIME: 35 minutes. cc: Mehran Waite MD
--- NOTE | 2019-07-10 13:24 | PROVIDER PROGRESS NOTE ---
Progress Note S: Called to reevaluate patient for persistent bowel obstruction despite supportive care with NGT decompression. Per RN, patient has not had output from ileostomy. O: Last Vital Signs Temp 97.4 F L 07/10/19 11:15 Pulse 95 H 07/10/19 11:46 Resp 13 07/10/19 11:46 BP 153/83 07/10/19 11:46 Pulse Ox 100 07/10/19 11:46 Height 5 ft 2 in Weight 144 lb 9 oz GEN: intubated, sedated HEENT: anicteric, NGT in place NECK: supple CV: tachycardic, regular, no murmurs PULM: CTAB anteriorly ABD: soft, lap incision with stables, tympanic, hypoactive bowel sounds, RLQ end-ileostomy with no stool in bag EXT: no cce LABS: 07/10/19 07/10/19 04:45 04:45 WBC 5.40 Hgb 10.6 L Plt Count 432 H Sodium 140 Potassium 3.3 L Chloride 108 H Carbon Dioxide 19 L Anion Gap 13 BUN [address] ABDOMEN/PELVIS W/O CONTRAST - 07/07/2019 INDICATION: bowel obstruction COMPARISON: 06/19/2019 FINDINGS: There is a GJ tube. Distal end of the jejunostomy tube is coiled with the tip in the distal duodenum. There is severe diffuse hyperinflation of bowel loops. There is a new right lower quadrant ileostomy. There is a kink bowel loop at the distal ileostomy. This is causing high-grade obstruction, with severe gas and fluid distention of all the bowels. The rectal stump appears normal. Tam catheter in the urinary bladder. Uterus is absent. No abdominal free air or significant free fluid. Bony structures are intact. IMPRESSION: There is indeed a kink at the distal ileum within the peritoneal cavity, close to the ileostomy. This is causing high-grade obstruction. A/P Ms. Clau Singh is a 44 year old woman with CP, MR, and chronic constipation who presented with severe fecal impaction with ileus of the colon and SB that did was not improving with conservative mgmt. The patient was seen by general surgery and underwent total abdominal colectomy with end-ileostomy secondary for concern for impending colonic perforation. She continues to have ileus of the SB with concern for high grade obstruction in the distal ileum near the ileostomy. GI asked to evaluate patient for possible ileoscopy with decompression. She is NPO. Will attempt procedure; however, unclear if we will be able to traverse the area of "kinked" distal ileum nor decompress SB. If unsuccessful, the patient is likely to return to the OR for exploratory per surgery team. # Small bowel obstruction - ileoscopy as above Please call with questions. Plan discussed with Dr. Lange.
[2019-07-10] MEDS: SEROQUEL PO SCH ×2 (13:25→20:47)
--- NOTE | 2019-07-10 13:39 | GENERAL SURGERY PROGRESS NOTE ---
DATE: 07/10/2019 SUBJECTIVE: The patient doing about the same. They are still get a significant amount of output out of her nasogastric tube. I discussed her case with Dr. Ortega with GI. We will try to see if they can do an endoscopy via ileostomy to try to decompress her a little bit. She has very hypoactive bowel sounds, so she likely has some degree of global issue with peristalsis. She may need a prokinetic but probably do not want to do this until we got her at least decompressed. Overall abdomen seems less distended than it was, so I think we made some improvement. We will follow up with the results of the EGD. I appreciate their help. If this does not seem to work, last resort would be to re-explore her abdomen and try to place her bowel in a less obstructing manner. cc: Clint Lange MD
[2019-07-10] MEDS: REGLAN IV SCH ×3 (14:52→23:33)
[2019-07-10] MEDS: RISPERDAL PO SCH (20:50)
[2019-07-10] MEDS: REMERON SOLTAB PO SCH (20:50)
--- NOTE | 2019-07-10 22:11 | PULMONOLOGY PROGRESS NOTE ---
DATE: 07/10/2019 SUBJECTIVE: The patient appears to be comfortable on mechanical ventilation. She is having no significant output from her ostomy. OBJECTIVE: The patient is afebrile. Blood pressure 139/94, heart rate 93, respiratory rate 14, oxygen saturation 99%. HEENT: Pupils appear equal. Oropharynx appears clear. Neck: Supple. Chest: Occasional rhonchi bilaterally with good air flow bilaterally. Cardiac: S1, S2. Abdomen: Distended with increased tympany. Extremities: Trace peripheral edema. LABORATORIES: Arterial blood gas reveals a pH of 7.44, pCO2 of 32, PO2 of 112, with a normal lactate. White blood count 5.4, hemoglobin 10.6, platelet count 432,000. Sodium 140, potassium 3.3, chloride 108, bicarbonate 19, BUN 10, creatinine 0.4. IMPRESSION: A 44-year-old with acute hypoxemic respiratory failure with megacolon, status post abdominal colectomy, who continues to have abdominal distention. PLAN: 1. Continue ventilatory support pending improvement in GI function. The patient may require EGD or possible return to the operating room. 2. Discontinue normal saline and increase ProcalAmine for a bridge to nutrition. 3. Daily weaning pending GI improvement. Time spent in Critical care management: 30+ minutes cc: Tye Juarez MD [facility]
[2019-07-11] MEDS: LOPRESSOR IV SCH ×4 (02:49→19:55)
[2019-07-11] MEDS: DIPRIVAN 1% 1,000 MG/100 ML BOTTLE IV SCH ×7 (02:50→23:24)
[2019-07-11] MEDS: ZOSYN 3.375 GM in NS 50 ML IV SCH ×4 (02:50→20:28)
[2019-07-11] MEDS: DILAUDID IV PRN (03:12)
[2019-07-11 04:23] LABS: ALLEN TEST YES; BE -1.8 mmoll (-3.0-3.0); BLOOD TYPE ARTERIAL; HCO3-(ACT) 23.5 mmoll (20.0-26.0); O2HB 96.9 % (95.0-99.0); PCO2(98.6) 46 mmHg (35-45); PO2(98.6) 115 mmHg (60-100); SAMPLE BLOOD; SAO2 100.1 % (95.0-100.0); SRATE 6 BPM; THB 10.9 g/dL (11.5-17.4); TVOL 600 mL; pH(98.6) 7.33 (7.35-7.45)
[2019-07-11 04:27] LABS: MODALITY VENTILATOR
[2019-07-11] MEDS: REGLAN IV SCH ×4 (05:21→23:24)
[2019-07-11] MEDS: SYNTHROID PO SCH (06:09)
[2019-07-11 06:57] LABS: MAGNESIUM 1.7 mg/dL (1.5-2.7); PHOSPHORUS 4.5 mg/dL (2.7-4.5)
[2019-07-11 07:11] LABS: AGAP 15; ALB/GLOB RATIO 1.4; ALKALINE PHOSPHATASE 97 U/L (32-104); BUN 16 mg/dL (8-22); CALCIUM 8.7 mg/dL (8.8-10.2); CHLORIDE 104 mmol/L (98-107); COSMO 279; CREATININE 0.3 mg/dL (0.5-0.9); ESTIMATED GFR > 60; GLUCOSE 112 mg/dL (70-104); GOT 12 U/L (10-30); GPT 9 U/L (10-36); POTASSIUM 3.5 mmol/L (3.5-5.1); SODIUM 139 mmol/L (136-145); TCO2 20 mmol/L (25-35); TOTAL BILIRUBIN 0.23 mg/dL (0.20-1.00); TOTAL PROTEIN 5.1 g/dL (6.3-8.3)
[2019-07-11] MEDS: MYLICON PO SCH ×4 (07:14→20:31)
[2019-07-11] MEDS: PAXIL PO SCH ×2 (07:14→20:34)
--- NOTE | 2019-07-11 07:47 | Diag Imaging Result Doc PS360 ---
CHEST-1 VIEW - 07/11/2019 INDICATION: SOB COMPARISON: 07/10/2019 FINDINGS: Support tubes are stable and in good position. Stable severely low lung volumes. No significant infiltrates. Heart size remains normal. IMPRESSION: Severely low lung volumes. No change from prior. Electronically signed by Rex Day 07/11/2019 7:45 AM
--- NOTE | 2019-07-11 07:51 | Diag Imaging Result Doc PS360 ---
KUB ABDOMEN - 07/11/2019 INDICATION: distention COMPARISON: 07/06/2019 FINDINGS: Stable nasogastric tube extending down to the duodenum. Stable laparotomy incision skin apolinar. Stable extensive gas distended loops of featureless bowel. No visible free air. IMPRESSION: Extensive abnormally gas-distended bowel. No change from prior. Electronically signed by Rex Day 07/11/2019 7:49 AM
[2019-07-11 08:41] LABS: BASO# 0.07 X1000 (0.0-0.2); BASO% 0.9 % (0.0-0.8); EOS# 0.32 X1000 (0.0-0.7); EOS% 4.3 % (0.0-10.0); HEMATOCRIT 35.5 % (37.0-47.0); HEMOGLOBIN 11.6 g/dL (12.0-16.0); IMM GRAN# 0.34 X1000 (0.0-0.04); IMM GRAN% 4.6 % (0.0-0.5); LYMPH# 1.89 X1000 (1.2-3.4); LYMPH% 25.6 % (20.5-51.1); MCHC 32.7 g/dL (33-37); MCV 98.1 FL (81-99); MONO# 0.77 X1000 (0.11-0.59); MONO% 10.4 % (1.7-9.3); MPV 9.9 FL (7.4-10.4); NEUT# 3.98 X1000 (1.4-6.5); NEUT% 54.2 % (42.2-75.2); PLT 394 X1000 (130-400); RBC 3.62 XMIL (4.2-5.4); RDW 12.7 % (11.5-14.5); WBC 7.37 X1000 (4.8-10.8)
[2019-07-11] MEDS: ANUSOL-HC CREAM PR SCH ×3 (08:50→20:35)
[2019-07-11] MEDS: DEPAKOTE PO SCH ×3 (08:51→20:35)
[2019-07-11] MEDS: PERIDEX MT SCH ×2 (08:51→20:31)
[2019-07-11] MEDS: CLINIMIX E 4.25%-5% SOLUTION 1,000 ML IV SCH ×2 (08:59→19:55)
--- NOTE | 2019-07-11 12:46 | PROGRESS NOTE ---
DATE: 07/11/2019 SUBJECTIVE: This patient is still on mechanical ventilation and sedated. Her urine output has been stable. It looks like the output through the NG tube decreased and is around 800. Pending lab work. OBJECTIVE: Vital Signs: Temperature 97.2 degrees, pulse 80, respiratory rate 14, blood pressure 161/105, oxygen saturation 100% on mechanical ventilation. HEENT: Head normocephalic, nontraumatic. PERRLA. Neck: Supple. No JVD. No masses. Central trachea. Lungs: She has some crepitus scattered. Abdomen: Soft. Some bowel sounds. Midline dressing with ostomy bag without any evidence of stools or air. I do not see any signs of infection. Extremities: No edema, no clubbing, no cyanosis. Neurological: The patient is on mechanical ventilation and sedated, but she does have a significant intellectual impairment, nonverbal. LABORATORY: Pending lab work at this moment. ASSESSMENT AND PLAN: 1. 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 Her abdomen looks better. She is still not passing gas or having stools in the ostomy bag. CT of the abdomen a few days ago showed a distal end of the jejunostomy tube that is coiled within the tip of the distal duodenum, and there is a severe diffuse hyperinflation of the bowel loops. There is a kinked bowel loop in the distal ileostomy, and this is causing high-grade obstruction with severe gas and fluid distention of the bowel. The rectal stump, appears normal. At this time, no abdominal free air or significant free fluid. Surgery has been following this patient closely. For now, we will continue with the same management. She apparently had a procedure done yesterday, pending results. She may need to go for surgery at some point. 2. Acute hypoxemic respiratory failure. Continue mechanical ventilation. Pulmonary Department onboard. 3. Decreased urine output, improving. The urine output has been stable. 4. Hypokalemia. It has been replaced yesterday, pending lab work today. Magnesium level within normal limits. 5. Reported possible seizure a few days ago. I believe that was related more to agitation and not a real seizure. 6. Severe intellectual impairment, this is her baseline. 7. Reported presyncopal episode upon admission. Aware. CRITICAL CARE TIME: 35 minutes. cc: Mehran Waite MD
[2019-07-11] MEDS: SEROQUEL PO SCH ×2 (13:40→20:34)
--- NOTE | 2019-07-11 14:48 | PROGRESS NOTE ---
DATE: 07/11/2019 SUBJECTIVE: Ms Clau Singh is in our ICU intubated. She has had past surgery by Dr. Lange which included a total abdominal colectomy with ileostomy for colonic ileus. Her abdominal films continues to show a lot of gas in her small bowel. Her ileostomy has been studied and does not appear to be obstructing. She has an NG tube in place. She is being sedated. OBJECTIVE: Her heart rate is 89, blood pressure 133/88 O2 saturation is 100%. Her vent settings are minimal assist control 6, 35% FiO2, 600 tidal volume, +5 of PEEP. Her PaO2 is 115 pCO2 is 46. White blood cell count is normal. Hematocrit is 35%. Electrolytes are within normal limits. EXAMINATION: On exam, her abdomen is not tightly distended but her abdominal films do show diffuse gas throughout her abdomen. She is sedated but I do not think her abdomen is tender. Her ileostomy is viable but there was no output from the bag. PLAN: At this time. we will continue the same with her support. I think it is sometime at some point we are going to have to tube feed her through her NG tube. She is receiving peripheral TPN at this time. cc: Lia Carranza MD
[2019-07-11] MEDS: RISPERDAL PO SCH (20:35)
[2019-07-11] MEDS: REMERON SOLTAB PO SCH (20:35)
--- NOTE | 2019-07-11 21:18 | PULMONOLOGY PROGRESS NOTE ---
DATE: 07/11/2019 SUBJECTIVE: The patient opens her eyes to stimulus. OBJECTIVE: Vital Signs: The patient has been afebrile for the last 24 hours. Blood pressure 123/106, heart rate 100, respiratory rate 12, oxygen saturation 98%. HEENT: Pupils are equal and reactive. Oropharynx appears clear. Neck: Supple. Chest: Reveals shallow breath sounds bilaterally. Cardiac exam: S1-S2. Abdomen: Is slightly distended but not tense. She has decreased bowel sounds. Extremities: Reveal trace edema. LABORATORIES: Arterial blood gas reveals pH of 7.33, pCO2 of 46, pO2 of 115. White blood count 7.37, hemoglobin 11.6, platelet count 394,000. Sodium 135, potassium 3.5, chloride 104, bicarbonate 20, BUN 16, creatinine 0.3. Chest x-ray reveals shallow breath sounds bilaterally. KUB reveals extensive gas-filled bowel loops. IMPRESSION: 44-year-old with: 1. Acute hypoxemic respiratory failure status post abdominal colectomy. 2. Ileus versus small bowel obstruction. PLAN: 1. Continue current ventilatory support. 2. Could nutrition with Clinimix/ProcalAmine. 3. Will wean and extubate if okay with General Surgery. Time spent in critical care management: 30+ minutes cc: Tye Juarez MD [facility]
--- NOTE | 2019-07-11 22:25 | PROVIDER PROGRESS NOTE ---
Progress Note S: Ileoscopy yesterday showed dilated SB without evidence of obstruction. No acute overnight events. No BMs. O: Last Vital Signs Temp 98.1 F 07/11/19 20:00 Pulse 105 H 07/11/19 20:30 Resp 15 07/11/19 20:30 BP 117/85 07/11/19 20:30 Pulse Ox 97 07/11/19 20:30 Height 5 ft 2 in Weight 139 lb 3 oz GEN: intubated, sedated HEENT: anicteric, NGT in place NECK: supple CV: tachycardic, regular, no murmurs PULM: CTAB anteriorly ABD: soft, lap incision with stables, tympanic, hypoactive bowel sounds, RLQ end-ileostomy with no stool in bag EXT: no cce LABS: 07/11/19 07/11/19 07/11/19 04:13 05:38 05:38 WBC Cancelled Hgb Cancelled Hct Cancelled Plt Count Cancelled pH 7.33 L pCO2 46 H pO2 115 H Sodium 139 Potassium 3.5 Chloride 104 Carbon Dioxide 20 L Anion Gap 15 BUN 16 D Creatinine 0.3 L Glucose 112 H Total Bilirubin 0.23 AST 12 ALT 9 L Alkaline Phosphatase 97 Total Protein 5.1 L Albumin 3.0 L A/P Ms. Clau Singh is a 44 year old woman with CP, MR, and chronic constipation who presented with severe fecal impaction with ileus of the colon and SB that did was not improving with conservative mgmt. The patient was seen by general surgery and underwent total abdominal colectomy with end-ileostomy secondary for concern for impending colonic perforation. She continues to have ileus of the SB with concern for high grade obstruction in the distal ileum near the ileostomy. GI asked to evaluate patient for possible ileoscopy with decompression, which was performed 07/10 without significant improvement in bowel distension. She was started on reglan 10mg IV TID. She continues to have no output from ostomy. Her abdomen is tympanic but soft. She has high NGT output. I suspect she will need exploratory to assess for obstruction. She may have stoma dysfunction given absence of stricture or narrowing up to 80cm in the ileum on ileoscopy. # Small bowel obstruction - ileoscopy as above - continue reglan - correct metabolic derangements - continue NGT decompression - EGD would not be helpful in this setting - surgery following, appreciate recs Please call with questions.
[2019-07-12] MEDS: LOPRESSOR IV SCH ×4 (02:44→20:37)
[2019-07-12] MEDS: ZOSYN 3.375 GM in NS 50 ML IV SCH ×4 (02:44→20:36)
[2019-07-12] MEDS: DIPRIVAN 1% 1,000 MG/100 ML BOTTLE IV SCH ×5 (02:45→22:01)
[2019-07-12 04:18] LABS: ALLEN TEST YES; BLOOD TYPE ARTERIAL; HCO3-(ACT) 26.5 mmoll (20.0-26.0); METHB 1.3 % (0.0-1.5); O2(CT) 17.2 mL/dL (15.0-23.0); O2HB 96.9 % (95.0-99.0); PCO2(98.6) 35 mmHg (35-45); PO2(98.6) 160 mmHg (60-100); SAMPLE BLOOD; SAO2 99.6 % (95.0-100.0); SRATE 6 BPM; THB 12.4 g/dL (11.5-17.4); TVOL 600 mL; pH(98.6) 7.47 (7.35-7.45)
[2019-07-12 04:20] LABS: MODALITY VENTILATOR
[2019-07-12 04:50] LABS: BASO# 0.05 X1000 (0.0-0.2); BASO% 0.5 % (0.0-0.8); EOS# 0.31 X1000 (0.0-0.7); EOS% 3.1 % (0.0-10.0); HEMATOCRIT 34.1 % (37.0-47.0); HEMOGLOBIN 11.8 g/dL (12.0-16.0); IMM GRAN# 0.42 X1000 (0.0-0.04); IMM GRAN% 4.2 % (0.0-0.5); LYMPH# 1.49 X1000 (1.2-3.4); LYMPH% 14.8 % (20.5-51.1); MCH 33.2 PG (27-31); MCHC 34.6 g/dL (33-37); MCV 96.1 FL (81-99); MONO# 1.18 X1000 (0.11-0.59); MONO% 11.7 % (1.7-9.3); MPV 10.3 FL (7.4-10.4); NEUT# 6.64 X1000 (1.4-6.5); NEUT% 65.7 % (42.2-75.2); PLT 375 X1000 (130-400); RBC 3.55 XMIL (4.2-5.4); RDW 12.4 % (11.5-14.5); WBC 10.09 X1000 (4.8-10.8)
[2019-07-12] MEDS: DILAUDID IV PRN (05:06)
[2019-07-12 05:11] LABS: AGAP 14; BUN 19 mg/dL (8-22); CALCIUM 9.2 mg/dL (8.8-10.2); CHLORIDE 99 mmol/L (98-107); COSMO 276; CREATININE 0.4 mg/dL (0.5-0.9); ESTIMATED GFR > 60; GLUCOSE 128 mg/dL (70-104); POTASSIUM 3.4 mmol/L (3.5-5.1); SODIUM 136 mmol/L (136-145); TCO2 23 mmol/L (25-35)
[2019-07-12] MEDS: CLINIMIX E 4.25%-5% SOLUTION 1,000 ML IV SCH ×2 (05:32→18:15)
[2019-07-12] MEDS: REGLAN IV SCH ×3 (05:50→22:01)
[2019-07-12] MEDS: SYNTHROID PO SCH (06:21)
[2019-07-12] MEDS: POTASSIUM CHLORIDE 20 MEQ/SWI 20 MEQ/100 ML IVPB IV SCH ×2 (07:27→11:11)
[2019-07-12] MEDS: MYLICON PO SCH ×4 (07:28→21:27)
[2019-07-12] MEDS: PAXIL PO SCH ×2 (07:29→21:27)
--- NOTE | 2019-07-12 07:50 | Diag Imaging Result Doc PS360 ---
CHEST-1 VIEW - 07/12/2019 INDICATION: SOB COMPARISON: 07/11/2019 FINDINGS: Support tubes are stable. Lung volumes are improved. The lungs are grossly clear. Heart size and pulmonary vascularity is normal. No large pleural effusion. IMPRESSION: No acute disease. Improved lung volumes. Electronically signed by Rex Day 07/12/2019 7:48 AM
--- NOTE | 2019-07-12 07:53 | PROGRESS NOTE ---
DATE: 07/12/2019 SUBJECTIVE: This patient is still on mechanical ventilation and sedated. Her urine output dropped compared with yesterday, and her output through her NG tube increased again to 2049. BUN and creatinine are stable though. OBJECTIVE: Vital Signs: Temperature 97.3 degrees, pulse 99, respiratory rate 13, blood pressure 112/73, oxygen saturation 96 on mechanical ventilation. HEENT: Head normocephalic. No trauma. PERRLA. Neck: Supple. No JVD. No masses. Central trachea. Lungs: She has some crepitus at the bases, scattered. Abdomen: Soft. She does have some bowel sounds. Midline dressing with an ostomy bag, without any evidence of stools or air. I do not see any signs of infection. Extremities: Edema. No clubbing. No cyanosis. Muscle contraction at the level of the lower extremities, which is chronic. Neurological: The patient is on mechanical ventilation and sedated, but normally she does have a significant intellectual impairment and she is nonverbal. She does not follow commands. LABORATORY DATA: WBC 10, hemoglobin 11.8, hematocrit 34.1, platelets 375,000. Sodium 136, potassium 3.4, chloride 99, bicarbonate 23, BUN 19, creatinine 0.4, glucose 128, calcium 9.2. ASSESSMENT AND PLAN: 1. 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 Her abdomen does not look distended, but she is still not passing gas or having stools in the ostomy bag. CT of the abdomen a few days ago showed the distal end of the jejunostomy tube that was coiled within the tip of the distal duodenum, and also showed severe diffuse hyperinflation of the bowel loops. There is a kinked bowel loop in the distal ileostomy, and this is causing high-grade obstruction with severe gas and fluid distention of the bowel. The rectal stump appears normal at this time. No abdominal free air or significant free fluid. Surgery has been following this patient closely. She had an endoscopy done recently, and I believe nothing has been found, but I do not have the final report. She may need to go to the operating room at some point if she continues with the same problem, not passing gas or not having bowel movements. 2. Acute hypoxemic respiratory failure. Continue mechanical ventilation. Pulmonary Department on board. 3. Decreased urine output. BUN and creatinine have been stable. We will continue with the same management for now. 4. Hypokalemia. I will replace the potassium. Her magnesium level was 1.7 yesterday, and I will repeat it tomorrow. 5. Reported possible seizure a few days ago. I believe that was not related to a real seizure disorder. Probably, that was more related to agitation. 6. Severe intellectual impairment. This is her baseline. She is not nonverbal either. 7. Reported presyncopal episode upon admission. Aware. 8. We will continue with mechanical ventilation for now. We will wait for Surgery Department to see if they are going to do an invasive procedure. She had an endoscopy done through the ileostomy, but the report is not up yet. I will wait for recommendations. CRITICAL CARE TIME: 30 minutes. cc: Mehran Waite MD
[2019-07-12] MEDS: ANUSOL-HC CREAM PR SCH ×3 (08:49→21:28)
[2019-07-12] MEDS: DEPAKOTE PO SCH ×3 (08:50→21:28)
[2019-07-12] MEDS: PERIDEX MT SCH ×2 (08:51→20:36)
[2019-07-12] MEDS: SEROQUEL PO SCH ×2 (13:07→21:27)
--- NOTE | 2019-07-12 13:44 | PROGRESS NOTE ---
DATE: 07/12/2019 Ms. Clau Singh continues to have a small bowel ileus status post total abdominal colectomy with end ileostomy per Dr. Lange. She remains on the ventilator with an NG tube and Tam catheter tube in place. Her abdomen is soft despite an abnormal abdominal film. She has actually had some output from her end ileostomy. We will remove the rest of her abdominal clips this morning. I think at some point, Dr. Lange and his team will have to decide whether they want to try to tube feed her through her NG tube. Supportive care continues. cc: Lia Carranza MD
--- NOTE | 2019-07-12 15:12 | PROVIDER PROGRESS NOTE ---
Progress Note S: No acute overnight events. She has had approx 2.6L of fluid suctioned from NGT over last 24 hours. Small amount of thick greenish stool has come from ileostomy. O: Last Vital Signs Temp 97.2 F L 07/12/19 12:00 Pulse 105 H 07/12/19 14:00 Resp 14 07/12/19 14:00 BP 153/112 07/12/19 14:00 Pulse Ox 99 07/12/19 14:00 Height 5 ft 2 in Weight 143 lb 6 oz GEN: intubated, sedated HEENT: anicteric, NGT in place NECK: supple CV: tachycardic, regular, no murmurs PULM: CTAB anteriorly ABD: soft, lap incision with stables, tympanic, hypoactive bowel sounds, RLQ end-ileostomy EXT: no cce LABS: 07/12/19 07/12/19 07/12/19 04:08 04:15 04:15 WBC 10.09 Hgb 11.8 L Plt Count 375 pH 7.47 H pCO2 35 pO2 160 H Sodium 136 Potassium 3.4 L Chloride 99 Carbon Dioxide 23 L BUN 19 Creatinine 0.4 L A/P Ms. Clau Singh is a 44 year old woman with CP, MR, and chronic constipation who presented with severe fecal impaction with ileus of the colon and SB that did was not improving with conservative mgmt. The patient was seen by general surgery and underwent total abdominal colectomy with end-ileostomy secondary for concern for impending colonic perforation. She continues to have ileus of the SB with concern for high grade obstruction in the distal ileum near the ileostomy, which was negative on ileoscopy on 07/10. Her abdomen is soft, and she has had small amount of stool overnight. She has high NGT output. Agree with Dr. Carranza that we should consider trickle feeding; defer to surgical team. # Small bowel obstruction - continue reglan - correct metabolic derangements - consider trickle feeds - surgery following, appreciate recs Please call with questions.
--- NOTE | 2019-07-12 15:23 | PULMONOLOGY PROGRESS NOTE ---
DATE: 07/12/2019 SUBJECTIVE: The patient is comfortable on mechanical ventilation. She is breathing over the set rate. OBJECTIVE: Blood pressure 112/79, heart rate 99, respiratory rate 17, oxygen saturation 98%. HEENT: Pupils are equal and reactive. Oropharynx appears clear. Neck is supple. Chest reveals occasional rhonchi bilaterally. Cardiac Examination: Regular rate. Normal S1, normal S2. Abdomen: Softer with diminished bowel sounds. Extremities reveal trace edema. Laboratories: Chest x-ray revealed better inflation without acute change. Arterial blood gas revealed a pH of 7.47, pCO2 of 35, PO2 of 160. Sodium 136, potassium 4.3, chloride 99, bicarbonate 23, BUN 19, creatinine 0.4. IMPRESSION: A 44-year-old with diminished mental capacity, who has: 1. Hypoxemic respiratory failure. 2. Toxic megacolon status post abdominal colectomy. 3. Ileus versus small bowel obstruction. DISCUSSION: The patient remains comfortable on mechanical ventilation. She is a candidate for weaning and extubation. She currently is having a large amount of nasogastric drainage. The patient was initially intubated due to abdominal distention and aerophagia. She will be maintained on mechanical ventilation pending recommendation by surgery that patient be weaned and extubated. PLAN: 1. Continue ventilatory support. 2. Continue nutrition. 3. Wean and extubate when general surgery agrees. Time spent in critical care management: 30+ minutes cc: Tye Juarez MD [facility]
[2019-07-12] MEDS: RISPERDAL PO SCH (21:28)
[2019-07-12] MEDS: REMERON SOLTAB PO SCH (21:28)
[2019-07-13] MEDS: DIPRIVAN 1% 1,000 MG/100 ML BOTTLE IV SCH ×8 (00:21→23:32)
[2019-07-13] MEDS: ZOSYN 3.375 GM in NS 50 ML IV SCH ×3 (03:20→17:23)
[2019-07-13] MEDS: LOPRESSOR IV SCH ×4 (03:20→19:33)
[2019-07-13 04:03] LABS: ALLEN TEST YES; BE 5.7 mmoll (-3.0-3.0); BLOOD TYPE ARTERIAL; HCO3-(ACT) 29.4 mmoll (20.0-26.0); METHB 1.3 % (0.0-1.5); O2(CT) 16.3 mL/dL (15.0-23.0); O2HB 97.1 % (95.0-99.0); PCO2(98.6) 33 mmHg (35-45); PO2(98.6) 169 mmHg (60-100); SAMPLE BLOOD; SRATE 6 BPM; THB 11.7 g/dL (11.5-17.4); TVOL 600 mL; pH(98.6) 7.54 (7.35-7.45)
[2019-07-13 04:04] LABS: MODALITY VENTILATOR
[2019-07-13] MEDS: CLINIMIX E 4.25%-5% SOLUTION 1,000 ML IV SCH ×2 (05:06→17:23)
[2019-07-13] MEDS: REGLAN IV SCH ×3 (05:58→21:51)
[2019-07-13 06:27] LABS: BASO# 0.07 X1000 (0.0-0.2); BASO% 0.8 % (0.0-0.8); EOS# 0.44 X1000 (0.0-0.7); EOS% 5.3 % (0.0-10.0); HEMATOCRIT 34.4 % (37.0-47.0); HEMOGLOBIN 11.5 g/dL (12.0-16.0); IMM GRAN# 0.44 X1000 (0.0-0.04); IMM GRAN% 5.3 % (0.0-0.5); LYMPH# 1.29 X1000 (1.2-3.4); LYMPH% 15.5 % (20.5-51.1); MCH 32.1 PG (27-31); MCHC 33.4 g/dL (33-37); MCV 96.1 FL (81-99); MONO# 0.93 X1000 (0.11-0.59); MONO% 11.2 % (1.7-9.3); MPV 10.8 FL (7.4-10.4); NEUT# 5.16 X1000 (1.4-6.5); NEUT% 61.9 % (42.2-75.2); PLT 328 X1000 (130-400); RBC 3.58 XMIL (4.2-5.4); RDW 12.5 % (11.5-14.5); WBC 8.33 X1000 (4.8-10.8)
[2019-07-13] MEDS: SYNTHROID PO SCH (06:30)
[2019-07-13 06:34] LABS: AGAP 14; BUN 21 mg/dL (8-22); CALCIUM 9.6 mg/dL (8.8-10.2); CHLORIDE 96 mmol/L (98-107); COSMO 272; CREATININE 0.4 mg/dL (0.5-0.9); ESTIMATED GFR > 60; GLUCOSE 118 mg/dL (70-104); POTASSIUM 3.6 mmol/L (3.5-5.1); SODIUM 134 mmol/L (136-145); TCO2 24 mmol/L (25-35)
[2019-07-13 06:45] LABS: MAGNESIUM 1.7 mg/dL (1.5-2.7); PHOSPHORUS 4.5 mg/dL (2.7-4.5)
--- NOTE | 2019-07-13 06:52 | Diag Imaging Result Doc PS360 ---
CHEST-1 VIEW - 07/13/2019 INDICATION: SOB COMPARISON: 07/12/2019 FINDINGS: Support tubes are stable. Lung volumes remain low. There is faint hazy infiltrate in the left lung base. Heart size is normal. No pneumothorax or pleural effusion. IMPRESSION: Faint hazy infiltrate in the left lung base. Electronically signed by Rex Day 07/13/2019 6:50 AM
[2019-07-13 07:18] LABS: EOS 3 % (1-10); LYMPHS 15 % (21-51); MONO 11 % (1-9); SEGS 71 % (42-75)
--- NOTE | 2019-07-13 07:48 | GENERAL SURGERY PROGRESS NOTE ---
DATE: 07/13/[address] Ortega on Saturday. He was able to get the EGD scope pretty far in without seeing obvious obstruction. Over the weekend, she has remained about the same. She has had some ileostomy output, but it appears to be thickened. Her NG tube output has decreased overall. She seems less distended. She has been hemodynamically stable from a surgical point of view and we will start tube feeds on her. I do want to keep her intubated for right now to see how she does with the tube feeds, but hopefully once she seems to do okay we can wean to extubate. cc: Clint Lange MD
[2019-07-13] MEDS: MYLICON PO SCH ×4 (10:00→20:13)
[2019-07-13] MEDS: DEPAKOTE PO SCH ×3 (10:01→20:14)
[2019-07-13] MEDS: PAXIL PO SCH ×2 (10:01→20:14)
[2019-07-13] MEDS: PERIDEX MT SCH ×2 (10:15→21:51)
[2019-07-13] MEDS: SEROQUEL PO SCH ×2 (12:19→20:14)
[2019-07-13] MEDS: ANUSOL-HC CREAM PR SCH ×3 (12:19→20:14)
--- NOTE | 2019-07-13 12:27 | PROGRESS NOTE ---
DATE: 07/13/2019 SUBJECTIVE: Patient is intubated and sedated. OBJECTIVE: Blood pressure is 134/113, heart rate of 103, respiratory rate of 17, temperature 98.2 degrees, 96% on 35%. Cardiovascular: Regular rate and rhythm. Pulmonary: Bilateral breath sounds diminished at the bases. GI: Soft, nontender, nondistended. Bowel sounds were positive. Extremity Examination: No clubbing or cyanosis. Lymphatic Examination: No peripheral edema. Neurological Examination: Nonfocal. On her eye exam, she kind has very superficial lenses. I cannot really get a pupillary response like I would like and I do not know if that is normal. I am not sure if that is not an abnormality she had to begin with. Laboratory Data: Her white count is 8, hemoglobin and hematocrit 11 and 34, platelets 328,000. PH 7.54, pCO2 of 33, PaO2 is 169. Sodium 134. PROBLEM LIST: 1. Toxic megacolon due to colonic inertia, status post colectomy. This is postoperative day 21. She has ostomy output. There has been concern over a possible jejunostomy kink but now that seems to have done okay. She seems to be doing okay otherwise. Plan is to initiate tube feeds today and follow, at a low rate. Surgery obviously following. 2. Acute hypoxic respiratory failure due to multiple issues. She is requiring less support. However, she will remain intubated until surgery feels she is stable enough and progressing from her ostomy standpoint until she can be fully extubated. 3. Hypokalemia. That is stable. We will continue to follow. 4. Rule out seizures. There has not clearly been seizures. The event was several minutes long and was witnessed by the nurses but not by a physician. We have not instituted seizure or antiepileptic medications. We will continue to follow. I think her mental status is at baseline when she is off sedation. 5. Moderate protein calorie malnutrition. She is on Clinimix and we are initiating treatment otherwise. 6. Disposition, pending her clinical status. cc: Abdoulaye Guy MD
[2019-07-13] MEDS: RISPERDAL PO SCH (20:14)
[2019-07-13] MEDS: REMERON SOLTAB PO SCH (20:14)
[2019-07-14] MEDS: LOPRESSOR IV SCH ×4 (00:59→20:11)
[2019-07-14] MEDS: ZOSYN 3.375 GM in NS 50 ML IV SCH ×5 (00:59→23:33)
[2019-07-14] MEDS: DIPRIVAN 1% 1,000 MG/100 ML BOTTLE IV SCH ×7 (02:46→21:41)
[2019-07-14 04:15] LABS: BE 5.1 mmoll (-3.0-3.0); BLOOD TYPE ARTERIAL; HCO3-(ACT) 28.9 mmoll (20.0-26.0); PCO2(98.6) 39 mmHg (35-45); PO2(98.6) 89 mmHg (60-100); SAMPLE BLOOD; pH(98.6) 7.48 (7.35-7.45)
[2019-07-14 04:16] LABS: ALLEN TEST YES; METHB 1.4 % (0.0-1.5); O2(CT) 15.7 mL/dL (15.0-23.0); O2HB 95.5 % (95.0-99.0); SAO2 97.9 % (95.0-100.0); SRATE 6 BPM; THB 11.6 g/dL (11.5-17.4); TVOL 600 mL
[2019-07-14 04:17] LABS: MODALITY VENTILATOR
[2019-07-14] MEDS: CLINIMIX E 4.25%-5% SOLUTION 1,000 ML IV SCH (04:23)
[2019-07-14 05:19] LABS: BASO# 0.08 X1000 (0.0-0.2); BASO% 0.9 % (0.0-0.8); EOS# 0.49 X1000 (0.0-0.7); EOS% 5.8 % (0.0-10.0); HEMATOCRIT 33.1 % (37.0-47.0); HEMOGLOBIN 11.1 g/dL (12.0-16.0); IMM GRAN# 0.55 X1000 (0.0-0.04); IMM GRAN% 6.5 % (0.0-0.5); LYMPH# 1.65 X1000 (1.2-3.4); LYMPH% 19.4 % (20.5-51.1); MCH 32.1 PG (27-31); MCHC 33.5 g/dL (33-37); MCV 95.7 FL (81-99); MONO# 0.74 X1000 (0.11-0.59); MONO% 8.7 % (1.7-9.3); MPV 10.6 FL (7.4-10.4); NEUT# 4.99 X1000 (1.4-6.5); NEUT% 58.7 % (42.2-75.2); PLT 332 X1000 (130-400); RBC 3.46 XMIL (4.2-5.4); RDW 12.2 % (11.5-14.5)
[2019-07-14 05:30] LABS: MAGNESIUM 1.8 mg/dL (1.5-2.7); PHOSPHORUS 4.9 mg/dL (2.7-4.5)
[2019-07-14 05:32] LABS: AGAP 12; BUN 23 mg/dL (8-22); CALCIUM 9.6 mg/dL (8.8-10.2); CHLORIDE 96 mmol/L (98-107); COSMO 271; CREATININE 0.4 mg/dL (0.5-0.9); ESTIMATED GFR > 60; GLUCOSE 118 mg/dL (70-104); POTASSIUM 3.9 mmol/L (3.5-5.1); SODIUM 133 mmol/L (136-145); TCO2 25 mmol/L (25-35)
[2019-07-14] MEDS: REGLAN IV SCH ×3 (05:51→21:51)
[2019-07-14] MEDS: SYNTHROID PO SCH (06:14)
--- NOTE | 2019-07-14 07:33 | Diag Imaging Result Doc PS360 ---
EXAM: CHEST-1 VIEW 07/14/2019 HISTORY: SOB TECHNIQUE: AP portable at 0511 COMMENT: There is an NG tube with its tip in the distal stomach and an endotracheal tube with its tip approximately 2 cm above the katey. The lungs are slightly better expanded than on the previous examination of 07/13/2019. There is an azygos lobe. There is a granulomatous calcification in the left lower lobe. The hazy opacity present previously over the left base has improved. The heart size and pulmonary vascularity are within normal limits. IMPRESSION: Improved atelectasis versus pneumonia left lower lobe. Electronically signed by Roger Lockwood 07/14/2019 7:31 AM
[2019-07-14] MEDS: MYLICON PO SCH ×2 (08:25→11:56)
[2019-07-14] MEDS: PAXIL PO SCH (08:25)
[2019-07-14] MEDS: ANUSOL-HC CREAM PR SCH ×3 (08:26→20:12)
[2019-07-14] MEDS: DEPAKOTE PO SCH (08:26)
[2019-07-14] MEDS: PERIDEX MT SCH ×2 (08:27→20:12)
[2019-07-14] MEDS ORDERED: ATIVAN IV PRN (09:06)
--- NOTE | 2019-07-14 09:58 | GENERAL SURGERY PROGRESS NOTE ---
DATE: 07/14/2019 The patient seems to be doing about the same. Nursing staff reports no major issues. She has been tolerating trickle tube feeds without high residuals. She has been having some ostomy output. Her bowel sounds sound better at this time. From a surgical point of view, we will increase her tube feeds to goal as set by dietitian. It is okay for Pulmonary to wean to extubate. We may need to consider placement of a feeding tube on her for tube feeds, but we will see how she does. cc: Clint Lange MD
--- NOTE | 2019-07-14 09:58 | PROGRESS NOTE ---
DATE: 07/14/2019 SUBJECTIVE: Patient is noted to be sedated and intubated. OBJECTIVE: Vital Signs: Temperature degrees 96.8, heart rate 95, respiratory rate 10, blood pressure 130/98, and O2 saturation 99% on mechanical ventilator. FiO2 of 35%. General: This is a chronically ill-appearing 44-year-old female lying in bed sedated and intubated. HEENT: Head is normocephalic. Atraumatic. Mucous membranes dry. NG tube in place. Neck: No JVD noted. No carotid bruits. No lymphadenopathy. Cardiovascular: S1, S2 heard. No murmurs, gallops, or rubs. Regular rate and rhythm. Respiratory: Decreased breath sounds globally with minimal rhonchi in both pulmonary bases. Patient is not using any accessory muscles or having work of breathing. Abdomen: Soft. She is a little bit distended but nontender to palpation apparently. Bowel sounds present. No organomegaly. Extremities: No clubbing, cyanosis, or edema. Peripheral pulses present in both legs. Neurological: The patient is sedated and intubated. LABORATORY DATA: White cell count 8.5, hemoglobin 11.1, hematocrit 33.1 and platelets 332,000 with ABG that shows pH 7.48 with pCO2 39, and PO2 89. That was taken on ventilator at FiO2 35%. BMP reveals sodium 133 with creatinine 0.4, glucose 118, and phosphorus 4.9. ASSESSMENT AND PLAN: 1. Acute hypoxic respiratory failure. Multifactorial. Apparently, patient remains intubated as per surgery request. The patient has been started on NG-tube feedings, and now is running to 30 mL/h. Apparently, there is not much residuals. Patient seems to tolerate that nutrition very well. As per nurse, the patient is doing fine from surgical standpoint, and we can start weaning trials today. We will communicate that to Dr. Dowd from Pulmonary. We will follow recommendations. 2. Toxic megacolon status post colectomy. This is postoperative day #22. She had ostomy output. The patient has been started on NG tube feedings. From surgical standpoint, she can be extubated. At this point, we will continue with same management. 3. Hypokalemia resolved. 4. Suspected seizures. We are not completely sure if those have been truly seizures or not. That happened while this patient was on [address] [place]. At this point, there has not been any reports from any seizure activity so at this point we will not add any medications to her. 5. Protein calorie malnutrition. The patient has been on Clinimix, but because of NG tube, feeding being started we will stop that medication. 6. Severe intellectual impairment. The patient is on multiple [employer] medications including Paxil, Risperidone, and Seroquel. Now, that we have an NG tube feedings, we will talk with Pulmonary about starting those medication because I am pretty much sure once we start weaning trials and stop propofol, patient may become very agitated. We will add Ativan p.r.n. for agitation. We will see what Pulmonary has to say. 7. Disposition. We will continue to monitor this patient closely in the intensive care unit. cc: Pablo Macario MD [facility]
[2019-07-14] MEDS: HALDOL IV PRN (10:21)
[2019-07-14] MEDS ORDERED: ZYPREXA ZYDIS NG PRN (12:29)
[2019-07-14] MEDS: SEROQUEL NG SCH ×2 (12:48→20:11)
--- NOTE | 2019-07-14 14:48 | PROVIDER PROGRESS NOTE ---
Progress Note S: No acute overnight events. She is tolerating trickle feeds. Minimal output from ileostomy. Remains intubated and sedated. O: Last Vital Signs Temp 97.0 F L 07/14/19 12:00 Pulse 114 H 07/14/19 13:30 Resp 17 07/14/19 13:30 BP 96/71 07/14/19 13:30 Pulse Ox 95 07/14/19 13:30 Height 5 ft 2 in Weight 137 lb 2 oz GEN: intubated, sedated HEENT: anicteric, NGT in place NECK: supple CV: tachycardic, regular, no murmurs PULM: CTAB anteriorly ABD: soft, lap incision with stables, tympanic, bowel sounds present, RLQ end- ileostomy EXT: no cce LABS: 07/14/19 07/14/19 07/14/19 04:00 04:00 04:05 WBC 8.50 Hgb 11.1 L Plt Count 332 pH 7.48 H pCO2 39 pO2 89 Sodium 133 L Potassium 3.9 Chloride 96 L Carbon Dioxide 25 BUN 23 H Creatinine 0.4 L A/P: Ms. Clau Singh is a 44 year old woman with CP, MR, and chronic constipation who presented with severe fecal impaction with ileus of the colon and SB that did was not improving with conservative mgmt. The patient was seen by general surgery and underwent total abdominal colectomy with end-ileostomy secondary for concern for impending colonic perforation. She continues to have ileus. Ileoscopy on 07/10 was negative for obstruction. She is tolerating trickle feeds and abdomen is soft. Agree with advancing tube feeds per acquisitions analyst. Post extubation, if patient is able to eat by mouth without N/V, abdominal pain, then recommend oral intake. # Small bowel obstruction - continue reglan - correct metabolic derangements - continue trickle feeds - surgery following, appreciate recs Please call with questions.
[2019-07-14] MEDS ORDERED: DEPAKOTE NG SCH (15:00)
[2019-07-14] MEDS: MYLICON NG SCH ×2 (15:34→20:11)
[2019-07-14] MEDS: DEPAKENE LIQUID NG SCH ×2 (16:06→20:12)
[2019-07-14] MEDS: PAXIL NG SCH (20:11)
[2019-07-14] MEDS: RISPERDAL NG SCH (20:11)
[2019-07-14] MEDS: REMERON SOLTAB NG SCH (20:12)
[2019-07-15] MEDS: DIPRIVAN 1% 1,000 MG/100 ML BOTTLE IV SCH ×6 (00:31→21:05)
[2019-07-15] MEDS: LOPRESSOR IV SCH ×4 (02:11→20:16)
[2019-07-15 04:18] LABS: ALLEN TEST YES; BE 5.1 mmoll (-3.0-3.0); BLOOD TYPE ARTERIAL; HCO3-(ACT) 28.9 mmoll (20.0-26.0); METHB 0.9 % (0.0-1.5); O2(CT) 14.6 mL/dL (15.0-23.0); O2HB 96.6 % (95.0-99.0); PCO2(98.6) 39 mmHg (35-45); PO2(98.6) 119 mmHg (60-100); SAMPLE BLOOD; SAO2 99.3 % (95.0-100.0); SRATE 6 BPM; THB 10.6 g/dL (11.5-17.4); TVOL 600 mL; pH(98.6) 7.48 (7.35-7.45)
[2019-07-15 04:19] LABS: MODALITY VENTILATOR
[2019-07-15] MEDS: REGLAN IV SCH ×4 (05:33→22:25)
[2019-07-15] MEDS: ZOSYN 3.375 GM in NS 50 ML IV SCH ×4 (05:33→23:22)
[2019-07-15] MEDS: SYNTHROID NG SCH ×2 (05:58→06:14)
[2019-07-15 06:00] LABS: BASO# 0.06 X1000 (0.0-0.2); BASO% 0.6 % (0.0-0.8); EOS# 0.51 X1000 (0.0-0.7); EOS% 4.8 % (0.0-10.0); HEMATOCRIT 32.4 % (37.0-47.0); HEMOGLOBIN 10.7 g/dL (12.0-16.0); IMM GRAN# 0.44 X1000 (0.0-0.04); IMM GRAN% 4.2 % (0.0-0.5); LYMPH# 1.56 X1000 (1.2-3.4); LYMPH% 14.8 % (20.5-51.1); MCH 31.8 PG (27-31); MCV 96.4 FL (81-99); MONO# 0.72 X1000 (0.11-0.59); MONO% 6.8 % (1.7-9.3); MPV 10.8 FL (7.4-10.4); NEUT# 7.27 X1000 (1.4-6.5); NEUT% 68.8 % (42.2-75.2); PLT 332 X1000 (130-400); RBC 3.36 XMIL (4.2-5.4); RDW 12.7 % (11.5-14.5); WBC 10.56 X1000 (4.8-10.8)
--- NOTE | 2019-07-15 06:36 | GENERAL SURGERY PROGRESS NOTE ---
DATE: 07/15/2019 SUBJECTIVE: The patient seems to be doing well from what the nurses tell me no major issues. She did unsuccessfully go through a weaning trial. OBJECTIVE: She is on her tube feeds right now currently at a rate of 30 which is her goal. Residuals have been very minimal. Her ostomy has had some output but is very little. PLAN: Overall she is doing about the same. We will continue supportive care. cc: Clint Lange MD
[2019-07-15 06:39] LABS: AGAP 15; BUN 17 mg/dL (8-22); CALCIUM 9.6 mg/dL (8.8-10.2); CHLORIDE 97 mmol/L (98-107); COSMO 274; CREATININE 0.4 mg/dL (0.5-0.9); ESTIMATED GFR > 60; GLUCOSE 101 mg/dL (70-104); POTASSIUM 3.1 mmol/L (3.5-5.1); SODIUM 136 mmol/L (136-145); TCO2 24 mmol/L (25-35)
--- NOTE | 2019-07-15 06:41 | Diag Imaging Result Doc PS360 ---
CHEST-1 VIEW - 07/15/2019 INDICATION: SOB COMPARISON: 07/14/2019 FINDINGS: Stable endotracheal tube and nasogastric tube in good position. The heart is normal. No pneumothorax or pleural effusion. IMPRESSION: No acute disease or complication. Electronically signed by Rex Day 07/15/2019 6:39 AM
[2019-07-15] MEDS: PAXIL NG SCH ×2 (07:12→20:17)
[2019-07-15] MEDS ORDERED: POTASSIUM CHLORIDE 20% LIQUID PO ONE (07:59)
[2019-07-15] MEDS: MYLICON NG SCH ×4 (08:11→20:17)
[2019-07-15] MEDS: DEPAKENE LIQUID NG SCH ×4 (08:11→20:17)
[2019-07-15] MEDS: ANUSOL-HC CREAM PR SCH ×3 (08:30→20:18)
[2019-07-15] MEDS: PERIDEX MT SCH ×2 (08:55→20:18)
[2019-07-15] MEDS ORDERED: POTASSIUM CHLORIDE 20 MEQ/SWI 20 MEQ/100 ML IVPB IV SCH (09:00)
--- NOTE | 2019-07-15 09:01 | PROGRESS NOTE ---
DATE: 07/15/2019 SUBJECTIVE: Patient continues to be sedated and intubated. No acute issues noted as per nursing staff overnight. She apparently is tolerating tube feedings well with minimal residual. OBJECTIVE: Vital Signs: Temperature 97.1 degrees, heart rate 103, respiratory rate 18, blood pressure 115/74, O2 saturation 96% on mechanical ventilator, FiO2 35%. General examination: This is a chronically ill appearing, 44-year-old female, lying in bed sedated and intubated. HEENT: Head is normocephalic, atraumatic. Mucous membranes dry. NG tube in place. Neck: No JVD noted. No carotid bruits. No lymphadenopathy. No thyromegaly. Cardiovascular: S1, S2 heard. Tachycardic. No murmurs, gallops, or rubs noted. Regular rate and rhythm. Respiratory exam: Decreased breath sounds globally. Minimal rhonchi is noted still in both pulmonary bases, but patient is not using any accessory muscles or having work of breathing. Abdomen: Soft, a little bit distended. Nontender to palpation apparently. There is a midline surgical scar and also colostomy bag in the right side with some brown stool. No blood on it. No organomegaly noted. Extremities: No clubbing, cyanosis, or edema. Peripheral pulses present in both legs. Neurological exam: Patient is sedated and intubated. LABORATORY DATA: White cell count 10.56, hemoglobin 10.7, hematocrit 32.4, platelets 332 with pH 7.43, with pCO2 39, PO2 119. BMP remarkable for potassium 3.1. ASSESSMENT AND PLAN: 1. Acute hypoxic respiratory failure, multifactorial. At this point, the patient remained intubated as per surgical request, but 2 days ago they think that the patient can be extubated. We had done weaning trial yesterday, but apparently she became very tachypneic, so she failed the trial. Dr. Dowd following this patient. We will leave to him the decision to continue trying to do weaning trials. 2. 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 Currently this patient is doing fine from General Surgery standpoint. The patient is on nasogastric tube feedings and minimal residual has been noted. At this point, we will continue with same management. From this standpoint, patient can be extubated. 3. Hypokalemia. Potassium is 3.1 today, so we are going to replenish that. 4. Protein-calorie malnutrition. We will continue with nasogastric tube feedings. 5. Suspected seizures. No more seizures noted. While she is in the intensive care unit, we will continue to monitor. 6. Severe intellectual impairment. Now this patient has a nasogastric tube, we are going to continue providing his home medications, including Paxil, Risperdal and Seroquel. Ativan that we had started for agitation has been stopped. We will continue to monitor. 7. Disposition: We will continue to monitor this patient closely in the intensive care unit. We will most likely do a weaning trial today. cc: Pablo Macario MD MTDD
[2019-07-15] MEDS: HALDOL IV PRN (09:49)
[2019-07-15 11:44] LABS: ALLEN TEST YES; BE 3.3 mmoll (-3.0-3.0); BLOOD TYPE ARTERIAL; HCO3-(ACT) 27.5 mmoll (20.0-26.0); METHB 1.3 % (0.0-1.5); O2HB 96.2 % (95.0-99.0); PCO2(98.6) 41 mmHg (35-45); PO2(98.6) 106 mmHg (60-100); SAMPLE BLOOD; SAO2 99.1 % (95.0-100.0); pH(98.6) 7.44 (7.35-7.45)
[2019-07-15 11:45] LABS: MODALITY VENTILATOR
[2019-07-15 12:40] LABS: INR 0.98; PROTIME 13.1 Seconds (11.0-16.0)
[2019-07-15] MEDS: SEROQUEL NG SCH ×2 (13:16→20:16)
[2019-07-15] MEDS ORDERED: NS 250 ML ONE (13:17)
[2019-07-15 16:07] LABS: MAGNESIUM 1.5 mg/dL (1.5-2.7); POTASSIUM 3.9 mmol/L (3.5-5.1)
[2019-07-15] MEDS: MAG-OX PO SCH ×2 (17:09→20:18)
[2019-07-15] MEDS: RISPERDAL NG SCH (20:17)
[2019-07-15] MEDS: REMERON SOLTAB NG SCH (20:18)
--- NOTE | 2019-07-15 22:04 | PROVIDER PROGRESS NOTE ---
Progress Note S: She is tolerating trickle feeds without vomiting or high residuals. Her abdomen remains unchanged. She failed weaning trial yesterday per pulmonary. Mildly increased stool output from ileostomy. O: Last Vital Signs Temp 97.1 F L 07/16/19 04:00 Pulse 101 H 07/16/19 05:30 Resp 20 07/16/19 05:30 BP 110/83 07/16/19 05:30 Pulse Ox 95 07/16/19 05:30 Height 5 ft 2 in Weight 138 lb 9 oz GEN: intubated, sedated HEENT: anicteric, NGT in place NECK: supple CV: tachycardic, regular, no murmurs PULM: CTAB anteriorly ABD: soft, lap incision with stables, tympanic, bowel sounds present, RLQ end- ileostomy EXT: no cce LABS 07/15/19 07/15/19 07/15/19 04:40 04:40 12:15 WBC 10.56 Hgb 10.7 L Plt Count 332 INR 0.98 Sodium 136 Potassium 3.1 L D Chloride 97 L Carbon Dioxide 24 L Anion Gap 15 BUN 17 Creatinine 0.4 L Glucose 101 A/P: Ms. Clau Singh is a 44 year old woman with CP, MR, and chronic constipation who presented with severe fecal impaction with ileus of the colon and SB that did was not improving with conservative mgmt. The patient was seen by general surgery and underwent total abdominal colectomy with end-ileostomy secondary for concern for impending colonic perforation. She continues to have ileus. Ileoscopy on 07/10 was negative for obstruction. She is tolerating trickle feeds and abdomen is soft. Agree with advancing tube feeds per incoming inspector. Post extubation, if patient is able to eat by mouth without N/V, abdominal pain, then recommend oral intake. # Small bowel obstruction - continue reglan - correct metabolic derangements - continue trickle feeds - surgery following, appreciate recs # Anemia: no overt bleed # Hypokalemia: replete K prn Please call with questions.
[2019-07-16] MEDS: DIPRIVAN 1% 1,000 MG/100 ML BOTTLE IV SCH ×3 (00:23→10:11)
[2019-07-16] MEDS: LOPRESSOR IV SCH ×4 (01:27→20:07)
[2019-07-16 04:41] LABS: ALLEN TEST YES; BLOOD TYPE ARTERIAL; HCO3-(ACT) 29.6 mmoll (20.0-26.0); METHB 1.2 % (0.0-1.5); O2(CT) 10.6 mL/dL (15.0-23.0); O2HB 96.6 % (95.0-99.0); PCO2(98.6) 44 mmHg (35-45); PO2(98.6) 115 mmHg (60-100); SAMPLE BLOOD; SRATE 6 BPM; THB 7.6 g/dL (11.5-17.4); TVOL 600 mL; pH(98.6) 7.45 (7.35-7.45)
[2019-07-16 04:43] LABS: MODALITY VENTILATOR
[2019-07-16] MEDS: ZOSYN 3.375 GM in NS 50 ML IV SCH ×2 (05:09→11:49)
[2019-07-16] MEDS: REGLAN IV SCH ×3 (05:46→21:55)
[2019-07-16] MEDS: SYNTHROID NG SCH (06:07)
[2019-07-16 06:46] LABS: BASO# 0.03 X1000 (0.0-0.2); BASO% 0.3 % (0.0-0.8); EOS# 0.52 X1000 (0.0-0.7); EOS% 4.9 % (0.0-10.0); HEMATOCRIT 29.4 % (37.0-47.0); HEMOGLOBIN 9.6 g/dL (12.0-16.0); IMM GRAN% 1.9 % (0.0-0.5); LYMPH# 1.15 X1000 (1.2-3.4); LYMPH% 10.9 % (20.5-51.1); MCH 31.9 PG (27-31); MCHC 32.7 g/dL (33-37); MCV 97.7 FL (81-99); MONO# 0.57 X1000 (0.11-0.59); MONO% 5.4 % (1.7-9.3); MPV 10.8 FL (7.4-10.4); NEUT# 8.06 X1000 (1.4-6.5); NEUT% 76.6 % (42.2-75.2); PLT 309 X1000 (130-400); RBC 3.01 XMIL (4.2-5.4); RDW 12.6 % (11.5-14.5); WBC 10.53 X1000 (4.8-10.8)
--- NOTE | 2019-07-16 07:06 | Diag Imaging Result Doc PS360 ---
EXAM: CHEST-1 VIEW 07/16/2019 HISTORY: SOB TECHNIQUE: AP portable at 0511 COMMENT: There is an endotracheal tube with its tip at thoracic inlet and an NG tube which passes below the diaphragm presumably through the stomach and into the duodenum. There is some increase in hazy opacity over the left base compared to 07/15/2019. The inspiration is not as optimal however. IMPRESSION: Questionable pneumonia right lower lobe. Electronically signed by Roger Lockwood 07/16/2019 7:04 AM
[2019-07-16 07:11] LABS: AGAP 12; BUN 13 mg/dL (8-22); CALCIUM 9.8 mg/dL (8.8-10.2); CHLORIDE 99 mmol/L (98-107); COSMO 276; CREATININE 0.4 mg/dL (0.5-0.9); ESTIMATED GFR > 60; GLUCOSE 99 mg/dL (70-104); POTASSIUM 3.2 mmol/L (3.5-5.1); SODIUM 138 mmol/L (136-145); TCO2 27 mmol/L (25-35)
--- NOTE | 2019-07-16 08:14 | ENDOSCOPY OPERATIVE NOTE ---
[facility] ENDOSCOPY OPERATIVE NOTE , PATIENT: Clau Singh ADM DATE: 07/10/2019 MR #: [id number] : 1975 ACCT #: ILEOSCOPY PROCEDURE REPORT PROCEDURE DATE: 07/10/2019 SURGEON: Jeanmarie Ortega MD STATUS: outpatient ASBESTOS PIPE SUPERVISOR: PREOPERATIVE DIAGNOSIS: The patient is a 44 yr old female here for a ileoscopy due to an abnormal CT . PROCEDURE PERFORMED: Ileoscopy via stoma and biopsy MEDICATIONS: Per Anesthesia PREP TYPE: NPO PREP QUALITY: The overall prep quality was inadequate. ESTIMATED BLOOD LOSS: None CONSENT: The patient understands the risks and benefits of the procedure and understands that these r isks include, but are not limited to: sedation, allergic reaction, infection, perforation and/or bleeding. Alternative means of evaluation and treatment include, among others: physical exam, x-rays, and/or surgical intervention. The patient elects to proceed with this endoscopic procedure. HISTORY and PHYSICAL: 07/10/2019 proper function. Hand hygiene and appropriate measures for infection prevention was taken. After the risks, benefits and alternatives of the procedure were thoroughly explained, Informed consent was verified, confirmed and timeout was successfully executed by the treatment team. A digital exam was not performed. The endoscope was i ntroduced through the stoma and advanced to the 80cm. The instrument was then slowly withdrawn as the colon was fully e xamined. ILEUM FINDINGS: Dilated small bowel without evidence of enteritis or bowel obstruction. Decreased mo tility. Random biopsies were obtained with cold biopsy forceps. Liquid greenish-brown stool throughout. Retroflexio n was not performed. The scope was then completely withdrawn from the patient and the procedure terminated. Dec ompression was performed as much as possible during withdrawal. SCOPE WITHDRAWAL TIME: 5 Minutes. SPECIMENS REMOVED: Yes ADVERSE EVENTS: There were no complications. POSTOPERATIVE DIAGNOSIS: Dilated ileum without luminal obstruction. Decreased motility. Mucosa biopsied RECOMMENDATIONS: 1. Await biopsy results 2. Start Reglan IV 10mg TID given concern for motility disorder RECALL: Jeanmarie Ortega MD eSigned: Jeanmarie Ortega MD 07/10/2019 2:59 PM Revised: 07/10/2019 2:59 PM cc:
[2019-07-16] MEDS ORDERED: POTASSIUM CHLORIDE 20% LIQUID PO ONE (08:28)
[2019-07-16] MEDS: DEPAKENE LIQUID NG SCH ×4 (08:56→20:07)
[2019-07-16] MEDS: PAXIL NG SCH ×2 (08:57→20:07)
[2019-07-16] MEDS: MIRALAX PO SCH (08:57)
[2019-07-16] MEDS: PERIDEX MT SCH ×2 (08:57→20:08)
[2019-07-16] MEDS: MYLICON NG SCH ×4 (08:58→20:07)
[2019-07-16] MEDS: MAG-OX PO SCH ×2 (08:58→14:00)
--- NOTE | 2019-07-16 09:02 | GENERAL SURGERY PROGRESS NOTE ---
DATE: 07/16/2019 SUBJECTIVE: The patient seems to be doing about the same. Nursing staff reports no major changes. She did not do well with her weaning trial secondary to agitation. OBJECTIVE: Vital Signs: The patient is currently afebrile. Her vital signs are stable. General Examination: Sedated and on the ventilator. Cardiovascular: Regular rate and rhythm. Lungs: Grossly clear. Abdomen: Soft and significantly less distended compared to several days prior. Ileostomy has some output, although it is very thick. Incision seems to be healing. ASSESSMENT AND PLAN: A 44-year-old female status post total abdominal colectomy. Postoperative state. At this time, she is approaching a month out from her surgery, more likely 3 weeks. Some continued issue with motility of her small bowel, although she is on Reglan which I think has helped. There is no obvious mechanical obstruction noted on endoscopy. At this point, we will add MiraLAX to try to loosen up the thickened stool which may be somewhat like a paste at this point. She is tolerating her tube feeds. Would recommend continuing those with free water and monitoring her closely. cc: Clint Lange MD
--- NOTE | 2019-07-16 09:06 | PROGRESS NOTE ---
DATE: 07/16/2019 SUBJECTIVE: Patient continues to be sedated and intubated. As per nursing staff, she failed weaning trial today. She is tolerating the feedings very well with minimal residual. OBJECTIVE: Vital Signs: Temperature 97.1 degrees, heart rate 99, respiratory rate 20, blood pressure 113/66, O2 saturation 99% on mechanical ventilator on FiO2 35%. General Examination: This is a chronically ill-appearing, 44-year-old female, lying in bed in no acute distress, sedated and intubated. HEENT: Head is normocephalic, atraumatic. Mucous membranes very dry. NG tube in place with tube feeds running. Neck: No JVD noted. No carotid bruits. No lymphadenopathy. No thyromegaly. Cardiovascular exam: S1, S2 heard. Tachycardic, but no murmurs, gallops, or rubs. Respiratory exam: Decreased breath sounds globally with minimal rhonchi noted in both pulmonary bases. Patient not using any accessory muscles or having work of breathing. Abdomen: Soft. A little bit distended, but nontender to palpation. There is a midline surgical scar. Colostomy bag in the right side with some brown stool, but no blood on it. No organomegaly noted. Extremities: No clubbing, cyanosis, or edema. Peripheral pulses present in both legs. Neurological exam: Patient is sedated and intubated. LABORATORY DATA: White cell count 10.53, hemoglobin 9.6, hematocrit 39.4, platelets 309 with ABG that shows pH 7.45, pCO2 44, PO2 115. Sodium 138, potassium 3.2, creatinine 0.4. ASSESSMENT AND PLAN: 1. Acute hypoxemic respiratory failure multifactorial. We tried 2 days in a row to try to extubate this patient, but she failed, becoming very tachypneic. At this point, we will continue to follow recommendations from Dr. Dowd. His help is appreciated. 2. 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 Status post open total colectomy on 06/22/2019. It is postoperative day #24. The patient is being followed by General Surgery. Patient tolerating nasogastric tube feedings. We will continue to monitor. 3. Hypokalemia. We will replenish potassium today again. 4. Protein-calorie malnutrition. We will continue with nasogastric tube feedings. 5. Suspected seizures. No more episodes of seizures since she is in the intensive care unit. 6. Suspected right lower lobe pneumonia. Patient does not have any elevated white cell count, and she is not spiking any fever. This is the first time that x-ray reported that possibility. In that regard, I prefer to go ahead and do a CT of the chest. We will see what it shows. 7. Severe intellectual impairment. Patient receiving Paxil, Risperdal and Seroquel throughout the nasogastric tube. 8. Disposition: The patient continues to be critically ill. We see Pulmonary tried to extubate her today. Arterial blood gas showed good gas exchange. We will continue to monitor. cc: Pablo Macario MD
[2019-07-16] MEDS: ANUSOL-HC CREAM PR SCH ×3 (10:34→20:08)
--- NOTE | 2019-07-16 11:43 | Diag Imaging Result Doc PS360 ---
CT THORAX W/O CONTRAST - 07/16/2019 INDICATION: right LL pna COMPARISON: 08/29/2017 FINDINGS: There is an endotracheal tube, nasogastric tube, and right PICC line in good position. No adenopathy. Heart and great vessels are normal. The nasogastric tube tip is actually in the distal duodenum. There is significant infiltrate in both lower lobes, right greater than left. There are some air bronchograms in the lower lobes. There is an azygous fissure. No definite pulmonary edema. No airway obstruction. There are nondisplaced, healing fractures of several anterior ribs bilaterally. This demonstrates extensive new bone formation and partial to complete bony bridging. This involves rib #4-5 on the right, and 2-6 on the left. IMPRESSION: 1. Extensive bilateral lower lobe infiltrates compatible with pneumonia. 2. Healing bilateral anterior rib fractures. 3. Nasogastric tube tip is actually in the distal duodenum. This exam was performed using automated exposure control, adjustment of mA or kV according to patient size, and/or use of iterative reconstruction technique Electronically signed by Rex Day 07/16/2019 11:39 AM
[2019-07-16] MEDS: HALDOL IV PRN (11:49)
[2019-07-16 13:09] LABS: ALLEN TEST YES; BE 7.3 mmoll (-3.0-3.0); BLOOD TYPE ARTERIAL; HCO3-(ACT) 30.6 mmoll (20.0-26.0); METHB 1.4 % (0.0-1.5); O2(CT) 12.9 mL/dL (15.0-23.0); PCO2(98.6) 45 mmHg (35-45); PO2(98.6) 71 mmHg (60-100); SAMPLE BLOOD; SAO2 97.1 % (95.0-100.0); THB 9.7 g/dL (11.5-17.4); pH(98.6) 7.46 (7.35-7.45)
[2019-07-16 13:10] LABS: MODALITY VENTILATOR
[2019-07-16] MEDS: SEROQUEL NG SCH ×2 (14:00→20:07)
[2019-07-16] MEDS ORDERED: VANCOMYCIN IV PER PHARMACY MISC SCH (16:15)
[2019-07-16] MEDS ORDERED: VANCOMYCIN 1,850 MG in NS 500 ML IV ONE (17:00)
[2019-07-16] MEDS: MAXIPIME 1 GM in NS 50 ML IV SCH ×2 (17:00→23:33)
[2019-07-16] MEDS: RISPERDAL NG SCH (20:07)
[2019-07-16] MEDS: REMERON SOLTAB NG SCH (20:08)
[2019-07-16 20:49] LABS: MAGNESIUM 1.5 mg/dL (1.5-2.7); POTASSIUM 3.8 mmol/L (3.5-5.1)
--- NOTE | 2019-07-16 21:54 | INFECTIOUS DISEASE CONSULT REP ---
DATE: 07/16/2019 CONCLUSION: Ms. Singh is status post total abdominal colectomy for toxic megacolon and has developed an extensive bilateral lower lobe pneumonia as seen on CT this morning. She is, however, afebrile, and there is no leukocytosis at this point. RECOMMENDATIONS: Because of the lack of fever or elevated white count, we will check a procalcitonin in the event that this may be ARDS rather than pneumonia. We will also check her immunoglobulin levels for the possibility of a deficiency. Today we will stop her Zosyn and start her on cefepime 1 g IV every 8 hours and IV vancomycin per pharmacy dosing to give her broad- spectrum coverage for the pneumonia. She has some swelling noted to the right upper extremity compared to the left so we will also put in a venous ultrasound to be done of that right upper extremity for the possibility of VTE. DISCUSSION: Ms. Singh is an unfortunate middle-aged female who has a history of cerebral palsy and lives at a [facility] with limited cognition and communication skills. She has been recently extubated and is very groggy, and there are no [facility] representatives or family members in the room to assist with the consultation. Most of the information was gleaned from the nursing staff and the patient's chart. ROS is not possible at this time. PAST MEDICAL HISTORY: Includes cerebral palsy with severe cognitive limitations, gastroesophageal reflux disease, iron deficiency anemia, depression and anxiety, rectal prolapse, hypothyroidism and eczema. PAST SURGICAL HISTORY: Includes hysterectomy, colon resection and cholecystectomy. On this admission, she did have a toxic megacolon and is status post open total abdominal colectomy with ileostomy and lithotripsy. SOCIAL HISTORY: Ms. Singh resides in a [facility], which she has stayed in for the past 20 years. No tobacco, alcohol or illicit drug use. Apparently there are no family members, and her care is provided by the [facility]. LABORATORY AND X-RAY: Today her white count is 10.53, hemoglobin 9.6, platelet count 309,000. This morning on the ventilator at 35% FiO2, her pH is 7.46, pCO2 45, pO2 71, HC03 30.6. Creatinine 0.4. Estimated GFR is greater than 60. Blood and urine cultures done previously show no growth. She does not have any sputum cultures from this admission. Chest CT shows extensive bilateral lower lobe infiltrates compatible with pneumonia as well as healing anterior rib fractures bilaterally. ALLERGIES: Include doxepin and morphine. MEDICATIONS: As far as antibiotics go, the patient has been receiving Zosyn 3.375 g IV every 6 hours for the past 12 days. INFECTIOUS DISEASES: The patient does have a history of an extended spectrum beta lactamase producing Escherichia coli urinary tract infection in the past as well as previous episodes of pneumonia. PHYSICAL EXAMINATION: Vital Signs: Temperature is 98.1, pulse rate 112, respiratory rate 23, blood pressure 120/82, O2 saturation is 94% on a cool aerosol face mask. General: This is a critically ill-appearing, middle-aged female. She is lying in the bed currently sedated and recently extubated in no acute distress. HEENT: Difficult to visualize. She resists opening her eyes or mouth. No obvious trauma. Neck: Appears to have a decrease in suppleness. Respiratory: Lung sounds have coarse rhonchi bilaterally with mild work of breathing noted. Cardiovascular: Heart rate and rhythm are regular and fast. Sinus tachycardia on the monitor. Abdomen: Soft and round with audible bowel sounds. The abdominal incision is clean, dry and open to air with some areas of eschar. No erythema or edema is noted. There is an ileostomy in place with some hard stool noted in the bag. Integumentary: There is a PICC line in place to the right upper arm without edema, erythema or drainage. The right upper extremity appears to be larger than the left. Neurologic: She will blink her eyes and resist any attempt to open her eyes or her mouth. She is not following any commands or moving any extremities at this point. Thank you for allowing us to see Ms. Singh. Dictated by ROGER Booth for Javier Mchugh MD cc: Javier Mchugh MD [facility]
[2019-07-17] MEDS: LOPRESSOR IV SCH ×5 (02:00→22:09)
[2019-07-17 04:44] LABS: ALLEN TEST YES; BE 9.1 mmoll (-3.0-3.0); BLOOD TYPE ARTERIAL; METHB 1.6 % (0.0-1.5); O2(CT) 13.1 mL/dL (15.0-23.0); O2HB 96.2 % (95.0-99.0); PCO2(98.6) 40 mmHg (35-45); PO2(98.6) 167 mmHg (60-100); SAMPLE BLOOD; SAO2 99.6 % (95.0-100.0); THB 9.4 g/dL (11.5-17.4); pH(98.6) 7.52 (7.35-7.45)
[2019-07-17 04:45] LABS: MODALITY BI PAP
[2019-07-17] MEDS: VANCOMYCIN 1,200 MG in NS 250 ML IV SCH ×2 (05:14→17:12)
[2019-07-17] MEDS: SYNTHROID NG SCH (06:03)
[2019-07-17] MEDS: REGLAN IV SCH ×3 (06:03→22:09)
[2019-07-17 06:37] LABS: BASO# 0.04 X1000 (0.0-0.2); BASO% 0.5 % (0.0-0.8); EOS# 0.59 X1000 (0.0-0.7); EOS% 7.1 % (0.0-10.0); HEMATOCRIT 28.9 % (37.0-47.0); HEMOGLOBIN 9.1 g/dL (12.0-16.0); IMM GRAN# 0.17 X1000 (0.0-0.04); LYMPH# 1.22 X1000 (1.2-3.4); LYMPH% 14.6 % (20.5-51.1); MCH 31.2 PG (27-31); MCHC 31.5 g/dL (33-37); MONO# 0.49 X1000 (0.11-0.59); MONO% 5.9 % (1.7-9.3); MPV 10.8 FL (7.4-10.4); NEUT# 5.82 X1000 (1.4-6.5); NEUT% 69.9 % (42.2-75.2); PLT 327 X1000 (130-400); RBC 2.92 XMIL (4.2-5.4); RDW 12.8 % (11.5-14.5); WBC 8.33 X1000 (4.8-10.8)
[2019-07-17 06:57] LABS: AGAP 9; BUN 12 mg/dL (8-22); CALCIUM 9.2 mg/dL (8.8-10.2); CHLORIDE 101 mmol/L (98-107); COSMO 277; CREATININE 0.4 mg/dL (0.5-0.9); ESTIMATED GFR > 60; GLUCOSE 99 mg/dL (70-104); POTASSIUM 3.6 mmol/L (3.5-5.1); SODIUM 139 mmol/L (136-145); TCO2 29 mmol/L (25-35)
--- NOTE | 2019-07-17 07:11 | Diag Imaging Result Doc PS360 ---
EXAM: CHEST-1 VIEW 07/17/2019 HISTORY: SOB TECHNIQUE: AP portable at 0521 COMMENT: There is an NG tube with its tip in the stomach. There is a right PICC line with its tip just above the right atrium. The inspiration is slightly suboptimal. There is elevation the right hemidiaphragm and opacity in the right lower lobe which may be due to atelectasis and/or pneumonia. There is also minimal atelectasis in the left base. The endotracheal tube has been removed since the last examination of 07/16/2019. The right lower lobe opacity is worse but the left lower lobe opacity which was present previously has improved. IMPRESSION: Worsened atelectasis versus pneumonia right lower lobe. Improved atelectasis left lower lobe. Electronically signed by Roger Lockwood 07/17/2019 7:08 AM
[2019-07-17] MEDS: DEPAKENE LIQUID NG SCH ×4 (08:26→20:25)
[2019-07-17] MEDS: MYLICON NG SCH ×4 (08:26→20:19)
[2019-07-17] MEDS: MIRALAX PO SCH (08:26)
[2019-07-17] MEDS: PERIDEX MT SCH ×2 (08:26→20:26)
[2019-07-17] MEDS: MAXIPIME 1 GM in NS 50 ML IV SCH ×2 (08:27→16:14)
[2019-07-17] MEDS: PAXIL NG SCH ×2 (08:27→20:21)
[2019-07-17] MEDS: ANUSOL-HC CREAM PR SCH ×3 (10:56→21:23)
--- NOTE | 2019-07-17 11:15 | PROGRESS NOTE ---
DATE: 07/17/2019 SUBJECTIVE: The patient has been successfully extubated yesterday around 1:00. She is requiring sometimes BiPAP. Caregiver from nursing home is at bedside apparently. Patient recognized her. Scar. product development engineer reports that she is and she is sleeping most of the time. That is her baseline. OBJECTIVE: Vital Signs: Temperature 98.2 degrees, heart rate 108, respiratory 22, blood pressure 114/97, and O2 saturation 95% on BiPAP. General: This is a chronically ill appearing 44-year- old female lying in bed in no acute distress. HEENT: Head is normocephalic, atraumatic. Mucous membranes very dry. NG tube in place with tube feedings running. Neck: No JVD noted. No carotid bruits. No lymphadenopathy. No thyromegaly. Cardiovascular: S1 and S2 heard. Tachycardic but no murmurs, gallops, or rubs noted. Respiratory: Decreased breath sounds globally with mild rhonchi noted in both pulmonary bases. Patient not using any accessory muscles or having work of breathing. Abdomen: Soft. A little bit distended. Nontender to palpation. There is a midline surgical scar noted with colostomy bag on the right side with some brown stool but no blood on it. No organomegaly noted. Extremities: No clubbing, cyanosis, or edema. Peripheral pulses present in both legs. Neurological: Patient is awake but a little bit sleepy. According to the caregiver, probably her baseline. Moves all 4 extremities spontaneously. She is nonverbal. LABORATORY DATA: White cell count 8.33, hemoglobin 9.1, hematocrit 28.9, and platelets 327,000. ABG shows pH 7.52 with pCO2 40, PO2 167. Normal BMP. CT of the chest yesterday showed extensive bilateral lower lobe infiltrates compatible with pneumonia healing bilateral anterior rib fractures. An NG tube tip actually in the distal duodenum. The x-ray from this morning show worsening atelectasis versus pneumonia in the right lower lobe and improved atelectasis in the left lower lobe. ASSESSMENT AND PLAN: 1. Acute hypoxemic respiratory failure. Patient has been successfully extubated yesterday. She is requiring BiPAP now. Does not look to be in any respiratory distress. At this point, we will continue with same management. 2. Bilateral pneumonia. That is what we have noted in the CT of the chest so Infectious Disease has been consulted. They recommend to change antibiotics from Zosyn to vancomycin and cefepime. Because of lack of elevated white cell count and fever, they have order procalcitonin levels and also immunoglobulin levels. Help is appreciated. 3. 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 It is postoperative day #25. General Surgery following this patient. The patient has been placed on NG tube feeding and actually really no high residuals. At this point, we will continue with same management. 4. Hypokalemia resolved. 5. Protein malnutrition. We will continue with nasogastric tube feedings. 6. Suspected seizure, no more episodes of seizures since she is in the unit. At this point, we will continue to monitor. 7. Severe intellectual impairment. We will continue with home medications. In this case, is Risperdal, Paxil and Seroquel through NG tube. 8. Disposition. The patient is stable right now. Extubated yesterday. Pulmonary and infectious disease following this patient. We will follow recommendations. cc: Pablo Macario MD MTDD
--- NOTE | 2019-07-17 12:11 | GENERAL SURGERY PROGRESS NOTE ---
DATE: 07/17/2019 Discussed case with the nurse. The patient seems to be doing okay. She was extubated and seems to be holding her own. Her ileostomy output has increased. We have started MiraLax, which seemed to have helped. Otherwise, she has been hemodynamically stable. We will continue to follow. cc: Clint Lange MD
[2019-07-17] MEDS: SEROQUEL NG SCH ×2 (13:16→20:24)
[2019-07-17] MEDS: HALDOL IV PRN (14:40)
[2019-07-17] MEDS: DILAUDID IV PRN (15:32)
[2019-07-17] MEDS: OFIRMEV 1000 MG/ISOTONIC SOLN 1,000 MG/100 ML BOTTLE IV PRN (16:14)
[2019-07-17] MEDS: CARDIZEM NG SCH ×2 (17:12→20:19)
--- NOTE | 2019-07-17 17:40 | INFECTIOUS DISEASE PROGRESS NO ---
DATE: 07/17/2019 PRESENT ILLNESS: The patient has a postoperative bibasilar pneumonia. MEDICATIONS: Yesterday I switched the patient to cefepime and vancomycin. PHYSICAL EXAMINATION: Vital Signs: Temperature is 98 degrees, pulse 110, respirations 24, blood pressure 132/99. General: This is an ill-appearing middle-aged female who is in no acute distress. Head/eyes/ears/nose/throat: She has an NG tube down for tube feeding. There is no drainage from the nose or ears. She did not open up her mouth for me to examine. Neck: No apparent pain with movement of the neck. Lungs: Clear to auscultation. Cardiovascular: Heart rate is regular. Abdomen: The patient's midline incision is intact. It is not erythematous and it is not draining. There also is an ostomy present which is functional. Neurologic: The patient is awake. She did not follow request to move her extremities. There is no tremor. LAB AND X-RAY: Chest CT showed bibasilar infiltrates. Chest x-ray shows a worsening of the right lower lobe atelectasis versus worsening pneumonia and it shows an improvement in the left lower lobe atelectasis versus pneumonia. The patient's CBC shows a white count of 8330, hemoglobin 9.1 and platelet count 327,000. Blood gases show a pH of 7.52, a PO2 of 167 and a pCO2 of 40. Creatinine is 0.4 GFR is greater than 60. Blood and urine cultures are pending. ASSESSMENT AND PLAN: The patient has a bibasilar pneumonia. My plan is to continue cefepime and vancomycin. COMORBIDITIES: Patient is postop from a total colectomy. Patient has cerebral palsy. She also has gastroesophageal reflux disease, iron deficiency anemia and depression and anxiety. cc: Javier Mchguh MD
--- NOTE | 2019-07-17 18:18 | Extremity Venous Study ---
PROCEDURE NAME: Venous U/S Right Arm - 07/16/2019 PROCEDURE: Right upper extremity venous study. REQUESTING PHYSICIAN: Hospitalist. DIRECTOR SMB SALES: Layla. INDICATIONS: Swelling. EQUIPMENT: [employer] Vivid E9 ultrasound system with a 9L-D transducer. FINDINGS: Images of the right upper extremity venous systems were obtained in both sagittal and transverse planes. Doppler was used to evaluate veins for spontaneity, phasicity, respiratory excursion, and digital augmentation. RESULTS: Normal venous compression. Normal venous flow. There appears to be normal flow. No obvious superficial or deep venous thrombosis noted. This study is somewhat limited secondary to PICC line insertion, but again, no obvious DVT. INTERPRETATION: Normal right upper extremity venous study, but somewhat limited secondary to PICC line being in place. cc: Clint Lange MD
--- NOTE | 2019-07-17 18:50 | PROGRESS NOTE ---
DATE: 07/17/2019 SUBJECTIVE: The patient has been extubated yesterday. There have not been recognizable seizure- like events. OBJECTIVE: Vital Signs: She is afebrile. Blood pressure 136/87, pulse 120s, respirations 31, 97% on 5 L nasal cannula. General: Ms. Singh is supine in bed with head of bed elevated. She is awake, maybe a little groggy. I am not certain about her baseline. Neurologic: She is nonverbal. She does not follow commands. She does vigorously resist passive eye opening, and I cannot visualize her pupils. There is some perioral quivering which is irregular. LABORATORY DATA: White count normal, hemoglobin 9, hematocrit 28 platelets 327.. Normal sodium, BUN, creatinine, phosphorus and calcium. ASSESSMENT AND PLAN: 1. Static encephalopathy, clinically stable. 2. History that has been uncertain for past seizure, and generally thought to be behavioral. Recent episode felt to be behavioral as well. 3. No seizure-like events in recent days. 4. Continues to be stable from a neurological standpoint. No new suggestions today. cc: Mouna Duncan MD
[2019-07-17] MEDS: RISPERDAL NG SCH (20:28)
[2019-07-17] MEDS: REMERON SOLTAB NG SCH (22:09)
[2019-07-18] MEDS: MAXIPIME 1 GM in NS 50 ML IV SCH ×4 (00:21→23:59)
[2019-07-18] MEDS: CARDIZEM NG SCH ×4 (02:39→21:03)
[2019-07-18] MEDS: LOPRESSOR IV SCH ×4 (04:41→23:59)
[2019-07-18 05:00] LABS: BLOOD TYPE ARTERIAL; SAMPLE BLOOD
[2019-07-18 05:01] LABS: ALLEN TEST YES; BE 6.7 mmoll (-3.0-3.0); HCO3-(ACT) 30.1 mmoll (20.0-26.0); O2(CT) 16.7 mL/dL (15.0-23.0); O2HB 96.1 % (95.0-99.0); PCO2(98.6) 50 mmHg (35-45); PO2(98.6) 96 mmHg (60-100); SAO2 98.8 % (95.0-100.0); THB 12.3 g/dL (11.5-17.4); pH(98.6) 7.42 (7.35-7.45)
[2019-07-18 05:03] LABS: MODALITY CANNULA
[2019-07-18] MEDS: VANCOMYCIN 1,200 MG in NS 250 ML IV SCH (05:22)
[2019-07-18] MEDS: REGLAN IV SCH ×3 (06:27→23:59)
[2019-07-18] MEDS: SYNTHROID NG SCH (06:27)
[2019-07-18 07:53] LABS: BASO# 0.03 X1000 (0.0-0.2); BASO% 0.3 % (0.0-0.8); EOS% 4.7 % (0.0-10.0); HEMATOCRIT 27.3 % (37.0-47.0); HEMOGLOBIN 8.8 g/dL (12.0-16.0); IMM GRAN% 0.9 % (0.0-0.5); LYMPH# 1.27 X1000 (1.2-3.4); LYMPH% 11.9 % (20.5-51.1); MCH 32.1 PG (27-31); MCHC 32.2 g/dL (33-37); MCV 99.6 FL (81-99); MONO# 0.59 X1000 (0.11-0.59); MONO% 5.5 % (1.7-9.3); MPV 10.9 FL (7.4-10.4); NEUT# 8.21 X1000 (1.4-6.5); NEUT% 76.7 % (42.2-75.2); PLT 341 X1000 (130-400); RBC 2.74 XMIL (4.2-5.4); RDW 12.8 % (11.5-14.5)
[2019-07-18 07:58] LABS: AGAP 11; BUN 16 mg/dL (8-22); CALCIUM 9.3 mg/dL (8.8-10.2); CHLORIDE 99 mmol/L (98-107); COSMO 275; CREATININE 0.4 mg/dL (0.5-0.9); ESTIMATED GFR > 60; GLUCOSE 93 mg/dL (70-104); POTASSIUM 4.1 mmol/L (3.5-5.1); SODIUM 137 mmol/L (136-145); TCO2 27 mmol/L (25-35)
[2019-07-18] MEDS: PERIDEX MT SCH ×2 (08:19→21:06)
[2019-07-18] MEDS: PAXIL NG SCH ×2 (08:19→21:04)
[2019-07-18] MEDS: MIRALAX PO SCH (08:19)
[2019-07-18] MEDS: DEPAKENE LIQUID NG SCH ×4 (08:22→21:19)
[2019-07-18] MEDS: ANUSOL-HC CREAM PR SCH ×3 (08:28→21:05)
[2019-07-18] MEDS: MYLICON NG SCH ×4 (08:35→21:03)
--- NOTE | 2019-07-18 10:20 | PROGRESS NOTE ---
DATE: 07/18/2019 SUBJECTIVE: Patient is feeling fine according to nursing staff, she is nonverbal. According to caregiver who I talked to yesterday, she was on her baseline as she tends to be sleepy almost all the time. OBJECTIVE: Vital Signs: Temperature 97.6 degrees, heart rate 109, respiratory rate 20, blood pressure 104/62, O2 saturation 93% on 4 L nasal cannula. General: This is a chronically ill- appearing, 44-year-old female lying in bed, in no acute distress. HEENT: Head is normocephalic, atraumatic with mucous membranes very dry. NG tube in place with tube feedings running at 50 mL per hour. Neck: No JVD noted. No carotid bruit. Cardiovascular: S1, S2 heard. Tachycardic but no murmurs, gallops, or rubs noted. Respiratory: Decreased breath sounds globally with minimal rhonchi noted in both pulmonary bases. Patient not using any accessory muscles or having work of breathing. Abdomen: Soft, a little bit distended. Nontender to palpation. There is a midline surgical scar noted with colostomy bag on the right side with definitely more brown stool but no blood on it. No organomegaly noted. Extremities: No clubbing, cyanosis, or edema. Peripheral pulses present in both legs. Neurological: Patient is a little bit sleepy this morning. According to caregiver this is her baseline. Moves 4 extremities spontaneously. She is nonverbal. LABORATORY DATA: White cell count 10.7, hemoglobin 8.8, hematocrit 37.3, platelets 341,000. ABG 7.42 with pCO2 50, PO2 96. Normal BMP. ASSESSMENT AND PLAN: 1. Acute hypoxemic respiratory failure. Patient requiring 4 L of oxygen by nasal cannula. She does not look to be in any respiratory distress. At this point, we will continue to monitor this patient closely. Pulmonary following this patient. We will follow recommendations. 2. Bilateral pneumonia. Patient is on vancomycin and cefepime as per Infectious Disease. White cell count is normal. Not developing any fever. We will continue to monitor. 3. 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 It is postop therapy day #26. General surgery following this patient. We will follow recommendations. Actually, the patient continues to be on NG tube feedings at 50 mL per hour and with no residuals and her ileostomy output is definitely much better. We will continue to monitor. 4. Hypokalemia, resolved. 5. Protein-calorie malnutrition. We will continue with nasogastric tube feedings. 6. Suspected seizures. Neurology following. No more episodes of seizures since she is in the unit. 7. Severe intellectual impairment. The patient lives in a halfway. We will continue to provide home medication in this case, Paxil, Risperdal and Seroquel via NG tube. 8. Disposition. I think this patient is better so we can transfer her to [facility]. cc: Pablo Macario MD MTDD
[2019-07-18] MEDS: SEROQUEL NG SCH ×2 (12:43→21:04)
--- NOTE | 2019-07-18 13:29 | GASTROENTEROLOGY PROGRESS NOTE ---
DATE: 07/17/2019 SUBJECTIVE: No acute overnight events. The patient was extubated yesterday. She is tolerating continuous tube feeds with low residuals. Her mental status is poor. The patient does not provide a review of systems. There is a small amount of output from her ileostomy. OBJECTIVE: Vital signs: Temperature is 98.5, heart rate is 115, blood pressure 122/81, respiratory rate of 19, O2 saturation 95% on 4 L, 40% FiO2 by nasal cannula. General: The patient does not appear to be awake and not in acute distress. NG tube in place with tube feeds running. Neck: Supple. No JVD. Cardiac: Tachycardic and regular. No murmurs. Lungs: Mild tachypnea and increased work of breathing. No wheezing. Abdomen: Mildly distended, soft, minimal tympany. Bowel sounds are present. Right lower quadrant ileostomy with brown liquid stool. Extremities: No clubbing or cyanosis. Neurologic: The patient is not following commands. LABS: White count of 8.3, hemoglobin 9.1, platelets of 327. ABG: pH of 7.52, pCO2 40, pO2 167. BMP is normal. ASSESSMENT AND PLAN: Ms. Clau Singh is a 44-year-old woman with CP, MR, and chronic constipation, who presented with severe fecal impaction with ileus in the colon and small bowel status post total abdominal colectomy with end-ileostomy. Her course has been complicated with small bowel ileus requiring that the patient to protect her airway NG tube decompression with slight improvement. Her belly is soft. She continues to have abdominal distention but is tolerating continuous tube feeds. She has been extubated, however, her mental status is not at baseline. She was previously eating on her own and following commands. PROBLEM: 1. Altered mental status. Defer management to Primary team. 2. Small bowel ileus, suspect postoperative versus underlying motility disorder. Continue Reglan. Correct metabolic derangements. MiraLAX. Minimize narcotics and constipating medication. Will follow with you. Please call with any questions or concerns. I will continue tube feeds and titrate to goal [*]medication.
--- NOTE | 2019-07-18 14:30 | GENERAL SURGERY PROGRESS NOTE ---
DATE: 07/18/2019 SUBJECTIVE: Ms. Singh is now approximately a month after her open total abdominal colectomy with ileostomy. She has some small bowel inertia. She is having some ileostomy output, however. Currently she is afebrile. Heart rate 113, blood pressure 119/74. Her abdominal wound looks fine. She is on Reglan to assist with her gastric emptying and obtaining MiraLAX daily as well. The plan is to continue with efforts at NG feeding as she can tolerate. No new recommendations. cc: Max Franco MD
[2019-07-18] MEDS: XOPENEX NEB INH PRN (19:17)
[2019-07-18] MEDS ORDERED: XOPENEX NEB INH SCH (19:30)
[2019-07-18] MEDS: VANCOMYCIN 1,300 MG in NS 250 ML IV SCH (21:03)
[2019-07-18] MEDS: RISPERDAL NG SCH (21:06)
[2019-07-18] MEDS: REMERON SOLTAB NG SCH (21:11)
[2019-07-19] MEDS: CARDIZEM NG SCH ×4 (01:46→20:47)
[2019-07-19] MEDS: LOPRESSOR IV SCH ×4 (04:56→23:11)
[2019-07-19] MEDS: REGLAN IV SCH ×4 (04:56→23:11)
[2019-07-19] MEDS: SYNTHROID NG SCH ×2 (04:56→06:04)
[2019-07-19 06:32] LABS: AGAP 9; BUN 18 mg/dL (8-22); CALCIUM 8.9 mg/dL (8.8-10.2); CHLORIDE 99 mmol/L (98-107); COSMO 278; CREATININE 0.3 mg/dL (0.5-0.9); ESTIMATED GFR > 60; GLUCOSE 112 mg/dL (70-104); POTASSIUM 3.8 mmol/L (3.5-5.1); SODIUM 138 mmol/L (136-145); TCO2 30 mmol/L (25-35)
[2019-07-19 06:39] LABS: BASO# 0.03 X1000 (0.0-0.2); BASO% 0.4 % (0.0-0.8); EOS# 0.49 X1000 (0.0-0.7); EOS% 6.4 % (0.0-10.0); HEMATOCRIT 25.7 % (37.0-47.0); HEMOGLOBIN 8.1 g/dL (12.0-16.0); IMM GRAN% 1.3 % (0.0-0.5); LYMPH# 1.25 X1000 (1.2-3.4); LYMPH% 16.3 % (20.5-51.1); MCH 31.4 PG (27-31); MCHC 31.5 g/dL (33-37); MCV 99.6 FL (81-99); MONO# 0.46 X1000 (0.11-0.59); MPV 10.6 FL (7.4-10.4); NEUT# 5.32 X1000 (1.4-6.5); NEUT% 69.6 % (42.2-75.2); PLT 355 X1000 (130-400); RBC 2.58 XMIL (4.2-5.4); RDW 12.7 % (11.5-14.5); WBC 7.65 X1000 (4.8-10.8)
[2019-07-19] MEDS: XOPENEX NEB INH PRN ×3 (07:48→22:07)
[2019-07-19] MEDS: MYLICON NG SCH ×4 (08:24→20:47)
[2019-07-19] MEDS: PERIDEX MT SCH ×2 (08:24→20:46)
[2019-07-19] MEDS: PAXIL NG SCH ×2 (08:24→20:46)
[2019-07-19] MEDS: MIRALAX PO SCH (08:24)
[2019-07-19] MEDS: MAXIPIME 1 GM in NS 50 ML IV SCH ×3 (08:25→23:11)
[2019-07-19] MEDS: VANCOMYCIN 1,300 MG in NS 250 ML IV SCH ×2 (08:28→20:45)
[2019-07-19] MEDS: DEPAKENE LIQUID NG SCH ×4 (08:43→20:46)
--- NOTE | 2019-07-19 09:11 | PROGRESS NOTE ---
DATE: 07/19/2019 SUBJECTIVE: The patient continues to be sleepy. No acute issues noted as per nursing staff overnight. OBJECTIVE: Vital Signs: Temperature 97.8, heart rate 99, respiratory rate 16, blood pressure 119/87, O2 saturation 99% on BiPAP. General: This is a chronically ill- appearing, 44-year-old, female, lying in bed in no acute distress. HEENT: Head is normocephalic, atraumatic. Mucous membranes are very dry. NG tube in place with tube feedings running at 50 mL per hour. Neck: No JVD noted. No carotid bruits. No lymphadenopathy. Cardiovascular: S1, S2 heard. No murmurs, gallops, or rubs. Regular rate and rhythm. Respiratory: Decreased breath sounds globally. Rhonchi noted in both pulmonary bases. Patient not using any accessory muscles or having work of breathing. Abdomen: Soft, a little bit distended, nontender to palpation. There is a midline surgical scar noted, as well as colostomy bag on the right side with more brown stool noted, but no blood on it. No organomegaly noted. Extremities: No clubbing, cyanosis, or edema. Peripheral pulses present in both legs. Neurological: The patient has a history of cerebral palsy. She is sleepy this morning. According to caregiver, who I talked to the day before yesterday, she is usually sleepy, although she recognized her caregivers. Moves all 4 extremities spontaneously. She is nonverbal. LABORATORY DATA: White cell count 7.65, hemoglobin 8.1, hematocrit 25.7, platelets 255. BMP is okay. ASSESSMENT AND PLAN: 1. Acute hypoxemic respiratory failure. The patient is now requiring bilevel positive airway pressure machine. She does not look to be in any respiratory distress. Pulmonary is following this patient. Will follow recommendations. 2. Bilateral pneumonia. The patient is on vancomycin and cefepime as per Infectious Disease. White cell count is normal. She is not spiking any fever. Will continue to monitor. 3. 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 This is post operative day #27. General Surgery is following this patient. The patient has been started on nasogastric tube feeding. No residual noted. Ileostomy output is getting better. Will continue to monitor. 4. Hypokalemia, resolved. 5. Protein-calorie malnutrition. Will continue with nasogastric tube feedings. 6. Suspected seizure. Neurology is following. No more episodes noted. 7. Cerebral palsy with severe intellectual impairment. Will continue with Paxil, Risperdal, and Seroquel by nasogastric tube. The patient lives in a shelter. 8. Disposition. Will continue to monitor this patient closely. Will follow lead from General Surgery. cc: Pablo Macario MD MTDD
[2019-07-19] MEDS: ANUSOL-HC CREAM PR SCH ×3 (09:43→20:48)
[2019-07-19] MEDS: SEROQUEL NG SCH ×2 (13:43→20:47)
[2019-07-19] MEDS: REMERON SOLTAB NG SCH (20:45)
[2019-07-19] MEDS: DILAUDID IV PRN (20:46)
[2019-07-19] MEDS: RISPERDAL NG SCH (20:47)
[2019-07-20] MEDS: MAXIPIME 1 GM in NS 50 ML IV SCH ×3 (01:03→09:18)
[2019-07-20] MEDS: CARDIZEM NG SCH ×4 (01:04→21:30)
[2019-07-20] MEDS: DILAUDID IV PRN ×2 (03:18→22:04)
[2019-07-20] MEDS: XOPENEX NEB INH PRN ×4 (03:41→15:21)
[2019-07-20] MEDS: LOPRESSOR IV SCH ×4 (05:35→23:16)
[2019-07-20] MEDS: REGLAN IV SCH ×4 (05:35→23:16)
[2019-07-20] MEDS: SYNTHROID NG SCH ×2 (05:35→06:32)
--- NOTE | 2019-07-20 05:51 | Diag Imaging Result Doc PS360 ---
EXAM: CHEST-1 VIEW HISTORY: SOB TECHNIQUE: Chest single view COMPARISON: 07/17/2019 FINDINGS: Poor inspiratory effort. No change in the right-sided PICC line or the nasogastric tube. Worsening infiltrates in the left lung base and right base. No cardiomegaly. No pulmonary edema. IMPRESSION: Interval worsening. Electronically signed by Romel Marsh 07/20/2019 5:48 AM
[2019-07-20 06:21] LABS: BASO# 0.04 X1000 (0.0-0.2); BASO% 0.4 % (0.0-0.8); EOS# 0.62 X1000 (0.0-0.7); EOS% 6.6 % (0.0-10.0); HEMATOCRIT 27.4 % (37.0-47.0); HEMOGLOBIN 8.5 g/dL (12.0-16.0); IMM GRAN# 0.13 X1000 (0.0-0.04); IMM GRAN% 1.4 % (0.0-0.5); LYMPH# 2.01 X1000 (1.2-3.4); LYMPH% 21.3 % (20.5-51.1); MCH 31.3 PG (27-31); MCV 100.7 FL (81-99); MONO# 0.69 X1000 (0.11-0.59); MONO% 7.3 % (1.7-9.3); MPV 10.8 FL (7.4-10.4); NEUT# 5.96 X1000 (1.4-6.5); PLT 402 X1000 (130-400); RBC 2.72 XMIL (4.2-5.4); RDW 12.6 % (11.5-14.5); WBC 9.45 X1000 (4.8-10.8)
[2019-07-20 06:48] LABS: AGAP 9; BUN 20 mg/dL (8-22); CALCIUM 9.4 mg/dL (8.8-10.2); CHLORIDE 97 mmol/L (98-107); COSMO 276; CREATININE 0.4 mg/dL (0.5-0.9); ESTIMATED GFR > 60; GLUCOSE 97 mg/dL (70-104); POTASSIUM 4.2 mmol/L (3.5-5.1); SODIUM 137 mmol/L (136-145); TCO2 31 mmol/L (25-35)
--- NOTE | 2019-07-20 07:21 | GENERAL SURGERY PROGRESS NOTE ---
DATE: 07/20/2019 The patient seems to be doing okay. She was transferred out of the ICU. She has been getting agitated and they have been putting a BiPAP on her which I think agitates her more. She seems to be doing okay with a nonrebreather at this point. She has been hemodynamically stable. She has been having ostomy output. It sounds like the nurses were having to burp her ostomy appliance so she is having gas on her ostomy appliance. At this point, would like to continue current treatment and continue monitoring her. cc: Clint Lange MD
[2019-07-20] MEDS: PERIDEX MT SCH ×2 (09:19→21:29)
[2019-07-20] MEDS: PAXIL NG SCH ×2 (09:19→21:30)
[2019-07-20] MEDS: VANCOMYCIN 1,300 MG in NS 250 ML IV SCH ×2 (09:19→21:31)
[2019-07-20] MEDS: MIRALAX PO SCH (09:21)
[2019-07-20] MEDS: MYLICON NG SCH ×4 (09:26→22:04)
[2019-07-20] MEDS ORDERED: GAMUNEX-C 10% IV ONE (10:00)
--- NOTE | 2019-07-20 10:07 | PROGRESS NOTE ---
DATE: 07/20/2019 SUBJECTIVE: Patient is more awake today. Of course, she is nonverbal. No acute issues noted as per nursing staff overnight. OBJECTIVE: Vital Signs: Temperature 97.5 degrees, heart rate 116, respiratory rate 15, blood pressure 105/75, and O2 saturation 100% on Venturi mask 15 L/minute. General: This is a chronically ill appearing 44-year-old female with history of cerebral palsy lying in bed in no acute distress. HEENT: Head is normocephalic, atraumatic. Mucous membranes very dry. NG tube in place with tube feedings running at 50 mL per hour. Neck: No JVD noted. No carotid bruits. No lymphadenopathy. Cardiovascular: S1, S2 heard. No murmurs, gallops, or rubs. Regular rate and rhythm. Respiratory: Decreased breath sounds globally. Minimal rhonchi noted in both pulmonary bases. Patient not using any accessory muscles or having work of breathing. Abdomen: Soft, a little bit distended, but nontender to palpation. There is a midline surgical scar noted as well as colostomy bag on the right side with more brown stool noted, but no blood on it. Extremities: No clubbing, cyanosis, or edema. Peripheral pulses present in both legs. Neurological: Patient has history of cerebral palsy. She is more awake today. I talked with caregiver who was at bedside today. She mentioned that she is at her baseline. Moves 4 extremities spontaneously. She is nonverbal. LABORATORY DATA: Reviewed and white cell count is 9.45, hemoglobin 8.5, hematocrit 27.4 and platelets 402,000. Normal BMP. ASSESSMENT AND PLAN: 1. Acute hypoxemic respiratory failure. The patient is now requiring Venturi mask. Sometimes, she becomes agitated and starts breathing faster. Pulmonary is following this patient. We will follow recommendations. 2. Bilateral pneumonia. Patient continues to be on vancomycin and cefepime as per Infectious Disease. White cell count is normal. Patient is spiking fever. I think patient is stable. We will continue to monitor. 3. 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 General Surgery following this patient. According to them, patient is feeling fine. The patient is on PEG tube feedings. We will continue with that. 4. Protein-calorie malnutrition. We will continue with NG tube feedings. 5. Suspected seizure. Patient is stable. Neurology is following. 6. Cerebral palsy with severe intellectual impairment. We will continue on home medications. In this case, Paxil, Risperdal and Seroquel by the NG tube. The patient lives in a correction. 7. Disposition: I think this patient will have a long recovery. Of course, she will not be able to go back to her correction. I think at this time we have discussed with director of casework department the possibility of sending her to [facility]. We will see what they have to say. cc: Pablo Macario MD MTDD
[2019-07-20] MEDS: DEPAKENE LIQUID NG SCH ×4 (10:11→21:29)
[2019-07-20] MEDS: MAXIPIME 2 GM in NS 100 ML IV SCH ×2 (10:47→17:42)
[2019-07-20] MEDS: ANUSOL-HC CREAM PR SCH ×3 (11:17→21:45)
[2019-07-20] MEDS: SEROQUEL NG SCH ×2 (13:21→21:30)
--- NOTE | 2019-07-20 14:40 | INFECTIOUS DISEASE PROGRESS NO ---
DATE: 06/20/2019 PRESENT ILLNESS: The patient has a postoperative bibasilar pneumonia. MEDICATIONS: The patient has been receiving a combination of vancomycin and cefepime for 4 days now. PHYSICAL EXAMINATION: Vital Signs: Temperature is 97.9 degrees, pulse 116, respirations 15, blood pressure 105/75. General: This is an ill-appearing, middle-aged female. She is in no acute distress. Head, eyes, ears, nose, and throat: The patient has an NG tube down. There is no drainage from her nose or ears. Lungs: Clear to auscultation. Cardiovascular: Heart rate is regular. Abdomen: Seems protuberant. When she seems to hold her breath, the abdominal wall is firm. When she lets it out, then the abdomen is soft. It does not appear to be tender. The incision is intact and the ostomy is functional. Neurologic: The patient's eyes are awake. She did not follow my request to move her arms or legs. There was no tremor. Integument: No rash noted. Extremities: The patient has a PICC present in the right arm. The site is not erythematous or purulent. LAB AND X-RAY: Chest x-ray shows worsening of the bibasilar infiltrates. Procalcitonin is 0.19 which translates into the patient unlikely has pneumonia. IgG is 574, IgA is 70. Blood and urine cultures are negative. CBC shows a white count of 9,450, hemoglobin 8.5, and platelet count 402,000. Creatinine is 0.4. GFR is greater than 60. ASSESSMENT AND PLAN: The patient may have a bibasilar pneumonia. If she does it appears to be getting worse on x-ray. What I am going to do is give her 1 dose of IVIG and increase her dose of cefepime to 2 g IV every 8 hours. COMORBIDITIES: The patient is postop from a total colectomy. She has cerebral palsy and gastroesophageal reflux disease. cc: Javier Mchugh MD
[2019-07-20] MEDS: RISPERDAL NG SCH (21:30)
[2019-07-20] MEDS: REMERON SOLTAB NG SCH (22:03)
[2019-07-20] MEDS: HALDOL IV PRN (22:03)
[2019-07-21] MEDS: MAXIPIME 2 GM in NS 100 ML IV SCH ×3 (01:45→21:12)
[2019-07-21] MEDS: CARDIZEM NG SCH ×4 (01:46→21:13)
[2019-07-21] MEDS: LOPRESSOR IV SCH ×3 (05:27→17:10)
[2019-07-21] MEDS: HALDOL IV PRN ×2 (05:27→21:54)
[2019-07-21] MEDS: REGLAN IV SCH ×3 (06:09→22:53)
[2019-07-21 06:26] LABS: AGAP 10; BUN 21 mg/dL (8-22); CALCIUM 10.1 mg/dL (8.8-10.2); CHLORIDE 97 mmol/L (98-107); COSMO 281; CREATININE 0.5 mg/dL (0.5-0.9); ESTIMATED GFR > 60; GLUCOSE 116 mg/dL (70-104); POTASSIUM 4.1 mmol/L (3.5-5.1); SODIUM 139 mmol/L (136-145); TCO2 32 mmol/L (25-35)
[2019-07-21 06:38] LABS: BASO# 0.04 X1000 (0.0-0.2); BASO% 0.5 % (0.0-0.8); EOS# 0.54 X1000 (0.0-0.7); EOS% 6.7 % (0.0-10.0); HEMATOCRIT 25.1 % (37.0-47.0); HEMOGLOBIN 7.6 g/dL (12.0-16.0); IMM GRAN# 0.07 X1000 (0.0-0.04); IMM GRAN% 0.9 % (0.0-0.5); LYMPH# 1.01 X1000 (1.2-3.4); LYMPH% 12.5 % (20.5-51.1); MCH 30.6 PG (27-31); MCHC 30.3 g/dL (33-37); MCV 101.2 FL (81-99); MONO# 0.65 X1000 (0.11-0.59); MONO% 8.1 % (1.7-9.3); NEUT# 5.75 X1000 (1.4-6.5); NEUT% 71.3 % (42.2-75.2); PLT 427 X1000 (130-400); RBC 2.48 XMIL (4.2-5.4); RDW 12.6 % (11.5-14.5); WBC 8.06 X1000 (4.8-10.8)
[2019-07-21] MEDS: SYNTHROID NG SCH ×2 (06:56→08:32)
--- NOTE | 2019-07-21 07:01 | Diag Imaging Result Doc PS360 ---
EXAM: CHEST-PORTABLE 07/21/2019 HISTORY: NG tube feeding TECHNIQUE: AP portable semiupright chest at 0608 COMMENT: There is an NG tube with its tip just within the fundus of the stomach. There is apparent bibasilar opacity similar to the previous study of 07/20/2019. IMPRESSION: NG tube in the stomach. Electronically signed by Roger Lockwood 07/21/2019 6:59 AM
[2019-07-21] MEDS: ANUSOL-HC CREAM PR SCH ×3 (08:11→17:10)
[2019-07-21] MEDS: PAXIL NG SCH ×2 (08:12→21:13)
[2019-07-21] MEDS: DEPAKENE LIQUID NG SCH ×4 (08:12→21:12)
[2019-07-21] MEDS: MYLICON NG SCH ×4 (08:12→21:30)
[2019-07-21] MEDS: MIRALAX PO SCH (08:13)
[2019-07-21] MEDS: PERIDEX MT SCH ×2 (08:13→21:29)
[2019-07-21] MEDS: VANCOMYCIN 1,300 MG in NS 250 ML IV SCH (08:32)
[2019-07-21] MEDS: XOPENEX NEB INH PRN ×3 (11:20→22:32)
--- NOTE | 2019-07-21 11:29 | GENERAL SURGERY PROGRESS NOTE ---
DATE: 07/21/2019 The patient seems to be doing about the same. There was a concern that she might have aspirated. Stat x-ray shows the tube in the stomach. Residuals have not been terribly high but her tube feeds are on hold. She is having ostomy output. Her bowels do not look significantly obstructed on the chest x-ray but again, it is just an upper abdominal view on this chest x-ray. Obviously, we may need to consider placement of a feeding tube on her and may ask GI to see if they want to entertain placement of a PEG, PEJ. We will continue to follow her. cc: Clint Lange MD
[2019-07-21] MEDS: SEROQUEL NG SCH ×2 (12:07→21:13)
--- NOTE | 2019-07-21 14:49 | PROGRESS NOTE ---
DATE: 07/21/2019 SUBJECTIVE: Patient has no major complaints. OBJECTIVE: Vital signs: Blood pressure is 140/96, heart rate 98, respiratory rate 22, temperature 97.8 degrees, 99% on 15%. Cardiovascular: Regular rate and rhythm. Pulmonary: Bilateral breath sounds. Clear to auscultation. GI: Soft, nontender, nondistended. Bowel sounds were positive. Extremities: No clubbing or cyanosis. Lymphatic: No peripheral edema. Neurological: Nonfocal. LABORATORY DATA: White count is 8, hemoglobin and hematocrit 7 and 25, platelets 427,000. Basic was normal. PROBLEM LIST: 1. Hypoxic respiratory failure due to pneumonia and recent colostomy. I am trying to wean her O2 as tolerated. Pulmonary following. 2. Pneumonia, multilobar, infiltrates. She is on vancomycin and cefepime and I believe ID is following her. She has not had any fevers. It is documented that she has had fevers, but she has not had fevers. Her cefepime is from yesterday and her vancomycin has been on since the . So we will continue to follow. 3. Protein calorie malnutrition. She is on tube feeds. We will continue to follow closely. She has had some high residuals. There was concern over possible aspiration, but that is not clearly delineated. Her chest x-ray did show some interval worsening so we will need to keep an eye on that. We do need to progress to letting her eat on her own. I am going to pursue speech evaluation. She is nonverbal. She has a severe intellectual impairment, but she does follow commands somewhat. So, we will need to get a sense of how she does swallowing on her own. We will get speech to evaluate before we pull the NG tube out and push to get her situated. cc: Abdoulaye Guy MD
[2019-07-21] MEDS: DILAUDID IV PRN ×2 (18:41→21:58)
[2019-07-21] MEDS: RISPERDAL NG SCH (21:12)
[2019-07-21] MEDS: REMERON SOLTAB NG SCH (21:54)
--- NOTE | 2019-07-21 22:50 | PROVIDER PROGRESS NOTE ---
Progress Note S: No acute overnight events. Caregiver at bedside reports that patient's mental status is at baseline. Also, she is usually spoon-fed at home. Last Vital Signs Temp 98.7 F 07/21/19 18:12 Pulse 88 07/21/19 19:46 Resp 18 07/21/19 19:46 BP 131/94 07/21/19 18:12 Pulse Ox 90 L 07/21/19 19:46 Height 5 ft 2 in Weight 169 lb 6.4 oz O: GEN: sleepy, NAD, on ventimask HEENT: anicteric, NGT in place NECK: supple CV: RRR, no murmurs PULM: CTAB anteriorly ABD: soft, lap incision c/d/i, NT, bowel sounds present, RLQ end-ileostomy with brown output EXT: no cce 07/21/19 05:25 WBC 8.06 Hgb 7.6 L Plt Count 427 H A/P: Ms. Clau Singh is a 44 year old woman with CP, MR, and chronic constipation who presented with severe fecal impaction with ileus of the colon and SB s/p total abdominal colectomy with end-ileostomy secondary for concern for impending colonic perforation. Course complicated by ileus now improving. Ileoscopy on 07/10 was negative for obstruction. She is tolerating continuous feeds and abdomen is soft. Mental status is at baseline per caregiver # Small bowel obstruction: resolved - continue reglan and bowel regimen - consider trial of PO intake with assist per nutrition - surgery following, appreciate recs Please call with questions.
[2019-07-21 23:12] LABS: BLOOD TYPE ARTERIAL; METHB 1.1 % (0.0-1.5); O2HB 96.9 % (95.0-99.0); PO2(98.6) 131 mmHg (60-100); SAMPLE BLOOD; SAO2 99.4 % (95.0-100.0); THB 8.2 g/dL (11.5-17.4); pH(98.6) 7.22 (7.35-7.45)
[2019-07-21 23:13] LABS: ALLEN TEST YES; O2(CT) 11.5 mL/dL (15.0-23.0)
[2019-07-21 23:14] LABS: MODALITY NRB; PCO2(98.6) 94 mmHg (35-45)
[2019-07-22] MEDS: LOPRESSOR IV SCH ×5 (00:34→23:22)
[2019-07-22 02:16] LABS: ALLEN TEST YES; BE 8.7 mmoll (-3.0-3.0); BLOOD TYPE ARTERIAL; HCO3-(ACT) 31.7 mmoll (20.0-26.0); METHB 1.1 % (0.0-1.5); O2(CT) 14.4 mL/dL (15.0-23.0); PO2(98.6) 158 mmHg (60-100); SAMPLE BLOOD; SRATE 18 BPM; THB 10.3 g/dL (11.5-17.4); pH(98.6) 7.26 (7.35-7.45)
[2019-07-22 02:22] LABS: MODALITY BI PAP
[2019-07-22 02:38] LABS: PCO2(98.6) 85 mmHg (35-45)
[2019-07-22] MEDS: MAXIPIME 2 GM in NS 100 ML IV SCH ×3 (04:03→20:57)
[2019-07-22] MEDS: CARDIZEM NG SCH ×4 (04:03→21:00)
[2019-07-22] MEDS: DILAUDID IV PRN (05:47)
[2019-07-22] MEDS: REGLAN IV SCH ×3 (06:07→23:22)
[2019-07-22] MEDS: SYNTHROID NG SCH (06:07)
[2019-07-22 06:25] LABS: ALLEN TEST YES; BE 8.7 mmoll (-3.0-3.0); BLOOD TYPE ARTERIAL; HCO3-(ACT) 31.7 mmoll (20.0-26.0); METHB 1.2 % (0.0-1.5); O2(CT) 11.5 mL/dL (15.0-23.0); O2HB 96.1 % (95.0-99.0); PO2(98.6) 97 mmHg (60-100); SAMPLE BLOOD; SAO2 98.7 % (95.0-100.0); SRATE 18 BPM; THB 8.4 g/dL (11.5-17.4); pH(98.6) 7.27 (7.35-7.45)
[2019-07-22 06:27] LABS: PCO2(98.6) 81 mmHg (35-45)
[2019-07-22 06:28] LABS: MODALITY BI PAP
[2019-07-22 06:49] LABS: AGAP 9; BUN 24 mg/dL (8-22); CALCIUM 10.7 mg/dL (8.8-10.2); CHLORIDE 98 mmol/L (98-107); COSMO 282; CREATININE 0.5 mg/dL (0.5-0.9); ESTIMATED GFR > 60; GLUCOSE 103 mg/dL (70-104); MAGNESIUM 1.6 mg/dL (1.5-2.7); PHOSPHORUS 4.2 mg/dL (2.7-4.5); POTASSIUM 3.9 mmol/L (3.5-5.1); SODIUM 139 mmol/L (136-145); TCO2 32 mmol/L (25-35)
[2019-07-22 07:02] LABS: BASO# 0.03 X1000 (0.0-0.2); BASO% 0.3 % (0.0-0.8); EOS# 0.14 X1000 (0.0-0.7); EOS% 1.3 % (0.0-10.0); HEMATOCRIT 27.4 % (37.0-47.0); HEMOGLOBIN 8.3 g/dL (12.0-16.0); IMM GRAN# 0.04 X1000 (0.0-0.04); IMM GRAN% 0.4 % (0.0-0.5); LYMPH# 0.48 X1000 (1.2-3.4); LYMPH% 4.4 % (20.5-51.1); MCH 31.2 PG (27-31); MCHC 30.3 g/dL (33-37); MONO# 0.45 X1000 (0.11-0.59); MONO% 4.1 % (1.7-9.3); MPV 10.5 FL (7.4-10.4); NEUT# 9.79 X1000 (1.4-6.5); NEUT% 89.5 % (42.2-75.2); PLT 437 X1000 (130-400); RBC 2.66 XMIL (4.2-5.4); RDW 12.6 % (11.5-14.5); WBC 10.93 X1000 (4.8-10.8)
--- NOTE | 2019-07-22 07:24 | Diag Imaging Result Doc PS360 ---
EXAM: CHEST-PORTABLE HISTORY: pneumonia TECHNIQUE: Portable chest single view COMPARISON: 07/21/2019 FINDINGS: Poor inspiratory effort. No change in the right-sided PICC line. There are infiltrates and atelectasis in the lower right lung. Possible infiltrates in the left base. The nasogastric tube has been removed. IMPRESSION: No interval improvement. Electronically signed by Romel Marsh 07/22/2019 7:22 AM
[2019-07-22 07:49] LABS: BANDS 13 % (0-1); EOS 2 % (1-10); LYMPHS 5 % (21-51); MONO 5 % (1-9); SEGS 75 % (42-75)
[2019-07-22] MEDS: MYLICON NG SCH ×4 (08:12→22:02)
[2019-07-22] MEDS: PAXIL NG SCH ×2 (08:12→20:59)
[2019-07-22] MEDS: PERIDEX MT SCH ×3 (08:15→21:13)
[2019-07-22] MEDS: DEPAKENE LIQUID NG SCH ×4 (08:15→20:58)
[2019-07-22] MEDS: MIRALAX PO SCH (08:16)
[2019-07-22] MEDS: ANUSOL-HC CREAM PR SCH ×3 (08:16→17:06)
--- NOTE | 2019-07-22 09:43 | GENERAL SURGERY PROGRESS NOTE ---
DATE: 07/22/2019 The patient seems to be doing about the same. Nursing staff reports no major changes. She is on BiPAP. They have held her tube feeds given the fact that she is on BiPAP. She is having some ileostomy output. Her abdomen is a little bit distended. Ideally, we would stop the BiPAP, restart her tube feeds, and see how she does. I think the BiPAP is somewhat contributing to her gaseous distention of her abdomen, so if we can try to avoid it, that would probably be best. We will continue to follow. cc: Clint Lange MD
[2019-07-22] MEDS: XOPENEX NEB INH SCH ×5 (11:07→23:05)
--- NOTE | 2019-07-22 12:48 | Diag Imaging Result Doc PS360 ---
EXAM: CHEST-PORTABLE HISTORY: NGT placement TECHNIQUE: Portable chest COMPARISON: 5:46 AM FINDINGS: Interval placement of a nasogastric tube. This appears to be in good position overlying the esophagus and stomach. Electronically signed by Romel Marsh 07/22/2019 12:46 PM
[2019-07-22] MEDS: SEROQUEL NG SCH ×2 (13:05→20:58)
[2019-07-22] MEDS: VANCOMYCIN 1.3 GM in NS 250 ML IV SCH (15:45)
[2019-07-22] MEDS: NS NEB INH SCH (16:01)
--- NOTE | 2019-07-22 16:26 | PROGRESS NOTE ---
DATE: 07/22/2019 SUBJECTIVE: Patient has no major complaints. OBJECTIVE: Vital signs: Blood pressure is 117/73, heart rate of 102, respiratory rate of 20, temperature 98.2 degrees, 100% on BiPAP. Cardiovascular: Regular rate and rhythm. Pulmonary: Bilateral breath sounds. Clear to auscultation. GI: Soft, nontender, nondistended. Bowel sounds are positive. LABORATORY DATA: White count is 10, hemoglobin and hematocrit 8 and 27, platelets 437,000. PH 7.27, pCO2 of 81, PaO2 97. Basic was normal. Calcium is up a bit. Chest x-ray shows a right lower lobe infiltrate and she has had a repeat because her NG tube was not right; it was not placed in the appropriate area or it had been dislodged. PROBLEM LIST: 1. Acute hypoxic respiratory failure and now hypercapnic respiratory failure. We will continue BiPAP. Pulmonary I believe is following. She is not improving by leaps and bounced, but I think some of that may have been related to her tube feeds. 2. Multilobar pneumonia. She is on vancomycin and cefepime since the 14th, day 5. We are going to continue to follow. 3. Moderate protein-calorie malnutrition. She is on tube feeds. They are on hold right now because of aspiration concern. We have replaced her NG tube and anticipate will start tube feeds again tomorrow, once we know she has stabilized. 4. Disposition. Still unclear. I do not think she has a great prognosis 1 way or the other, but we are looking at LTAC for her. If that is not an option, then we will look at going back to correction on tube feeds, if they will take her back. cc: Abdoulaye Guy MD
[2019-07-22] MEDS: RISPERDAL NG SCH (20:58)
[2019-07-22] MEDS: REMERON SOLTAB NG SCH (20:59)
--- NOTE | 2019-07-22 21:26 | INFECTIOUS DISEASE PROGRESS NO ---
DATE: 07/22/2019 PRESENT ILLNESS: The patient has a postoperative bibasilar pneumonia. Patient also has an immunoglobulin deficiency. MEDICATIONS: The patient has been receiving, for the past 5 days, vancomycin and cefepime. PHYSICAL EXAMINATION: Vital Signs: Temperature is 98.3 degrees, pulse 101, respirations 17, blood pressure 115/80. General: This is an ill-appearing, middle-aged female. She is in no acute distress. Head, Eyes, Ears, Nose, Throat: Patient has a BiPAP mask on. She also has an NG tube down. There is no drainage from her nose or ears. Neck: No stiffness. Lungs: Clear to auscultation. Cardiovascular: Regular heart rate. Abdomen: Seems somewhat protuberant. The incision is intact and the ostomy is working. The abdomen did not appear to be tender. There is no drainage coming from it except from her ostomy. Neurologic: The patient was lethargic. She did not follow my requests to move her arms or legs. Extremities: The patient has a PICC in the right arm. The site is not erythematous or swollen. LAB AND X-RAY: Chest x-ray shows bilateral infiltrates that have not changed much. Blood and urine cultures negative. Creatinine 0.5. GFR is greater than 60. The patient's blood gases show a pH of 7.27, a PO2 of 97, and a pCO2 of 81. The patient's CBC shows a white count of 10,930 hemoglobin 8.3, and platelet count 437,000. ASSESSMENT AND PLAN: Patient has a bibasilar pneumonia. My plan is to continue cefepime at its new dose of 2 g IV every 8 hours along with vancomycin. Regarding the patient's immunoglobulin deficiency, she received a dose of IVIG yesterday. COMORBIDITIES: The patient is postop from a total colectomy. The patient also has cerebral palsy and gastroesophageal reflux disease. cc: Javier Mchugh MD
[2019-07-23] MEDS: CARDIZEM NG SCH ×4 (01:36→20:32)
[2019-07-23] MEDS: XOPENEX NEB INH SCH ×6 (03:41→22:59)
[2019-07-23] MEDS: LOPRESSOR IV SCH ×4 (04:16→23:25)
[2019-07-23] MEDS: MAXIPIME 2 GM in NS 100 ML IV SCH ×3 (04:16→20:35)
[2019-07-23 04:57] LABS: ALLEN TEST YES; BE 8.9 mmoll (-3.0-3.0); BLOOD TYPE ARTERIAL; HCO3-(ACT) 31.9 mmoll (20.0-26.0); METHB 1.3 % (0.0-1.5); PO2(98.6) 214 mmHg (60-100); SAMPLE BLOOD; SAO2 99.6 % (95.0-100.0); THB 9.9 g/dL (11.5-17.4); pH(98.6) 7.41 (7.35-7.45)
[2019-07-23 05:00] LABS: PCO2(98.6) 55 mmHg (35-45)
[2019-07-23 05:01] LABS: MODALITY BI PAP
[2019-07-23] MEDS: REGLAN IV SCH ×4 (05:45→21:58)
[2019-07-23] MEDS: SYNTHROID NG SCH (06:01)
[2019-07-23 06:18] LABS: BASO# 0.05 X1000 (0.0-0.2); BASO% 0.4 % (0.0-0.8); EOS# 0.37 X1000 (0.0-0.7); EOS% 2.9 % (0.0-10.0); HEMATOCRIT 24.3 % (37.0-47.0); HEMOGLOBIN 7.5 g/dL (12.0-16.0); IMM GRAN# 0.06 X1000 (0.0-0.04); IMM GRAN% 0.5 % (0.0-0.5); LYMPH# 1.46 X1000 (1.2-3.4); LYMPH% 11.4 % (20.5-51.1); MCH 31.3 PG (27-31); MCHC 30.9 g/dL (33-37); MCV 101.3 FL (81-99); MONO# 0.98 X1000 (0.11-0.59); MONO% 7.7 % (1.7-9.3); MPV 10.6 FL (7.4-10.4); NEUT# 9.85 X1000 (1.4-6.5); NEUT% 77.1 % (42.2-75.2); PLT 471 X1000 (130-400); RDW 12.7 % (11.5-14.5); WBC 12.77 X1000 (4.8-10.8)
[2019-07-23 06:58] LABS: AGAP 8; BUN 27 mg/dL (8-22); CALCIUM 10.3 mg/dL (8.8-10.2); CHLORIDE 99 mmol/L (98-107); COSMO 278; CREATININE 0.6 mg/dL (0.5-0.9); ESTIMATED GFR > 60; GLUCOSE 81 mg/dL (70-104); SODIUM 137 mmol/L (136-145); TCO2 30 mmol/L (25-35)
[2019-07-23] MEDS: NS NEB INH SCH (07:25)
[2019-07-23] MEDS: PAXIL NG SCH ×2 (10:04→20:36)
--- NOTE | 2019-07-23 10:05 | PROGRESS NOTE ---
DATE: 07/23/2019 SUBJECTIVE: The patient is nonverbal. No acute issues noted as per nursing staff overnight. OBJECTIVE: Vital Signs: Temperature 98.1, heart rate 98, respiratory rate 17, blood pressure 130/85, O2 saturation 100% on BiPAP at FiO2 50%. General Examination: This is a chronically ill- appearing, 44-year-old, female, lying in bed, in no acute distress. Cardiovascular Examination: S1 and S2 heard. No murmur, gallops, or rubs. Regular rate and rhythm. Respiratory Examination: Decreased breath sounds globally with minimal rhonchi still present in both pulmonary bases. Patient is not using any accessory muscles or having work of breathing. Abdomen: Soft. A little bit distended. Midline surgical scar with closed wound VAC on the right side with brown stool noted but no blood in it. Extremities: No clubbing, cyanosis, or edema. Peripheral pulses present in both legs. Neurological Examination: The patient has a history of cerebral palsy. He is more sleepy. Using a BiPAP mask. Moves 4 extremities spontaneously. Laboratory Data: White cell count 12.77, hemoglobin 7.5, hematocrit 24.3, platelets 471,000. ABG shows pH 7.41, with pCO2 of 55, and PO2 of 214 on BiPAP 70%. Normal BMP. ASSESSMENT: 1. Acute hypoxemic respiratory failure. The patient has been placed on BiPAP for acute hypercapnic respiratory failure. Her CO2 is now much better. It is 55. I think, at this point, I will recommend Optiflow instead of BiPAP because, apparently, the BiPAP is causing gaseous accumulation and considering that she had abdominal surgery, it is not good for her. Also, Dr. Lange recommends the same. 2. Bilateral pneumonia. We will continue with antibiotics as per infectious disease recommendation. The patient looks to be hemodynamically stable. Not spiking any fever. We will continue to monitor. 3. 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 General surgery following this patient. Tube feeding has been stopped because of gaseous distention secondary to BiPAP use. At this point, as we mentioned before, we are going to try to discontinue BiPAP, provide oxygen by high-flow nasal cannula. We will see if that helps. 4. Protein-calorie malnutrition. As we mentioned above, we will try to restart nasogastric tube feedings. 5. Suspected seizure. The patient is stable. No more episodes of seizures for the last couple of weeks. 6. Cerebral palsy with severe intellectual impairment. We will continue with Paxil, risperidone, Seroquel that have been given by nasogastric tube. 7. Disposition. At this point, I think this patient will need prolonged hospital care so we have talked with the social problems specialist about her being a candidate for long-term acute care. We will consult them and then we will go from there. cc: Pablo Macario MD MTDD
[2019-07-23] MEDS: DEPAKENE LIQUID NG SCH ×4 (10:07→20:35)
[2019-07-23] MEDS: MIRALAX PO SCH (10:07)
[2019-07-23] MEDS: ANUSOL-HC CREAM PR SCH ×3 (10:08→17:37)
[2019-07-23] MEDS: LEVAQUIN 750 MG/D5W 750 MG/150 ML IVPB IV SCH (10:08)
[2019-07-23] MEDS: VANCOMYCIN 1.3 GM in NS 250 ML IV SCH (10:08)
[2019-07-23] MEDS: PERIDEX MT SCH ×2 (10:09→20:35)
[2019-07-23] MEDS: MYLICON NG SCH ×4 (10:14→20:32)
--- NOTE | 2019-07-23 10:25 | PROVIDER PROGRESS NOTE ---
Progress Note SUBJECTIVE: Patient is non verbal, resting in bed, no acute distress as per the nurse. Vital Signs: Temperature 98.1 degrees, Pulse rate 98, Respiration 17, Blood pressure 130/85, O2 100% on BIpAP body weight 165 pounts, BMI 30.3 kg per meter square. General appearance: is resting in bed resting in bed , non verbal, unable to assess. HEENT: Pale conjunctivae, no icterus, PERRLA. Neck: supple Lungs: Decreased breath sounds with ronchi and wheezing present in the anterior durham. Cardiovascular: Regular rate and rhythm. S1 and S2 heard on auscultation, no rubs, murmrs or gallops heard on auscultation Abdomen: soft, distended, midline surgical scar, colostomy draining brown liquid stools, no blood noted. Extremities: No cynosis, clubbing, generalized edema noted in the lower extremities bilaterally. Neuro: Non verbal, unable to assess, but moving all extremities spontaneously. Labs: Hemaglobin 7.5and hematocrit 24.3, White blood count 12.77, Platelet count 157276, sodium 137, potassium 4.0, CO2 30, BUN 27, Creatinine 0.8, calcium 10.3, blood gasses Pco2 55, O2 214, Hco3 31.9. IMPRESSION AND PLAN: 1. Acute hypoxemic respiratory failure 2. Bilaterial pneumonia 3. Toxic megacolon secondary to olon inertia post open colectomy. 4. Protein calorie malnutrition 5. Suspected seizure 6. cerebral palsy PLAN: Continue surgical care, GI prophylaxis, and antibiotics as prescribe by the infectious disease team. As per her nurse, further plans are to wean patient from Bipap to nasal canula and start patient on diet as tolerated. This plan was discussed with Dr. Grimm. Please call for any further questions or concerns. Please forward this note to Dr. Grimm. (Yanique Gamble) Patient will need nutritional support in the form of IV PPN or TPN until her respiratory status improves. I have seen the patient myself and discussed the above findings and plan of care with nurse practitioner. Discussed with the patient's career and guidance counselor at bedside and RN and all questions were answered. Please call us with any further questions. (Ha Grimm)
--- NOTE | 2019-07-23 10:47 | GENERAL SURGERY PROGRESS NOTE ---
DATE: 07/23/2019 The patient is doing about the same. She is on BiPAP, which I suspect is blowing a lot of air into her intestines, which is making her more distended, which could potentially be causing her issue that she had a couple of weeks ago again, where she gets very distended and occludes off her ileostomy. I think if we can try to get her off of BiPAP, that would be the best for the patient. Her tube feeds are currently on hold given the suspicion for aspiration, but at some point, we need to restart her tube feeds and get her off of BiPAP. If we cannot ultimately get her off of BiPAP, we may need to consider placement of some kind of feeding tube, purely to decompress her and have a feeding limb, like a feeding percutaneous endoscopic jejunostomy tube with a gastric port. Otherwise, continue current treatment and monitoring. cc: Clint Lange MD
[2019-07-23] MEDS: SEROQUEL NG SCH ×2 (12:44→20:32)
--- NOTE | 2019-07-23 13:32 | INFECTIOUS DISEASE PROGRESS NO ---
DATE: 07/23/2019 PRESENT ILLNESS: The patient has a postoperative bibasilar pneumonia. The pneumonia is not getting any better and her white count is increasing. The patient also has an immunoglobulin deficiency. MEDICATIONS: This is the 7th day of treatment with a combination of vancomycin and cefepime. PHYSICAL EXAMINATION: Vital Signs: Temperature is 98.1 degrees, pulse 85, respirations 18, blood pressure 130/85. General: This is an ill-appearing, middle-aged female. She is in no acute distress. Head, Eyes, Ears, Nose, and Throat: She has a BiPAP mask on and she also has an NG tube down for tube feedings. There is no drainage from the nose or ears. Neck: No pain with movement. Lungs: Clear to auscultation. Cardiovascular: Heart rate is regular. Abdomen: Seems somewhat protuberant. The incision is intact and the ileostomy is viable. Neurologic: The patient is lethargic. She did not follow my requests to move her arms or legs. Extremities: The patient has a right arm PICC. The site is not erythematous or draining. LABS AND X-RAY: Chest x-ray shows bibasilar infiltrates. Creatinine is 0.6. GFR is greater than 60. Blood and urine cultures are negative. CBC shows a white count of 12,770, hemoglobin 7.5, platelet count 471,000. Blood gases show a pH of 7.41, a PO2 of 214, and a pCO2 of 55. ASSESSMENT AND PLAN: The patient has a bibasilar pneumonia. It is not improving and her white count is increasing. I am going to continue cefepime and vancomycin, and I have added Levaquin. As regarding the patient's immunoglobulin deficiency, she has received a dose of IVIG 2 days ago. COMORBIDITIES: The patient is postoperative from a total colectomy. The patient also has cerebral palsy and gastroesophageal reflux disease. cc: Javier Mchugh MD
[2019-07-23] MEDS: HALDOL IV PRN (17:44)
[2019-07-23] MEDS: RISPERDAL NG SCH (20:31)
[2019-07-23] MEDS: REMERON SOLTAB NG SCH (20:33)
[2019-07-24] MEDS: VANCOMYCIN 1.3 GM in NS 250 ML IV SCH ×3 (02:52→21:14)
[2019-07-24] MEDS: CARDIZEM NG SCH ×4 (02:52→20:38)
[2019-07-24] MEDS: XOPENEX NEB INH SCH ×6 (03:17→23:36)
[2019-07-24 04:50] LABS: ALLEN TEST YES; BE 11.6 mmoll (-3.0-3.0); BLOOD TYPE ARTERIAL; METHB 1.3 % (0.0-1.5); O2(CT) 9.9 mL/dL (15.0-23.0); O2HB 94.3 % (95.0-99.0); PO2(98.6) 79 mmHg (60-100); SAMPLE BLOOD; SAO2 96.3 % (95.0-100.0); THB 7.4 g/dL (11.5-17.4); pH(98.6) 7.45 (7.35-7.45)
[2019-07-24 04:58] LABS: MODALITY BI PAP; PCO2(98.6) 53 mmHg (35-45)
[2019-07-24] MEDS: LOPRESSOR IV SCH ×4 (05:37→22:08)
[2019-07-24] MEDS: REGLAN IV SCH ×4 (05:37→22:08)
[2019-07-24] MEDS: SYNTHROID NG SCH ×2 (05:37→06:10)
[2019-07-24] MEDS: MAXIPIME 2 GM in NS 100 ML IV SCH ×3 (05:37→21:36)
[2019-07-24 06:27] LABS: BASO# 0.02 X1000 (0.0-0.2); BASO% 0.2 % (0.0-0.8); EOS# 0.33 X1000 (0.0-0.7); EOS% 3.6 % (0.0-10.0); HEMATOCRIT 22.9 % (37.0-47.0); IMM GRAN# 0.11 X1000 (0.0-0.04); IMM GRAN% 1.2 % (0.0-0.5); LYMPH# 1.31 X1000 (1.2-3.4); LYMPH% 14.3 % (20.5-51.1); MCH 30.7 PG (27-31); MCHC 30.6 g/dL (33-37); MCV 100.4 FL (81-99); MONO# 0.83 X1000 (0.11-0.59); MPV 10.3 FL (7.4-10.4); NEUT# 6.58 X1000 (1.4-6.5); NEUT% 71.7 % (42.2-75.2); PLT 517 X1000 (130-400); RBC 2.28 XMIL (4.2-5.4); WBC 9.18 X1000 (4.8-10.8)
[2019-07-24 06:38] LABS: AGAP 9; BUN 22 mg/dL (8-22); CALCIUM 10.7 mg/dL (8.8-10.2); CHLORIDE 99 mmol/L (98-107); COSMO 283; CREATININE 0.6 mg/dL (0.5-0.9); ESTIMATED GFR > 60; GLUCOSE 102 mg/dL (70-104); POTASSIUM 3.6 mmol/L (3.5-5.1); SODIUM 140 mmol/L (136-145); TCO2 32 mmol/L (25-35)
--- NOTE | 2019-07-24 06:58 | GENERAL SURGERY PROGRESS NOTE ---
DATE: 07/24/2019 Patient seems to be doing about the same. Nursing staff reports good ileostomy output recently with over 250 out when they just changed it. Her respiratory status still appears to be the main issue. We will continue to follow her. cc: Clint Lange MD
[2019-07-24] MEDS: NS NEB INH SCH ×2 (07:46→15:16)
[2019-07-24] MEDS: PAXIL NG SCH ×2 (09:22→20:36)
[2019-07-24] MEDS: MYLICON NG SCH ×4 (09:23→21:32)
[2019-07-24] MEDS: DEPAKENE LIQUID NG SCH ×4 (09:23→20:36)
[2019-07-24] MEDS: MAG-OX PO SCH ×4 (09:23→20:37)
[2019-07-24] MEDS: LEVAQUIN 750 MG/D5W 750 MG/150 ML IVPB IV SCH (09:24)
[2019-07-24] MEDS: PERIDEX MT SCH ×2 (09:24→20:36)
[2019-07-24] MEDS: MIRALAX PO SCH (09:24)
[2019-07-24] MEDS: ANUSOL-HC CREAM PR SCH ×3 (10:24→17:51)
--- NOTE | 2019-07-24 11:04 | PROGRESS NOTE ---
DATE: 07/24/2019 SUBJECTIVE: The patient is nonverbal. No acute issues noted as per nursing staff overnight. She is tolerating nasogastric tube feedings well. According to progressive care nurse who is at bedside, patient looks to be her baseline. OBJECTIVE,: Vital Signs: Temperature 99.2 degrees, heart rate 91, respiratory rate 18, blood pressure 105/71, O2 saturation 98% on Venturi mask at 50%. General Examination: This is a chronically ill-appearing, 44-year-old female lying in bed, in no acute distress. Cardiovascular: S1, S2 heard. No murmurs, gallops, or rubs. Regular rate and rhythm. Respiratory: Decreased breath sounds globally. There is minimal rhonchi present in both pulmonary bases. Patient is not using any accessory muscles or having work of breathing. Abdomen: Soft, a little distended. There is a midline surgical scar with colostomy bag on the right side with brown stool noted but no blood on it. Extremities: No clubbing, cyanosis, or edema. Peripheral pulses present in both legs. Neurological: Patient has history of cerebral palsy. She is a little bit sleepy. The patient is using Venturi mask. The patient moves 4 extremities spontaneously. LABORATORY DATA: White cell count 9.18, hemoglobin 7.0, hematocrit 22.9, platelets 517,000 with ABG that shows pH 7.45 with pCO2 53, PO2 49, normal BMP. ASSESSMENT AND PLAN: 1. Acute hypoxemic respiratory failure. Patient continues to require high amounts of oxygen. Her CO2 is better today. She has been requiring BiPAP but unfortunately that was causing some gaseous accumulation. At this point patient looks more stable continue to monitor. 2. Bilateral pneumonia. The patient is on antibiotics as per infectious disease recommendation not spiking any fever. White cell count is normal. We will continue to monitor. 3. Toxic megacolon secondary to colon. She is status post open colectomy on June 22 postop therapy day #32. General surgery following this patient. We will follow recommendations. We have restarted tube feedings yesterday and now is running at 30 mL/h. I think she is tolerating diet very well with not many residuals so we will continue to monitor. 4. Suspected seizure patient is stable no more episode. 5. Protein-calorie malnutrition. We will continue with nasogastric tube feedings. 6. Cerebral palsy with severe intellectual impairment. The patient has resumed Paxil, Risperdal and Seroquel. Continue with those medications via NG tube. DISPOSITION: I think at this point, patient will need prolonged hospital care so will see if she qualifies for LTAC. cc: Pablo Macario MD
[2019-07-24] MEDS: SEROQUEL NG SCH ×2 (14:08→20:37)
[2019-07-24] MEDS: HALDOL IV PRN (14:15)
--- NOTE | 2019-07-24 15:07 | INFECTIOUS DISEASE PROGRESS NO ---
DATE: 07/24/2019 HISTORY OF PRESENT ILLNESS: The patient has a postoperative bibasilar pneumonia. She also has an immunoglobulin deficiency. MEDICATIONS: This is the 8th day of treatment with a combination of vancomycin and cefepime. Yesterday, the patient was started on Levaquin and this is day 1 of treatment with Levaquin. PHYSICAL EXAMINATION: Vital Signs: Temperature is 99 degrees, pulse 93, respirations 22, blood pressure 105/71. General: This is an ill-appearing, middle-aged female. She is in no acute distress. Head/eyes/ears/nose/throat: She has an oxygen mask on. There is no drainage from the nose or ears. The patient has an NG tube in place through which she is getting tube feedings. Lungs: Clear to auscultation. Cardiovascular: Heart rate is regular. Abdomen: Soft. It does not seem to be tender. It is somewhat protuberant. The incision is intact and the ileostomy is functional. Neurologic: The patient has her eyes closed mostly and thrashes around in bed. She seems to be somewhat delirious. Extremities: The patient has a PICC in the right arm. The site is not red or swelling. LAB AND X-RAY: There is no new x-ray for today. Creatinine is 0.6. GFR is greater than 60. Blood gases show a pH of 7.45, a PO2 of 79, and a pCO2 of 53. CBC shows a white count of 9180, hemoglobin 7, and platelet count 517,000. ASSESSMENT AND PLAN: Patient has a bibasilar pneumonia. Her white count has come down. I plan on continuing the patient's 3 antibiotics, namely vancomycin, cefepime, and Levaquin. As regarding the patient's immunoglobulin deficiency, she has received a dose of IVIG 3 days ago. COMORBIDITIES: The patient is postoperative from a total colectomy. She also has cerebral palsy and gastroesophageal reflux disease. cc: Javier Mchugh MD
[2019-07-24] MEDS: RISPERDAL NG SCH (20:37)
[2019-07-24] MEDS: REMERON SOLTAB NG SCH (21:12)
--- NOTE | 2019-07-24 22:44 | PULMONOLOGY PROGRESS NOTE ---
DATE: 07/24/2019 SUBJECTIVE: The patient is awake. She does not communicate due to learning disability. She does not appear to be in distress. OBJECTIVE: Vital Signs: The patient is afebrile. Blood pressure 128/65, heart rate 100, respiratory rate 21, oxygen saturation 99% on 6 L per nasal cannula. HEENT: Pupils are equal and reactive. Oropharynx appears clear. Neck: Supple. Chest: Reveals decreased breath sounds at the right base. Cardiac: S1, S2. Abdomen: Soft. Extremities: Without edema. LABORATORIES: White blood count 9.18, hemoglobin 7.0, platelet count 517,000. Arterial blood gas on BiPAP, pH 7.45, pCO2 of 53, PO2 of 79. IMPRESSION: 1. A 44-year-old with right lower lobe pneumonia. 2. Acute hypoxemic respiratory failure. 3. Hypercapnic respiratory failure. 4. Immunoglobulin deficiency. 5. Toxic megacolon status post abdominal colectomy. 6. Protein calorie malnutrition. PLAN: 1. Agree with attempting p.o. intake so that [facility]. 2. Continue bronchial hygiene. 3. Continue oxygen therapy. 4. Continue BiPAP at bedtime. cc: Tye Juarez MD
[2019-07-25] MEDS: CARDIZEM NG SCH ×2 (01:35→09:24)
[2019-07-25] MEDS: XOPENEX NEB INH SCH ×6 (03:25→23:29)
[2019-07-25] MEDS: MAXIPIME 2 GM in NS 100 ML IV SCH ×3 (04:12→21:25)
[2019-07-25] MEDS: LOPRESSOR IV SCH ×3 (04:12→14:44)
[2019-07-25 04:54] LABS: ALLEN TEST YES; BE 14.4 mmoll (-3.0-3.0); BLOOD TYPE ARTERIAL; HCO3-(ACT) 36.2 mmoll (20.0-26.0); METHB 1.4 % (0.0-1.5); O2(CT) 7.2 mL/dL (15.0-23.0); O2HB 95.6 % (95.0-99.0); PCO2(98.6) 46 mmHg (35-45); PO2(98.6) 85 mmHg (60-100); SAMPLE BLOOD; SAO2 98.4 % (95.0-100.0); THB 5.2 g/dL (11.5-17.4); pH(98.6) 7.53 (7.35-7.45)
[2019-07-25 04:55] LABS: MODALITY BI PAP
[2019-07-25] MEDS: SYNTHROID NG SCH (06:05)
[2019-07-25] MEDS: REGLAN IV SCH ×2 (06:05→13:50)
[2019-07-25 07:02] LABS: BASO# 0.06 X1000 (0.0-0.2); BASO% 0.6 % (0.0-0.8); EOS# 0.54 X1000 (0.0-0.7); EOS% 5.1 % (0.0-10.0); HEMATOCRIT 27.7 % (37.0-47.0); HEMOGLOBIN 8.5 g/dL (12.0-16.0); IMM GRAN# 0.57 X1000 (0.0-0.04); IMM GRAN% 5.4 % (0.0-0.5); LYMPH# 1.65 X1000 (1.2-3.4); LYMPH% 15.7 % (20.5-51.1); MCH 30.7 PG (27-31); MCHC 30.7 g/dL (33-37); MONO# 0.98 X1000 (0.11-0.59); MONO% 9.3 % (1.7-9.3); MPV 10.4 FL (7.4-10.4); NEUT% 63.9 % (42.2-75.2); PLT 546 X1000 (130-400); RBC 2.77 XMIL (4.2-5.4); RDW 13.2 % (11.5-14.5)
[2019-07-25 07:12] LABS: AGAP 9; ALB/GLOB RATIO 0.9; ALBUMIN 2.8 g/dL (3.5-5.0); ALKALINE PHOSPHATASE 104 U/L (32-104); BUN 18 mg/dL (8-22); CALCIUM 10.6 mg/dL (8.8-10.2); CHLORIDE 94 mmol/L (98-107); COSMO 272; CREATININE 0.7 mg/dL (0.5-0.9); ESTIMATED GFR > 60; GLUCOSE 94 mg/dL (70-104); GOT 12 U/L (10-30); GPT < 5 U/L (10-36); POTASSIUM 3.6 mmol/L (3.5-5.1); SODIUM 135 mmol/L (136-145); TCO2 32 mmol/L (25-35); TOTAL BILIRUBIN 0.18 mg/dL (0.20-1.00); TOTAL PROTEIN 5.9 g/dL (6.3-8.3)
[2019-07-25 07:57] LABS: EOS 10 % (1-10); LYMPHS 14 % (21-51); MONO 14 % (1-9); SEGS 58 % (42-75)
[2019-07-25] MEDS: MYLICON NG SCH (09:23)
[2019-07-25] MEDS: PAXIL NG SCH (09:24)
[2019-07-25] MEDS: DEPAKENE LIQUID NG SCH ×4 (09:24→21:25)
[2019-07-25] MEDS: DILAUDID IV PRN (09:30)
[2019-07-25] MEDS: PERIDEX MT SCH ×2 (09:37→21:25)
[2019-07-25] MEDS: LEVAQUIN 750 MG/D5W 750 MG/150 ML IVPB IV SCH (09:37)
[2019-07-25] MEDS: MIRALAX PO SCH (09:37)
--- NOTE | 2019-07-25 09:46 | PROGRESS NOTE ---
DATE: 07/25/2019 SUBJECTIVE: The patient is nonverbal. No acute issues noted as per nursing staff overnight. Yesterday, she started storing liquids and applesauce, so the NG tube has been removed. OBJECTIVE: Vitals: Temperature 98.1 degrees, heart rate 102, respiratory rate 19, blood pressure 127/89, O2 saturation 97% on 5 L nasal cannula. General: This is a chronically ill-appearing, 44- year-old female, lying in bed in no acute distress. Cardiovascular exam: S1, S2 heard. No murmurs, gallops, or rubs. Regular rate and rhythm. Respiratory exam: Decreased breath sounds globally. There is very minimal rhonchi noted in both pulmonary bases. The patient is not using any accessory muscles or having work of breathing. Abdomen: Soft. A little bit distended. There is a midline surgical scar with colostomy bag on the right side with brown stool noted. Extremities: No clubbing, cyanosis, or edema. Peripheral pulses present in both legs. Neurological exam: The patient has history of cerebral palsy. She is definitely more awake today. She is using nasal cannula. Nonverbal. Moves 4 extremities spontaneously. LABORATORY DATA: White cell count 10.5, hemoglobin 8.5, hematocrit 27.7, platelets 546 with ABG that shows pH 7.53 with pCO2 46, PO2 85; that was on BiPAP. Sodium 135, potassium 10.6. ASSESSMENT AND PLAN: 1. Acute hypoxemic respiratory failure. That condition is getting better. Actually her oxygen needs are coming down. She was requiring the last couple days Venturi mask all the time. Now, she is maintaining her oxygen saturation above 90 with nasal cannula oxygen 5 liters/minute. At this point, we will continue with same management. 2. Bilateral pneumonia. Patient is on vancomycin, cefepime and Levaquin. Infectious Disease, Dr. Mchugh, is following this patient. We will follow recommendations. 3. 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 General Surgery following this patient. We will follow recommendations. 4. Protein-calorie malnutrition. She was on nasogastric tube feedings, but now she is tolerating liquids. Actually recommendation from swallow evaluation recommends pureed diet that we are providing to her. We will continue with the same management. 5. Cerebral palsy with severe intellectual impairment. Patient was receiving Paxil, Risperdal and Seroquel crushed through nasogastric tube. We will change the dose to by mouth today. 6. Disposition: We will continue to monitor this patient closely. We are exploring the possibility of sending this patient to long-term acute care. We will check with marriage and family social worker on Saturday. cc: Pablo Macario MD
--- NOTE | 2019-07-25 10:23 | Diag Imaging Result Doc PS360 ---
EXAM: CHEST-PORTABLE 07/25/2019 HISTORY: abnormal exam TECHNIQUE: AP portable at 1004 COMMENT: There is alveolar opacity in the parahilar regions of both lungs which was present at the time of the previous study of 07/22/2019. There is still some volume loss on the right. There is a calcified nodule over the left hemidiaphragm. There is a PICC line on the right with its tip in the right atrium. IMPRESSION: Pulmonary edema and/or pneumonia. There is likely some degree of atelectasis in the right lower lobe and middle lobe. Electronically signed by Roger Lockwood 07/25/2019 10:20 AM
--- NOTE | 2019-07-25 10:25 | Diag Imaging Result Doc PS360 ---
EXAM: KUB ABDOMEN 07/25/2019 HISTORY: distention TECHNIQUE: KUB COMMENT: There is still gas within the stomach and small bowel. There is a small amount of fecal debris in the rectum. The NG tube which was present on 07/22/2019 is no longer present. IMPRESSION: Ileus versus partial small bowel obstruction. Electronically signed by Roger Lockwood 07/25/2019 10:22 AM
--- NOTE | 2019-07-25 13:08 | GENERAL SURGERY PROGRESS NOTE ---
DATE: 07/25/2019 SUBJECTIVE: There have been no recorded acute events overnight. OBJECTIVE: Vital Signs: She is afebrile. Vital signs are stable. General: She is sleeping but arousable. Abdomen: Soft, distended, somewhat tender. Incision is clean, dry, and intact. LABORATORY DATA: Reviewed and unremarkable. ASSESSMENT AND PLAN: A 44-year-old female status post total abdominal colectomy with cerebral palsy and respiratory failure. We have advanced her to a pureed diet but it is unclear to me how much she is taking in. We will continue to observe her nutritional abilities over the next day or 2. cc: Gio Palacios MD
[2019-07-25] MEDS: MYLICON PO SCH ×2 (13:23→17:40)
[2019-07-25] MEDS: ANUSOL-HC CREAM PR SCH ×2 (13:24→17:57)
[2019-07-25] MEDS: SEROQUEL PO SCH ×2 (13:51→21:23)
[2019-07-25] MEDS: CARDIZEM PO SCH (13:51)
[2019-07-25] MEDS ORDERED: CATHFLO IV ONE ×2 (14:59→15:00)
[2019-07-25] MEDS ORDERED: STERILE WATER INJ. INJ ONE ×2 (14:59→15:00)
--- NOTE | 2019-07-25 15:28 | PULMONOLOGY PROGRESS NOTE ---
DATE: 07/25/2019 SUBJECTIVE: The patient was sleeping upon arrival. She does arouse with stimulation. She is not conversant. OBJECTIVE: Vital Signs: The patient has been afebrile for the last 24 hours. Blood pressure 96/64, heart rate 99, respiratory 15, oxygen saturation 97% on 5 L per nasal cannula. HEENT: Pupils are equal and reactive. Oropharynx is clear. Neck: Is supple. Chest: Reveals shallow breath sounds bilaterally with occasional rhonchi. Cardiac: S1-S2. Abdomen: Soft . Extremities: Reveal +1 peripheral edema. LABORATORIES: There is no new microbiology data. White blood count 10.50, hemoglobin 8.5, platelet count 546,000. Chest x-ray reveals volume loss with infiltrate at the right base. IMPRESSION: A 44-year-old with 1. Right lower lobe pneumonia. 2. Hypoxemic respiratory failure. 3. Hypercapnic respiratory failure. 4. Immunoglobulin deficiency. 5. Status post total abdominal colectomy. PLAN: 1. Continue bronchial hygiene which is difficult given her mental status. 2. Agree with plans for initiating food as tolerated. 3. BiPAP at bedtime. 4. Oxygen as needed to maintain saturations greater than 90%. cc: Tye Juarez MD
[2019-07-25] MEDS: REMERON SOLTAB PO SCH (21:24)
[2019-07-25] MEDS: RISPERDAL PO SCH (21:24)
[2019-07-26] MEDS: REGLAN IV SCH ×4 (00:47→21:45)
[2019-07-26] MEDS: CARDIZEM PO SCH ×5 (00:50→20:36)
[2019-07-26] MEDS: LOPRESSOR IV SCH ×5 (00:51→20:39)
[2019-07-26] MEDS: PAXIL PO SCH ×3 (00:51→20:38)
[2019-07-26] MEDS: MYLICON PO SCH ×6 (00:51→21:19)
[2019-07-26] MEDS: DEPAKENE LIQUID NG SCH ×6 (00:52→20:39)
[2019-07-26] MEDS: SEROQUEL PO SCH ×4 (00:52→20:38)
[2019-07-26] MEDS: REMERON SOLTAB PO SCH ×2 (00:53→20:37)
[2019-07-26] MEDS: RISPERDAL PO SCH ×2 (00:53→20:39)
[2019-07-26] MEDS: PERIDEX MT SCH ×3 (00:54→20:40)
[2019-07-26] MEDS: ANUSOL-HC CREAM PR SCH ×4 (00:55→21:19)
[2019-07-26] MEDS: VANCOMYCIN 1.3 GM in NS 250 ML IV SCH (01:49)
[2019-07-26] MEDS: XOPENEX NEB INH SCH ×6 (03:47→23:35)
[2019-07-26] MEDS: MAXIPIME 2 GM in NS 100 ML IV SCH ×3 (04:02→21:20)
[2019-07-26] MEDS: DILAUDID IV PRN ×3 (04:54→23:22)
[2019-07-26 05:06] LABS: ALLEN TEST YES; BE 12.7 mmoll (-3.0-3.0); BLOOD TYPE ARTERIAL; HCO3-(ACT) 34.8 mmoll (20.0-26.0); METHB 1.3 % (0.0-1.5); O2(CT) 10.1 mL/dL (15.0-23.0); O2HB 93.8 % (95.0-99.0); PO2(98.6) 68 mmHg (60-100); SAMPLE BLOOD; THB 7.6 g/dL (11.5-17.4); pH(98.6) 7.43 (7.35-7.45)
[2019-07-26 05:07] LABS: MODALITY CANNULA
[2019-07-26 05:17] LABS: PCO2(98.6) 58 mmHg (35-45)
[2019-07-26] MEDS: SYNTHROID PO SCH ×2 (05:48→06:00)
[2019-07-26 06:48] LABS: HEMATOCRIT 22.4 % (37.0-47.0); HEMOGLOBIN 6.9 g/dL (12.0-16.0); LYMPH% 19.1 % (20.5-51.1); MCH 31.1 PG (27-31); MCHC 30.8 g/dL (33-37); MCV 100.9 FL (81-99); MONO% 10.8 % (1.7-9.3); MPV 10.5 FL (7.4-10.4); NEUT% 51.4 % (42.2-75.2); PLT 499 X1000 (130-400); RBC 2.22 XMIL (4.2-5.4); RDW 13.2 % (11.5-14.5); WBC 7.61 X1000 (4.8-10.8)
[2019-07-26 06:49] LABS: BASO# 0.09 X1000 (0.0-0.2); BASO% 1.2 % (0.0-0.8); EOS# 0.48 X1000 (0.0-0.7); EOS% 6.3 % (0.0-10.0); IMM GRAN# 0.85 X1000 (0.0-0.04); IMM GRAN% 11.2 % (0.0-0.5); LYMPH# 1.45 X1000 (1.2-3.4); MONO# 0.82 X1000 (0.11-0.59); NEUT# 3.92 X1000 (1.4-6.5)
[2019-07-26 06:57] LABS: AGAP 10; BUN 17 mg/dL (8-22); CALCIUM 10.6 mg/dL (8.8-10.2); CHLORIDE 101 mmol/L (98-107); COSMO 284; CREATININE 0.8 mg/dL (0.5-0.9); ESTIMATED GFR > 60; GLUCOSE 93 mg/dL (70-104); POTASSIUM 3.9 mmol/L (3.5-5.1); SODIUM 142 mmol/L (136-145); TCO2 31 mmol/L (25-35)
[2019-07-26 07:06] LABS: EOS 4 % (1-10); LYMPHS 21 % (21-51); MONO 8 % (1-9); SEGS 67 % (42-75)
[2019-07-26] MEDS ORDERED: NS 500 ML IV ONE (08:22)
--- NOTE | 2019-07-26 09:56 | PROGRESS NOTE ---
DATE: 07/26/2019 SUBJECTIVE: According to the nursing staff, the patient was fine yesterday. Able to eat at least more than 50% of her meal but this morning, after she was started yesterday afternoon with pain medication, she is definitely more sleepy. OBJECTIVE: Vital Signs: Temperature 98.2 degrees, heart rate 92, respiratory rate 18, blood pressure 113/75, O2 saturation 95% on 4 L nasal cannula. General Examination: This is a chronically ill-appearing, 44-year-old, female with a history of cerebral palsy, lying in bed, in no acute distress. Cardiovascular Examination: S1 and S2 heard. No murmurs, gallops, or rubs. Regular rate and rhythm. Respiratory Examination: Decreased breath sounds globally. There is minimal rhonchi noted in both pulmonary bases. Patient is not using any accessory muscles or having work of breathing. Abdomen: Soft. A little bit distended. There is a midline surgical scar with colostomy bag on the right side with brown stool noted. Extremities: Peripheral pulses present in both legs. Neurological Examination: The patient has a history of cerebral palsy. She is definitely more sleepy today in comparing with yesterday. She is nonverbal. She moves 4 extremities spontaneously. Laboratory Data: Reviewed. ASSESSMENT AND PLAN: 1. Acute hypoxemic respiratory failure. That condition is getting better. She is not requiring any BiPAP anymore. She is using between 4 to 5 L of oxygen by nasal cannula. We will continue with the same management. 2. Bilateral pneumonia. Patient is on vancomycin, cefepime, and Levaquin. Dr. Mchugh of infectious disease is following this patient for recommendations. 3. 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 General surgery following this patient. We will follow recommendations. 4. Protein-calorie malnutrition. Patient is able to eat by mouth now with assistance, of course. She is more sleepy today. I think it is because of pain medication. We will off doses to half. We will monitor this patient closely. 5. Cerebral palsy with severe intellectual impairment. Patient is on her home medications, Paxil, Risperdal, and Seroquel. Those are being given with applesauce. The patient received those at home. I do not think those are the reason why she is sleepy. I think we need to continue with those. 6. Disposition. At this point, we will continue to monitor this patient closely. We will talk with elementary school social worker and case management to see disposition for this patient. cc: Pablo Macario MD
[2019-07-26] MEDS: LEVAQUIN 750 MG/D5W 750 MG/150 ML IVPB IV SCH (10:04)
[2019-07-26] MEDS: MIRALAX PO SCH (10:11)
--- NOTE | 2019-07-26 14:00 | GENERAL SURGERY PROGRESS NOTE ---
DATE: 07/26/2019 SUBJECTIVE: The patient has had no acute events overnight. She reportedly is eating small amounts of food. OBJECTIVE: Vital signs: She is afebrile. Vital signs are stable. General: She is somnolent but arousable. Gastrointestinal: Soft, nontender, nondistended. ASSESSMENT AND PLAN: A 44-year-old female status post total abdominal colectomy. Continue the pureed diet as tolerated. cc: Gio Palacios MD
--- NOTE | 2019-07-26 17:51 | PULMONOLOGY PROGRESS NOTE ---
DATE: 07/26/2019 SUBJECTIVE: The patient follows the examiner during the examination. She is nonverbal. Her sitter reports she will swallow solid food if she is given a liquid. She has been eating 50% of her meals. OBJECTIVE: The patient has been afebrile for the last 24 hours. Blood pressure 150/86, heart rate 101, respiratory rate 12, oxygen saturation 94% on 5 L per nasal cannula.HEENT: Pupils are equal and reactive. Oropharynx appears clear. Neck is supple. Chest reveals occasional rhonchi bilaterally. Cardiac: S1, S2. Abdomen is soft with positive bowel sounds. Extremities reveal trace to 1+ peripheral edema. DIAGNOSTIC STUDIES: Sodium 142, potassium 3.9, chloride 101, bicarbonate 34, BUN 17, creatinine 0.8. White blood count 7.61, hemoglobin 6.9, platelet 199,000. No new microbiology data. IMPRESSION: A 44-year-old with: 1. Right lower lobe pneumonia. 2. Hypoxemic respiratory failure. 3. Hypercapnic respiratory failure. 4. Immunoglobulin deficiency status post replacement. 5. Status post total abdominal colectomy. PLAN: 1. Continue bronchial hygiene. 2. Oral intake as tolerated. 3. BiPAP at bedtime and p.r.n. 4. Wean oxygen as tolerated. 5. Follow up chest x-ray tomorrow. cc: Tye Juarez MD
[2019-07-26] MEDS: HALDOL IV PRN (23:22)
[2019-07-27] MEDS: CARDIZEM PO SCH ×4 (00:59→20:48)
[2019-07-27] MEDS: LOPRESSOR IV SCH ×2 (00:59→09:17)
[2019-07-27] MEDS: VANCOMYCIN 1.3 GM in NS 250 ML IV SCH (00:59)
[2019-07-27] MEDS: XOPENEX NEB INH SCH ×4 (03:35→16:09)
[2019-07-27] MEDS: MAXIPIME 2 GM in NS 100 ML IV SCH ×3 (04:06→20:47)
[2019-07-27 04:38] LABS: ALLEN TEST YES; BE 13.3 mmoll (-3.0-3.0); BLOOD TYPE ARTERIAL; HCO3-(ACT) 35.2 mmoll (20.0-26.0); METHB 1.2 % (0.0-1.5); O2(CT) 11.8 mL/dL (15.0-23.0); PO2(98.6) 60 mmHg (60-100); SAMPLE BLOOD; SAO2 93.4 % (95.0-100.0); THB 9.2 g/dL (11.5-17.4); pH(98.6) 7.42 (7.35-7.45)
[2019-07-27 04:39] LABS: MODALITY VENTIMASK
[2019-07-27 04:40] LABS: PCO2(98.6) 61 mmHg (35-45)
[2019-07-27] MEDS: SYNTHROID PO SCH ×2 (05:50→06:07)
[2019-07-27] MEDS: REGLAN IV SCH ×3 (05:50→21:47)
[2019-07-27 06:14] LABS: BASO% 2.6 % (0.0-0.8); EOS# 0.69 X1000 (0.0-0.7); EOS% 5.9 % (0.0-10.0); HEMATOCRIT 29.6 % (37.0-47.0); HEMOGLOBIN 9.4 g/dL (12.0-16.0); IMM GRAN# 1.56 X1000 (0.0-0.04); IMM GRAN% 13.3 % (0.0-0.5); LYMPH# 2.04 X1000 (1.2-3.4); LYMPH% 17.4 % (20.5-51.1); MCH 30.6 PG (27-31); MCHC 31.8 g/dL (33-37); MCV 96.4 FL (81-99); MONO# 1.07 X1000 (0.11-0.59); MONO% 9.1 % (1.7-9.3); NEUT# 6.06 X1000 (1.4-6.5); NEUT% 51.7 % (42.2-75.2); PLT 491 X1000 (130-400); RBC 3.07 XMIL (4.2-5.4); RDW 15.5 % (11.5-14.5); WBC 11.72 X1000 (4.8-10.8)
[2019-07-27 06:35] LABS: AGAP 11; BUN 19 mg/dL (8-22); CALCIUM 10.8 mg/dL (8.8-10.2); CHLORIDE 100 mmol/L (98-107); COSMO 289; CREATININE 0.9 mg/dL (0.5-0.9); ESTIMATED GFR > 60; GLUCOSE 134 mg/dL (70-104); SODIUM 143 mmol/L (136-145); TCO2 32 mmol/L (25-35)
--- NOTE | 2019-07-27 06:41 | GENERAL SURGERY PROGRESS NOTE ---
DATE: 07/27/2019 Patient seems to be doing about the same. She is having ostomy output. She at least seems to be tolerating some oral intake. Incisions healing. Ostomy is functioning. There is air in the appliance. At this point, once she becomes a suitable candidate for long-term acute care (LTAC), we will try to send her. cc: Clint Lange MD
--- NOTE | 2019-07-27 06:45 | Diag Imaging Result Doc PS360 ---
EXAM: CHEST-PORTABLE HISTORY: abnormal exam TECHNIQUE: Chest single view COMPARISON: 07/25/2019 FINDINGS: Poor inspiratory effort. There are increased interstitial markings throughout both lungs with more dense consolidation in the right lower lobe. There is a small right pleural effusion. No change in the right-sided PICC line. IMPRESSION: Mild interval worsening. Electronically signed by Romel Marsh 07/27/2019 6:43 AM
[2019-07-27] MEDS: MIRALAX PO SCH (09:11)
[2019-07-27] MEDS: ANUSOL-HC CREAM PR SCH ×3 (09:12→20:51)
[2019-07-27] MEDS: LEVAQUIN 750 MG/D5W 750 MG/150 ML IVPB IV SCH (09:12)
[2019-07-27] MEDS: PAXIL PO SCH ×2 (09:15→20:48)
[2019-07-27] MEDS: MYLICON PO SCH ×4 (09:16→20:48)
[2019-07-27] MEDS: DEPAKENE LIQUID NG SCH ×4 (09:17→20:49)
[2019-07-27] MEDS: PERIDEX MT SCH ×2 (09:17→20:49)
--- NOTE | 2019-07-27 09:51 | PROGRESS NOTE ---
DATE: 07/27/2019 SUBJECTIVE: The patient is nonverbal, resting in bed, no acute distress. Medical Billing Instructor is at the bedside trying to wake the patient up to give her breakfast. OBJECTIVE: Vital Signs: Temperature is 98.9 degrees, pulse of 97, respirations of 16, blood pressure is 134/90, oxygen saturation 94% on nasal cannula rate of 5 L. The patient's weight is 165 pounds. BMI is 30.3 kg/m2. General appearance: She is resting in bed without any acute distress. Nonverbal and unable to assess her. HEENT: Pale conjunctivae. No icterus. PERRL. Neck: Supple. Lungs: Decreased breath sounds with wheezing present in the anterior durham. Cardiovascular: Regular rate and rhythm. No rubs, murmurs, or gallops heard on auscultation. Abdomen: Soft, distended. Midline surgical scar. Colostomy draining brown stools. No blood noted. Extremities: There is no cyanosis, no clubbing. Generalized edema noted in the lower extremities bilaterally. Neurologic: Nonverbal, unable to assess, but moving all extremities spontaneously. LABORATORY DATA: For today, WBC was 11.72, RBC is 3.07, hemoglobin is 9.4, hematocrit is 29.6, platelet count is 291,000. Her PT was 13.1, and INR was 0.98. Blood gases: Her pH was 7.42, pCO2 was 61, PO2 was 60, HC03 was 35.2. Chemistry: Sodium 143, potassium 4.0, chloride 100, carbon dioxide 32, anion gap was 11, BUN was 19, creatinine was 0.9, calcium was 10.8. Urinalysis showed trace of protein, trace of ketones and moderate blood. The patient has a Tam which is draining yellow urine. IMPRESSION: 1. Acute hypoxemia. 2. Respiratory failure. 3. Bilateral pneumonia. 4. 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 5. Protein calorie malnutrition. 6. Suspected seizures. 7. Cerebral palsy. PLAN: Currently the patient is on oxygen 5 L nasal cannula and on Bipap at night. We will continue with GI prophylaxis. The patient is on antibiotic vancomycin and cefepime per infectious disease. Patient is on soft diet and able to eat with assistance if she is awake. We will continue to follow the plan of care as per the primary care and the respiratory team. This plan was discussed with Dr. Grimm. Please give call us for any further questions or concerns. Dictated by ROGER Arias for Ha Grimm MD cc: Ha Grimm MD I have seen and examined the above patient myself. I agree with the above assessment and plan of care. Please call us with any questions or concerns. [facility]
[2019-07-27 10:12] LABS: BANDS 2 % (0-1); EOS 10 % (1-10); LARGE PLATELETS 2+; LYMPHS 32 % (21-51); SEGS 54 % (42-75)
[2019-07-27] MEDS: MUCOMYST 20% INH SCH ×2 (11:47→19:19)
--- NOTE | 2019-07-27 12:03 | PROGRESS NOTE ---
DATE: 07/27/2019 SUBJECTIVE: The patient has no major complaints. She is nonverbal but she is tracking. Her mental status is much improved. OBJECTIVE: Blood pressure 120/76, heart rate of 96, respiratory rate of 20, temperature 98.1 degrees, 96% on 5 L. Cardiovascular: Regular rate and rhythm. Pulmonary: Bilateral breath sounds diminished at the bases. GI: Soft, nontender, nondistended. Bowel sounds were positive. Laboratory Data: White count is 11, hemoglobin and hematocrit 9 and 29, platelets 491,000. PH 7.42, pCO2 of 61, PaO2 of 60. Potassium is a little bit high at 10.8, which has kind of been low- high this whole time. PROBLEM LIST: 1. Acute hypoxic and hypercapnic respiratory failure. She is on oxygen. Apparently, she is not requiring BiPAP. 2. Bilateral pneumonia. She is on vancomycin, cefepime, and Levaquin. Her x-ray looks a little worse. We will try to work as best we can on her pulmonary toilet. It is difficult because she has severe intellectual impairment issues. We may add some Mucomyst to her regimen. 3. Toxic megacolon, status post total colectomy, now with an ileostomy. She seems to have decent output and is doing okay from that standpoint. She is on an oral diet which is pureed. 4. Protein calorie malnutrition, moderate. She seems to be doing okay from that standpoint. 5. Disposition. We are looking at placement, possibly long-term acute care versus other but we will continue to follow. cc: Abdoulaye Guy MD
[2019-07-27] MEDS: SEROQUEL PO SCH ×2 (13:25→20:49)
[2019-07-27] MEDS ORDERED: LOPRESSOR PO SCH (14:00)
--- NOTE | 2019-07-27 14:45 | INFECTIOUS DISEASE PROGRESS NO ---
DATE: 07/27/2019 PRESENT ILLNESS: The patient is being treated for a postoperative bilateral pneumonia. She also has an immunoglobulin deficiency. MEDICATIONS: This is the eleventh day of treatment with vancomycin and cefepime, and the seventh day of treatment with Levaquin. The patient also had an immunoglobulin deficiency, and she has been given an infusion of IVIG. PHYSICAL EXAMINATION: Vital Signs: Temperature is 98.1 degrees, pulse 93, respirations 19, blood pressure 120/76. General: This is an ill-appearing, middle-aged female. She is in no acute distress. HEENT: She is wearing oxygen prongs, and no mask. There is no drainage from the nose or ears. NG tube is gone. Neck: No pain with movement of her neck. Lungs: Clear to auscultation. Cardiovascular: Regular heart rate. Abdomen: Protuberant. The incision is intact, and the ileostomy is functioning well. Neurologic: The patient's eyes are open. She is moving around in bed. She does not have a tremor. Extremities: The patient has a PICC in the right arm. The site is not erythematous or purulent. IMAGING AND LABORATORY DATA: Chest x-ray shows worsening of the bilateral infiltrates. Creatinine is 0.9. GFR is greater than 60. Blood gases show a pH of 7.42, a PO2 of 60, and a PCO2 of 61. CBC shows a white count of 11,720, hemoglobin 9.4, and platelet count 491,000. The patient's procalcitonin was 0.19, which translates into making pneumonia unlikely. ASSESSMENT AND PLAN: The patient has bilateral pneumonia. I think that at most, the patient will need another week of antibiotics. She will not need another infusion of intravenous immunoglobulin for many weeks. COMORBIDITIES: The patient is postop from a total colectomy. She has cerebral palsy and gastroesophageal reflux disease. cc: Javier Mchugh MD
[2019-07-27] MEDS ORDERED: DUONEB (A & A) INH PRN (16:52)
[2019-07-27] MEDS: DILAUDID IV PRN (17:30)
--- NOTE | 2019-07-27 18:03 | Diag Imaging Result Doc PS360 ---
CHEST-PORTABLE - 07/27/2019 INDICATION: aspiration pneumonia COMPARISON: 5:39 AM FINDINGS: Lung volumes remain critically low. Stable right PICC line. There has been moderate improvement in the central interstitial infiltrates bilaterally most suggestive of pulmonary edema. Stable consolidation with volume loss at the right lung base most likely due to collapse, probably airway obstruction. IMPRESSION: Significant improvement in the background bilateral infiltrates/pulmonary edema. Other abnormalities remain unchanged. Electronically signed by Rex Day 07/27/2019 6:01 PM
[2019-07-27] MEDS: DUONEB (A & A) INH SCH ×2 (19:19→23:07)
[2019-07-27] MEDS: REMERON SOLTAB PO SCH (20:48)
[2019-07-27] MEDS: RISPERDAL PO SCH (20:48)
[2019-07-28] MEDS: VANCOMYCIN 1.3 GM in NS 250 ML IV SCH (01:33)
[2019-07-28] MEDS: DILAUDID IV PRN ×4 (01:36→20:30)
[2019-07-28] MEDS: CARDIZEM PO SCH ×4 (01:37→20:27)
[2019-07-28] MEDS: DUONEB (A & A) INH SCH ×7 (03:11→23:18)
[2019-07-28] MEDS: MAXIPIME 2 GM in NS 100 ML IV SCH ×3 (04:02→20:31)
[2019-07-28] MEDS: REGLAN IV SCH ×4 (05:59→22:21)
[2019-07-28] MEDS: SYNTHROID PO SCH (05:59)
[2019-07-28 06:18] LABS: MAGNESIUM 1.6 mg/dL (1.5-2.7); PHOSPHORUS 4.1 mg/dL (2.7-4.5)
[2019-07-28 06:22] LABS: BASO# 0.08 X1000 (0.0-0.2); BASO% 0.6 % (0.0-0.8); EOS# 0.74 X1000 (0.0-0.7); EOS% 5.7 % (0.0-10.0); HEMOGLOBIN 8.6 g/dL (12.0-16.0); IMM GRAN# 1.83 X1000 (0.0-0.04); IMM GRAN% 14.1 % (0.0-0.5); LYMPH# 2.04 X1000 (1.2-3.4); LYMPH% 15.8 % (20.5-51.1); MCHC 30.7 g/dL (33-37); MCV 97.6 FL (81-99); MONO# 1.39 X1000 (0.11-0.59); MONO% 10.7 % (1.7-9.3); MPV 10.4 FL (7.4-10.4); NEUT# 6.86 X1000 (1.4-6.5); NEUT% 53.1 % (42.2-75.2); PLT 449 X1000 (130-400); RBC 2.87 XMIL (4.2-5.4); RDW 14.9 % (11.5-14.5); WBC 12.94 X1000 (4.8-10.8)
[2019-07-28 06:27] LABS: CREATININE 1.2 mg/dL (0.5-0.9); POTASSIUM 4.2 mmol/L (3.5-5.1)
[2019-07-28] MEDS: MUCOMYST 20% INH SCH ×2 (07:52→19:09)
--- NOTE | 2019-07-28 08:14 | GENERAL SURGERY PROGRESS NOTE ---
DATE: 07/28/2019 SUBJECTIVE: The patient seems to be doing about the same. No new events noted. She is having ileostomy output. We will continue to follow while she is in the hospital. Nothing new to add at this point. cc: Clint Lange MD
[2019-07-28 08:16] LABS: BANDS 2 % (0-1); EOS 2 % (1-10); LYMPHS 32 % (21-51); MONO 3 % (1-9); SEGS 57 % (42-75)
--- NOTE | 2019-07-28 08:20 | INFECTIOUS DISEASE PROGRESS NO ---
DATE: 07/28/2019 PRESENT ILLNESS: The patient has postoperative bilateral pneumonia. She also has an immunoglobulin deficiency. MEDICATIONS: This is the twelfth day of treatment with the combination of vancomycin and cefepime, and the eighth day of treatment with Levaquin. The patient has received an infusion of IVIG for her immunoglobulin deficiency, and will not need another one for many weeks. PHYSICAL EXAMINATION: Vital Signs: Temperature is 98.1 degrees, pulse 110, respirations 19, blood pressure 135/87. General: This is an ill-appearing, middle-aged female. She is in no acute distress. HEENT: The patient is wearing oxygen prongs. There is no drainage from her nose or ears. I was unable to get a good view of her mouth. Neck: She does not seem to have any pain when she moves her neck. Lungs: Clear to auscultation. Cardiovascular: Regular heart rate. Abdomen: Remains protuberant. The incision is intact, and the ileostomy is functioning. Neurologic: The patient's eyes are open. She seems to be in a slight delirium. She did not follow request to move her extremities. Extremities: The patient has a PICC in the right arm. The site is not erythematous or tender. IMAGING AND LABORATORY DATA: There is no new radiographic study. CBC and BMP have been ordered for today, but are not present at this time. The patient's most recent chest x-ray shows there is improvement in the bilateral infiltrates/pulmonary edema. ASSESSMENT AND PLAN: The patient may well have a postoperative pneumonia. My plan for now is to continue the patient's antibiotics for a few more days. I have also ordered a repeat procalcitonin. As mentioned above, the patient will not need another immunoglobulin infusion for many weeks. COMORBIDITIES: The patient is postop from a total colectomy. She also has cerebral palsy and gastroesophageal reflux disease. cc: Javier Mchugh MD
[2019-07-28] MEDS: PAXIL PO SCH ×2 (08:29→20:28)
[2019-07-28] MEDS: MYLICON PO SCH ×4 (08:29→20:29)
[2019-07-28] MEDS: PERIDEX MT SCH ×2 (08:30→20:28)
[2019-07-28] MEDS: MIRALAX PO SCH (08:30)
[2019-07-28] MEDS: LEVAQUIN 750 MG/D5W 750 MG/150 ML IVPB IV SCH (08:30)
[2019-07-28] MEDS: DEPAKENE LIQUID NG SCH ×4 (08:30→20:27)
[2019-07-28] MEDS: ANUSOL-HC CREAM PR SCH ×3 (08:37→20:30)
[2019-07-28] MEDS ORDERED: NS 1,000 ML IV ONE (10:42)
[2019-07-28] MEDS: SEROQUEL PO SCH ×2 (12:37→20:27)
--- NOTE | 2019-07-28 12:55 | PROGRESS NOTE ---
DATE: 07/28/2019 SUBJECTIVE: The patient has no major complaints. She is at her baseline. She tracks with eye movements. OBJECTIVE: Vital Signs: Blood pressure 113/68, heart rate of 126, respiratory rate of 19, temperature 98.6 degrees, saturating 92% on 5 L. Cardiovascular: Regular rate and rhythm. Pulmonary: Bilateral breath sounds. Clear to auscultation. GI: Soft, nontender, nondistended. Bowel sounds are positive. She is definitely distended, but she has ostomy output. LABORATORY DATA: White count is 12, hemoglobin and hematocrit 8 and 28, platelets 449. Creatinine is up to 1.2, her calcium is up to 11, which I am not sure what that is associated with. She is not getting any supplementation that I can tell. PROBLEM LIST: 1. Toxic megacolon, status post ileostomy. She seems to be doing okay from a surgical standpoint. 2. Acute hypoxic hypercapnic respiratory failure. She is stable on oxygen. I think she is off bilevel positive airway pressure. 3. Bilateral pneumonia. Chest x-ray looks worse, but clinically she looks about the same. Her x- ray though today, according to Dr. Day, is read as much improved. She still has an infiltrate at the right base. I do not know if that is an effusion. It looks like, but maybe give her a bit more diuretic, but she is on multiple agents, which include Levaquin (day 6), cefepime, and vancomycin. I have stopped her vancomycin because her creatinine level is elevated. Her last trough level was 20, and her current level today is 31, but I think she was dosed this evening, so we will see what Dr. Mchugh says, although I think he has already seen the patient today, and a procalcitonin level. 4. Protein calorie malnutrition. She is tolerating by mouth without difficulty. 5. Disposition. We are looking at long-term acute care versus [facility]. The [facility] will not be able to manage her because of her ostomy, so I do not know if we are maybe having to look at more long-term placement, but we will follow. cc: Abdoulaye Guy MD
--- NOTE | 2019-07-28 13:26 | PROGRESS NOTE ---
DATE: 07/28/2019 SUBJECTIVE: Ms. Singh is nonverbal, resting in bed, in no acute distress. Compressor Service Technician is at the bedside, who mentioned that the patient had her breakfast but she ate a small amount. OBJECTIVE: Vital Signs: Temperature is 98.6 degrees, pulse rate is 126, respirations are 19, blood pressure is 103/68, oxygen is 97%. Her weight is 157 pounds.BMI is 28.8 kg/m2. General Appearance: She is resting in bed without any acute distress, nonverbal and unable to assess. She is on oxygen 5L NC. HEENT: Pale conjunctivae. No icterus. PERRL. Neck: Supple. Lungs: Decreased breath sounds and some wheezing heard in the anterior durham. Cardiovascular: Regular rate and rhythm. No rubs, murmurs, or gallops heard on auscultation. Abdomen: Hard, distended. Midline surgical incision dry and intact. Colostomy draining brown stools. Bowel sounds heard in all 4 quadrants. Extremities: No cyanosis, no clubbing but generalized edema in the lower extremities and pulses present +2 bilaterally. Neuro: Nonverbal, unable to assess, but moving all extremities spontaneously. LAB WORK: WBC is 12.94, RBC is 2.87, hemoglobin is 8.6, hematocrit is 28, platelet count is 449,000. Blood gases: PH is 7.42, pCO2 is 61, PO2 is 60, HC03 is 35.2. Chemistry: Sodium is 139, potassium 4.2, chloride is 99, carbon dioxide is 33, anion gap 7, BUN is 23, creatinine is 1.2, calcium 11. Imaging: The chest x-ray showed significant improvement in the background, bilateral infiltrates/pulmonary edema. Other abnormalities remain unchanged. ASSESSMENT AND PLAN: 1. Acute hypoxemia 2. Respiratory failure 3. Bilateral pneumonia 4. 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 Protein calorie malnutrition 6. Suspected seizures 7. Cerebral palsy PLAN: Current plan is to continue her GI prophylaxis, start miralax and stop her simethicone. Continue antiemetics Reglan and Zofran. She is on antibiotics maxipine, levaquin, and vancomycin. Patient is on a soft diet, and is able to eat with assistance.We will follow the plan of care as per her primary care team, manager control, and the surgical team. This plan was discussed with Dr. Ortega. Please give us a call for any further questions or concerns. Please forward this note to Dr. Ortega Dictated by ROGER Arias for Jeanmarie Ortega MD I have seen and examined the patient. I have reviewed the labs, imaging, and other documentation. I discussed the case with Yanique Gamble LENS GENERATING MACHINE TENDER and agree with the findings and plan as documented. Ms. Singh is a 44 year old woman admitted with toxic megacolon s/p total colectomy with end ileostomy. Course complicated by post-operative ileus, aspiration pneumonia, hypoxic respiratory distress, and protein calorie malnutrition. Her PO intake is at baseline per caregiver. Sketcher is following. Agree with bowel regimen and continued reglan use, which can be transitioned to PO. Stop simethicone. Will sign off. Please call with questions. cc: Jeanmarie Ortega MD [facility]
--- NOTE | 2019-07-28 18:28 | PROGRESS NOTE ---
DATE: 07/28/2019 SUBJECTIVE: Ms. Singh is doing better. She was being fed, and her tummy feels better. She has not had any recent seizures. Breathing comfortably. OBJECTIVE: Temperature 98.7 degrees, pulse 120, respirations 16, blood pressure 142/88. Pupils are equal and round. Lungs are clear in all lung durham.Cardiovascular: Regular rhythm and rate without murmur or S3. Urine output is 3000 mL. ASSESSMENT AND PLAN: 1. Toxic megacolon, status post ileostomy, status post colectomy. 2. Acute hypoxemic hypercapnic respiratory failure, stable on oxygen. Been off bilevel positive airway pressure. 3. Bilateral pneumonia. X-ray actually looks worse, but clinically, she seems to be doing better. Still has infiltrate in the right base. I do not know if that is an effusion. It looks like it may be. Give her a little more diuretic and see how we do. She is on multiple antibiotics, Levaquin, cefepime, vancomycin. 4. Protein-calorie malnutrition. She is eating better p.o. 5. History of seizures. ORDERS: Looking at her orders, she is on which is mirtazapine 7.5 mg p.o. at bedtime. She is on Risperdal 1 mg at bedtime, acetylcysteine inhalation b.i.d., albuterol/ipratropium 3 mL inhalation q.2 h. p.r.n., Cardizem 60 mg p.o. q.6 h., levofloxacin 750 mg IV q.24 h., Synthroid 50 mcg p.o. daily, cefepime 2 g IV q.8 h., Reglan 10 mg IV q.8 h., normal saline 100 mL an hour, Paxil 30 mg p.o. b.i.d., MiraLAX 17 g daily, Seroquel 50 mg daily, and then I think that is a 1300 in 200 mg daily at 1999. cc: Neil Gonzalez MD [facility]
[2019-07-28] MEDS: RISPERDAL PO SCH (20:27)
[2019-07-28] MEDS: REMERON SOLTAB PO SCH (20:28)
[2019-07-29] MEDS: DILAUDID IV PRN ×3 (00:59→20:04)
[2019-07-29] MEDS: CARDIZEM PO SCH ×4 (00:59→20:06)
[2019-07-29] MEDS: DUONEB (A & A) INH SCH ×3 (03:08→11:01)
[2019-07-29] MEDS: MAXIPIME 2 GM in NS 100 ML IV SCH (04:04)
[2019-07-29] MEDS: REGLAN IV SCH ×5 (05:17→21:55)
[2019-07-29] MEDS: SYNTHROID PO SCH ×2 (05:17→06:18)
[2019-07-29 06:21] LABS: CALCIUM 10.9 mg/dL (8.8-10.2); CREATININE 1.4 mg/dL (0.5-0.9); POTASSIUM 4.5 mmol/L (3.5-5.1)
[2019-07-29 06:25] LABS: BASO# 0.12 X1000 (0.0-0.2); BASO% 0.8 % (0.0-0.8); EOS# 0.81 X1000 (0.0-0.7); EOS% 5.6 % (0.0-10.0); HEMATOCRIT 28.1 % (37.0-47.0); HEMOGLOBIN 8.8 g/dL (12.0-16.0); IMM GRAN# 1.71 X1000 (0.0-0.04); IMM GRAN% 11.8 % (0.0-0.5); LYMPH# 2.16 X1000 (1.2-3.4); LYMPH% 14.9 % (20.5-51.1); MCH 30.1 PG (27-31); MCHC 31.3 g/dL (33-37); MCV 96.2 FL (81-99); MONO# 1.84 X1000 (0.11-0.59); MONO% 12.7 % (1.7-9.3); MPV 10.3 FL (7.4-10.4); NEUT# 7.84 X1000 (1.4-6.5); NEUT% 54.2 % (42.2-75.2); PLT 416 X1000 (130-400); RBC 2.92 XMIL (4.2-5.4); RDW 14.4 % (11.5-14.5); WBC 14.48 X1000 (4.8-10.8)
[2019-07-29 07:20] LABS: EOS 4 % (1-10); LYMPHS 13 % (21-51); MONO 13 % (1-9); SEGS 70 % (42-75)
[2019-07-29] MEDS: MUCOMYST 20% INH SCH ×2 (07:59→19:19)
[2019-07-29] MEDS: LEVAQUIN 750 MG/D5W 750 MG/150 ML IVPB IV SCH (08:22)
[2019-07-29] MEDS: MIRALAX PO SCH (08:23)
[2019-07-29] MEDS: MYLICON PO SCH ×4 (08:23→20:08)
[2019-07-29] MEDS: PAXIL PO SCH ×2 (08:24→20:05)
[2019-07-29] MEDS: DEPAKENE LIQUID NG SCH ×4 (08:24→20:04)
[2019-07-29] MEDS: PERIDEX MT SCH ×2 (08:24→20:04)
[2019-07-29] MEDS: ANUSOL-HC CREAM PR SCH ×3 (08:24→20:09)
--- NOTE | 2019-07-29 08:57 | GENERAL SURGERY PROGRESS NOTE ---
DATE: 07/29/2019 The patient seems to be doing okay. She is about at her baseline. She is having ostomy output. She seems to be tolerating her diet. There seems to be some potential for her to go LTAC today and hopefully they can make it arranged. If not, hopefully she can go to the LTAC soon. cc: Clint Lange MD
[2019-07-29] MEDS: HALDOL IV PRN (10:05)
[2019-07-29] MEDS: ZYVOX 600 MG/D5W 600 MG/300 ML IVPB IV SCH ×3 (10:56→21:55)
--- NOTE | 2019-07-29 10:58 | Diag Imaging Result Doc PS360 ---
EXAM: CHEST-PORTABLE 07/29/2019 HISTORY: pneumonia TECHNIQUE: AP portable at 1039 COMMENT: There is worsening alveolar opacification of both lungs compared to 07/27/2019. There is still a PICC line with its tip in the right atrium on the right. IMPRESSION: Worsening pulmonary edema and/or pneumonia. Electronically signed by Roger Lockwood 07/29/2019 10:56 AM
--- NOTE | 2019-07-29 11:02 | INFECTIOUS DISEASE PROGRESS NO ---
DATE: 07/29/2019 PRESENT ILLNESS: The patient is being treated for postoperative bilateral pneumonia. She also has an immunoglobulin deficiency. Yesterday, her creatinine started getting higher and vancomycin was discontinued. MEDICATIONS: This is the 13th day of treatment with cefepime. As I mentioned above, the patient's creatinine was elevated yesterday and I stopped vancomycin. The patient has been on Levaquin now for 9 days. The patient has received an IV Ig infusion for the patient's immunoglobulin deficiency. PHYSICAL EXAMINATION: Vital Signs: Temperature is 98 degrees, pulse 110, respirations 28, blood pressure is 148/82. General: This is an ill-appearing middle-aged female. She is in no acute distress. Head/eyes/ears/nose/throat: She appears to be able to hear my spoken words and see near objects. I did not see any drainage coming from her nose or ears. Neck: She did not seem to have any pain when she was moving her neck. Lungs: Clear to auscultate auscultation. Cardiovascular: Heart rate is regular. Abdomen: Protuberant. It is soft and nontender. The incision is intact and the ileostomy is working well. Neurologic: The patient is awake. She is moving around in bed. There is no tremor. Extremities: Patient has a PICC in the right arm. The site is not purulent or swollen. LAB AND X-RAY: Chest x-ray shows improvement in the patient's infiltrates. The CBC shows a white count of 14,480, hemoglobin 8.8, platelet count 416,000, creatinine is 1.4. GFR is 41. ASSESSMENT AND PLAN: The patient has a postoperative pneumonia. Unfortunately, her creatinine is increasing. The patient also has an immunoglobulin deficiency. For now, I am going to continue with cefepime and Levaquin. Yesterday vancomycin was discontinued and for tomorrow I have ordered a CBC, a BMP and a chest x-ray. COMORBIDITIES: The patient is postoperative total colectomy. She also has cerebral palsy and gastroesophageal reflux disease. cc: Javier Mchugh MD [facility]
[2019-07-29] MEDS ORDERED: NS 1,000 ML IV ONE (11:42)
[2019-07-29] MEDS ORDERED: LASIX IV ONE (11:44)
[2019-07-29] MEDS ORDERED: NS NEB INH SCH (11:45)
[2019-07-29 12:08] LABS: UR CREAT RANDOM 25.5 mg/dL (11-20); UR PROT RANDOM 68.9 mg/dL
[2019-07-29] MEDS: SEROQUEL PO SCH ×2 (12:22→20:05)
[2019-07-29] MEDS: ZOSYN 3.375 GM in NS 50 ML IV SCH ×3 (12:24→23:05)
--- NOTE | 2019-07-29 12:25 | PROGRESS NOTE ---
DATE: 07/29/2019 SUBJECTIVE: She is at her baseline. She is not verbal. OBJECTIVE: Vital Signs: Blood pressure 129/89, heart rate of 129, respiratory rate 11, temperature 97.5 degrees, satting 95% on 2 L. Cardiovascular: Regular rate and rhythm. Pulmonary: Bilateral breath sounds diminished at the bases. GI: Soft, nontender, nondistended. Bowel sounds are positive. LABORATORY DATA: White count is up to 14, hemoglobin and hematocrit 8.8 and 28, platelets of 416. Creatinine is up to 1.4, calcium of 10.9. PTH was low at 10. PROBLEM LIST: 1. Toxic megacolon status post ileostomy. That appears to be stable. She is tolerating oral. 2. Acute hypoxic hypercapnic respiratory failure. She is on oxygen, which is stable off BiPAP. 3. Bilateral pneumonia. Chest x-ray is worse today, although it had improved. She is on antibiotics--Levaquin, cefepime and vancomycin. We stopped the vancomycin yesterday because of elevated creatinine and elevated vancomycin levels, and we will continue to follow. 4. Protein calorie malnutrition issues. She is on oral and doing okay. 5. Acute kidney injury. We will check urine electrolytes. I would like to give her some hydration, but it looks like she may need some fluids just because I think she may have gotten vancomycin toxicity. DISPOSITION: Unfortunately with the worsening renal function, white count and chest x-ray looking worse, I do not think LTAC is probably the best option for her. She is not ready for that right now. Her x-ray looks much worse compared to yesterday. There may have been an aspiration event a couple days ago, but now it has gotten much worse. In any case, the patient is stabilizing. We will continue to follow. I have switched her to Zyvox at the discretion of Dr. Mchugh, but I do not want to stop her antibiotics if we may need to do aspiration coverage. She has been on Levaquin and cefepime. I am going to put her on Zosyn in case this is an aspiration type event and leave her on the Zyvox. cc: Abdoulaye Guy MD
[2019-07-29] MEDS ORDERED: LOPRESSOR PO SCH (14:00)
[2019-07-29] MEDS: XOPENEX NEB INH SCH ×3 (16:32→23:31)
[2019-07-29] MEDS: ATROVENT NEB INH SCH ×3 (16:32→23:31)
[2019-07-29] MEDS: LOPRESSOR PO SCH ×2 (17:31→23:05)
[2019-07-29] MEDS: REMERON SOLTAB PO SCH (20:07)
[2019-07-29] MEDS: RISPERDAL PO SCH (20:08)
[2019-07-30] MEDS: CARDIZEM PO SCH ×4 (00:59→21:27)
[2019-07-30] MEDS: DILAUDID IV PRN ×2 (00:59→05:54)
[2019-07-30] MEDS: XOPENEX NEB INH SCH ×6 (03:17→23:46)
[2019-07-30] MEDS: ATROVENT NEB INH SCH ×6 (03:17→23:46)
[2019-07-30] MEDS: LOPRESSOR PO SCH ×3 (05:54→18:22)
[2019-07-30] MEDS: ZOSYN 3.375 GM in NS 50 ML IV SCH (05:55)
[2019-07-30] MEDS: SYNTHROID PO SCH (06:02)
[2019-07-30] MEDS: REGLAN IV SCH (06:17)
--- NOTE | 2019-07-30 06:36 | GENERAL SURGERY PROGRESS NOTE ---
DATE: 07/30/2019 SUBJECTIVE: Patient seems to be doing about the same. No major issues reported by the nursing staff. She is still having ostomy output. From a surgical point of view once everything can be arranged she can be discharged to the LTAC. cc: Clint Lange MD
--- NOTE | 2019-07-30 06:38 | Diag Imaging Result Doc PS360 ---
CHEST-1 VIEW - 07/30/2019 INDICATION: pneumonia COMPARISON: 07/29/2019 FINDINGS: Stable right PICC line in good position. There has been improvement in the right basilar opacification. There is some persistent volume loss here. There is probably partial collapse of the right lower lobe. There has been improvement in the dense central infiltrates/pulmonary edema. Heart size remains top normal. IMPRESSION: Overall significant improvement from prior. Electronically signed by Rex Day 07/30/2019 6:36 AM
[2019-07-30 06:40] LABS: BASO# 0.08 X1000 (0.0-0.2); BASO% 0.6 % (0.0-0.8); EOS# 0.62 X1000 (0.0-0.7); HEMATOCRIT 28.5 % (37.0-47.0); HEMOGLOBIN 8.9 g/dL (12.0-16.0); IMM GRAN# 1.36 X1000 (0.0-0.04); IMM GRAN% 10.9 % (0.0-0.5); LYMPH# 1.52 X1000 (1.2-3.4); LYMPH% 12.2 % (20.5-51.1); MCH 29.9 PG (27-31); MCHC 31.2 g/dL (33-37); MCV 95.6 FL (81-99); MONO# 1.43 X1000 (0.11-0.59); MONO% 11.5 % (1.7-9.3); MPV 10.3 FL (7.4-10.4); NEUT# 7.42 X1000 (1.4-6.5); NEUT% 59.8 % (42.2-75.2); PLT 413 X1000 (130-400); RBC 2.98 XMIL (4.2-5.4); WBC 12.43 X1000 (4.8-10.8)
[2019-07-30 07:05] LABS: CALCIUM 11.3 mg/dL (8.8-10.2); CREATININE 2.5 mg/dL (0.5-0.9); POTASSIUM 4.4 mmol/L (3.5-5.1)
[2019-07-30] MEDS: MUCOMYST 20% INH SCH ×2 (08:23→19:36)
[2019-07-30] MEDS ORDERED: NS 1,000 ML IV ONE (08:59)
[2019-07-30] MEDS: PAXIL PO SCH ×2 (09:11→21:41)
[2019-07-30] MEDS: MYLICON PO SCH ×4 (09:12→21:27)
[2019-07-30] MEDS: DEPAKENE LIQUID NG SCH ×3 (09:13→16:11)
[2019-07-30] MEDS: MIRALAX PO SCH (09:14)
[2019-07-30] MEDS: PERIDEX MT SCH ×2 (09:15→21:28)
[2019-07-30] MEDS: ANUSOL-HC CREAM PR SCH ×3 (09:15→21:28)
--- NOTE | 2019-07-30 11:37 | Diag Imaging Result Doc PS360 ---
US RENAL 2 (RETROPER) COMPLETE - 07/30/2019 INDICATION: komal/arf TECHNIQUE: COMPARISON: 02/11/2014 FINDINGS: There is a small amount of ascites present. The kidneys and urinary bladder are normal. The right kidney measures 9.9 x 4.9 x 5.8 cm. The left kidney measures 10.2 x 4.7 x 5.8 cm. There is a Tam catheter in the urinary bladder. IMPRESSION: 1. Normal exam of the urinary tract. 2. Trace ascites. Electronically signed by Rex Day 07/30/2019 11:34 AM
[2019-07-30] MEDS: ZOSYN 2.25 GM in NS 50 ML IV SCH ×2 (11:48→18:22)
[2019-07-30] MEDS: ZYVOX 600 MG/D5W 600 MG/300 ML IVPB IV SCH (11:48)
--- NOTE | 2019-07-30 14:14 | PROGRESS NOTE ---
DATE: 07/30/2019 SUBJECTIVE: Patient with no complaint. OBJECTIVE: Blood pressure 103/74, heart rate 89, respirations 16 to 60, temperature 98.3 degrees, and 95 percent on room air.Cardiovascular: Regular rate and rhythm. Pulmonary: Bilateral breath sounds. Clear to auscultation. GI: Soft, nontender, and nondistended. Bowel sounds are positive. LABORATORY DATA: White count is 12, hemoglobin and hematocrit 8.9 and 28, and platelets 413,000. Creatinine is up to 2.5. Calcium is up to 11.3. Albumin 2.5. Procalcitonin is a little bit elevated. Her random vanc today is 19. Her renal ultrasound is normal. PROBLEM LIST: 1. Her major issue today is acute kidney injury which has been progressive. I do not have a clear reason otherwise. Nephrology has been consulted. Appreciate their thorough evaluation. I think at this point I really think this is related to vancomycin. Her trough level is above 20. The day that her creatinine increased, it was above 30. Urine electrolytes consistent with ATN so we will continue to monitor. I put her on fluids. I am not sure if those were continued or discontinued. We are okay. We are going to give her 1 bag and follow. 2. Pneumonia. She is doing well. I have put her on Zyvox and Zosyn. I do not know if Dr. Mchugh, just because of possible aspiration. Her white count has come down, and her x-ray has improved. 3. Disposition. Once her kidney function is improved, I anticipate she should be able to be discharged hopefully in the next 1 to 2 days. cc: Abdoulaye Guy MD
[2019-07-30] MEDS: SEROQUEL PO SCH ×2 (16:09→21:26)
[2019-07-30 16:37] LABS: URINE SOURCE CATH
[2019-07-30 16:40] LABS: BILIRUBIN URINE NEGATIVE (NEGATIVE); BLOOD URINE MODERATE (NEGATIVE); COLOR YELLOW; GLUCOSE URINE NEGATIVE (NEGATIVE); KETONE URINE NEGATIVE (NEGATIVE); LEUKOCYTES URINE MODERATE (NEGATIVE); NITRITE URINE NEGATIVE (NEGATIVE); PROTEIN URINE 200 mg/dL (NEGATIVE); SP GRAVITY URINE 1.014; TURBIDITY URINE HAZY (CLEAR); UROBILINOGEN URINE NORMAL (NORMAL)
[2019-07-30 16:41] LABS: UR EPITHELIAL CELLS <10 /HPF (<10); URINE BACTERIA NEGATIVE /HPF; URINE RBC TNTC /HPF (<10); URINE WBC 20-40 /HPF (<10)
--- NOTE | 2019-07-30 20:23 | NEPHROLOGY PROGRESS NOTE ---
DATE: 07/30/2019 DATE AND TIME SEEN: On 07/30/2019 at 1250 hours. SUBJECTIVE: Ms. Singh is a 44-year-old white female who has had a lengthy hospital stay secondary to a small bowel obstruction with colectomy. We had originally been on her case for a short period of time and had signed off on 07/08/2019 secondary to improvement in her BUN and an improvement in her urine output. The patient's creatinine was fairly stable at 0.4/ BUN had come down nicely to 13, and her urine output had improved. Unfortunately, during her hospital stay in the last 3 to 4 days, the patient has had an elevation in her BUN and creatinine. Urine output remains stable, but now she is exhibiting hypercalcemia with a calcium level of 11.3, BUN 31, creatinine 2.5, and a hemoglobin dropped to 8.9. We have been asked to evaluate the patient. It is felt that her medical changes occurred around the 17 of this month. It was noted that she did have at that time a drop in blood pressure, drop in hemoglobin at which time she received 1 unit of packed red blood cells. In this context, she had also been on vancomycin with a random vancomycin level of 30. The patient now has bilateral pneumonia. Her vancomycin level is now improved to 19.5. The patient has had a renal ultrasound. This is currently pending. Urine electrolytes indicate a FENa score of 6.34%. OBJECTIVE: Her most recent vital signs, last temperature 98.5. Her blood pressure is 103/74, heart rate 92, respirations are 20. She has had 2102 input and she has had 1275 output to Tam catheter. During her hospital stay, she has an appearance of 18 liters positive. LABORATORY DATA: Sodium 136, potassium 4.4, chloride 94, CO2 of 30, BUN 31, creatinine 2.5, glucose is 97. Her anion gap is 12. Her calcium is 11.3, albumin of 2.5. White count 12.4, hemoglobin 8.9, hematocrit 28.5, with a platelet count of 413,000. She has a PTH of 10 with a random vancomycin level of 19.5. PHYSICAL EXAMINATION: General: This is a 44-year-old white female who has an appearance of being handicapped with a history of cerebral palsy. She is awake. She is in no acute distress. Skin: Warm and dry. HEENT: Normocephalic, atraumatic. Conjunctiva is pale. Her pupils are nonfocusing. They appear equal. Mucous membranes are dry. Neck: Supple. Unable to appreciate any JVD. Cardiovascular: Regular on the bedside monitor. No appreciable murmur or gallop. Lungs: Shallow. Equal breath sounds bilateral, diminished in the bases, right greater than left. Abdomen: Large, round, soft. Positive bowel sounds auscultated. Patient has a colostomy bag to her right lower quadrant. This has dark brown liquid in it. Genitourinary: The patient has a Tam catheter that is in place. Adequate urine out in appearance. Extremities: She has a PICC line in her right upper arm. This is slightly erythematous, nonpurulent. No edema to the lower extremities. Neurological: Opens her eyes to verbal. Nonverbal, nonfocusing. ASSESSMENT: 1. Acute kidney injury on chronic kidney disease. The patient has had a rise in her BUN and creatinine over the last 3 days. This appears to be intravascular volume contraction. She is currently receiving IV of normal saline at 100 mL an hour. She has been given a bolus of normal saline earlier this morning. Adequate urine output is noted. We will continue to monitor. Her vancomycin level has decreased within range. No indications for intervention. 2. Electrolytes. These are acceptable. Acid-base balance. The patient has elevated CO2 secondary to her contraction alkalosis. We will continue to monitor. CO2 of 30. No indications for intervention. 3. Anemia. Hemoglobin of 8.9. No indications of patient actively bleeding, status post surgery, followed by gastroenterology and surgery and primary care. There was noted blood loss with a drop in her hemoglobin on the 17 at about the same time that we started seeing a response in her BUN and creatinine. We will continue to monitor. PLAN: The patient has an appearance of intravascular volume contraction, more than likely ATN in context of hypotension and hypovolemia. Hemoglobin remains low. Adequate urine output. The patient has an appearance of estimated GFR of possibly not being accurate in this unsteady state. We will continue to monitor. She has renal dosed antibiotics per Dr. Mchugh. I would like to thank you for allowing us to follow with this patient. Dictated by ROGER Gallardo for Silvia Sanderson MD cc: ROGER Gallardo
[2019-07-30] MEDS: DEPAKENE LIQUID PO SCH (21:28)
[2019-07-30] MEDS: REMERON SOLTAB PO SCH (21:29)
[2019-07-30] MEDS: RISPERDAL PO SCH (21:30)
[2019-07-31] MEDS: LOPRESSOR PO SCH ×6 (00:25→17:59)
[2019-07-31] MEDS: ZYVOX 600 MG/D5W 600 MG/300 ML IVPB IV SCH ×3 (00:27→21:56)
[2019-07-31] MEDS: ZOSYN 2.25 GM in NS 50 ML IV SCH ×4 (00:36→18:04)
--- NOTE | 2019-07-31 01:08 | ECHO REPORT ---
ORDER DATE: 07/30/2019 MEASUREMENTS: 1. Septal thickness 0.8. 2. Left ventricular internal diameter in diastole 4.7. 3. Posterior wall thickness 0.8. 4. Left ventricular internal diameter in systole 3.5. 5. Aortic root 3.2. 6. Left atrium 3.3. SUMMARY: 1. Technically difficult study due to limited acoustic window quality. 2. Aortic valve is trileaflet and opens normally on 2-dimensional images. Peak gradient across the aortic valve is less than 10 mmHg. Mitral and tricuspid valves are without evidence of structural abnormality, while pulmonic valve is not well demonstrated. There is trace mitral regurgitation and very mild tricuspid regurgitation. The estimated systolic PA pressure by Doppler is 35 mmHg. Aortic root is normal in size. 3. Normal left anterior dimensions demonstrated. Estimated left ventricular ejection fraction is approximately 55%. No obvious regional wall motion abnormality can be appreciated. Left atrium, right atrium, right ventricle are normal in size with grossly preserved right ventricular systolic function. 4. No pericardial effusion. 5. Appearance of inferior vena cava suggests normal central venous pressure. cc: MD Abdoulaye Victoria MD
[2019-07-31] MEDS: CARDIZEM PO SCH ×3 (01:37→13:59)
[2019-07-31] MEDS: XOPENEX NEB INH SCH ×5 (03:15→19:49)
[2019-07-31] MEDS: ATROVENT NEB INH SCH ×6 (03:15→23:17)
--- NOTE | 2019-07-31 06:07 | GENERAL SURGERY PROGRESS NOTE ---
DATE: 07/31/2019 Patient seems to be doing about the same. There was some issue about her BUN and creatinine. Nephrology is on board. At this point, she seems to be doing okay from a surgical point of view. Still awaiting disposition to LTAC. cc: Clint Lange MD
[2019-07-31 06:19] LABS: BASO# 0.08 X1000 (0.0-0.2); BASO% 0.7 % (0.0-0.8); EOS# 0.82 X1000 (0.0-0.7); EOS% 7.6 % (0.0-10.0); HEMOGLOBIN 8.7 g/dL (12.0-16.0); IMM GRAN# 0.89 X1000 (0.0-0.04); IMM GRAN% 8.3 % (0.0-0.5); LYMPH# 1.45 X1000 (1.2-3.4); LYMPH% 13.5 % (20.5-51.1); MCH 29.8 PG (27-31); MCHC 31.1 g/dL (33-37); MCV 95.9 FL (81-99); MONO# 1.29 X1000 (0.11-0.59); MPV 10.4 FL (7.4-10.4); NEUT# 6.23 X1000 (1.4-6.5); NEUT% 57.9 % (42.2-75.2); PLT 387 X1000 (130-400); RBC 2.92 XMIL (4.2-5.4); RDW 13.8 % (11.5-14.5); WBC 10.76 X1000 (4.8-10.8)
[2019-07-31] MEDS: SYNTHROID PO SCH (06:19)
[2019-07-31 06:34] LABS: ALBUMIN 2.4 g/dL (3.5-5.0); CALCIUM 10.1 mg/dL (8.8-10.2); CREATININE 2.9 mg/dL (0.5-0.9); PHOSPHORUS 5.2 mg/dL (2.7-4.5); POTASSIUM 4.2 mmol/L (3.5-5.1)
[2019-07-31 08:01] LABS: LARGE PLATELETS 3+; LYMPHS 30 % (21-51); MONO 6 % (1-9); SEGS 64 % (42-75)
[2019-07-31] MEDS: MUCOMYST 20% INH SCH ×2 (08:15→19:49)
[2019-07-31] MEDS: DEPAKENE LIQUID PO SCH ×4 (09:02→21:51)
[2019-07-31] MEDS: PAXIL PO SCH ×2 (09:02→21:53)
[2019-07-31] MEDS: PERIDEX MT SCH ×2 (09:02→21:55)
[2019-07-31] MEDS: MIRALAX PO SCH (09:02)
[2019-07-31] MEDS: MYLICON PO SCH ×4 (09:03→20:45)
[2019-07-31] MEDS: ANUSOL-HC CREAM PR SCH ×3 (09:06→21:55)
[2019-07-31 12:50] LABS: ALLEN TEST YES; BE 9.1 mmoll (-3.0-3.0); BLOOD TYPE ARTERIAL; METHB 1.4 % (0.0-1.5); O2(CT) 12.4 mL/dL (15.0-23.0); PO2(98.6) 83 mmHg (60-100); SAMPLE BLOOD; SAO2 98.2 % (95.0-100.0); THB 9.2 g/dL (11.5-17.4)
[2019-07-31 12:53] LABS: MODALITY CANNULA; PCO2(98.6) 57 mmHg (35-45)
--- NOTE | 2019-07-31 12:53 | PROGRESS NOTE ---
DATE: 07/31/2019 SUBJECTIVE: This morning, Ms. Singh is in bed. She is nonverbal. One of the care providers was at the bedside at the time of the encounter. She looks slightly in distress. OBJECTIVE: Vital Signs: Her current vitals are blood pressure 125/82, pulse 88, respiration is 13, temperature 98.1 degrees. General: Ms. Singh is a 44-year-old female. She is in bed. She is in mild respiratory distress. HEENT: Mucosa is pink and moist. Anicteric. Acyanotic. Neck: Supple. Chest: Air entry is bilaterally reduced. A few crackles posteriorly. Cardiovascular: Regular rate and rhythm. Abdomen: Distended, very tympanic on palpation. Bowel sounds are remarkably hypo. There is an ostomy on the right side of the abdominal wall. There is a very large midline abdominal incision, scar. Central nervous system: The patient is slightly drowsy but easily arousable. She is nonverbal. She will move extremities to stimulations. LABORATORY DATA: WBC is 10.76, hemoglobin is 8.7, platelet count 387,000. Chemistry is also reviewed. Creatinine is 2.9. The rest of other lab works have all been reviewed. X-RAYS: None for this morning. ASSESSMENT: 1. Acute hypoxemic and hypercarbic respiratory failure. The patient seems to be using BiPAP, especially at night. We are going to get a repeat ABG on her this morning since she seems to be more tachypneic. 2. Acute kidney injury. Etiology is unclear. Seems to be multifactorial. Nephrology is on board. 3. History of severe toxic megacolon with colonic inertia. The patient is status post total colectomy. This was subsequently complicated with ileus. At this point, patient's abdomen is very, very distended. We are going to get a KUB to see if there is any cause for that. 4. Bilateral pneumonia, presumably aspiration. Patient is on antibiotics. 5. History of cognitive impairment disorder noted. cc: Alcides Monique MD
--- NOTE | 2019-07-31 13:44 | NEPHROLOGY PROGRESS NOTE ---
DATE: 07/31/2019 SUBJECTIVE: Patient resting in bed currently undergoing a breathing treatment, minimal response basically grunts. OBJECTIVE: Vital Signs: Temperature 98.1 degrees, pulse 88, respiratory rate 13, blood pressure 125/82, intake 1.3 L, output 1 L. General: This is a chronically ill appearing handicapped with cerebral palsy patient who resting in bed. She is nonverbal. She is awake, she is undergoing a breathing treatment . HEENT: Normocephalic, atraumatic. Conjunctivae are pale. Her oral mucosa appears dry. Neck: Supple. Her trachea is midline. Cardiovascular: Regular rate and rhythm. Pulmonary: Decreased breath sounds to the bases. There is no rales undergoing a breathing treatment. Abdomen: Round, soft, positive bowel sounds. Colostomy bag noted. : Tam catheter dark urine. Extremities: No clubbing, cyanosis. She has trace lower extremity edema. PICC is noted in the right upper extremity. Abdomen: Soft, positive bowel sounds. Integument: Skin is pale, warm and dry. Neuro: Nonverbal. LAB DATA: WBC of 10.7, hemoglobin 8.7, sodium 135, potassium 4.2, CO2 30, creatinine 2.9, albumin 2.4. ASSESSMENT/PLAN: 1. Acute on chronic kidney disease. Creatinine with mild increase overnight. Does appear that she has some acute tubular necrosis in the context of hypotension, hypovolemia. She remains anemic. Will go ahead and order HUS, TTP workup, will get a blood smear and [id number]. 2. Pneumonia, no changes to her current regimen. Dictated by ROGER Rivera for Tommy Harrison MD cc: Tommy Harrison MD
[2019-07-31] MEDS: SEROQUEL PO SCH ×2 (13:59→21:54)
--- NOTE | 2019-07-31 14:03 | Diag Imaging Result Doc PS360 ---
EXAM: KUB ABDOMEN INDICATION: intestinal inertia TECHNIQUE: 2 views COMPARISON: 07/25/2019 FINDINGS: Gas-distended loops of bowel throughout the abdomen are approximately stable as compared to the previous study. This is probably a combination of small bowel and colon. There is more gastric distention as compared to the previous study, however. No large volume free abdominal gas is identified. The abdomen is stable, otherwise. IMPRESSION: Increasing gaseous distention of the stomach. However, the gaseous distention of the bowel is approximately stable. Electronically signed by Tez Tiwari 07/31/2019 2:01 PM
--- NOTE | 2019-07-31 15:21 | INFECTIOUS DISEASE PROGRESS NO ---
DATE: 07/31/2019 PRESENT ILLNESS: The patient is being treated for a bilateral pneumonia. Since Dr. Guy changed the patient to Zyvox and Zosyn, her chest x-ray has become clearer. The patient also has an immunoglobulin deficiency. MEDICATIONS: The patient has been on Zyvox and Zosyn now for 2 days. The patient already has received IVIG for her immunoglobulin deficiency. PHYSICAL EXAMINATION: Vital Signs: Temperature is 98.2 degrees, pulse 91, respirations 17, blood pressure 131/85. General: This is an ill-appearing, middle-aged female. She is in no acute distress. Head/eyes/ears/nose/throat: Could not determine how good the patient's hearing and vision were. There is no drainage from the nose or ears. Neck: There seemed to be no pain when the patient moved her neck. Lungs: Clear to auscultation. Cardiovascular: Heart rate is regular. Abdomen: Less protuberant. The incision is intact and the ostomy is functioning well. Neurologic: The patient is awake. She did move around in her bed, but she did not follow my request to move her extremities. Extremities: The patient has a PICC in her right arm. The site is not erythematous or purulent. LAB AND X-RAY STUDIES: Chest x-ray shows significant improvement. The procalcitonin level is 0.37, which translates into that pneumonia is likely[place] [address], hemoglobin 8.7, and platelet count 387,000. Patient's blood gases show a pH of 7.4, PO2 of 83, and a pCO2 of 57. Creatinine is 2.9. GFR is 18. ASSESSMENT AND PLAN: The patient has pneumonia. It is improving on the Zosyn and Zyvox. Her immunoglobulin deficiency has been treated with IVIG infusion. COMORBIDITIES: The patient is postoperative and she has cerebral palsy and gastroesophageal reflux disease. cc: Javier Mchugh MD
--- NOTE | 2019-07-31 17:59 | Diag Imaging Result Doc PS360 ---
EXAM: CHEST-PORTABLE INDICATION: NG tube placement TECHNIQUE: One view COMPARISON: 07/30/2019 FINDINGS: The newly placed NG tube projects well below the diaphragm and is assumed to be in the lumen of the stomach in expected position. The lungs are overexposed due to focus on the NG tube. However, they appear to be approximately stable as compared to the previous study. IMPRESSION: Newly placed NG tube in expected position as described. Electronically signed by Tez Tiwari 07/31/2019 5:57 PM
[2019-07-31] MEDS: RISPERDAL PO SCH (21:53)
[2019-07-31] MEDS: REMERON SOLTAB PO SCH (21:56)
[2019-08-01] MEDS: XOPENEX NEB INH SCH ×7 (00:17→23:21)
[2019-08-01] MEDS: ATROVENT NEB INH SCH ×6 (04:00→23:21)
[2019-08-01] MEDS: ZOSYN 2.25 GM in NS 50 ML IV SCH ×6 (06:18→23:18)
[2019-08-01] MEDS: SYNTHROID PO SCH (06:18)
[2019-08-01] MEDS: LOPRESSOR PO SCH ×5 (06:18→23:18)
[2019-08-01 06:27] LABS: ALBUMIN 2.5 g/dL (3.5-5.0); CALCIUM 9.5 mg/dL (8.8-10.2); CREATININE 3.6 mg/dL (0.5-0.9); PHOSPHORUS 5.3 mg/dL (2.7-4.5); POTASSIUM 4.6 mmol/L (3.5-5.1)
[2019-08-01 06:28] LABS: BASO# 0.04 X1000 (0.0-0.2); BASO% 0.4 % (0.0-0.8); EOS# 0.71 X1000 (0.0-0.7); EOS% 7.3 % (0.0-10.0); HEMATOCRIT 27.2 % (37.0-47.0); HEMOGLOBIN 8.6 g/dL (12.0-16.0); IMM GRAN# 0.45 X1000 (0.0-0.04); IMM GRAN% 4.6 % (0.0-0.5); LYMPH# 1.63 X1000 (1.2-3.4); LYMPH% 16.8 % (20.5-51.1); MCH 29.9 PG (27-31); MCHC 31.6 g/dL (33-37); MCV 94.4 FL (81-99); MONO# 1.11 X1000 (0.11-0.59); MONO% 11.5 % (1.7-9.3); MPV 10.7 FL (7.4-10.4); NEUT# 5.74 X1000 (1.4-6.5); NEUT% 59.4 % (42.2-75.2); PLT 357 X1000 (130-400); RBC 2.88 XMIL (4.2-5.4); RDW 13.5 % (11.5-14.5); WBC 9.68 X1000 (4.8-10.8)
--- NOTE | 2019-08-01 07:35 | GENERAL SURGERY PROGRESS NOTE ---
DATE: 08/01/2019 SUBJECTIVE: The patient apparently had some issues with emesis and had an NG tube placed last night. She otherwise seems to be doing about the same. She is still a little bit distended. She is having ostomy output so at this point, I recommend continue current treatment. Nothing new to add. cc: Clint Lange MD
--- NOTE | 2019-08-01 07:47 | Diag Imaging Result Doc PS360 ---
EXAM: KUB ABDOMEN 08/01/2019 HISTORY: SBO TECHNIQUE: KUB COMMENT: Compared to 07/31/2019 the stomach is no longer distended with gas. There is still considerable stool in the right colon. There is also gas distended small bowel loops in the midabdomen which have improved slightly since the previous study. IMPRESSION: Constipation. The possibility of ileus cannot be excluded. Electronically signed by Roger Lockwood 08/01/2019 7:44 AM
[2019-08-01] MEDS: MUCOMYST 20% INH SCH ×2 (08:16→19:36)
[2019-08-01] MEDS ORDERED: RELISTOR SUBQ ONE (08:26)
[2019-08-01] MEDS: DEPAKENE LIQUID PO SCH ×4 (09:40→20:29)
[2019-08-01] MEDS: ANUSOL-HC CREAM PR SCH ×3 (09:41→20:31)
[2019-08-01] MEDS: PAXIL PO SCH ×2 (09:41→20:30)
[2019-08-01] MEDS: MIRALAX PO SCH (09:41)
[2019-08-01] MEDS: MYLICON PO SCH ×4 (09:41→20:30)
[2019-08-01] MEDS: PERIDEX MT SCH ×2 (09:42→20:29)
[2019-08-01] MEDS ORDERED: SODIUM CHLORIDE 0.9% INJ SCH (10:15)
--- NOTE | 2019-08-01 10:36 | PROGRESS NOTE ---
DATE: 08/01/2019 SUBJECTIVE: This morning, Ms. Singh remained stable. She is nonverbal. One of the sitters from the home was sitting at the bedside. The sitter referred that Ms. Singh seems to be doing a lot better. OBJECTIVE: Vital signs: Blood pressure is 120/99, pulse of 84, respirations 17, temperature 97.8 degrees. General: Ms. Singh is a 44-year-old female. She is in bed. She does not seems to be in any distress. Current weight of 177. Patient seems to have been admitted with 153 of weight. HEENT: Mucosa is pink and moist. Anicteric. Acyanotic. Neck: Supple. Chest: Air entry is bilaterally reduced. No crepitations. No rhonchi. Cardiovascular: Regular rate and rhythm. No murmurs, no rubs, no gallops. GI: Abdomen is soft. It is distended and very tympanic. There is an ostomy on the right side of the abdominal wall and does have fecal material. There is an old scar on the mid anterior abdominal wall. AUT[employer]IVE SERVICES MANAGER: Patient is awake but nonverbal. Will move all extremities to stimulation. LABORATORY DATA: Has been reviewed. Hemoglobin is 8.6. The rest of CBC is normal. Chemistry is also reviewed. Creatinine is up to 3.6. The patient's I's and O's show urine output 850. The patient is currently still positive balance over 18,000 mL. IMAGING: A KUB this morning suggests constipation, and possibility of ileus cannot be excluded. There was, however, general improvement. CURRENT MEDICATIONS: All have been reviewed. ASSESSMENT: 1. Acute hypoxemic and hypercarbic respiratory failure, improved. 2. Acute kidney injury, etiology unclear. Seems to be multifactorial including ATN from hypotension and possible compartment syndrome from the abdomen when it was so tight. Nephrology is on board. Creatinine has gotten slightly worse. The patient continues to make adequate urine. I think she probably is going to be needing boluses of Lasix since she seems to be fluid overload. 3. Severe toxic megacolon with colon inertia on presentation. Patient is status post a total colectomy with a diverting ileostomy. 4. Postoperative ileus. Noted the patient did have a lot of retention yesterday. NG tube was placed. KUB this morning shows slight improvement. There is some constipation which we are going to address effectively. We will also avoid any medication with potential to paralyze the gut more including opioids. I have also started the patient on Reglan as a prokinetic agent. The patient of course has multiple medications with potential interactions. We are going to be keeping an eye on her neurological status. 5. Bilateral pneumonia, presumably aspiration. We will continue with antimicrobial therapy. Infectious Disease is on board. 6. History of cognitive impairment disorder. 7. Hypothyroidism. We will continue with the supplements. 8. Coffee-grounds emesis on NG tube. We will start the patient on PPI and repeat the H H for later today. GENERAL PLAN: 1. Ms. Singh' abdomen is not as distended as yesterday. She is bringing up some coffee-grounds emesis. She has been started on PPI. We are going to repeat her H H for later today, and we will also check how much comes out of her NG tube. If the output is minimum and H H is stable, we will start Ms. Singh back on tube feedings. 2. She has been started on Reglan as a prokinetic agent. We are going to keep a close eye on her neurological status because of drug interaction with all her psychotropic medications. cc: Alcides Monique MD
[2019-08-01] MEDS: REGLAN LIQUID PO SCH ×2 (11:33→18:59)
[2019-08-01] MEDS: PROTONIX IV SCH (11:33)
--- NOTE | 2019-08-01 13:43 | NEPHROLOGY PROGRESS NOTE ---
DATE: 08/01/2019 SUBJECTIVE: The patient is resting in bed. No one with her at the time I see her. She does not become upset during exam. OBJECTIVE: Vital Signs: Temperature 97.8 degrees, pulse 82, respiratory rate 18, blood pressure 115/75. Intake 780 mL. Output 1.8 L. 850 of this was urine output via catheter. General: This is a chronically ill-appearing female, resting in bed. She is nonverbal. She does grunt with other tactile or verbal stimulation, but is cooperative. HEENT: Normocephalic, atraumatic. Oral mucosa is moist. Conjunctivae pink. Neck: Supple. There is no JVD. Cardiovascular: Regular rate and rhythm. She has decreased inspiratory effort, but she has no wheeze or rales. Abdomen: Soft, round, with ostomy. : Tam catheter. Extremities: Does move her extremities. She has trace dependent edema. Neurologic: Again, nonverbal. Eyes are open. LAB DATA: WBC of 9.6, hemoglobin 8.6, platelets of 357,000. Potassium 4.6, CO2 34, creatinine 3.6, BUN 39. ASSESSMENT/PLAN: 1. Acute kidney injury, multifocal. There was some concern that she was intravascularly volume depleted and had received some IV fluids. It appears now that she has a possible compartment syndrome in the abdomen. Her IV fluids have been discontinued. She has been started on Lasix. Her urine output has been adequate, and currently she does not meet criteria to warrant intervention in the form of dialysis. We agree with diuresis with Lasix. She has only received one dose of Lasix thus far, that has been a couple of days ago. Would reorder that. Her albumin level is noted at 2.5 and she may benefit from albumin bolus along with that Lasix to mobilize fluid. 2. Electrolytes, acid-base balance and anemia. These have been stable. 3. Coffee-ground emesis per NG tube. She is on a PPI. This may be part of her anemia. 4. Pneumonia. No changes to current medication. Dictated by ROGER Rivera for Tommy Harrison MD cc: Tommy Harrison MD
[2019-08-01 14:23] LABS: HEMATOCRIT 27.4 % (37.0-47.0); HEMOGLOBIN 8.7 g/dL (12.0-16.0)
[2019-08-01] MEDS: ZYVOX 600 MG/D5W 600 MG/300 ML IVPB IV SCH ×2 (14:29→23:18)
[2019-08-01] MEDS: SEROQUEL PO SCH ×2 (14:29→20:30)
[2019-08-01] MEDS: LASIX IV SCH (14:29)
[2019-08-01] MEDS: ALBUMIN 25% IV SCH (14:49)
[2019-08-01] MEDS: REMERON SOLTAB PO SCH (20:30)
[2019-08-01] MEDS: RISPERDAL PO SCH (20:31)
[2019-08-02] MEDS: ZYVOX 600 MG/D5W 600 MG/300 ML IVPB IV SCH ×3 (03:03→23:37)
[2019-08-02] MEDS: REGLAN LIQUID PO SCH ×3 (03:03→21:00)
[2019-08-02] MEDS: ATROVENT NEB INH SCH ×6 (03:31→23:16)
[2019-08-02] MEDS: XOPENEX NEB INH SCH ×6 (03:31→23:16)
[2019-08-02] MEDS: ZOSYN 2.25 GM in NS 50 ML IV SCH ×4 (05:18→23:37)
[2019-08-02] MEDS: LOPRESSOR PO SCH ×4 (05:18→23:37)
[2019-08-02] MEDS: SYNTHROID PO SCH ×2 (05:19→06:11)
[2019-08-02 06:06] LABS: BASO# 0.03 X1000 (0.0-0.2); BASO% 0.3 % (0.0-0.8); EOS# 0.66 X1000 (0.0-0.7); EOS% 6.8 % (0.0-10.0); HEMOGLOBIN 8.5 g/dL (12.0-16.0); IMM GRAN# 0.25 X1000 (0.0-0.04); IMM GRAN% 2.6 % (0.0-0.5); LYMPH# 1.41 X1000 (1.2-3.4); LYMPH% 14.6 % (20.5-51.1); MCH 29.8 PG (27-31); MCHC 31.5 g/dL (33-37); MCV 94.7 FL (81-99); MONO# 1.02 X1000 (0.11-0.59); MONO% 10.6 % (1.7-9.3); MPV 10.7 FL (7.4-10.4); NEUT# 6.29 X1000 (1.4-6.5); NEUT% 65.1 % (42.2-75.2); PLT 352 X1000 (130-400); RBC 2.85 XMIL (4.2-5.4); RDW 13.3 % (11.5-14.5); WBC 9.66 X1000 (4.8-10.8)
[2019-08-02 06:13] LABS: ALBUMIN 3.2 g/dL (3.5-5.0); CALCIUM 10.4 mg/dL (8.8-10.2); CREATININE 4.5 mg/dL (0.5-0.9); PHOSPHORUS 6.3 mg/dL (2.7-4.5); POTASSIUM 4.3 mmol/L (3.5-5.1)
--- NOTE | 2019-08-02 06:48 | Diag Imaging Result Doc PS360 ---
EXAM: KUB ABDOMEN HISTORY: SBO TECHNIQUE: Single view COMPARISON: 08/01/2019 FINDINGS: Air filled loops of small bowel. No foreign body. There are pelvic phleboliths. IMPRESSION: No interval improvement. Ileus versus obstruction.'V Electronically signed by Romel Marsh 08/02/2019 6:46 AM
--- NOTE | 2019-08-02 07:29 | GENERAL SURGERY PROGRESS NOTE ---
DATE: 08/02/2019 The patient seems to be doing about the same. Her tube feeds have been restarted. She is having ostomy output. She is at least tolerating her feeds at this point. Her creatinine has increased to 4.5. Nephrology is following. We will follow up with their recommendations. Thus far, she has had no indication for dialysis. Her urine output has been over a liter today. We will see what they recommend. Otherwise, continue supportive care. cc: Clint Lange MD
[2019-08-02] MEDS: MUCOMYST 20% INH SCH ×2 (08:06→19:31)
[2019-08-02] MEDS: ALBUMIN 25% IV SCH (08:29)
[2019-08-02] MEDS: PERIDEX MT SCH ×2 (08:30→21:00)
[2019-08-02] MEDS: DEPAKENE LIQUID PO SCH ×4 (08:30→21:00)
[2019-08-02] MEDS: MYLICON PO SCH ×4 (08:31→21:00)
[2019-08-02] MEDS: MIRALAX PO SCH (08:32)
[2019-08-02] MEDS: PAXIL PO SCH ×2 (08:32→20:59)
[2019-08-02] MEDS: LASIX IV SCH (08:32)
[2019-08-02] MEDS: ANUSOL-HC CREAM PR SCH ×3 (08:34→21:01)
--- NOTE | 2019-08-02 10:46 | PROGRESS NOTE ---
DATE: 08/02/2019 SUBJECTIVE: This morning, Ms. Singh is said to be doing well. There was a sitter at the bedside. No new complaints. OBJECTIVE: Vital Signs: Blood pressure is 161/113, pulse of 81, respiration are 14, temperature is 97.6 degrees. General Examination: Ms. Singh is a 44-year-old, female. She is in bed. She was on the BiPAP at the time of the encounter. HEENT: Mucosa was pink and moist. Anicteric. Acyanotic. Neck: Supple. Chest: Good air entry bilaterally. A few crackles posteriorly. Cardiovascular: Regular rate and rhythm. GI: Abdomen is distended, nontender, slightly hollow and tympanic. There is an ostomy on the right side which has adequate fecal output. There is an old scar on the anterior abdominal wall. 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 Laboratory Data: WBC is 9.66, hemoglobin is 8.5, platelet count of 252,000. Chemistry is also reviewed. Creatinine is up to 4.5. Urine output shows 1400. Patient is still positive balance of about 17,000. ASSESSMENT: 1. Acute hypoxemic and hypercarbic respiratory failure, improved. 2. Acute kidney injury, presumably acute tubular necrosis. The patient continues to have adequate urine. However, creatinine is trending up. Nephrology is on board. 3. 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 The patient is status post total colectomy with diverting ileostomy. Ileostomy seems to have adequate output. 4. Postoperative ileus, improving. 5. Bilateral pneumonia, presumably aspiration. Infectious disease is on board. Patient continues to be on antimicrobial coverage. 6. Hypothyroidism. We will continue with supplement. 7. Coffee-grounds emesis, on nasogastric tube. The patient is on a proton pump inhibitor. Hemoglobin and hematocrit are stable. 8. Severe cognitive and intellectual impairment disorder. 9. Nutritional support. Patient is on tube feedings. She seems to be tolerating this. PLAN: In general, I think Ms. Singh seems to be doing fairly okay. From a respiratory standpoint, she seems to be improving. A KUB this morning shows no interval improvement, ileus versus some obstruction. She is having adequate output in her ileostomy. We are going to continue with the current plan. Her creatinine continues to be climbing. However, she seems to be making adequate urine. Nephrology is on board and we will follow up with further recommendations from them. cc: Alcides Monique MD
[2019-08-02] MEDS: SEROQUEL PO SCH ×2 (12:09→21:00)
[2019-08-02] MEDS: PROTONIX IV SCH (12:09)
--- NOTE | 2019-08-02 16:01 | NEPHROLOGY PROGRESS NOTE ---
DATE: 08/02/2019 SUBJECTIVE: Patient resting in bed. She has a BiPAP on. She is swatting at it with her hand. OBJECTIVE: Vital Signs: Temperature 97.6 degrees, pulse 82, respiratory rate 14, blood pressure 121/82. Intake 810 mL. Output 1.5 L, and 1.4 of this was strictly urine output. General: This is a chronically ill-appearing young female resting in bed. She is awake and makes eye contact. No attempt to verbalize and only movement is her pushing at the BiPAP. HEENT: Normocephalic, atraumatic. Her oral mucosa is dry. She has a BiPAP in place. She has an NG tube in place. Neck: Supple. Positive JVD. Cardiovascular: Regular rate and rhythm. Pulmonary: Decreased breath sounds. She has on a BiPAP. There are no wheezes. Abdomen: Soft, round, with an ostomy. : She has a Tam catheter. Extremities: She is moving her upper extremities. None to the lower. Lower extremities with trace edema. Neuro: Again eyes are open but she is nonverbal to me. LABORATORY DATA: WBC of 9.6, hemoglobin 8.5, sodium 139, potassium 4.3, CO2 of 35, BUN 41, creatinine 4.5, calcium 10.4, phosphorus 6.3, albumin 3.2. ASSESSMENT AND PLAN: 1. Acute kidney injury, multifactorial. The patient has really made no progress as far as fluid volumes. Her renal function has continued to decline. I discussed with the sitter and with the health unit supervisor of the long term that she stays at or facility that she stays at that if the patient's renal function continues to worsen at this rate, a decision will have to be made in the next 24 to 48 hours regarding dialysis. As far as dialysis is concerned, I also discussed with them that this would likely need to be temporary in nature. It is unclear at this time if the patient would be a candidate for long-term outpatient dialysis. The patient has one sister who is next of kin who the sitter says does not visit. We would need to try to have some family discussions before decisions as such are made. 2. Hypoxemic hypercapnic respiratory failure. Again, she remains on BiPAP but appears to be improving. 3. 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 Patient is status post total colectomy followed by Surgery. 4. Pneumonia, presumed aspiration, is on appropriately dosed antibiotics. No changes are made. 5. Anemia. The patient is in the setting of status post abdominal surgery as well as what appears to be some GI bleeding. She does not meet criteria for transfusion at this time. We did order some additional labs yesterday in regard to her anemia and renal function. Those are not back yet and we will continue to manage her anemia as per routine at this time. 6. Cognitive and intellectual impairment disorder. It is unclear to this provider the patient's baseline functionality status. While she has been in the hospital, she has had no interaction of any purposeful nature. I did again discuss with the sitter and the health unit supervisor of the facility that she stays with that dialysis patients do need to be able to assist with their treatment for their own safety. Further decisions to follow depending on course. Dictated by ROGER Rivera for Tommy Harrison MD cc: Tommy Harrison MD [facility]
[2019-08-02] MEDS: RISPERDAL PO SCH (21:00)
[2019-08-02] MEDS: REMERON SOLTAB PO SCH (21:00)
[2019-08-03] MEDS: ZYVOX 600 MG/D5W 600 MG/300 ML IVPB IV SCH ×3 (01:19→23:05)
[2019-08-03] MEDS: REGLAN LIQUID PO SCH ×3 (03:00→20:44)
[2019-08-03] MEDS: ATROVENT NEB INH SCH ×6 (03:17→23:20)
[2019-08-03] MEDS: XOPENEX NEB INH SCH ×6 (03:17→23:20)
[2019-08-03] MEDS: SYNTHROID PO SCH ×2 (04:59→06:03)
[2019-08-03] MEDS: ZOSYN 2.25 GM in NS 50 ML IV SCH ×4 (04:59→23:04)
[2019-08-03] MEDS: LOPRESSOR PO SCH ×4 (04:59→23:05)
--- NOTE | 2019-08-03 06:37 | Diag Imaging Result Doc PS360 ---
EXAM: FLAT/UPRIGHT ABD/1 VIEW CHEST HISTORY: SOB/Ileus vs SBO TECHNIQUE: Portable chest with flattening upright abdomen, three views COMPARISON: Chest compared to 07/31/2019 abdomen compared to 08/02/2019 FINDINGS: Poor inspiratory effort. There are bilateral infiltrates. No cardiomegaly. Right-sided PICC line in good position. Nasogastric tube enters the stomach. No free air beneath the diaphragm. There are air distended loops of bowel. No improvement compared to the prior exam. Small bowel loops measure over 5 cm in diameter. No organomegaly. IMPRESSION: Chest: Bilateral infiltrates ABDOMEN: Worsening air distended bowel loops consistent with obstruction Electronically signed by Romel Marsh 08/03/2019 6:35 AM
--- NOTE | 2019-08-03 07:03 | GENERAL SURGERY PROGRESS NOTE ---
DATE: 08/03/2019 The patient seems to be doing about the same, although her kidney function has decreased. Creatinine yesterday was 4.5. She is making urine but there is some concern she may require dialysis. At this point, we will defer to nephrology. If we need to place one, I would like to place a Vas-Cath in her groin. I do not think she would do well with it in her neck. She might not do well with it in her groin either but we will need to follow up with a.m. labs and nephrology recommendations. cc: Clint Lange MD
[2019-08-03 07:04] LABS: BASO# 0.02 X1000 (0.0-0.2); BASO% 0.2 % (0.0-0.8); EOS# 0.64 X1000 (0.0-0.7); EOS% 6.6 % (0.0-10.0); HEMATOCRIT 26.1 % (37.0-47.0); HEMOGLOBIN 8.2 g/dL (12.0-16.0); IMM GRAN# 0.12 X1000 (0.0-0.04); IMM GRAN% 1.2 % (0.0-0.5); LYMPH# 1.31 X1000 (1.2-3.4); LYMPH% 13.6 % (20.5-51.1); MCH 29.6 PG (27-31); MCHC 31.4 g/dL (33-37); MCV 94.2 FL (81-99); MONO# 0.93 X1000 (0.11-0.59); MONO% 9.6 % (1.7-9.3); NEUT# 6.62 X1000 (1.4-6.5); NEUT% 68.8 % (42.2-75.2); PLT 278 X1000 (130-400); RBC 2.77 XMIL (4.2-5.4); RDW 13.4 % (11.5-14.5); WBC 9.64 X1000 (4.8-10.8)
[2019-08-03 07:08] LABS: ALBUMIN 3.3 g/dL (3.5-5.0); CREATININE 4.9 mg/dL (0.5-0.9); POTASSIUM 4.2 mmol/L (3.5-5.1)
[2019-08-03] MEDS: MUCOMYST 20% INH SCH ×2 (08:08→19:35)
--- NOTE | 2019-08-03 09:06 | INFECTIOUS DISEASE PROGRESS NO ---
DATE: 08/03/2019 HISTORY OF PRESENT ILLNESS: The patient has bilateral pneumonia which seems to be improving. Unfortunately, her abdomen has worsening of the air distended bowel. The patient also has an immunoglobulin deficiency. MEDICATIONS: The patient has been on Zyvox and Zosyn now for 5 days. PHYSICAL EXAMINATION: Vital Signs: Temperature is 99.2 degrees, pulse 86, respirations 17, blood pressure 131/75. General: This is an ill-appearing middle-aged female. She is in no acute distress. Head/eyes/ears/nose/throat: She has an NG tube in place. There is no drainage from the nose or ears. I could not get a good look at her mouth. Neck: There does not seem to be any pain when she moves her neck. Lungs: Clear to auscultation. Cardiovascular: Heart rate is regular. Abdomen: Protuberant. It is soft and it does not seem to be tender. The incision is intact and the ostomy is functioning. Neurologic: Today the patient had her eyes closed and did not move much in bed. She did not follow request to move her extremities. She does not have a tremor. Extremities: Patient has a PICC in her right arm. The site is not erythematous or purulent. LAB AND X-RAY: CBC shows a white count of 9640, hemoglobin 8.2, and platelet count 278,000. Creatinine is 4.9. GFR is 10. Chest x-ray shows bilateral infiltrates. An x-ray of the abdomen shows worsening air distended bowel. ASSESSMENT AND PLAN: I plan on continuing Zosyn and Zyvox. The patient has an immunoglobulin deficiency, but this has been already treated with an IVIG infusion. COMORBIDITIES: The patient is postoperative. She also has cerebral palsy and gastroesophageal reflux disease. cc: Javier Mchugh MD
--- NOTE | 2019-08-03 09:50 | NEPHROLOGY PROGRESS NOTE ---
DATE: 08/03/2019 TIME: 0640. SUBJECTIVE: Ms. Singh is resting quietly in bed. She has a sitter at the bedside. She opens her eyes to verbal stimuli. OBJECTIVE: Her most recent vital signs, temperature 98.5 degrees, blood pressure 138/94, heart rate 87, respirations 17. She is on 4 L nasal cannula. Last recorded saturation 94%. She has had 540 in. She has had 900 out to Tam catheter. Labs: Sodium is 137, potassium 4.2, chloride is 89, CO2 is 33, BUN 43, creatinine 4.9, glucose 109, her anion gap is 15, her calcium is 10, her phosphorus is 6, albumin 3.3. Her white count 9.64, hemoglobin 8.2, hematocrit 26.1, with a platelet count of 278,000. Physical Examination: General: This is a 44-year-old, white female resting quietly in bed. She does make eye contact. She remains nonverbal. She is on O2. HEENT: Normocephalic, atraumatic. Mucous membranes are dry. Unable to determine JVD to her neck. Cardiovascular: She is regular rate and rhythm. She is tachycardic. No appreciable murmur or gallop. Lungs: Clear but shallow to auscultation anteriorly. Abdomen: Distended. Colostomy bag to the right lower quadrant. Genitourinary: Not inspected. Tam catheter is in place. Extremities: Have trace edema. No clubbing or cyanosis. She also has a PICC line to her right upper arm. Neurological: As above. ASSESSMENT AND PLAN: 1. Acute kidney injury. This appears to be multifactorial. BUN and creatinine continue to slowly rise over the last 72 hours. She continues on lasix 40mg and albumin 50Gm daily. The group fitness department head is on the phone and has spoken with Dr. Harrison in regards with possible future short-term hemodialysis to assist the patient during her hospital stay. Adequate urine output has been documented at this time. BUN and creatinine are again slightly elevated of 43 and 4.9. No indications for immediate intervention in the next 24 to 48 hours. We will continue to monitor and follow. 2. Electrolytes and acid-base balance. These are acceptable. 3. Anemia. Hemoglobin of 8.2, which is stable. Noted that she has had guaiac- positive oral emesis and through the nasogastric. 4. Hypoxemic, hypercapnic respiratory failure. The patient has been on and off BiPAP for the last week. Today, she is on 4 L. 5. 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 She is status post total colectomy. This has been followed by surgery. The patient had an abdominal x-ray this morning that has been interpreted as worsening air-distended bowel loops, consistent with obstruction. Colostomy remains in place. 6. Pneumonia. This is followed by surgery and primary care. Continues on renal dosed antibiotics. I would like to thank you for allowing us to follow with this patient. Dictated by ROGER Gallardo for Tommy Harrison MD Face to face encounter, data reviewed, discussed with Ling Fajardo on 08/03/19. I agree with the above assessment and plan of care. cc: ROGER Gallardo MD [facility]
[2019-08-03] MEDS: DEPAKENE LIQUID PO SCH ×4 (10:00→20:44)
[2019-08-03] MEDS: MYLICON PO SCH ×4 (10:00→20:45)
[2019-08-03] MEDS: PERIDEX MT SCH ×2 (10:00→20:43)
[2019-08-03] MEDS: LASIX IV SCH (10:01)
[2019-08-03] MEDS: MIRALAX PO SCH (10:02)
[2019-08-03] MEDS: PAXIL PO SCH ×2 (10:02→20:46)
[2019-08-03] MEDS: ANUSOL-HC CREAM PR SCH ×3 (10:03→20:43)
[2019-08-03] MEDS: ALBUMIN 25% IV SCH (11:18)
[2019-08-03] MEDS: PROTONIX IV SCH (12:38)
[2019-08-03] MEDS: SEROQUEL PO SCH ×2 (12:39→20:47)
--- NOTE | 2019-08-03 13:13 | PROGRESS NOTE ---
DATE: 08/03/2019 SUBJECTIVE: This morning, Ms. Singh refers to be doing fairly the same. She continues to be nonverbal. There was a sitter from the intermediate, who was there with her. According to the sitter, Ms. Singh seems more interactive than before. OBJECTIVE: Vital Signs: Blood pressure 127/93, pulse of 80, respirations 15, temperature 99 degrees. General: Ms. Singh is a 44-year-old female. She is in bed. No distress. HEENT: Mucosa is pink and moist. Anicteric. Acyanotic. Neck: Supple. Chest: Good air entry bilaterally. Few crackles posteriorly. Cardiovascular: Regular rate and rhythm. GI: Abdomen is soft. It is distended and tympanic. There is an ostomy on the right side, which has adequate fecal output. There is an old surgical scar on the anterior abdominal roche. STITCHER FEEDER: The patient is nonverbal, but moves all extremities. LABORATORY DATA: CBC shows mild normocytic anemia. Chemistry shows creatinine is up to 4.9. The patient's I's and O's show urine output is documented at 900. She continues to be remarkably positive balance. The patient is getting Lasix. ASSESSMENT: 1. Acute hypoxemic and hypercarbic respiratory failure has improved. 2. Acute kidney injury, presumably acute tubular necrosis. The patient is making some decent urine output. However, the creatinine continues to be trending up. Nephrology is on board, and there is a discussion of short-term dialysis. 3. 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 The patient is status post total colectomy with diverting ileostomy. Ileostomy seems to have adequate output. 4. Postoperative ileus, improving. 5. Bilateral pneumonia, presumably aspiration. The patient is on antimicrobial coverage. 6. Hypothyroidism. Will continue with supplement. 7. Coffee-ground emesis. The patient is on proton pump inhibitor. Hemoglobin and hematocrit are stable. 8. Nutritional support. The patient is tolerating well, tube feedings. Chain Mortiser Operator on board. 9. Severe cognitive and intellectual impairment. This morning, I was able to speak with Ms. Brown, who is the tube drawing supervisor for the intermediate. I did update her about Ms. Singh' current state of affairs and the fact that the kidney function continues to show worsening. However, the patient is making decent urine. The possibility of dialysis in the next couple of days was also discussed, and she seems to be okay with that. Nephrology is also on discussions with them about the same. cc: Alcides Monique MD
[2019-08-03] MEDS: RISPERDAL PO SCH (20:47)
[2019-08-03] MEDS: REMERON SOLTAB PO SCH (20:48)
[2019-08-04] MEDS: ATROVENT NEB INH SCH ×6 (03:23→23:31)
[2019-08-04] MEDS: XOPENEX NEB INH SCH ×6 (03:23→23:31)
[2019-08-04] MEDS: REGLAN LIQUID PO SCH (03:52)
[2019-08-04] MEDS: LOPRESSOR PO SCH ×4 (05:06→22:48)
[2019-08-04] MEDS: ZOSYN 2.25 GM in NS 50 ML IV SCH ×4 (05:06→22:48)
[2019-08-04] MEDS: SYNTHROID PO SCH ×2 (05:07→06:05)
[2019-08-04 07:03] LABS: BASO# 0.02 X1000 (0.0-0.2); BASO% 0.2 % (0.0-0.8); EOS# 0.51 X1000 (0.0-0.7); EOS% 5.8 % (0.0-10.0); HEMATOCRIT 25.1 % (37.0-47.0); HEMOGLOBIN 7.7 g/dL (12.0-16.0); IMM GRAN% 1.1 % (0.0-0.5); LYMPH# 1.36 X1000 (1.2-3.4); LYMPH% 15.6 % (20.5-51.1); MCH 29.5 PG (27-31); MCHC 30.7 g/dL (33-37); MCV 96.2 FL (81-99); MONO# 0.72 X1000 (0.11-0.59); MONO% 8.2 % (1.7-9.3); MPV 10.8 FL (7.4-10.4); NEUT# 6.02 X1000 (1.4-6.5); NEUT% 69.1 % (42.2-75.2); PLT 293 X1000 (130-400); RBC 2.61 XMIL (4.2-5.4); RDW 13.5 % (11.5-14.5); WBC 8.73 X1000 (4.8-10.8)
[2019-08-04 07:04] LABS: CALCIUM 9.7 mg/dL (8.8-10.2); POTASSIUM 4.4 mmol/L (3.5-5.1)
[2019-08-04 07:06] LABS: CREATININE 5.1 mg/dL (0.5-0.9)
[2019-08-04 07:45] LABS: ALBUMIN 3.5 g/dL (3.5-5.0)
[2019-08-04] MEDS: MUCOMYST 20% INH SCH ×2 (07:48→19:46)
[2019-08-04] MEDS: PERIDEX MT SCH ×2 (08:56→21:10)
[2019-08-04] MEDS: DEPAKENE LIQUID PO SCH ×4 (08:57→21:10)
[2019-08-04] MEDS: MYLICON PO SCH ×4 (08:57→21:07)
[2019-08-04] MEDS: MIRALAX PO SCH (08:57)
[2019-08-04] MEDS: PAXIL PO SCH ×2 (08:57→21:10)
[2019-08-04] MEDS: ANUSOL-HC CREAM PR SCH ×3 (08:57→21:10)
[2019-08-04] MEDS: ALBUMIN 25% IV SCH (08:58)
[2019-08-04 09:43] LABS: URINE SOURCE CATH
[2019-08-04 09:57] LABS: BILIRUBIN URINE NEGATIVE (NEGATIVE); BLOOD URINE MODERATE (NEGATIVE); COLOR YELLOW; GLUCOSE URINE NEGATIVE (NEGATIVE); KETONE URINE NEGATIVE (NEGATIVE); LEUKOCYTES URINE MODERATE (NEGATIVE); NITRITE URINE NEGATIVE (NEGATIVE); PROTEIN URINE 200 mg/dL (NEGATIVE); SP GRAVITY URINE 1.012; TURBIDITY URINE CLEAR (CLEAR); UROBILINOGEN URINE NORMAL (NORMAL)
[2019-08-04 10:03] LABS: UR EPITHELIAL CELLS <10 /HPF (<10); URINE BACTERIA NEGATIVE /HPF; URINE RBC TNTC /HPF (<10); URINE WBC 20-40 /HPF (<10)
--- NOTE | 2019-08-04 10:03 | GENERAL SURGERY PROGRESS NOTE ---
DATE: 08/04/2019 The patient is doing about the same. She has been hemodynamically stable. The main issue still at this point is her kidney function. Most recent creatinine yesterday was 4.9. She is making urine. Currently giving her albumin and Lasix. Nephrology is on board. We will defer to them as far as need for dialysis access. cc: Clint Lange MD
[2019-08-04 10:07] LABS: URINE YEAST PRESENT
[2019-08-04] MEDS: ZYVOX 600 MG/D5W 600 MG/300 ML IVPB IV SCH ×2 (11:50→22:48)
[2019-08-04] MEDS: SEROQUEL PO SCH ×2 (12:04→21:08)
[2019-08-04 12:27] LABS: UR CREAT RANDOM 51.4 mg/dL (11-20)
--- NOTE | 2019-08-04 12:39 | PROGRESS NOTE ---
DATE: 08/04/2019 SUBJECTIVE: This morning, Ms. Singh remains stable. The sitter was at the bedside. No new complaints. OBJECTIVE: Vital Signs: Blood pressure is 142/93, pulse of 87, respirations 18, temperature 98.3 degrees, the patient was saturating about 94% on nasal cannula. General: Ms. Singh is a 44-year- old female. She was in bed. Not seemingly distressed. HEENT: Mucosa is pink and moist. Anicteric. Acyanotic. Neck: Supple. Chest: Clear. A few crackles posteriorly. Cardiovascular: Regular rate and rhythm. GI: Abdomen is soft, distended, tympanic. Bowel sounds are present, but hypoactive. There is an ostomy on the right side, which has adequate fecal output. There is also an old surgical scar on the anterior abdominal wall. 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 Extremities: There is about 2+ pedal edema. There is also edema on the hip and the lateral aspect of the abdominal wall. LABORATORY DATA: CBC is reviewed. Hemoglobin is 7.7. Chemistry is also reviewed. Creatinine is 5.1, which continues to go up. The patient's I's and O's show urine output was 1000. The patient is still positive balance. ASSESSMENT: 1. Acute hypoxemic and hypercarbic respiratory failure on presentation, improved. 2. Acute kidney injury, presumably acute tubular necrosis. The patient continues to make some adequate urine. 3. Fluid overload. The patient's Lasix has been discontinued because of concern of worsening renal failure. She is getting albumin to help pull fluid into the intravascular space. We are going to follow up accordingly. 4. 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 The patient is status post total colectomy with diverting ileostomy. Ileostomy seems to have adequate output. 5. Postoperative ileus, improved. 6. Bilateral pneumonia, presumably aspiration, improved. 7. Coffee-ground emesis. The patient continues to be on proton pump inhibitor. 8. Severe cognitive and intellectual impairment. 9. Nutritional support. The patient is tolerating tube feedings. We are going to put her on Nepro. I have discussed this with the dietitian. I have also discontinued the metoclopramide on the patient. cc: MD ISABELLE Starkey
[2019-08-04] MEDS: RISPERDAL PO SCH (21:07)
[2019-08-04] MEDS: REMERON SOLTAB PO SCH (21:09)
--- NOTE | 2019-08-04 21:40 | NEPHROLOGY PROGRESS NOTE ---
DATE: 08/04/2019 TIME SEEN: 0650 SUBJECTIVE: Ms. Singh is resting quietly in bed. Her sitter is at her bedside. She opens her eyes to tactile stimuli. Otherwise, she drifts back to sleep. OBJECTIVE: Most recent vital signs: temperature 98.2 degrees, blood pressure 132/96, heart rate 86, respirations 15. She is on 3 L nasal cannula, last recorded saturation 97%. She has had 240 in, 1125 out per Tam and per fecal bag. Laboratory Data: Sodium 138, potassium 4.4, chloride 90, CO2 35, BUN 50, creatinine 5.1, glucose 101. Her anion gap is 13, her calcium is 9.7, phosphorus 6, albumin 3.5. White count 8.73, hemoglobin 7.7, hematocrit 25.1 with a platelet count of 293,000. Urine culture is negative. Her blood cultures are essentially negative. Urine shows moderate leukocytes. Urine electrolytes show a FENa score of 2.25%. General: This is a 44-year-old white female resting quietly in bed. She appears chronically ill in no acute distress. Skin: Warm and dry. HEENT: Normocephalic, atraumatic. Conjunctivae are pale. She has GILDARDO. Mucous membranes are dry. Neck: Supple. Trachea midline. Unable to determine JVD. Cardiovascular: She is regular rate and rhythm. Slightly tachycardic. No murmur or gallop appreciated. Lungs: Clear to auscultation bilaterally. Equal excursion. Shallow on O2. Abdomen: Distended. Colostomy bag to the right lower quadrant with brown liquid. Intact NG tube with tube feedings continues. Genitourinary: Not inspected. Tam catheter is in place. Extremities: Continue with trace edema. No clubbing or cyanosis. PICC line to the right upper arm with integumentary. No rashes or lesions evident. Neurological: As above. ASSESSMENT AND PLAN: 1. Acute kidney injury. Again this appears to be multifactorial. BUN and creatinine have continued to elevate more than likely in the context of Lasix and albumin. We have discontinued her Lasix today. BUN and creatinine continue to elevate. We will evaluate in the a.m. We have spoken with the group dynamics instructor on the phone. Per Dr. Harrison, no indications for acute dialysis today. We will re-evaluate in the next 24 to 48 hours before any type of intervention. 2. Electrolytes and acid-base balance. These are acceptable. 3. Anemia. This continues to drop on a daily basis. Hemoglobin is 7.7 from 8.2. We will defer to the primary care team. She does continue with guaiac-positive stools and guaiac-positive emesis through her NG tube previously. 4. Hypoxemic hypercarbic respiratory failure. The patient remains on BiPAP at night, now on 3 to 4 L of ultrafiltration. 5. Status post megacolon secondary to colon inertia. Patient has had a total colectomy followed by surgery and the primary care. 6. Pneumonia. This is followed by surgery and the primary care. I would like to thank you for allowing us to follow with this patient. Dictated by ROGER Gallardo for Tommy Harrison MD Face to face encounter, data reviewed, discussed with Ling Fajardo on08/04/19. I agree with the above assessment and plan of care. cc: ROGER Gallardo MD [facility]
[2019-08-05] MEDS: ATROVENT NEB INH SCH ×6 (03:27→23:35)
[2019-08-05] MEDS: XOPENEX NEB INH SCH ×6 (03:27→23:35)
[2019-08-05] MEDS: SYNTHROID PO SCH ×2 (04:59→06:18)
[2019-08-05] MEDS: ZOSYN 2.25 GM in NS 50 ML IV SCH ×3 (04:59→13:45)
[2019-08-05] MEDS: LOPRESSOR PO SCH ×5 (05:00→23:47)
[2019-08-05] MEDS: ZYVOX 600 MG/D5W 600 MG/300 ML IVPB IV SCH ×2 (06:18→11:32)
--- NOTE | 2019-08-05 06:33 | Diag Imaging Result Doc PS360 ---
CHEST-1 VIEW - 08/05/2019 INDICATION: SOB COMPARISON: 08/03/2019 FINDINGS: Support lines and tubes are stable. There is worsening dense bilateral airspace opacifications, likely mostly infiltrate. This appears mainly alveolar and worse at the lung bases. There is probably a small right pleural effusion. Lung volumes remain severely low. Heart size remains normal. IMPRESSION: Severe worsening bilateral dense infiltrates. Probable small right pleural effusion. Electronically signed by Rex Day 08/05/2019 6:31 AM
[2019-08-05 06:57] LABS: BASO# 0.03 X1000 (0.0-0.2); BASO% 0.3 % (0.0-0.8); EOS# 0.58 X1000 (0.0-0.7); EOS% 5.6 % (0.0-10.0); HEMATOCRIT 24.8 % (37.0-47.0); HEMOGLOBIN 7.6 g/dL (12.0-16.0); IMM GRAN# 0.09 X1000 (0.0-0.04); IMM GRAN% 0.9 % (0.0-0.5); LYMPH# 1.42 X1000 (1.2-3.4); LYMPH% 13.7 % (20.5-51.1); MCH 29.2 PG (27-31); MCHC 30.6 g/dL (33-37); MCV 95.4 FL (81-99); MONO# 0.75 X1000 (0.11-0.59); MONO% 7.3 % (1.7-9.3); NEUT# 7.46 X1000 (1.4-6.5); NEUT% 72.2 % (42.2-75.2); PLT 239 X1000 (130-400); RDW 13.5 % (11.5-14.5); WBC 10.33 X1000 (4.8-10.8)
[2019-08-05 07:15] LABS: CALCIUM 10.4 mg/dL (8.8-10.2); CREATININE 5.6 mg/dL (0.5-0.9); POTASSIUM 4.5 mmol/L (3.5-5.1)
--- NOTE | 2019-08-05 07:37 | GENERAL SURGERY PROGRESS NOTE ---
DATE: 08/05/2019 SUBJECTIVE: The patient seems to be doing about the same. She has been hemodynamically stable. She has urine output but still her BUN and creatinine are increasing. Her urine output yesterday was over 1 L. She is having an ileostomy output. From a surgical point of view, I think she has healed up, just waiting to see how her kidneys function and if she needs dialysis . cc: Clint Lange MD
[2019-08-05] MEDS: MUCOMYST 20% INH SCH ×2 (07:47→19:35)
[2019-08-05] MEDS: DEPAKENE LIQUID PO SCH ×5 (08:43→20:23)
[2019-08-05] MEDS: MYLICON PO SCH ×5 (08:43→20:24)
[2019-08-05] MEDS: PAXIL PO SCH ×3 (08:43→20:24)
[2019-08-05] MEDS: MIRALAX PO SCH (08:44)
--- NOTE | 2019-08-05 09:26 | Diag Imaging Result Doc PS360 ---
EXAM: CT THORAX W/O CONTRAST 08/05/2019 HISTORY: SOB/worsening pneumonia TECHNIQUE: This exam was performed using automated exposure control, adjustment of mA or kV according to patient size, and/or use of iterative reconstruction technique. COMMENT: The current examination is compared with the previous study of 07/16/2019. There are bilateral large pleural effusions. There is near complete consolidation/atelectasis in both lower lobes particularly the right lower lobe. There is ascites. There is an NG tube in the stomach. Despite this the stomach is fairly distended. There are calcified nodes in the left hilum and subcarina. There are some calcified aorticopulmonary window nodes. There is an apparent PICC line on the right with its tip in the superior vena cava. There are old rib fractures on the left. The regional skeleton is stable in appearance. There are patchy alveolar opacities in both upper lobes and the expanded portions of the lower lobes. There is some atelectasis or pneumonia in the right middle lobe as well. Compared to the previous examination the pulmonary opacities are much worse particularly in the lower lobes. The pleural fluid collections are worse. The ascites is worse. IMPRESSION: Worsened pneumonia, atelectasis, and fluid collections as described above. Electronically signed by Roger Lockwood 08/05/2019 9:23 AM
[2019-08-05] MEDS: PERIDEX MT SCH ×2 (09:48→20:23)
[2019-08-05] MEDS: ANUSOL-HC CREAM PR SCH ×3 (09:50→20:22)
[2019-08-05] MEDS: NS 1,000 ML IV SCH (11:32)
--- NOTE | 2019-08-05 12:01 | PROGRESS NOTE ---
DATE: 08/05/2019 SUBJECTIVE: This morning, I saw Ms. Singh. The sitter was not at the bedside at the time of the encounter. Per the nursing staff, she seems to be fairly the same. No new changes. OBJECTIVE: Vital Signs: Blood pressure is 130/86, pulse of 89, respirations 20, temperature 98.2 degrees, the patient is saturating 94%. General: Ms. Singh is a 44-year-old female. She is in bed. Does not seem to be in any distress. HEENT: Mucosa is pink and moist. Anicteric. Acyanotic. Neck: Supple. Chest: Air entry is bilaterally reduced. Some crackles in the posterior lung durham. Cardiovascular: Regular rate and rhythm. Abdomen: Soft. It is distended. It is very tympanic. Bowel sounds are extremely hypoactive. There is an ostomy on the right side, which has some fecal output. There is also an old surgical scar in the anterior abdominal wall. Tam catheter is in place. COMPLETIONS MANAGER: The patient is awake, but nonverbal. Will move extremities. She looks slightly less interactive than yesterday. LABORATORY DATA: WBC is 10.33, hemoglobin is 7.6, platelet count of 239. Chemistry is also reviewed. Creatinine is up to 5.6, BUN is 56. IMAGING STUDIES: This morning, a chest x-ray suggests severe worsening bilateral dense infiltrate, probably a right small pleural effusions. We followed it up with a CT scan, which did show worsening pneumonia, atelectasis, and fluid collection. There was a near- complete collapse of both lower lobes, particularly in the right lower lobe. There are pulmonary opacities, much worse in the lower lobes. The pleural fluid collections are worse. There is also ascites, which is worse. ASSESSMENT: 1. Fluid overload. CT scan this morning seems to suggest bilateral, at least moderate pleural effusions. The patient also has some ascites. Her Lasix was discontinued yesterday because of worsening renal functions. Will follow up with further recommendations from Nephrology. 2. Acute hypoxemic and hypercarbic respiratory failure on presentation. This has improved. However, the patient's chest x-ray suggests worsening atelectasis, pneumonias, and pleural effusions. 3. Bilateral pneumonia, presumably aspiration. The patient is on Zosyn and Zyvox. A CT scan this morning seems to suggest worsening. I would be tempted to start her on carbapenems to cover for extended spectrum beta-lactamase pneumonia. However, Ms. Singh also has severe mental retardation and intellectual impairment, and her risk of seizures will be high. I would therefore wait on Infectious Disease to see her today. 4. Coffee-ground emesis. The patient is on proton pump inhibitor. 5. 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 The patient is status post total colectomy with diverting ileostomy. 6. Postoperative ileus. Will continue with management. Surgery is on board. 7. Nutritional support. The patient is on tube feedings. cc: Alcides Monique MD MTDD
[2019-08-05] MEDS: SEROQUEL PO SCH ×3 (12:17→20:23)
--- NOTE | 2019-08-05 12:17 | NEPHROLOGY PROGRESS NOTE ---
DATE: 08/05/2019 TIME SEEN: 0650. SUBJECTIVE: Ms. Singh is resting quietly in bed. She opens her eyes to verbal stimuli and tactile stimuli. Otherwise remains nonverbal. OBJECTIVE: Vital Signs: Temperature 98 degrees, blood pressure 118/85, heart rate 84, respirations 19. She is on 2 L nasal cannula. Last recorded saturation 93%. She has had 1475 in. She has had 400 mL documented out. Labs: Sodium is 139, potassium is 4.5, chloride is 88, CO2 is 31, BUN 56, creatinine 5.6, glucose 107, her anion gap is 20, calcium 10.4, magnesium 2.2. White count 10.33, hemoglobin 7.6, hematocrit 24.8, her platelet count is 239,000. Physical Examination: General: This is a 44-year-old, white female resting quietly in bed. She appears chronically ill. She is in no acute distress. Skin is warm and dry. HEENT: Normocephalic and atraumatic. Conjunctivae are pale with resistance to looking at her pupils. Mucous membranes are dry. NG tube remains in place with tube feedings. Cardiovascular: She is regular rate and rhythm. S4 is present. Lungs: Clear to auscultation on the anterior surface. Diminished breath sounds bilaterally. Remains on O2. Abdomen: Soft. Hypoactive bowel sounds. Colostomy in place to the right lower quadrant, brown liquid, intact. Genitourinary: Not inspected. Tam catheter is in place. Adequate urine output is documented. Extremities: Have trace edema. No clubbing or cyanosis. PICC line remains intact to the right upper arm. Neurological: As mentioned above. ASSESSMENT AND PLAN: 1. Acute kidney injury. This is multifactorial. Patient's BUN and creatinine have continued to climb over the last 3 to 4 days. Urine output has picked up slightly with diminished amount out of her colostomy. BUN today is 56 with a creatinine of 5.6. We will wait to talk to the group social worker before any initiation of any type of intervention today. 2. Electrolytes and acid-base balance. These are acceptable. She remains slightly alkalotic. 3. Anemia. Hemoglobin has continued to drop. Hemoglobin now down to 7.6. Positive occult blood in stools and in her emesis. 4. Status post megacolon secondary to colon inertia, postoperative colectomy. Followed by surgery and the primary care. 5. Pneumonia. Followed by surgery and the primary care. Her CXR suggests pulmonary edema. I ordered fluids to see if this would help her renal disease. Otherwise, she will likely meet criteria for dialysis tomorrow. Karen Montelongo spoke with the sister who will come to the hospital tomorrow. Karen does not expect that the sister will accept CONVERTING OPERATOR. rg I would like to thank you for allowing us to follow with this patient. Dictated by ROGER Gallardo for Tommy Harrison MD Face to face encounter, data reviewed, discussed with Ling Fajardo on 08/05/19. I agree with the above assessment and plan of care. rg cc: ROGER Gallardo MD [facility]
[2019-08-05] MEDS ORDERED: ZITHROMAX 500 MG/NS 500 MG/250 ML IVPB IV SCH (17:00)
[2019-08-05] MEDS: REMERON SOLTAB PO SCH ×2 (19:54→20:23)
[2019-08-05] MEDS: RISPERDAL PO SCH ×2 (19:54→20:24)
[2019-08-05] MEDS: TEFLARO 200 MG in NS 250 ML IV SCH ×2 (19:55→20:23)
[2019-08-06] MEDS: NS 1,000 ML IV SCH ×2 (00:38→05:23)
--- NOTE | 2019-08-06 02:01 | INFECTIOUS DISEASE PROGRESS NO ---
DATE: 08/05/2019 PRESENT ILLNESS: Ms Singh is being treated for a bilateral pneumonia which, on CT, seems to be worsening today. She also has an immunoglobulin deficiency. There is also an acute kidney injury. The patient is status post total abdominal colectomy for toxic megacolon. MEDICATIONS: She has been receiving IV Zyvox 600 mg every 12 hours, and Zosyn 2.25 g IV every 6 hours for the last week. PHYSICAL EXAMINATION: Vital Signs: Temperature is 98 degrees, pulse rate 87, respiratory rate 9, blood pressure 151/104. O2 saturation is 94% on 5 L nasal cannula. General: This is a chronically ill-appearing, obese, middle-aged female. She is lying in bed, currently in no acute distress. HEENT: There is an NG tube in place. She is receiving tube feedings. I was unable to visualize the oral vestibule. Conjunctiva are pale. Neck: Supple. Trachea is midline. Cardiovascular: Heart rate and rhythm are regular with a normal sinus rhythm on the monitor. Respiratory: She is having periods of apnea. Lung sounds are bilaterally diminished. Abdomen: Soft, obese, and nontender to palpation. Bowel sounds are audible. There is a right-sided ostomy with liquid brown stool in the bag. She also has a midline abdominal scar which is mostly healed with small areas of eschar noted along the line. Neurologic: She is awake and alert. She will make eye contact, but is nonverbal and will not follow commands. She is moving her extremities in the bed with generalized weakness. LABORATORY AND X-RAY: Today her white count is 10.33, hemoglobin 7.6, platelet count 239,000. Creatinine is 5.6, GFR is 8. ProBNP is greater than 35,000. Blood cultures have shown no growth since admission. Chest CT today shows worsened pneumonia, atelectasis, and fluid collections. Chest x-ray shows severe worsening bilateral dense infiltrates. ASSESSMENT AND PLAN: Ms. Singh has been receiving Zosyn and Zyvox for her pneumonia for the last week with worsening pneumonia. At this point, we will discontinue current antibiotics and instead start her on Zithromax 500 mg IV daily and ceftaroline 200 mg IV every 12 hours, as a renally modified dose. These plans have been discussed with and recommended by Dr. Mchugh. COMORBIDITIES: For Ms. Singh include acute kidney injury, anemia, cerebral palsy, and gastroesophageal reflux disease. Dictated by ROGER Booth for Javier Mchugh MD cc: Javier cMhugh MD [facility]
[2019-08-06] MEDS: XOPENEX NEB INH SCH ×2 (03:34→08:04)
[2019-08-06] MEDS: ATROVENT NEB INH SCH ×2 (03:34→08:04)
[2019-08-06] MEDS: LOPRESSOR PO SCH (05:23)
[2019-08-06] MEDS: SYNTHROID PO SCH ×2 (05:23→06:15)
[2019-08-06 06:51] LABS: BASO# 0.03 X1000 (0.0-0.2); BASO% 0.4 % (0.0-0.8); EOS# 0.43 X1000 (0.0-0.7); EOS% 5.1 % (0.0-10.0); HEMATOCRIT 24.5 % (37.0-47.0); HEMOGLOBIN 7.6 g/dL (12.0-16.0); IMM GRAN% 1.2 % (0.0-0.5); LYMPH# 1.33 X1000 (1.2-3.4); LYMPH% 15.7 % (20.5-51.1); MCH 29.3 PG (27-31); MCV 94.6 FL (81-99); MONO# 0.53 X1000 (0.11-0.59); MONO% 6.3 % (1.7-9.3); MPV 10.8 FL (7.4-10.4); NEUT# 6.03 X1000 (1.4-6.5); NEUT% 71.3 % (42.2-75.2); PLT 281 X1000 (130-400); RBC 2.59 XMIL (4.2-5.4); RDW 13.4 % (11.5-14.5); WBC 8.45 X1000 (4.8-10.8)
[2019-08-06 07:09] LABS: CALCIUM 10.5 mg/dL (8.8-10.2); CREATININE 6.1 mg/dL (0.5-0.9); POTASSIUM 4.4 mmol/L (3.5-5.1)
[2019-08-06] MEDS: MUCOMYST 20% INH SCH (08:04)
--- NOTE | 2019-08-06 09:13 | GENERAL SURGERY PROGRESS NOTE ---
DATE: 08/06/2019 SUBJECTIVE: The patient seems to be doing about the same. Reviewed her labs from yesterday. She is having urinary output, but it did decrease yesterday, but she is still having ileostomy output. Her labs seem to suggest some degree of congestive heart failure because her BNP is significantly elevated. They did get a CT scan that showed fluid collections bilaterally in her chest. At this time, awaiting recommendations from Nephrology, but otherwise we will continue to follow. cc: Clint Lange MD
[2019-08-06] MEDS ORDERED: ATROPINE 1 % OPHTH SOLN SL PRN (10:09)
[2019-08-06] MEDS ORDERED: ZOFRAN IV PRN (10:11)
[2019-08-06] MEDS ORDERED: TYLENOL PR PRN (10:11)
[2019-08-06] MEDS: DEPAKENE LIQUID PO SCH ×4 (10:28→22:12)
[2019-08-06] MEDS: ANUSOL-HC CREAM PR SCH ×3 (10:29→22:12)
[2019-08-06] MEDS: ATIVAN IV PRN ×2 (11:09→14:25)
--- NOTE | 2019-08-06 12:48 | PROGRESS NOTE ---
DATE: 08/06/2019 SUBJECTIVE: This morning, Ms. Singh is less interactive. I had a meeting with the palliative nurse and the patient's sister who is her power of claims attorney, a friend of hers, and about 4 ladies from the [facility]. They were all at the bedside today at the time of the encounter. OBJECTIVE: Vital signs: Blood pressure is 144/92, pulse of 83, respirations 20, temperature 98.1 degrees. General: Ms. Singh is a 44-year-old female. She is in bed, mild distress. Mucosa is pink and moist. Anicteric. Acyanotic. Neck: Supple. Chest: Air entry is bilaterally reduced. There are still crackles posteriorly. Cardiovascular: Regular rate and rhythm. Abdomen: Soft, distended, tympanic bowel sounds, extremely hypoactive. There is an ostomy on the right side which has some fecal material. There is also a surgical scar on the anterior abdominal wall. Tam catheter is in place. SOFTWARE SALES CONSULTANT: Patient is extremely drowsy, nonverbal. Will barely open the eyes intermittently to voice. Extremities had bilateral pedal edema and edema on the lateral aspect of the abdominal wall and the upper thighs. LABORATORY DATA: WBC is 8.45, hemoglobin is 7.6, platelet count of 281,000. Chemistry is also reviewed. Creatinine is up to 6.1, BUN is 61. The patient is still slightly alkalotic, minimally elevated gap. Urine output has been just 100 over the 24 hour period. She is currently 19,000 positive balance. ASSESSMENT: 1. Fluid overload, which seems to continue to worsen. 2. Acute kidney injury. Creatinine continues to worsen. Nephrology is on board at this time. Yesterday I discussed the case with Nephrology. They think that dialysis at this point will probably not be good for Ms. Singh. 3. Bilateral pneumonia, presumably aspiration. The patient continues to be on antibiotics. 4. GI bleed with coffee-grounds emesis. Patient is on PPI. 5. 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 Patient is status post total colectomy with diverting ileostomy. 6. Postoperative ileus. PLAN: In general, I think Ms. Singh seems now to be slightly more altered than before. She is less responsive. Her creatinine continues to worsen and she is remarkably fluid overloaded. After discussing the issue with nephrology team yesterday, they are still thinking about the need for renal replacement. However, they seem to think that it would not be of any major benefit on the long-term. I spoke extensively with the family and the [facility] staff this morning. They have yet to make a decision. However, they want Ms. Singh to be a DNR level 1 and they will let us know later on today if they plan to transition her care to just comfort care measures. cc: Alcides Monique MD Addendum: Family and [facility] staff have all decided to make Ms Singh BATH MIXER. We will honor their wish. MTDRocco
--- NOTE | 2019-08-06 15:05 | NEPHROLOGY PROGRESS NOTE ---
DATE: 08/06/2019 TIME SEEN: 0635. SUBJECTIVE: Ms. Singh is resting quietly in bed. She opens her eyes to verbal stimuli and then remains nonverbal and keeps her eyes closed during her exam. OBJECTIVE: Vital Signs: Temperature 98.6 degrees, blood pressure 116/79, heart rate 81, respirations 17. She is on 5 L nasal cannula. Last recorded saturation 94%. She has had 2145 in, 300 out to Tam catheter. LABORATORY DATA: Sodium is 135, potassium 4.4, chloride is 87, CO2 30, BUN 61, creatinine 6.1, glucose 108. Her anion gap is 18. Her calcium is 10.5. BNP is greater than 35,000. White count 8.45, hemoglobin 7.6, hematocrit 24.5 with a platelet count of 281,000. PHYSICAL EXAMINATION: General: This is a 44-year-old white female. She is resting quietly in bed. She appears in no acute distress. Skin: Warm and dry. HEENT: Normocephalic, atraumatic. Conjunctiva is pale. Meet resistance with trying to assess her pupils. Not inspected. Mucous membranes are dry. NG tube remains in place with tube feedings continuing. Cardiovascular: Regular rate and rhythm. S4 is present. Lungs: Clear to auscultation bilaterally. Equal excursion on O2. Abdomen: Large, distended. Colostomy bag to the right lower quadrant, brown material intact, hypo bowel sounds. Genitourinary: Tam catheter is in place, not inspected. Extremities: Continue with trace edema. No clubbing or cyanosis with some deterioration of her body mass. PICC line remains to the upper right arm. Neurological: As above. ASSESSMENT AND PLAN: 1. Acute kidney injury. ATN. The patient's BUN and creatinine have continued to elevate. We have spoken with social studies teacher. It is indicated that her sister is to come into town to evaluate the patient. They feel that at this time they will get an answer to whether we should start dialysis or not. In the meantime, patient has been made a DNR level 1. 2. Electrolytes, acid-base balance. These are acceptable. 3. Anemia. This remains low. The patient does continue with positive occult blood in her stools. 4. Status post megacolon secondary to colon inertia. 5. Pneumonia. This is followed by the primary care. 6. I would like to thank you for allowing us to follow with this patient. The family has decided to forego any escalation of care. Specifically, no dialysis. rg Dictated by ROGER Gallardo for Tommy Harrison MD Face to face encounter, data reviewed, discussed with Ling Fajardo on 08/06/19. I agree with the above assessment and plan of care. rg cc: ROGER Gallardo MD [facility]
[2019-08-06] MEDS: DILAUDID IV PRN (15:39)
[2019-08-07] MEDS: DILAUDID IV PRN (08:49)
[2019-08-07] MEDS: DEPAKENE LIQUID PO SCH ×4 (08:54→22:48)
--- NOTE | 2019-08-07 11:37 | PROGRESS NOTE ---
DATE: 08/07/2019 SUBJECTIVE: This morning, Ms. Singh remains stable. No new complaints, seated at the bedside. I think that she is more comfortable. She was transitioned to comfort care measures yesterday. OBJECTIVE: Vital signs: Blood pressure is 125/94, pulse 84, respiration is 18, temperature is 97.5 degrees. Patient is saturating 94% on 5 L. General: Ms. Singh is a 44-year-old female. She is in bed. She does not seem to be in any distress. She was sleeping, hard to arouse. HEENT: Mucosa was pink and moist. Anicteric. Acyanotic. Neck: Supple. Chest: Air entry is still bilaterally reduced. There are crackles in posterior lung durham. Abdomen: Soft, is distended. There is an ostomy on the right side with fecal material. There is an old surgical scar on the anterior abdominal wall. Tam catheter is in place. Extremities: About 3+ pedal edema. The patient is extremely drowsy. LABORATORY DATA: None for today. PATIENT MEDICATIONS: Include nebulizations, Dilaudid p.r.n., and Ativan. She also has an NG tube for her Depakote because of seizures. ASSESSMENT: 1. Fluid overload. 2. Acute kidney injury secondary to acute tubular necrosis. 3. Bilateral pneumonia, presumably aspiration. 4. Gastrointestinal bleed with coffee-ground emesis. 5. 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 Patient is status post total colectomy with diverting ileostomy. 6. Postoperative ileus. 7. Acute hypoxemic respiratory failure. Current status is DNR level 1 and ADMINISTRATIVE ANALYST. We are going to continue to observe the comfort care measures. cc: Alcides Monique MD
--- NOTE | 2019-08-07 11:41 | GENERAL SURGERY PROGRESS NOTE ---
DATE: 08/07/2019 SUBJECTIVE: Reviewed notes. Sounds like the patient is going to comfort care. We will follow peripherally from now on. cc: Clint Lange MD
[2019-08-07] MEDS: ANUSOL-HC CREAM PR SCH ×3 (12:50→22:48)
[2019-08-08] MEDS: DILAUDID IV PRN ×3 (02:12→13:15)
[2019-08-08] MEDS: ANUSOL-HC CREAM PR SCH ×2 (09:46→17:22)
[2019-08-08] MEDS: DEPAKENE LIQUID PO SCH ×3 (09:47→17:22)
[2019-08-08 12:11] VITALS: BP 53/32
--- NOTE | 2019-08-08 15:30 | PROGRESS NOTE ---
DATE: 08/08/2019 SUBJECTIVE: This morning Ms. Singh continues to be nonresponsive. There were 2 sitters at the bedside at the time of the encounter. They did tell me that Ms Singh became slightly agitated yesterday and she seems to be worse when she got the Ativan, so they discontinued the Ativan. This morning, she is a lot less responsive. OBJECTIVE: Vital signs: Blood pressure was 53/32, pulse 91, respiration is 22, temperature 99.9 degrees. Patient was saturating about 66%. General: Ms. Singh is a 44-year-old female. She is in bed, unresponsive. HEENT: Mucosa is slightly pale and ashy in the extremities. Chest: Air entry was bilaterally reduced with crackles. Cardiovascular: Regular rate and rhythm. Abdomen: Soft, distended. Ostomy is in the right side with fecal material. There is an old surgical scar on the anterior abdominal wall. Catheter was in place. Extremities: About 3+ pedal edema. TILT WALL SUPERVISOR: Patient is unresponsive to even painful stimulus. Her pupils are about 4 mm dilated bilaterally and not reactive to light. ASSESSMENT: 1. Acute renal failure secondary to ATN with no recovery. 2. Fluid overload. 3. Acute hypoxemic respiratory failure secondary to bilateral pneumonia. 4. Severe toxic megacolon due to colon inertia. Patient is status post colectomy with diverting ileostomy. 5. Postoperative ileus. 6. Unresponsiveness secondary to acute encephalopathy. 7. Signs of active dying. The patient continues to be on WAREHOUSE RECEIVING SUPERVISOR and DNR. cc: Alcides Monique MD
--- NOTE | 2019-08-08 19:08 | DISCHARGE SUMMARY ---
ADMISSION DATE: 06/20/2019 DISCHARGE DATE: 08/08/2019 DATE OF : 08/08/2019. TIME OF : 3:32 p.m. The patient was pronounced by 2 attending nurses. ADMISSION DIAGNOSES: 1. Severe fecal impaction. 2. Leukocytosis, most likely reactive. 3. Presyncopal episode. DIAGNOSES AT THE TIME OF : 1. Acute hypoxemic respiratory failure. 2. Bilateral aspiration pneumonia. 3. Acute renal failure secondary to acute tubular necrosis with no recovery. 4. Fluid overload. 5. Severe toxic megacolon due to colon inertia. Patient was status post total abdominal colectomy with diverting ileostomy. 6. Postoperative eye ileus. 7. Unresponsiveness due to acute encephalopathy. CONSULTATIONS DURING THIS ADMISSION: 1. Neurology was consulted. The patient was seen by Dr. Heath. 2. Nephrology was consulted. The patient was seen by Dr. Harrison. 3. Pulmonary Medicine was consulted patient was seen by Dr. Dowd. 4. GI was consulted. The patient was seen by Dr. Lara. 5. Surgery was consulted. The patient was seen by IMAGING STUDIES DURING THIS ADMISSION.: 1. Multiple imaging studies were done. INVASIVE PROCEDURES DONE DURING THIS ADMISSION: 1. Open total abdominal colectomy was done by Dr. Lange on 06/22/2019. 2. Ileoscopy via stoma and biopsy was done by GI, Dr. Ortega, on 07/10/2019. PRESENTING COMPLAINT: Near syncopal episode, generalized weakness after having bowel movement. HISTORY OF PRESENTING COMPLAINT: Ms. Singh is a 44-year-old female who has severe intellectual impairment, rectal prolapse, and cerebral palsy. [facility] lives at a [facility]. [facility] initially because of syncopal episode after a bowel movement. Upon presentation, patient was evaluated and was found to have an elevated white cell count, dilated colon, and fecal impaction. Was subsequently admitted for further medical care. However, after a short hospital course in [place], she was transferred to [facility] for higher level of care. HOSPITAL COURSE: Ms. Singh was admitted to the intensive care unit. Was found to have some toxic megacolon. Surgery was subsequently done. A total colectomy with a diverting ileostomy was done. Postoperatively she did develop acute hypoxemic respiratory failure. She was intubated for some time. At some point, she became successfully extubated after about a week on the ventilator and was transitioned to BiPAP. She was also seen by multiple subspecialties because of multiple complications during the hospital course, including pneumonia, respiratory failure, and extremely dilated small bowel. At the later part of her hospital stay, Ms. Singh subsequently also developed renal failure and was evaluated by Nephrology. It appeared that her kidney functions did not improve at all during the later part of her hospital stay. She became remarkably fluid overloaded. Her creatinine continued to climb. It went about 6.1 with low sodium. Multiple encounters where were sustained with the [facility] providers as well as the patient's family member (a sister). I personally met with both groups at the same time with the palliative nurse, and after our meeting, the family decided to make Ms. Singh a DNR level 1 and comfort care measures. All management at that point was changed to only comfort care measures. Ms. Singh was subsequently transferred from [facility] to the medical floor. I saw her this morning. She was actively showing signs of . I did notify the family members about what the physical exam was showing. Unfortunately, later on this afternoon at about 3:32 p.m., Ms Singh was found by the attending nurse. She had no respiratory efforts, no heartbeat, no response to painful stimulation. She looked ashy. Her pupils were very dilated and nonreactive, and she did not show any signs of vitality. She was subsequently pronounced by the 2 attending nurses, and the family members have been notified. cc: MD ISABELLE Starkey
== END 2019-08-08 15:32 | disposition expired | DRG 329 ==
LOC: P.ED 18:52 → P.MEDSURG 06-20 03:59 → SUATTDRO 06-20 03:59 → 4N 06-22 10:52 → ICU 07-01 18:32 → 2N 07-02 22:01 → ICU 07-04 18:59 → 2N 07-18 17:14 → 3N 08-06 13:53
PROVIDERS: ATTEND Internal Medicine
PROC: [UNRECOGNIZED PROCEDURE] (2019-07-10 13:30)